=== PATIENT | male | born 1965 | race Caucasian/White ===

== ENCOUNTER 2017-07-08 17:53 | Emergency (ER) | payer MEDICARE, SELFPAY ==
[2017-07-08 17:54] VITALS: BP 144/93; PULSE 80; RESP 18; TEMP 36.3; O2SAT 93; BMI 36.8
--- NOTE | 2017-07-08 18:55 | RAD_ITS ---
XR Chest 2 Views INDICATION: SOB, SEEN AT URGENT CARE ON THURSDAY. DX WITH BRONCHITIS, CLOSE TO PNE. GIVEN ATB AND PREDNISONE. COUGHING UP GREEN AND BLOOD PHLEGM. C/O LUNG PAIN COMPARISON: None FINDINGS: Heart size and pulmonary vascularity are within normal limits. The lungs are clear without evidence of airspace consolidation or pleural effusion. The osseous structures are grossly unremarkable. RAD/Chest PA and Lateral IMPRESSION: No radiographic evidence of acute intrathoracic disease. at 1922 Reported and signed by: Yris Seth MD Electronically Signed: Yris Seth MD at 19:20 EDT Tel , Service support ,
[2017-07-08 19:07] VITALS: PULSE 80; RESP 20; O2SAT 94
[2017-07-08] MEDS: Albuterol 2.5 MG/3 ML VIAL.NEB. INHALATION ×3 (19:07)
[2017-07-08] MEDS: Ipratropium/Albuterol Sulfate 3 ML AMPUL.NEB INHALATION (19:07)
--- NOTE | 2017-07-08 19:13 | ED.VISSUMM ---
- ER Visit Summary Date of Service: 07/08/17 Chief Complaint: Cough, shortness of breath History of Present Illness: The patient is a 52 M history of asthma and bipolar disorder presents with cough and shortness of breath. Patient states his symptoms began over the weekend. He was having cough with productive sputum. He states he went to urgent care on Thursday morning. He states he was diagnosed with bronchitis. He was placed on prednisone and doxycycline. He feels like is not getting any better. He thinks he may still have fevers but has not taken his temperature. He has had persistent productive sputum. He denies any chest pain. He denies hemoptysis. He denies orthopnea. He denies any recent history of pneumonia. He has had no recent travel. He does smoke. Physical Examination: Vital signs reviewed General: Well-nourished, well-developed Head: Normocephalic, atraumatic Eyes: Pupils equal and reactive, extraocular muscles intact Neck, supple, no lymphadenopathy Heart: Regular rate and rhythm Respiratory: Wheezing in all lung correa Abdomen: Soft, nontender, nondistended, no peritoneal signs Back: Nontender Extremities: Nontender, no edema, no cords Skin: Normal color no rash Neuro: Alert and oriented, no focal or lateralizing deficits Test Results: [] Emergency Department Course and Treatment: The patient was given breathing treatments with improvement of his aeration. Chest x-ray is obtained. There is no focal infiltrate or process. He is not hypoxic. He is not tachypneic. I do still feel that this is more consistent with infectious bronchitis. I counseled the patient that this is going to take more time for him to improve. He will continue outpatient therapy. He will continue to use his inhaler every 4 hours for the next 48 hours. I will add Tessalon Perles. He will be discharged home. Treatment Plan: [] Disposition: Discharge Impression: Acute infectious bronchitis This note was generated with [employer] dictation software. It may contain incorrect words, spelling, and punctuation that were not noted in review of the chart prior to signing ED Disposition - Plan for ED Patient: Disposition: Home or Assisted Living Chief Complaint: Shortness of Breath Instructions: ED Upper Resp Infec Abx Tx Prescriptions: Benzonatate [Tessalon Perle] 200 mg PO TID PRN PRN #20 cap PRN Reason: Cough Referrals: Baldo Otto MD [Primary Care Provider] -
[2017-07-08 19:20] VITALS: PULSE 90; RESP 20; O2SAT 96
[2017-07-08 20:20] VITALS: RESP 20; O2SAT 98
== END 2017-07-08 20:21 | disposition home or self-care (01) ==
LOC: ED 18:59
PROVIDERS: Emergency Provider Emergency Medicine; Family Provider Family Medicine; PCP Family Medicine
DX: J20.8 Acute bronchitis due to other specified organisms (principal); R06.00 Dyspnea, unspecified; J45.909 Unspecified asthma, uncomplicated; F31.9 Bipolar disorder, unspecified; E78.00 Pure hypercholesterolemia, unspecified; Z79.82 Long term (current) use of aspirin; Z79.899 Other long term (current) drug therapy; Z72.0 Tobacco use
CPT/HCPCS: 71046; 94640; 99282

== ENCOUNTER 2017-09-17 22:03 | Emergency (ER) | payer MEDICARE, SELFPAY ==
[2017-09-17 22:05] VITALS: BP 133/86; PULSE 86; RESP 20; TEMP 36.6; O2SAT 98; BMI 37.1
--- NOTE | 2017-09-17 22:20 | RAD_ITS ---
STUDY: X-RAY CHEST REASON FOR EXAM: Male, 52 years old. Chest pain TECHNIQUE: Frontal view of the chest COMPARISON: 07/08/2017 FINDINGS: The lungs are clear. There are no pleural effusions. There is no pneumothorax. The heart is normal in size. The visualized osseous structures are within normal limits. RAD/Chest 1 View (Portable) IMPRESSION: No acute thoracic pathology. Electronically Signed: Pino Mabry, at 22:33 EDT Tel , Service support ,
--- NOTE | 2017-09-17 22:21 | EKG12_ITS ---
Test Reason : CP Blood Pressure : / mmHG Vent. Rate : 087 BPM Atrial Rate : 087 BPM P-R Int : 156 ms QRS Dur : 092 ms QT Int : 356 ms P-R-T Axes : 042 051 056 degrees QTc Int : 428 ms Normal sinus rhythm Low voltage QRS Borderline ECG Confirmed by JOHNATHON WILLS, JULISSA ([id number]), market editor NATALIA DEL CID ([id number] on 09/21/2017 3:04:00 PM Referred By: MIHAELA Confirmed By:JULISSA DIEGO MD
[2017-09-17] MEDS: Aspirin 81 MG TAB.CHEW 324 MG PO (22:28)
[2017-09-17] MEDS: Morphine 4 MG/ML Syringe IV (22:29)
[2017-09-17] MEDS: Ondansetron 4 MG/2 ML Vial IV (22:29)
[2017-09-17 22:35] LABS: Absolute Lymphocyte Count 2.17 X10^3/ul (0.83-4.51); Absolute Neutrophil Count 4.8 X10^3/uL (2.0-7.7); Basophil# 0.02 X10^3/uL; Basophil% 0.2 % (0-1); Eosinophil# 0.19 X10^3/uL; Eosinophils% 2.3 % (0-5); Hematocrit 39.2 % (40-54); Hemoglobin 12.7 g/dl (13.0-16.5); Lymphocyte # 2.17 X10^3/ul (4.0); Lymphocyte % 26.3 % (19-41); Mean Corp Hgb Conc 32.4 g/gl (32-36); Mean Corpuscular Hgb 27.1 pg (27.0-32.0); Mean Corpuscular Volume 83.8 fL (80-94); Mean Platelet Vol. 9.2 fl (6.2-12.0); Monocyte# 1.06 X10^3/uL; Monocyte% 12.8 % (0-10); Neutrophil % 58.3 % (47-70); Platelet Count 266 K/mm3 (150-450); RBC Distribution Width CV 13.9 % (11.6-14.6); RBC Distribution Width SD 42.1 fl (35.1-43.9); Red Blood Count 4.68 M/mm3 (4.6-6.2); White Blood Count 8.3 K/mm3 (4.4-11.0)
[2017-09-17 22:41] LABS: POSITIVE COUNT NO; POSITIVE DIFFERENTIAL NO; POSITIVE MORPHOLOGY NO
[2017-09-17 22:47] LABS: Anion Gap 8 (5-15); BUN 9 mg/dL (7-18); BUN/Creat Ratio 9.4 RATIO (10-20); Calcium,Total 8.6 mg/dL (8.5-10.1); Chloride 108 mmol/L (98-107); Creatinine, Serum 0.96 mg/dL (0.70-1.30); EST Glomerular Filtration Rate 88 mL/min (>60); Est Glom Filt Rate - Afr Amer 106 mL/min (>60); Estimated Creatinine Clearance 110.51 ml/min; Glucose 116 mg/dL (74-106); Potassium 3.6 mmol/L (3.5-5.1); Sodium Level 140 mmol/L (136-145)
[2017-09-17 23:07] VITALS: BP 119/74; PULSE 92; RESP 18; O2SAT 94
--- NOTE | 2017-09-17 23:26 | ED.DCSUM_ITS ---
- ER Visit Summary Date of Service: 09/17/17 Chief Complaint: Chest pain History of Present Illness: The patient is a 52 M presenting with chest pain which has been intermittent since 4:30 PM. This is a heaviness in the mid chest which radiates to his left shoulder and arm. He has diaphoresis, nausea, shortness of breath associated with this. He states it is worsened with exertion and relieved with rest. He has history of hypertension, diabetes, hypercholesterolemia. Previous DVT. No other PE/DVT risk factors. Physical Examination: Vitals are stable. Patient is afebrile. Alert no acute distress. HEENT exam is unremarkable. Neck is supple. Lungs are clear and equal bilaterally. Heart is regular rate and rhythm. Abdomen is soft nontender nondistended. Extremities are unremarkable. Skin is warm and dry. No focal neurologic deficit. Remainder of exam is unremarkable. Emergency Department Course and Treatment: EKG is normal sinus rhythm rate of 87 with no acute ischemic changes. Chest x-ray shows no acute process. CBC, chemistries unremarkable. Troponin is negative. D-dimer is negative. Patient given aspirin, morphine on arrival. Discussed with the hospitalist for observation. Records were further reviewed. Patient had a cardiac cath in January 2017 which showed normal coronaries. Delta troponin will be obtained and checked out to the oncoming physician. Disposition: Pending lab results Impression: Chest pain This note was generated with [employer] dictation software. It may contain incorrect words, spelling, and punctuation that were not noted in review of the chart prior to signing ED Disposition - Plan for ED Patient: Chief Complaint: Chest Pain Referrals: Baldo Otto MD [Primary Care Provider] -
--- NOTE | 2017-09-17 23:45 | ED.DEP ---
ED Disposition - Plan for ED Patient: Chief Complaint: Chest Pain Instructions: ED Chest Pain Atypical Unkn Cause Referrals: Baldo Otto MD [Primary Care Provider] - Asher Sierra MD [STAFF PHYSICIAN] -
[2017-09-18 00:05] VITALS: BP 136/82; PULSE 86; RESP 16; O2SAT 97
[2017-09-18 01:19] VITALS: BP 130/80; PULSE 76; RESP 16; O2SAT 96
[2017-09-18 02:04] VITALS: BP 119/79; PULSE 71; RESP 18; O2SAT 97
[2017-09-18 02:14] VITALS: BP 128/72; PULSE 87; RESP 16; O2SAT 97
== END 2017-09-18 02:15 | disposition home or self-care (01) ==
LOC: ED 22:52
PROVIDERS: Emergency Provider Emergency Medicine; Family Provider Family Medicine; PCP Family Medicine
DX: R07.9 Chest pain, unspecified (principal); R61 Generalized hyperhidrosis; R11.0 Nausea; R06.00 Dyspnea, unspecified; R42 Dizziness and giddiness; I25.10 Atherosclerotic heart disease of native coronary artery without angina pectoris; I25.2 Old myocardial infarction; E11.9 Type 2 diabetes mellitus without complications; I10 Essential (primary) hypertension; E78.00 Pure hypercholesterolemia, unspecified; Z86.718 Personal history of other venous thrombosis and embolism; Z79.82 Long term (current) use of aspirin; Z79.899 Other long term (current) drug therapy
CPT/HCPCS: 71045; 80048; 84484; 85025; 85379; 93005; 96374; 96375; 99285; A4216; J2405

== ENCOUNTER 2017-10-27 16:57 | Emergency (ER) | payer MEDICARE, SELFPAY ==
[2017-10-27 16:58] VITALS: BP 133/83; PULSE 81; RESP 18; TEMP 36.7; O2SAT 98; BMI 37.0
--- NOTE | 2017-10-27 18:00 | RAD_ITS ---
STUDY: X-RAY CHEST REASON FOR EXAM: Male, 52 years old. Chest pain TECHNIQUE: Frontal view of the chest COMPARISON: 09/17/2017 FINDINGS: The lungs are clear. There are no pleural effusions. There is no pneumothorax. The heart is normal in size. The visualized osseous structures are within normal limits. RAD/Chest 1 View (Portable) IMPRESSION: No acute thoracic pathology. Electronically Signed: Pino Mabry, at 18:46 EDT Tel , Service support ,
[2017-10-27] MEDS: 0.9% Normal Saline 1,000 ML 150 ML IV (18:05)
[2017-10-27] MEDS: Morphine 4 MG/ML Syringe IV (18:05)
[2017-10-27] MEDS: Ondansetron 4 MG/2 ML Vial IV (18:05)
[2017-10-27 18:08] VITALS: BP 101/75; PULSE 72; RESP 25; O2SAT 98
[2017-10-27 18:13] LABS: Absolute Lymphocyte Count 1.76 X10^3/ul (0.83-4.51); Absolute Neutrophil Count 4.5 X10^3/uL (2.0-7.7); Basophil# 0.02 X10^3/uL; Basophil% 0.3 % (0-1); Eosinophil# 0.21 X10^3/uL; Eosinophils% 2.9 % (0-5); Hematocrit 38.7 % (40-54); Hemoglobin 12.5 g/dl (13.0-16.5); Lymphocyte # 1.76 X10^3/ul (4.0); Lymphocyte % 24.1 % (19-41); Mean Corp Hgb Conc 32.3 g/gl (32-36); Mean Corpuscular Hgb 27.6 pg (27.0-32.0); Mean Corpuscular Volume 85.4 fL (80-94); Mean Platelet Vol. 9.5 fl (6.2-12.0); Monocyte# 0.81 X10^3/uL; Monocyte% 11.1 % (0-10); Neutrophil # 4.48 X10^3/uL (2.7-7.7); Neutrophil % 61.5 % (47-70); Platelet Count 247 K/mm3 (150-450); RBC Distribution Width CV 13.7 % (11.6-14.6); RBC Distribution Width SD 42.9 fl (35.1-43.9); Red Blood Count 4.53 M/mm3 (4.6-6.2); White Blood Count 7.3 K/mm3 (4.4-11.0)
[2017-10-27 18:18] LABS: POSITIVE COUNT NO; POSITIVE DIFFERENTIAL NO; POSITIVE MORPHOLOGY NO
[2017-10-27 18:25] LABS: Anion Gap 7 (5-15); BUN 11 mg/dL (7-18); BUN/Creat Ratio 10.8 RATIO (10-20); Calcium,Total 8.6 mg/dL (8.5-10.1); Chloride 107 mmol/L (98-107); Creatinine, Serum 1.02 mg/dL (0.70-1.30); EST Glomerular Filtration Rate 81 mL/min (>60); Est Glom Filt Rate - Afr Amer 98 mL/min (>60); Estimated Creatinine Clearance 104.01 ml/min; Glucose 97 mg/dL (74-106); Potassium 3.5 mmol/L (3.5-5.1); Sodium Level 141 mmol/L (136-145)
[2017-10-27 19:10] VITALS: BP 109/83; PULSE 73; RESP 20; O2SAT 98
[2017-10-27 20:02] VITALS: BP 106/73; PULSE 64; RESP 20; O2SAT 96
[2017-10-27 21:32] VITALS: BP 119/97; PULSE 67; RESP 16; O2SAT 99
--- NOTE | 2017-10-27 22:13 | ED.VISSUMM ---
- ER Visit Summary Date of Service: 10/27/17 Chief Complaint: Chest pain History of Present Illness: The patient is a 52 M who reports feeling cold and clammy earlier today. About 2 hours prior to evaluation he states he got tightness and heaviness in his left upper chest. He does take a full size aspirin every morning. Patient has a history of hypertension, diabetes, high cholesterol, and family history of heart disease. He tells me he had a heart attack in 1991. He does not have any heart stents. Patient reportedly had an abnormal stress test in January of last year but had a heart cath that showed clean coronaries. Patient was seen for the same on September 17. Physical Examination: Vital signs are unremarkable. Patient sitting upright in bed no acute distress. Head neck examination is normal. Heart is regular rate and rhythm. Lung sounds are clear. Chest wall is nontender. Abdomen is soft and nontender. Lower extremity examination was no significant calf tenderness. Strong distal pulses are noted throughout. Test Results: CBC was normal white count with hemoglobin 12.5. Chemistry studies normal. Troponin is negative. EKG is sinus at 79 with no sign of acute ischemia. Portable chest x-ray shows no acute pathology. Emergency Department Course and Treatment: Patient was given a single dose of morphine and Zofran here. On repeat evaluation he feels improved. I spoke with the patient's railroad design consultant, Dr. Bam Sierra. He recommended 3 hour rule out and if negative he can follow-up in the office. Repeat troponin remains less than 0.015 and repeat EKG is unchanged. Treatment Plan: [] Disposition: Discharge Impression: Chest pain This note was generated with [employer] dictation software. It may contain incorrect words, spelling, and punctuation that were not noted in review of the chart prior to signing ED Disposition - Plan for ED Patient: Chief Complaint: Chest Pain Referrals: Baldo Otto MD [Primary Care Provider] -
--- NOTE | 2017-10-27 22:15 | ED.DEP ---
ED Disposition - Plan for ED Patient: Disposition: Home or Assisted Living Chief Complaint: Chest Pain Instructions: ED Chest Pain Atypical Unkn Cause Referrals: Asher Sierra MD [STAFF PHYSICIAN] - As soon as possible
[2017-10-27 22:26] VITALS: BP 111/75; PULSE 77; RESP 16; O2SAT 97
== END 2017-10-27 22:27 | disposition home or self-care (01) ==
PROVIDERS: Emergency Provider Emergency Medicine; Family Provider Family Medicine; PCP Family Medicine
DX: R07.89 Other chest pain (principal); R06.00 Dyspnea, unspecified; R61 Generalized hyperhidrosis; I25.2 Old myocardial infarction; E11.9 Type 2 diabetes mellitus without complications; I10 Essential (primary) hypertension; E78.00 Pure hypercholesterolemia, unspecified; F31.9 Bipolar disorder, unspecified; F20.9 Schizophrenia, unspecified; Z87.19 Personal history of other diseases of the digestive system; Z87.11 Personal history of peptic ulcer disease; Z79.82 Long term (current) use of aspirin; Z79.899 Other long term (current) drug therapy
CPT/HCPCS: 71045; 80048; 84484; 85025; 93005; 96361; 96374; 96375; 99284; J7030; A4216; J2405

== ENCOUNTER 2017-11-05 19:51 | Observation (INO) | payer MEDICARE, SELFPAY ==
[2017-11-05] VITALS (15 sets, daily range): BP systolic 115–142; BP diastolic 72–103; PULSE 77–88; RESP 14–27; TEMP 36.7–36.8; O2SAT 94–99; BMI 37.2; BMI 36.3; BMI 36.4
--- NOTE | 2017-11-05 20:13 | ED.RN ---
PT REPORTS SX STARTED APPROX. 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 THIS RN SPOKE WITH DR. RODRIGUEZ ABOUT PT SX.
--- NOTE | 2017-11-05 20:23 | ED.RN ---
neurology paged at this time
[2017-11-05 20:29] LABS: Absolute Lymphocyte Count 2.23 X10^3/ul (0.83-4.51); Absolute Neutrophil Count 4.7 X10^3/uL (2.0-7.7); Basophil# 0.02 X10^3/uL; Basophil% 0.2 % (0-1); Eosinophil# 0.24 X10^3/uL; Hematocrit 40.7 % (40-54); Hemoglobin 13.1 g/dl (13.0-16.5); Lymphocyte # 2.23 X10^3/ul (4.0); Lymphocyte % 27.5 % (19-41); Mean Corp Hgb Conc 32.2 g/gl (32-36); Mean Corpuscular Hgb 27.5 pg (27.0-32.0); Mean Corpuscular Volume 85.3 fL (80-94); Mean Platelet Vol. 9.3 fl (6.2-12.0); Monocyte# 0.89 X10^3/uL; Neutrophil % 58.1 % (47-70); Platelet Count 259 K/mm3 (150-450); RBC Distribution Width CV 13.6 % (11.6-14.6); Red Blood Count 4.77 M/mm3 (4.6-6.2); White Blood Count 8.1 K/mm3 (4.4-11.0)
[2017-11-05 20:30] LABS: POSITIVE COUNT NO; POSITIVE DIFFERENTIAL NO; POSITIVE MORPHOLOGY NO
[2017-11-05 20:32] LABS: Partial Thromboplast Time 29.2 Seconds (24.1-36.2); Prothrombin Time (Protime)PT. 12.8 SECONDS (11.7-14.9)
[2017-11-05 20:44] LABS: Anion Gap 6 (5-15); BUN 11 mg/dL (7-18); BUN/Creat Ratio 10.2 RATIO (10-20); Calcium,Total 8.7 mg/dL (8.5-10.1); Chloride 106 mmol/L (98-107); Creatinine, Serum 1.08 mg/dL (0.70-1.30); EST Glomerular Filtration Rate 76 mL/min (>60); Est Glom Filt Rate - Afr Amer 92 mL/min (>60); Estimated Creatinine Clearance 98.23 ml/min; Glucose 108 mg/dL (74-106); Sodium Level 139 mmol/L (136-145)
[2017-11-05 20:51] LABS: Bedside Glucose 105 mg/dL (70-110)
--- NOTE | 2017-11-05 22:10 | ED.VISSUMM ---
- ER Visit Summary Date of Service: 11/05/17 Chief Complaint: [Numbness to left side of face and slurred speech] History of Present Illness: The patient is a 52 M [presents the emergency department with complaint of numbness of the left side of his face and slurred speech. Patient states the numbness started about an hour ago and the slurred speech about half an hour ago. Patient also complains of some pain in his left arm. Patient denies any neck pain. He denies any falls or head injuries. He denies any weakness in the extremities. He denies any dizziness or visual changes. Patient has not had symptoms like this before. Patient is a diabetic and has history of hypertension and high cholesterol.] Physical Examination: [HEENT-PERRLA, EOMI. Cranial nerves II through XII grossly intact. TMs clear. Mucous membranes moist. No adenopathy. Cardiovascular-regular rate and rhythm without murmur or ectopy Lungs-clear to auscultation, chest wall stable without crepitus or subcu emphysema Abdomen-normoactive bowel sounds, soft, nontender, no rebound or rigidity, no peritoneal signs. Neuro [id number] and heel higgins testing within normal limits, negative Romberg, negative pronator, fundi benign. On exam patient sensation to left side of his space has normalized. His NIH stroke scale initially was a 2 given for some mild dysarthria and paresthesias the left side of the face. Extremities-intact ?4, normal range of motion, normal pulses, atraumatic] Test Results: [EKG obtained on arrival shows sinus rhythm with a ventricular rate of 84 bpm with no acute ST segment changes. CBC with differential was normal. Chemistries unremarkable. Troponin was less than 0.015. CT scan of the brain without contrast was normal. CTA of the head and neck were unremarkable.] Emergency Department Course and Treatment: [On presentation a stroke team was called however patient was not a TPA candidate due to the low NIH and improving symptoms. On repeat examination at 2210 patient states that his symptoms have normalized and he no longer has slurred speech.] Treatment Plan: [Admit for further workup and evaluation of suspected TIA] Disposition: [Admit] Impression: [TIA] This note was generated with [employer] dictation software. It may contain incorrect words, spelling, and punctuation that were not noted in review of the chart prior to signing ED Disposition - Plan for ED Patient: Chief Complaint: Numb/Ting Referrals: Baldo Otto MD [Primary Care Provider] -
--- NOTE | 2017-11-05 22:14 | PCM.HP.STD ---
Problem List (1) Stroke-like symptoms Status: Acute (2) Bipolar disorder Status: Chronic (3) HTN (hypertension) Status: Chronic (4) Schizophrenia Status: Chronic (5) Atrial fibrillation Status: Chronic History of Present Illness Date of Admission: 11/05/17 Chief Complaint: Strokelike symptoms. The patient is a 52 year old M diabetes mellitus, hypertension, hyperlipidemia and chronic A. fib who presents with left-sided facial numbness and left arm heaviness as well as slurry speech 1 hour before arrival at the emergency department. At emergency department his left-sided facial numbness and left heaviness resolved. And his slurry speech improved. CT of his head; and CTA of his neck and head done at emergency department was unremarkable. Past Medical History Past Medical History (Chronic Problems): Chronic Problems History of DVT (deep vein thrombosis) (Chronic) Bipolar disorder (Chronic) HTN (hypertension) (Chronic) DM type 2 (diabetes mellitus, type 2) (Chronic) Esophageal reflux (Chronic) HLD (hyperlipidemia) (Chronic) Migraine (Chronic) Obesity (Chronic) Obstructive sleep apnea of adult (Chronic) Schizophrenia (Chronic) Atrial fibrillation (Chronic) Hx of cardiac cath (Chronic) 2003 History of GI bleed (Chronic) Peptic ulcer disease (Chronic) Allergies enalapril maleate [From Vasotec] Allergy (Verified 11/05/17 19:54) Hives enalaprilat dihydrate [From Vasotec] Allergy (Verified 11/05/17 19:54) Hives naproxen [From Naprosyn] Allergy (Verified 11/05/17 19:54) Hives Sulfa (Sulfonamide Antibiotics) Allergy (Verified 11/05/17 19:54) Hives risperidone [From Risperdal] Adverse Reaction (Verified 11/05/17 19:54) HALLUCINATIONS Home Medications: Ambulatory Orders Medication Instructions Recorded Albuterol Inhaler [Ventolin Hfa] 1 - 2 puff INHALATION Q4H PRN PRN 06/14/14 Losartan Potassium [Cozaar] 25 mg PO DAILY 06/14/14 Metoprolol Tartrate [Lopressor 100 mg PO BID 06/14/14 (beta yolanda)] Montelukast [Singulair] 10 mg PO QHS 06/14/14 Omeprazole [Prilosec] 40 mg PO DAILY 06/14/14 Paliperidone Palmitate [Invega 234 mg IM Q30D 09/13/16 [place]] Loratadine [Claritin] 10 mg PO QHS 02/05/17 Cyclobenzaprine [Flexeril] 10 mg PO TID PRN PRN 02/17/17 Fluticasone 0.05% [Flonase Nasal 2 spray NASAL DAILY 10/27/17 [place]] Aspirin 325 mg PO DAILY@0800 11/05/17 Atorvastatin Calcium [Lipitor] 20 mg PO QHS 11/05/17 Diphenhydramine HCl [Benadryl 50 mg PO QHS 11/05/17 Allergy] Furosemide [Lasix] 20 mg PO DAILY 11/05/17 Omeprazole [Omeprazole] 40 mg PO BID 11/05/17 Surgical History: appendectomy, cholecystectomy, herniorrhaphy, tonsillectomy Lives: With Family Smoking Status: Former smoker - He smoked 1 pack cigarette for 1 month many years ago and quit. Tobacco Use: Non-smoker Alcohol: None Drugs: None - *Family History Maternal History Items: Asthma, Diabetes, Heart Disease, Hypertension, Stroke Paternal History Items: Cancer Review of Systems Constitutional: Denies: Chills, Fever, Weight Change HEENT: Denies: Head Aches, Sinus Congestion, Sinus Drainage, Visual Changes Cardiovascular: Denies: Chest Pain, Light Headedness, Palpitations Respiratory: Denies: Cough, Shortness of breath at rest, Sputum production Gastrointestinal: Denies: Abdominal Pain, Nausea, Vomiting Genitourinary: Denies: Dysuria Musculoskeletal: Denies: Joint Pain, Joint Tenderness Skin: Denies: Rash, Wounds Neurological: Reports: Slurred speech. Denies: Focal weakness, Numbness, Tingling Psychiatric: Denies: Anxiety, Depression, Homicidal Ideations, Suicidal Ideations Hematologic/ Lymphatic: Denies: Easy Bruising, Easy Bleeding VTE Information - Inpt Only VTE Present on Admission: No VTE Mechan Device Prophylaxis: None VTE Pharm Prophylaxis ordered?: Yes Patient Problems: Active and Suspected Problems Stroke-like symptoms (Acute) - Physical Exam General: Alert, Oriented x3, Cooperative HEENT: Atraumatic, PERRLA, EOMI, Normocephalic Neck: Supple, No JVD, Negative Carotid Bruits Lungs: Clear to auscultation, Normal air movement Cardiovascular: Regular rate, No murmurs Abdomen: Bowel Sounds Present, Soft, Non Tender Extremities: No edema, Capillary Refill Less than 3 Seconds Skin: No rashes, No breakdown Musculoskeletal: No Tenderness to Palpation of Joints or Extremities Neurological: - - Patient noted to have some slurred speech. The patient stated that at baseline he has some slurry speech and although he had increased slurry speech on the day of admission it has considerably improved. Psych/Mental Status: Normal Affect, Appropriate Vital Signs Temp Pulse Resp BP Pulse Ox 98.3 F 88 20 H 132/83 H 97 11/05/17 19:52 11/05/17 21:21 11/05/17 21:21 11/05/17 21:21 11/05/17 21:21 Oxygen Flow Rate (L/min) 2 Oxygen Delivery Method Nasal Cannula Weight: 138.7 kg Body Mass Index (BMI) 37.2 Finger Stick Blood Glucose 105 Laboratory Tests Past 24 Hrs 11/05/17 11/05/17 11/05/17 20:11 20:11 20:11 WBC 8.1 RBC 4.77 Hgb 13.1 Hct 40.7 MCV 85.3 MCH 27.5 MCHC 32.2 RDW 13.6 RDW Differential 42.0 Plt Count 259 MPV 9.3 Immature Gran % (Auto) 0.200 Neut % (Auto) 58.1 Lymph % (Auto) 27.5 Toole % (Auto) 11.0 H Eos % (Auto) 3.0 Baso % (Auto) 0.2 Absolute Neuts (auto) 4.7 Absolute Lymphs (auto) 2.23 Total Counted Not Reportable PT 12.8 INR 1.0 APTT 29.2 Sodium 139 Potassium 4.0 Chloride 106 Carbon Dioxide 27.0 Anion Gap 6 BUN 11 Creatinine 1.08 Estim Creat Clear Calc 98.23 Est GFR (MDRD) Af Amer 92 Est GFR (MDRD) Non-Af 76 BUN/Creatinine Ratio 10.2 Glucose 108 H Calcium 8.7 Troponin I < 0.015 POC Glucose 11/05/17 20:39 POC Glucose 105 Assessment/Plan All Active Problems Stroke-like symptoms (Acute) Abnormal cardiovascular stress test (Acute) Abnormal cardiovascular stress test (Acute) Angina pectoris (Acute) The patient is a 52 year old M diabetes mellitus, hypertension, hyperlipidemia and chronic A. fib who presents with left-sided facial numbness and left arm heaviness as well as slurry speech concerning for TIA or evolving stroke. Strokelike symptoms Blood glucose on admit was 116. Telemetry monitoring. CT/CTA head and neck unremarkable so far MRI brain ordered Echocardiogram ordered. At Home patient takes Lipitor 20 mg every night. His Lipitor dose has been increased to 80 mg every night starting on the day of admission. At Home patient takes aspirin 325 mg daily; aspirin continued Home blood pressure medications- Cozaar, metoprolol-held at this time for permissive hypertension. Labetalol as needed systolic blood pressure more than 220 or diastolic blood pressure more than 120 PT/OT/ST therapy. Neurology consult. Diabetes Not on any blood glucose regimen. Accu-Chek q. before meals at bedtime. Schizophrenia and bipolar Patient takes Invega. Patient took last Invega 4 days before presentation. A. fib Previous problem list indicates chronic A. fib. However patient is not on any anticoagulation at this time. Recommend further conversation with patient and possibly loop recorder if no documented proof of A. fib. Currently patient is sinus on monitor. DVT prophylaxis Subcutaneous heparin. Code Visit OBSV E&M: 22522 Initial observation care L3
--- NOTE | 2017-11-05 23:04 | NURSING ---
NIH per ED nurse was 0 prior to arriving on unit. ED RN stated pt passed dysphagia screen in ED.
[2017-11-05] MEDS: DiphenhydrAMINE 25 MG Capsule 50 MG PO (23:25)
[2017-11-05 23:36] LABS: Bedside Glucose 116 mg/dL (70-110)
[2017-11-06] VITALS (8 sets, daily range): BP systolic 121–127; BP diastolic 76–80; PULSE 74–130; RESP 16–20; TEMP 36.4–37; O2SAT 92–96; BMI 36.3
[2017-11-06 06:31] LABS: Anion Gap 8 (5-15); BUN 11 mg/dL (7-18); BUN/Creat Ratio 10.8 RATIO (10-20); Calcium,Total 8.4 mg/dL (8.5-10.1); Chloride 105 mmol/L (98-107); Cholesterol 92 mg/dL (200); Creatinine, Serum 1.02 mg/dL (0.70-1.30); EST Glomerular Filtration Rate 81 mL/min (>60); Est Glom Filt Rate - Afr Amer 98 mL/min (>60); Estimated Creatinine Clearance 104.01 ml/min; Glucose 96 mg/dL (74-106); High Density Lipoprotein 30 mg/dL; Sodium Level 140 mmol/L (136-145); Triglycerides 160 mg/dL; Very Low Density Lipoprotein 32 mg/dL (5-40)
[2017-11-06] MEDS: Heparin Injection (Vial) 5,000 UNIT/ML VIAL 5000 UNIT SC (06:59)
--- NOTE | 2017-11-06 07:29 | PCM.PN.HOSP ---
Subjective: Patient was seen and examined. No new complains. He feels well. No more numbness of face or extremities. Telemetry shows NSR Vitals/I&O's: Vital Signs Temp Pulse Resp BP Pulse Ox 97.5 F L 78 16 126/78 H 96 11/06/17 06:55 11/06/17 06:55 11/06/17 06:55 11/06/17 06:55 11/06/17 06:55 Oxygen Delivery Method Room Air Weight: 135.5 kg Body Mass Index (BMI) 36.3 Intake and Output for Last 24 Hours 11/04/17 11/05/17 11/06/17 23:59 23:59 23:59 Intake Total 0 / 0 Balance 0 / 0 General: Alert, Oriented x3, Cooperative HEENT: Atraumatic, PERRLA, EOMI, Normocephalic Oral: Moist Mucosa Neck: Supple Lungs: Clear to auscultation, Normal air movement Cardiovascular: Regular rate, No murmurs Abdomen: Bowel Sounds Present, Soft, Non Tender, Non-Distended, No Hepato-splenomegaly Extremities: No edema Skin: No rashes, No breakdown Musculoskeletal: No Tenderness to Palpation of Joints or Extremities Lymphatic: No Cervical, Supraclavicular, or Inguinal Adenopathy Neurological: Cranial nerves II-XII grossly intact Psych/Mental Status: Normal Affect, Appropriate Laboratory Results 11/05/17 23:17: Troponin I < 0.015 11/05/17 23:24: POC Glucose 116 H 11/06/17 05:35: Sodium 140, Potassium 4.0, Chloride 105, Carbon Dioxide 27.0, Anion Gap 8, BUN 11, Creatinine 1.02, Estim Creat Clear Calc 104.01, Est GFR (MDRD) Af Amer 98, Est GFR (MDRD) Non-Af 81, BUN/Creatinine Ratio 10.8, Glucose 96, Calcium 8.4 L, Triglycerides 160, Cholesterol 92, LDL Cholesterol 30, VLDL Cholesterol 32, HDL Cholesterol 30 L Current Medications Albuterol Sulfate (Ventolin Aerosols) 2.5 mg INHALATION Q4H PRN PRN PRN Reason: SOB &/OR WHEEZING Aspirin (Aspirin) 325 mg PO DAILY@0800 [facility] Atorvastatin Calcium (Lipitor) 80 mg PO QHS [facility] Cyclobenzaprine HCl (Flexeril) 10 mg PO TID PRN PRN PRN Reason: MUSCLE SPASM Diphenhydramine HCl (Benadryl) 50 mg PO QHS [facility] Last Admin: 11/05/17 23:25 Dose: 50 mg Fluticasone Propionate (Flonase Nasal [place]) 2 spray NASAL DAILY [facility] Furosemide (Lasix) 20 mg PO DAILY [facility] Heparin Sodium (Porcine) (Heparin Na) 5,000 unit SC Q8 [facility] Last Admin: 11/06/17 06:59 Dose: 5,000 unit Labetalol HCl (Trandate) 10 mg IV Q10M PRN PRN Reason: MAINTAIN SBP GOALS Stop: 11/06/17 22:50 Loratadine (Claritin) 10 mg PO QHS [facility] Magnesium Hydroxide (Milk Of Magnesia) 30 ml PO DAILY PRN PRN Reason: Constipation Montelukast Sodium (Singulair) 10 mg PO QHS [facility] Pantoprazole Sodium (Protonix) 40 mg PO BID [facility] Sodium Chloride () 5 - 30 ml IV UD PRN PRN Reason: SALINE FLUSH Medical Necessity - Tobacco Use Smoking Status: Former smoker - He smoked 1 pack cigarette for 1 month many years ago and quit. Tobacco Use: Non-smoker Assessment/Plan All Active Problems Stroke-like symptoms (Acute) TIA (transient ischemic attack) (Acute) Abnormal cardiovascular stress test (Acute) Abnormal cardiovascular stress test (Acute) Angina pectoris (Acute) 52 year old M with PMHx of DM, type 2 diet controlled, hypertension, hyperlipidemia and chronic A. fib who was admitted with left-sided facial numbness and left arm heaviness as well as slurry speech. 1. Left sided numbness secondary to TIA MRI brain was negative. CTA head and nexk is negative 2d-echo was unremarkable, his home Lipitor increased to 80mg daily, aspirin, plavix Neurology consulted. 2. Hypertension, controlled, on home regimen 3. h/o Paroxysmal A. fib, in NSR, no acute events on telemetry 4. Type 2 DM, diet controlled 5. Schizoaffective disorder 6. DVT PPx- Heparin SC Code Visit Inpatient E&M: 10717 Subs Hosp L2
[2017-11-06] MEDS: Pantoprazole Sodium 40 MG Tablet PO (08:07)
[2017-11-06] MEDS: Furosemide 20 MG Tablet PO (10:35)
[2017-11-06] MEDS: Fluticasone 0.05% 1 SPRAY NASAL.SRY 2 SPRAY NASAL (10:36)
--- NOTE | 2017-11-06 10:47 | PCM.CONS.GEN ---
Problem List (1) TIA (transient ischemic attack) Status: Acute Reason for Consult Date of Consultation: 11/06/17 Reason for Consultation: TIA History of Present Illness: The patient is a 52 year old CM with PMH HTN, HLD, DM, H/O DVT, THIAGO not on CPAP, CAD, Bipolar d/o, schizophrenia, ? H/O Afib not on AC admitted with slurred speech and left facial numbness/left arm heaviness. Per patient his symptoms started suddenly yesterday (11/05/17) at 6 PM, lasted for about 2 hrs before improving. At present he denies any MOSS, visual disturbances, chest pain, focal motor weakness or sensory loss. Per ED documentation his NIHSS was 2 on admission, was not tpa candidate due to low NIHSS with improving symptoms. MRI brain done on admission was reported nothing acute, CTA head/neck did not show any hemodynamically significant stenosis or occlusion. [] Past Medical History Past Medical History (Chronic Problems): Chronic Problems History of DVT (deep vein thrombosis) (Chronic) Bipolar disorder (Chronic) HTN (hypertension) (Chronic) DM type 2 (diabetes mellitus, type 2) (Chronic) Esophageal reflux (Chronic) HLD (hyperlipidemia) (Chronic) Migraine (Chronic) Obesity (Chronic) Obstructive sleep apnea of adult (Chronic) Schizophrenia (Chronic) Atrial fibrillation (Chronic) Hx of cardiac cath (Chronic) 2003 History of GI bleed (Chronic) Peptic ulcer disease (Chronic) Allergies enalapril maleate [From Vasotec] Allergy (Verified 11/05/17 19:54) Hives enalaprilat dihydrate [From Vasotec] Allergy (Verified 11/05/17 19:54) Hives naproxen [From Naprosyn] Allergy (Verified 11/05/17 19:54) Hives Sulfa (Sulfonamide Antibiotics) Allergy (Verified 11/05/17 19:54) Hives risperidone [From Risperdal] Adverse Reaction (Verified 11/05/17 19:54) HALLUCINATIONS Home Medications: Ambulatory Orders Medication Instructions Recorded Albuterol Inhaler [Ventolin Hfa] 1 - 2 puff INHALATION Q4H PRN PRN 06/14/14 Losartan Potassium [Cozaar] 25 mg PO DAILY 06/14/14 Metoprolol Tartrate [Lopressor 100 mg PO BID 06/14/14 (beta yolanda)] Montelukast [Singulair] 10 mg PO QHS 06/14/14 Omeprazole [Prilosec] 40 mg PO DAILY 06/14/14 Paliperidone Palmitate [Invega 234 mg IM Q30D 09/13/16 Sustenna] Loratadine [Claritin] 10 mg PO QHS 02/05/17 Cyclobenzaprine [Flexeril] 10 mg PO TID PRN PRN 02/17/17 Fluticasone 0.05% [Flonase Nasal 2 spray NASAL DAILY 10/27/17 [place]] Aspirin 325 mg PO DAILY@0800 11/05/17 Atorvastatin Calcium [Lipitor] 20 mg PO QHS 11/05/17 Diphenhydramine HCl [Benadryl 50 mg PO QHS 11/05/17 Allergy] Furosemide [Lasix] 20 mg PO DAILY 11/05/17 Omeprazole [Omeprazole] 40 mg PO BID 11/05/17 Surgical History: appendectomy, cholecystectomy, herniorrhaphy, tonsillectomy Lives: With Family Smoking Status: Former smoker - He smoked 1 pack cigarette for 1 month many years ago and quit. Tobacco Use: Non-smoker Alcohol: None Drugs: None - *Family History Maternal History Items: Asthma, Diabetes, Heart Disease, Hypertension, Stroke Paternal History Items: Cancer Review of Systems Constitutional: Reports: - - complete ROS negative except as documented in HPI Patient Problems: Active and Suspected Problems Stroke-like symptoms (Acute) TIA (transient ischemic attack) (Acute) - Physical Exam General: Alert HEENT: Normocephalic Neck: Supple Lungs: Normal air movement Cardiovascular: Normal S1, Normal S2 Abdomen: Bowel Sounds Present Extremities: No cyanosis Skin: No rashes Musculoskeletal: No Tenderness to Palpation of Joints or Extremities Neurological: - - consious, alert, AoAx3, CN 2-12 grossly intact, power 5/5 all 4 extremities, no sensory loss, no cerebellar signs, Reflexes + B/L B/S/T/K/A, gait deferred, NIHSS 0 at present, mRS 0 Vital Signs Temp Pulse Resp BP Pulse Ox 98.6 F 87 18 127/80 H 94 11/06/17 10:32 11/06/17 10:32 11/06/17 10:32 11/06/17 10:32 08/17/18 10:32 Oxygen Delivery Method Room Air Weight: 135.5 kg Body Mass Index (BMI) 36.3 Intake and Output for Last 24 Hours 11/04/17 11/05/17 11/06/17 23:59 23:59 23:59 Intake Total 0 / 0 Balance 0 / 0 Laboratory Tests Past 24 Hrs 11/05/17 11/06/17 23:17 05:35 Sodium 140 Potassium 4.0 Chloride 105 Carbon Dioxide 27.0 Anion Gap 8 BUN 11 Creatinine 1.02 Estim Creat Clear Calc 104.01 Est GFR (MDRD) Af Amer 98 Est GFR (MDRD) Non-Af 81 BUN/Creatinine Ratio 10.8 Glucose 96 Calcium 8.4 L Troponin I < 0.015 Triglycerides 160 Cholesterol 92 LDL Cholesterol 30 VLDL Cholesterol 32 HDL Cholesterol 30 L POC Glucose 11/05/17 23:24 POC Glucose 116 H Assessment/Plan All Active Problems Stroke-like symptoms (Acute) TIA (transient ischemic attack) (Acute) Abnormal cardiovascular stress test (Acute) Abnormal cardiovascular stress test (Acute) Angina pectoris (Acute) The patient is a 52 year old CM with PMH HTN, HLD, DM, H/O DVT, THIAGO not on CPAP, CAD, Bipolar d/o, schizophrenia, ? H/O Afib not on AC admitted with slurred speech and left facial numbness/left arm heaviness. Per patient his symptoms started suddenly yesterday (11/05/17) at 6 PM, lasted for about 2 hrs before improving. At present he denies any MOSS, visual disturbances, chest pain, focal motor weakness or sensory loss. Per ED documentation his NIHSS was 2 on admission, was not tpa candidate due to low NIHSS with improving symptoms. MRI brain done on admission was reported nothing acute, CTA head/neck did not show any hemodynamically significant stenosis or occlusion. Impression Possible TIA Plan -On ASA. Start Plavix 75 mg PO once daily, dual AP for 3 weeks, then switch to single AP. Bleeding risks discussed in detail -Lipitor 80 mg PO q hs. -MRI brain and CTA head/neck images reviewed -H/O Afib is not clear, has been in sinus rhythm since admission. Recommend 30 day event recorder and Cardiology consult. If Afib is identified then he may need to be on AC with Eliquis. Will defer to Cardiology/primary team. -Await TTE and Hba1c -LDL-30 -Fall precautions -Further medical management per primary team. -PT/OT -GI/DVT prophylaxis -Follow up with Neurology as outpatient in 2 weeks -Please call with questions if any -Thank you for allowing us to participate in patient's care and management I spent 60 minutes taking history, doing physical examination, reviewing medical records,coordinating care and counseling the patient. Code Visit Inpatient E&M: 57429 Init Hosp L3
[2017-11-06] MEDS: Clopidogrel Bisulfate 75 MG Tablet PO (11:13)
[2017-11-06] MEDS: Aspirin 81 MG TAB.CHEW PO (11:13)
[2017-11-06 11:21] LABS: Bedside Glucose 109 mg/dL (70-110)
[2017-11-06 11:26] LABS: Bedside Glucose 173 mg/dL (70-110)
--- NOTE | 2017-11-06 11:32 | PCM.DC ---
- Discharge Diagnoses Current Active Problems: Current Active and Chronic Problems Stroke-like symptoms (Acute) TIA (transient ischemic attack) (Acute) Reason(s) for Visit for Discharge Instructions: Left sided facial numbness and weakness You will use the following diet at home:: Calorie/Carbohydrate Controlled (specify 1200, 1400, etc), Cardiac Your food should be the consistency of: Regular Your liquids should be the consistency of: Regular/Thin Discharge Activity: Return to Normal Activity Additional Instructions: Continue to follow a heart healthy, diabetic diet. Note changes to your medications. You will be discharged home with a 30 day event monitor. You will need to follow-up with the neurologist, corrections caseworker and your PCP. Allergies/Adverse Reactions: Allergies enalapril maleate [From Vasotec] Allergy (Verified 11/05/17 19:54) Hives enalaprilat dihydrate [From Vasotec] Allergy (Verified 11/05/17 19:54) Hives naproxen [From Naprosyn] Allergy (Verified 11/05/17 19:54) Hives Sulfa (Sulfonamide Antibiotics) Allergy (Verified 11/05/17 19:54) Hives risperidone [From Risperdal] Adverse Reaction (Verified 11/05/17 19:54) HALLUCINATIONS Medications to take at Discharge Albuterol Inhaler [Ventolin Hfa] 1 - 2 puff INHALATION Q4H PRN PRN 06/14/14 Losartan Potassium [Cozaar] 25 mg PO DAILY 06/14/14 Metoprolol Tartrate [Lopressor (beta yolanda)] 100 mg PO BID 06/14/14 Montelukast [Singulair] 10 mg PO QHS 06/14/14 Omeprazole [Prilosec] 40 mg PO DAILY 06/14/14 Paliperidone Palmitate [Invega Sustenna] 234 mg IM Q30D 09/13/16 Loratadine [Claritin] 10 mg PO QHS 02/05/17 Cyclobenzaprine [Flexeril] 10 mg PO TID PRN PRN 02/17/17 Fluticasone 0.05% [Flonase Nasal [place]] 2 spray NASAL DAILY 10/27/17 Diphenhydramine HCl [Benadryl Allergy] 50 mg PO QHS 11/05/17 Furosemide [Lasix] 20 mg PO DAILY 11/05/17 Omeprazole 40 mg PO BID 11/05/17 Aspirin [Aspirin, Baby] 81 mg PO DAILY@0800 #30 tab.chew 11/06/17 Atorvastatin Calcium [Lipitor] 80 mg PO QHS #30 tab 11/06/17 Clopidogrel Bisulfate [Plavix] 75 mg PO DAILY #30 tab 11/06/17 The following prescriptions were given: Aspirin [Aspirin, Baby] 81 mg PO DAILY@0800 #30 tab.chew Atorvastatin Calcium [Lipitor] 80 mg PO QHS #30 tab Clopidogrel Bisulfate [Plavix] 75 mg PO DAILY #30 tab Orders to be completed after discharge: 30-Day Event Recorder [[facility]] Location: None Selected Primary Care Physician: Baldo Otto MD [Primary Care Provider] - Please follow up with your Primary Care Physician in: within 2 weeks Test Results: Test results from this visit will be discussed in further detail at your follow-up appointment, if applicable. Please Follow Up With: Asher Sierra MD When: within 2 weeks Please Follow Up With: Abdirahman Hopkins MD When: in 2 weeks Proposed Discharge Date: 11/06/17
--- NOTE | 2017-11-06 11:35 | DS.PCM_ITS ---
Discharge Date and Diagnosis Date of Admission: 11/05/17 Date of Discharge: 11/06/17 - Primary Discharge Diagnosis Active and Suspected Problems Stroke-like symptoms (Acute) TIA (transient ischemic attack) (Acute) - Secondary Discharge Diagnosis Chronic Problems History of DVT (deep vein thrombosis) (Chronic) Bipolar disorder (Chronic) HTN (hypertension) (Chronic) DM type 2 (diabetes mellitus, type 2) (Chronic) Esophageal reflux (Chronic) HLD (hyperlipidemia) (Chronic) Migraine (Chronic) Obesity (Chronic) Obstructive sleep apnea of adult (Chronic) Schizophrenia (Chronic) Atrial fibrillation (Chronic) Hx of cardiac cath (Chronic) 2003 History of GI bleed (Chronic) Peptic ulcer disease (Chronic) Hospital Course and Treatment Imaging Results: Clinical Impression(s) from Imaging Studies Brain CT 11/05/17 20:21 IMPRESSION: Normal unenhanced CT scan of the brain. N.B. : The above information has been verbally conveyed by Bobo Sow DO to Levi Romero, Referring Physician, on 11/05/2017 20:51:11 (ET). Electronically Signed: Bobo Sow DO at 20:45 EDT Tel [phone], Service support , Head CTA 11/05/17 20:21 IMPRESSION: There is no demonstrated aneurysm or hemodynamically significant stenosis. Electronically Signed: Haritha Frankel MD at 21:42 EDT Tel Direct: [phone], Service support , Neck CTA 11/05/17 20:21 IMPRESSION: There is no significant vascular disease in the cervical carotid arteries or vertebral arteries. There is opacification of the left mastoid air cells which is nonspecific but can be seen with chronic mastoiditis. No abnormalities are seen in the nasopharynx on the images provided. Electronically Signed: Haritha Frankel MD at 21:55 EDT Tel Direct: [phone], Service support , Chest X-Ray 11/05/17 20:30 IMPRESSION: Normal x-ray examination of the chest. Electronically Signed: Bobo Sow DO at 21:06 EDT Tel [phone], Service support , Brain MRI 11/05/17 22:49 IMPRESSION: 1. Normal unenhanced MRI of the brain. 2. Fluid in the right middle ear space and mucosal edema in the right temporal mastoid bone are suggestive of otomastoiditis. Please correlate with otoscopy. Electronically Signed: Wilder Emery MD at 9:49 EDT , Service support , Neurology Operations: None Procedures: 2-D Echocardiogram Summary of Care Provided: 52 year old M with PMHx of DM, type 2 diet controlled, hypertension, hyperlipidemia and chronic A. fib who was admitted with left-sided facial numbness and left arm heaviness as well as slurry speech. He was managed as TIA. MRI brain was negative. CTA head and neck was negative. 2d-echo was unremarkable. He was managed on aspirin, plavix, his home Lipitor increased to 80mg daily, Neurology consulted. He will follow-up with Neurology in 2 weeks 2. Hypertension, controlled, on home regimen 3. h/o Paroxysmal A. fib, in NSR, no acute events seen on telemetry 4. Type 2 DM, diet controlled 5. Schizoaffective disorder Discharge Diet: Low fat/ Low Cholesterol, 2000 mg Sodium Diet, Carb Control Diet Discharge Activity: Return to Normal Activity Home Medications: Medications to take at Discharge Albuterol Inhaler [Ventolin Hfa] 1 - 2 puff INHALATION Q4H PRN PRN 06/14/14 Losartan Potassium [Cozaar] 25 mg PO DAILY 06/14/14 Metoprolol Tartrate [Lopressor (beta yolanda)] 100 mg PO BID 06/14/14 Montelukast [Singulair] 10 mg PO QHS 06/14/14 Omeprazole [Prilosec] 40 mg PO DAILY 06/14/14 Paliperidone Palmitate [Invega Sustenna] 234 mg IM Q30D 09/13/16 Loratadine [Claritin] 10 mg PO QHS 02/05/17 Cyclobenzaprine [Flexeril] 10 mg PO TID PRN PRN 02/17/17 Fluticasone 0.05% [Flonase Nasal [place]] 2 spray NASAL DAILY 10/27/17 Diphenhydramine HCl [Benadryl Allergy] 50 mg PO QHS 11/05/17 Furosemide [Lasix] 20 mg PO DAILY 11/05/17 Omeprazole 40 mg PO BID 11/05/17 Aspirin [Aspirin, Baby] 81 mg PO DAILY@0800 #30 tab.chew 11/06/17 Atorvastatin Calcium [Lipitor] 80 mg PO QHS #30 tab 11/06/17 Clopidogrel Bisulfate [Plavix] 75 mg PO DAILY #30 tab 11/06/17 Following Prescrptions Were Given to Patient: Aspirin [Aspirin, Baby] 81 mg PO DAILY@0800 #30 tab.chew Atorvastatin Calcium [Lipitor] 80 mg PO QHS #30 tab Clopidogrel Bisulfate [Plavix] 75 mg PO DAILY #30 tab Other Amb Orders: 30-Day Event Recorder [[facility]] Location: None Selected Primary Care Physician: Baldo Otto MD [Primary Care Provider] - Please follow up with your Primary Care Physician in: within 2 weeks Please Follow Up With: Asher Sierra MD When: within 2 weeks Please Follow Up With: Abdirahman Hopkins MD When: in 2 weeks Disposition: Home Minutes spent on discharge:: 40 Patient Condition:: Stable Medical Necessity - Tobacco Use Smoking Status: Former smoker - He smoked 1 pack cigarette for 1 month many years ago and quit. Tobacco Use: Non-smoker Meaningful Use Info Meaningful Use Diagnoses (Choose all that apply): None applicable Code Visit Inpatient E&M: 08068 Disch Hosp
[2017-11-06] MEDS: Metoprolol Tartrate 100 MG Tablet PO (12:12)
[2017-11-06 12:39] LABS: Hemoglobin A1c 5.3 % (4.2-6.3)
== END 2017-11-06 11:34 | disposition home or self-care (01) ==
LOC: ED 20:39 → PCU 22:37
PROVIDERS: Admitting Provider Hospitalist; Emergency Provider Emergency Medicine; Family Provider Family Medicine; PCP Family Medicine; Visit Provider Internal Medicine
DX: G45.9 Transient cerebral ischemic attack, unspecified (principal); R47.81 Slurred speech; R20.0 Anesthesia of skin; E11.9 Type 2 diabetes mellitus without complications; I10 Essential (primary) hypertension; R29.702 NIHSS score 2; I48.2 Chronic atrial fibrillation; F20.9 Schizophrenia, unspecified; E78.5 Hyperlipidemia, unspecified; E66.9 Obesity, unspecified; G47.33 Obstructive sleep apnea (adult) (pediatric); K21.9 Gastro-esophageal reflux disease without esophagitis; Z68.36 Body mass index [BMI] 36.0-36.9, adult; Z71.3 Dietary counseling and surveillance; Z86.718 Personal history of other venous thrombosis and embolism; Z79.899 Other long term (current) drug therapy; Z79.82 Long term (current) use of aspirin; Z87.891 Personal history of nicotine dependence; F25.9 Schizoaffective disorder, unspecified
CPT/HCPCS: 36415; 70450; 70496; 70498; 70551; 71045; 80048; 80061; 82962; 83036; 84484; 85025; 85610; 85730; 93005; 93306; 96372; 97161; 97165; 97802; 99218; 99285; Q9967; A4216; G0378

== ENCOUNTER 2017-11-11 17:18 | Emergency (ER) | payer MEDICARE, SELFPAY ==
[2017-11-11] VITALS (8 sets, daily range): BP systolic 107–173; BP diastolic 62–115; PULSE 66–78; RESP 13–20; TEMP 36.2; O2SAT 95–98; BMI 39.9
[2017-11-11 17:37] LABS: Absolute Lymphocyte Count 2.18 X10^3/ul (0.83-4.51); Absolute Neutrophil Count 5.7 X10^3/uL (2.0-7.7); Basophil# 0.03 X10^3/uL; Basophil% 0.3 % (0-1); Eosinophil# 0.25 X10^3/uL; Eosinophils% 2.8 % (0-5); Hematocrit 42.2 % (40-54); Hemoglobin 13.5 g/dl (13.0-16.5); Lymphocyte # 2.18 X10^3/ul (4.0); Lymphocyte % 24.6 % (19-41); Mean Corpuscular Hgb 27.4 pg (27.0-32.0); Mean Corpuscular Volume 85.6 fL (80-94); Mean Platelet Vol. 9.1 fl (6.2-12.0); Monocyte# 0.73 X10^3/uL; Monocyte% 8.2 % (0-10); Neutrophil # 5.66 X10^3/uL (2.7-7.7); Neutrophil % 63.9 % (47-70); Platelet Count 289 K/mm3 (150-450); RBC Distribution Width CV 13.4 % (11.6-14.6); RBC Distribution Width SD 41.9 fl (35.1-43.9); Red Blood Count 4.93 M/mm3 (4.6-6.2); White Blood Count 8.9 K/mm3 (4.4-11.0)
[2017-11-11 17:40] LABS: POSITIVE COUNT NO; POSITIVE DIFFERENTIAL NO; POSITIVE MORPHOLOGY NO
--- NOTE | 2017-11-11 17:46 | ED.VIS.GEN ---
History of Present Illness Chief Complaint: Chest Pain Informant: Patient Onset: Hours - 1 Context: Sudden Onset - while sitting at rest Timing: Continuous Quality: ache Location: left chest, w/ radiation into left arm Current Severity: Moderate Maximum Severity: Moderate Worsened by: nothing; nonpeluritic Relieved by: nothing Associated Symptoms: biparietal headache, nausea, mild sob Narrative: Patient states he was resting about an hour ago when his left-sided chest discomfort with left upper extremity discomfort and a headache started. States that sort of felt like reflux initially. He has tried taking some Tylenol for the headache but it did not help. States he has had headaches in the past but has not had one for a long time. He was recently admitted to the hospital for a TIA, he states he had tingling on the left side of his face and slurred speech, but all that has been resolved and has not returned today. He has been taking aspirin and hospital admission added Plavix to his regimen. He states he had a heart attack in 1991, had no stents placed and has never had a bypass or any other heart surgery. Recent Illness/Hospitalization: Yes - TIA inpt obs 4d ago - Past Medical History (1) Schizoaffective disorder Status: Chronic (2) TIA (transient ischemic attack) Status: Chronic (3) Atrial fibrillation Status: Chronic (4) Bipolar disorder Status: Chronic (5) DM type 2 (diabetes mellitus, type 2) Status: Chronic (6) Esophageal reflux Status: Chronic (7) HLD (hyperlipidemia) Status: Chronic (8) HTN (hypertension) Status: Chronic (9) History of DVT (deep vein thrombosis) Status: Chronic (10) History of GI bleed Status: Chronic (11) Migraine Status: Chronic (12) Obstructive sleep apnea of adult Status: Chronic (13) Peptic ulcer disease Status: Chronic Past Medical History - Allergies and Home Meds Allergies/Adverse Reactions: Allergies enalapril maleate [From Vasotec] Allergy (Verified 11/11/17 17:25) Hives enalaprilat dihydrate [From Vasotec] Allergy (Verified 11/11/17 17:25) Hives naproxen [From Naprosyn] Allergy (Verified 11/11/17 17:25) Hives Sulfa (Sulfonamide Antibiotics) Allergy (Verified 11/11/17 17:25) Hives risperidone [From Risperdal] Adverse Reaction (Verified 11/11/17 17:25) HALLUCINATIONS Primary Care Physician: Baldo Otto MD [Primary Care Provider] - Prior records reviewed: Yes - recent d/c summary Surgical History: appendectomy, cholecystectomy, herniorrhaphy, tonsillectomy Smoking Status: Former smoker Drugs: None - Family History Maternal Family History: Reports: Asthma, Diabetes, Heart Disease, Hypertension, Stroke Paternal Family History: Reports: Cancer Review of Systems All systems negative except as indicated General: Denies: Chills, Fever Cardiovascular: Reports: Chest pain. Denies: Palpitations, Heart racing Respiratory: Reports: Dyspnea. Denies: Cough Gastrointestinal: Reports: Nausea. Denies: Abdominal pain, Vomiting, Diarrhea, Melena, Hematochezia Musculoskeletal: Reports: Extremity Pain. Denies: Neck pain, Back pain, Swelling Skin: Denies: Rash, Wounds Neurological: Reports: Headache. Denies: Weakness, Parasthesia, Numbness Physical Exam Vital Signs/Narrative: Vital Signs Temp Pulse Resp BP Pulse Ox 11/11/17 17:27 98 11/11/17 17:21 76 18 134/87 H 96 11/11/17 17:19 97.2 F L 77 13 134/87 H 98 Inital Vital Signs reviewed: Yes General: Well nourished, Well developed, Obese, - - well-appearing, nad Head: Normocephalic, Atraumatic Eyes: Perrl, EOMI ENT: Moist mucous membranes, No rhinorrhea Neck: Supple, Nontender, No JVD Cardiovascular: Regular rate, Regular rhythm, No murmurs, - - equal bilat 2+/4 radial pulses Respiratory: No distress, CTA bilaterally, Chest nontender - and no splinting on deep inspiration Abdomen: Soft, Nondistended, Normal bowel sounds, Tender - mildly at epigastric Back: Nontender, Normal Inspection. Negative for: CVA tenderness Extremities: Nontender, No edema Skin: Normal color, No rash Neurological: Alert, Oriented x3, Cranial nerves II-XII grossly intact, Normal Strength, Normal Sensation Psychological: Normal affect Diagnostic/Tx/Re-eval Impressions Chest X-Ray 11/11/17 17:25 IMPRESSION: No acute cardiopulmonary process. Electronically Signed: Lou Langley MD at 17:56 EDT Tel , Service support , 11/11/17 17:25 Chest 1 View (Portable) [RAD] Stat Laboratory Results 11/11/17 11/11/17 11/11/17 Range/Units 17:20 17:20 20:18 WBC 8.9 (4.4-11.0) K/mm3 RBC 4.93 (4.6-6.2) M/mm3 Hgb 13.5 (13.0-16.5) g/dl Hct 42.2 (40-54) % MCV 85.6 (80-94) fL MCH 27.4 (27.0-32.0) pg MCHC 32.0 (32-36) g/gl RDW 13.4 (11.6-14.6) % RDW Differential 41.9 (35.1-43.9) fl Plt Count 289 (150-450) K/mm3 MPV 9.1 (6.2-12.0) fl Immature Gran % (Auto) 0.200 (0.0-0.9) % Neut % (Auto) 63.9 (47-70) % Lymph % (Auto) 24.6 (19-41) % [place] % (Auto) 8.2 (0-10) % Eos % (Auto) 2.8 (0-5) % Baso % (Auto) 0.3 (0-1) % Absolute Neuts (auto) 5.7 (2.0-7.7) X10^3/uL Absolute Lymphs (auto) 2.18 (0.83-4.51) X10^3/ul Total Counted Not Reportable Sodium 140 (136-145) mmol/L Potassium 4.0 (3.5-5.1) mmol/L Chloride 107 (98-107) mmol/L Carbon Dioxide 25.0 (21.0-32.0) mmol/L Anion Gap 8 (5-15) BUN 13 (7-18) mg/dL Creatinine 1.17 (0.70-1.30) mg/dL Estim Creat Clear Calc 90.67 ml/min Est GFR (MDRD) Af Amer 84 (>60) mL/min Est GFR (MDRD) Non-Af 69 (>60) mL/min BUN/Creatinine Ratio 11.1 (10-20) RATIO Glucose 106 (74-106) mg/dL Calcium 8.9 (8.5-10.1) mg/dL Troponin I < 0.015 < 0.015 (<0.045) ng/mL - Rhythm Strip Rhythm Strip: Sinus Rhythm Rate: 75 Ectopy: None - EKG Initial EKG Interpretation: Sinus Rhythm, No Acute Injury Pattern, - - nml axis. nml EKG. - Medical Decision Making EKG is normal, labs are normal including troponin. Chest x-ray normal. His chest discomfort and left upper extremity discomfort resolved with a GI cocktail. He was given Reglan for his headache, but states it did not help a whole lot so he was given Toradol which she has had before and tolerates, despite his medication allergies, it helped but he still had a headache. Performed a 3 hour repeat troponin, it is also negative for adult of 0. Given this, he is stable for discharge home close outpatient follow-up with his doctor. ED Disposition - Plan for ED Patient: Disposition: Home or Assisted Living Chief Complaint: Chest Pain Diagnosis: Chest pain, unspecified, Cephalgia Instructions: ED Chest Pain NonCardiac Referrals: Baldo Otto MD [Primary Care Provider] - 3-5 Days
[2017-11-11] MEDS: Mag Hydrox/Al Hydrox/Simeth 30 ML UDC PO (17:59)
[2017-11-11] MEDS: Metoclopramide 10 MG/2 ML Vial IV (17:59)
[2017-11-11 18:01] LABS: Anion Gap 8 (5-15); BUN 13 mg/dL (7-18); BUN/Creat Ratio 11.1 RATIO (10-20); Calcium,Total 8.9 mg/dL (8.5-10.1); Chloride 107 mmol/L (98-107); Creatinine, Serum 1.17 mg/dL (0.70-1.30); EST Glomerular Filtration Rate 69 mL/min (>60); Est Glom Filt Rate - Afr Amer 84 mL/min (>60); Estimated Creatinine Clearance 90.67 ml/min; Glucose 106 mg/dL (74-106); Sodium Level 140 mmol/L (136-145)
[2017-11-11] MEDS: Ketorolac 15 MG/ML Vial IV (19:23)
== END 2017-11-11 21:37 | disposition home or self-care (01) ==
PROVIDERS: Emergency Provider Emergency Medicine; Family Provider Family Medicine; PCP Family Medicine
DX: R07.9 Chest pain, unspecified (principal); R51 Headache; R11.0 Nausea; R06.00 Dyspnea, unspecified; M79.602 Pain in left arm; F25.9 Schizoaffective disorder, unspecified; I48.91 Unspecified atrial fibrillation; F31.9 Bipolar disorder, unspecified; E11.9 Type 2 diabetes mellitus without complications; K21.9 Gastro-esophageal reflux disease without esophagitis; E78.5 Hyperlipidemia, unspecified; I10 Essential (primary) hypertension; G43.909 Migraine, unspecified, not intractable, without status migrainosus; G47.33 Obstructive sleep apnea (adult) (pediatric); Z86.73 Personal history of transient ischemic attack (TIA), and cerebral infarction without residual deficits; Z86.718 Personal history of other venous thrombosis and embolism; Z87.19 Personal history of other diseases of the digestive system; Z87.11 Personal history of peptic ulcer disease; Z90.49 Acquired absence of other specified parts of digestive tract; Z79.82 Long term (current) use of aspirin; Z79.02 Long term (current) use of antithrombotics/antiplatelets; Z79.899 Other long term (current) drug therapy; Z87.891 Personal history of nicotine dependence
CPT/HCPCS: 71045; 80048; 84484; 85025; 93005; 96374; 96375; 99284; A4216

== ENCOUNTER 2017-11-25 15:45 | Emergency (ER) | payer MEDICARE, SELFPAY ==
[2017-11-25] VITALS (8 sets, daily range): BP systolic 100–144; BP diastolic 72–93; PULSE 77–107; RESP 15–18; TEMP 36.2; O2SAT 96–99; BMI 36.5
--- NOTE | 2017-11-25 16:03 | EKG12_ITS ---
Test Reason : NEURO SYM Blood Pressure : / mmHG Vent. Rate : 091 BPM Atrial Rate : 091 BPM P-R Int : 174 ms QRS Dur : 094 ms QT Int : 352 ms P-R-T Axes : 045 057 061 degrees QTc Int : 432 ms Normal sinus rhythm Normal ECG Confirmed by ISELA SPRAGUE ([id number]), photography editor NATALIA DEL CID ([id number]) on 12/01/2017 1:41:43 PM Referred By: MIHAELA/TYSON Confirmed By:ISELA SPRAGUE
[2017-11-25 16:36] LABS: Bedside Glucose 135 mg/dL (70-110)
[2017-11-25 16:44] LABS: Absolute Neutrophil Count 4.5 X10^3/uL (2.0-7.7); Basophil# 0.03 X10^3/uL; Basophil% 0.4 % (0-1); Eosinophil# 0.14 X10^3/uL; Eosinophils% 1.9 % (0-5); Hemoglobin 13.5 g/dl (13.0-16.5); Lymphocyte % 25.9 % (19-41); Mean Corp Hgb Conc 32.9 g/gl (32-36); Mean Corpuscular Hgb 27.7 pg (27.0-32.0); Mean Corpuscular Volume 84.2 fL (80-94); Mean Platelet Vol. 9.4 fl (6.2-12.0); Monocyte# 0.81 X10^3/uL; Neutrophil # 4.46 X10^3/uL (2.7-7.7); Neutrophil % 60.7 % (47-70); Platelet Count 272 K/mm3 (150-450); RBC Distribution Width CV 13.2 % (11.6-14.6); RBC Distribution Width SD 39.5 fl (35.1-43.9); Red Blood Count 4.87 M/mm3 (4.6-6.2); White Blood Count 7.4 K/mm3 (4.4-11.0)
[2017-11-25 16:49] LABS: Anion Gap 10 (5-15); BUN 15 mg/dL (7-18); BUN/Creat Ratio 13.5 RATIO (10-20); Calcium,Total 8.8 mg/dL (8.5-10.1); Chloride 107 mmol/L (98-107); Creatinine, Serum 1.11 mg/dL (0.70-1.30); EST Glomerular Filtration Rate 74 mL/min (>60); Est Glom Filt Rate - Afr Amer 89 mL/min (>60); Estimated Creatinine Clearance 95.58 ml/min; Glucose 124 mg/dL (74-106); Potassium 3.6 mmol/L (3.5-5.1); Sodium Level 140 mmol/L (136-145)
[2017-11-25 16:50] LABS: POSITIVE COUNT NO; POSITIVE DIFFERENTIAL NO; POSITIVE MORPHOLOGY NO
[2017-11-25 17:17] LABS: Prothrombin Time (Protime)PT. 13.2 SECONDS (11.7-14.9)
[2017-11-25 17:18] LABS: Partial Thromboplast Time 29.2 Seconds (24.1-36.2)
[2017-11-25] MEDS: Ketorolac 30 MG/ML Syringe IV (17:59)
[2017-11-25] MEDS: Ondansetron 4 MG/2 ML Vial IV (18:10)
--- NOTE | 2017-11-25 18:12 | ED.VISSUMM ---
- ER Visit Summary Date of Service: 11/25/17 Chief Complaint: Left facial paresthesia History of Present Illness: The patient is a 52 M intermittent left facial paresthesia and slurred speech since his last hospitalization 3 weeks ago. Is admitted for a TIA. States he saw neurology Dr. Cobb, states Plavix was added to his therapy along with a 30 day event monitor. Lipitor was increased to 80 mg from 20 mg. States this was his first TIA. States been having intermittent similar symptoms on and off since discharge. Return of symptoms today to p.m. No other new symptoms. Called neurology office sent to the ED. States history of paroxysmal A. fib in 1991 and at 3 weeks of symptoms with his SC. At DVT long time ago was on anticoagulants for 6 months. Remote tobacco history. Records reviewed, negative MRI, negative CTA studies of his head and neck. Normal echo including a bubble study. Neurology consult reviewed, had questionable A. fib, and plan for dual platelet therapy for 3 weeks and possible Eliquis in the future. Event monitor for evaluation. Physical Examination: General: Alert and oriented ?3, no acute distress HEENT: Normocephalic, atraumatic. Moist mucosa membranes Neck: supple, nontender. Cardiovascular: Regular rate and rhythm, no murmurs Respiratory: Normal breath sounds, symmetric, no distress Abdomen: Soft, nontender, nondistended Extremities: Nontender, no edema, pulses intact ?4 Neuro: NIH is a 2 for slight slurred speech, there is paresthesia just of the left maxillary region. Test Results: CT head negative. Labs are stable. EKG is sinus rhythm. Emergency Department Course and Treatment: Patient had a stroke workup due to symptoms results are negative. Reevaluation states speech improved, still mild paresthesias to face. Complained of his headache for which he is tolerated with Toradol in the past. Creatinine is normal. Given Toradol and Zofran for his nausea symptoms. I discussed with covering neurologist Dr. Malone discussed patient's history of A. fib along with the plan of care from his partner. His chads score would be a 4 with his A. fib history. He states he has a follow-up in 2 days, reports patient to follow-up with Dr. Cobb in 2 days for decision of additional anticoagulation medications. Treatment Plan: [] Disposition: Discharge Impression: 1. Transient ischemic attack 2. Cephalgia This note was generated with Os[employer] dictation software. It may contain incorrect words, spelling, and punctuation that were not noted in review of the chart prior to signing ED Disposition - Plan for ED Patient: Disposition: Home or Assisted Living Chief Complaint: Numb/Ting Diagnosis: TIA (transient ischemic attack), Cephalgia Referrals: Baldo Otto MD [Primary Care Provider] - Abdirahman Hopkins MD [STAFF PHYSICIAN] - 2 Days Additional Instructions: Similar symptoms of TIA in the past. Negative workup today. Per Dr. Malone, keep your appointment with Dr. Cobb in 2 days to decide if you need additional anticoagulation transition.
--- NOTE | 2017-11-25 18:30 | ED.RN ---
pt given written and verbal discharge instructions and verbalizes understanding. pt iv d/c and covered with 2x2 gauze dressing and paper tape. pt denies any difficulty swallowing at home. dysphagia screen cancelled. pt ambulates out of dept by self.
== END 2017-11-25 18:31 | disposition home or self-care (01) ==
PROVIDERS: Emergency Provider Emergency Medicine; Family Provider Family Medicine; PCP Family Medicine
DX: G45.9 Transient cerebral ischemic attack, unspecified (principal); R51 Headache; I25.2 Old myocardial infarction; E11.9 Type 2 diabetes mellitus without complications; I10 Essential (primary) hypertension; E78.00 Pure hypercholesterolemia, unspecified; G47.33 Obstructive sleep apnea (adult) (pediatric); Z86.718 Personal history of other venous thrombosis and embolism; Z86.79 Personal history of other diseases of the circulatory system; Z86.73 Personal history of transient ischemic attack (TIA), and cerebral infarction without residual deficits; Z79.899 Other long term (current) drug therapy; Z87.891 Personal history of nicotine dependence
CPT/HCPCS: 70450; 80048; 82962; 84484; 85025; 85610; 85730; 93005; 96374; 96375; 99284; A4216; J2405

== ENCOUNTER → 2017-12-04 07:11 | Outpatient (CLI) | payer MEDICARE, SELFPAY ==
--- NOTE | 2017-12-04 14:14 | EEG ---
- Electroencephalogram Date of service 12/04/2017 History EEG is being done in this 52 yr M to rule out seizures EEG Description: This is an 18 channel EEG with 10-20 lead placement system. Bipolar montages, Referential and Circumferential montages were reviewed. Photic stimulation and Hyperventilation were performed. The posterior dominant rhythm is 8 HZ synchronous, symmetric, reacting to eye opening and closing. Photo stimulation elicited normal driving response but no abnormal photoparoxysmal response, Hyperventilation did not elicit any abnormal photoparoxysmal response. Sleep was identified. There is no abnormal background slowing noted. There was no epileptiform discharges or electrographic seizures noted during this recording. Per veterinary laboratory technician's report patient snored and snorted a lot during the record, was wakening with obstructive breathing EEG Interpretation This is a normal awake and asleep EEG. Based on veterinary laboratory technician report of patient's recurrent snoring/snorting and obstructed breathing pattern during the record, it may be beneficial to do polysomnography testing for obstructive sleep apnea, if not diagnosed already. Will defer further evaluation and testing to ordering physician/ primary care physician. Clinical correlation is advised. There is no epileptiform discharges or electrographic seizures noted during the record.
--- NOTE | 2017-12-04 14:18 | EEG_ITS ---
- Electroencephalogram Date of service 12/04/2017 History EEG is being done in this 52 yr M to rule out seizures EEG Description: This is an 18 channel EEG with 10-20 lead placement system. Bipolar montages, Referential and Circumferential montages were reviewed. Photic stimulation and Hyperventilation were performed. The posterior dominant rhythm is 8 HZ synchronous, symmetric, reacting to eye opening and closing. Photo stimulation elicited normal driving response but no abnormal photoparoxysmal response, Hyperventilation did not elicit any abnormal photoparoxysmal response. Sleep was identified. There is no abnormal background slowing noted. There was no epileptiform discharges or electrographic seizures noted during this recording. Per process engineering technician's report patient snored and snorted a lot during the record, was wakening with obstructive breathing EEG Interpretation This is a normal awake and asleep EEG. Based on process engineering technician report of patient's recurrent snoring/snorting and obstructed breathing pattern during the record, it may be beneficial to do polysomnography testing for obstructive sleep apnea, if not diagnosed already. Will defer further evaluation and testing to ordering physician/ primary care physician. Clinical correlation is advised. There is no epileptiform discharges or electrographic seizures noted during the record.
== END ==
PROVIDERS: Family Provider Family Medicine; PCP Family Medicine; Visit Provider Clinical Nurse Specialist Acute Care
DX: R20.2 Paresthesia of skin (principal); Z86.69 Personal history of other diseases of the nervous system and sense organs
CPT/HCPCS: 95819

== ENCOUNTER 2018-01-14 11:26 | Emergency (ER) | payer MEDICARE, SELFPAY ==
[2018-01-14 11:26] VITALS: BP 138/87; PULSE 99; RESP 20; TEMP 36.5; O2SAT 96; BMI 35.9
[2018-01-14 11:59] VITALS: O2SAT 95
--- NOTE | 2018-01-14 12:15 | ED.VISSUMM ---
- ER Visit Summary Date of Service: 01/14/18 Chief Complaint: Cold symptoms that started 3 days ago History of Present Illness: The patient is a 52 M who is a non-smoker presents with runny nose, postnasal drainage, sore throat, documented temperature 101.0?F, and productive cough of green colored sputum. He complains of frontal head pain. He denies photophobia, neck pain or neck stiffness. He denies dyspnea, dyspnea on exertion, orthopnea or PND. He denies chest pain or pleuritic chest pain. He denies nausea, vomiting diarrhea. He denies skin lesion. Please read written note for complete detail Physical Examination: Vital signs noted and blood pressure is elevated 138/87. He is not febrile, tachypneic, tachycardic and not hypoxic. He has not well groomed. HEENT exam is remarkable for nasal congestion and boggy nasal mucosa. There is postnasal drainage noted. Neck is supple. Lungs are clear to auscultation with good move air bilaterally. Heart is regular without murmur, gallop or rub. There is no asymmetry, swelling, discoloration, leg vein distention, palpable cords or tenderness along the distribution of the deep venous system. Test Results: None Emergency Department Course and Treatment: Patient was informed he has a acute viral bronchitis. Treatment is symptomatic. He was told since he does not smoke he may have a cough for 1-2 weeks and may be ill for another 7-10 days. Treatment Plan: Symptomatic treatment Disposition: Discharged home in stable condition Impression: Acute viral upper respiratory infection This note was generated with [employer] dictation software. It may contain incorrect words, spelling, and punctuation that were not noted in review of the chart prior to signing ED Disposition - Plan for ED Patient: Disposition: Home or Assisted Living Chief Complaint: Cold Sx Instructions: ED Upper Resp Infec No Abx Tx Referrals: Baldo Otto MD [Primary Care Provider] - 10-14 Days if not better
[2018-01-14 12:36] VITALS: BP 129/77; PULSE 62; RESP 15; O2SAT 97
== END 2018-01-14 12:36 | disposition home or self-care (01) ==
PROVIDERS: Emergency Provider Emergency Medicine; Family Provider Family Medicine; PCP Family Medicine
DX: J06.9 Acute upper respiratory infection, unspecified (principal); J20.8 Acute bronchitis due to other specified organisms; E66.9 Obesity, unspecified
CPT/HCPCS: 99282

== ENCOUNTER 2018-04-25 23:27 | Emergency (ER) | payer MEDICARE, SELFPAY ==
[2018-04-25 23:28] VITALS: BP 135/73; PULSE 105; RESP 18; TEMP 35.8; O2SAT 95; BMI 37.8
[2018-04-26] MEDS: Acetaminophen 500 MG Tablet 1000 MG PO (00:23)
[2018-04-26] MEDS: Ipratropium/Albuterol Sulfate 3 ML AMPUL.NEB INHALATION (00:24)
--- NOTE | 2018-04-26 00:45 | RAD_ITS ---
STUDY: X-RAY CHEST REASON FOR EXAM: Male, 53 years old. Cold symptoms. TECHNIQUE: PA and lateral chest. COMPARISON: November 11, 2017. FINDINGS: The lungs are clear and expanded. There is no demonstrated pleural abnormality. Normal size heart. Normal mediastinum and sofi. Normal visualized pulmonary arteries. Normal visualized aortic arch and descending thoracic aorta. Normal visualized thoracic spine. Normal visualized ribs, clavicles, and shoulders. There is no demonstrated abnormality of the visualized soft tissue structures of the upper abdomen. RAD/Chest PA and Lateral IMPRESSION: No acute cardiopulmonary disease. Electronically Signed: London Dolan MD at 1:15 EST , Service support ,
[2018-04-26 01:25] VITALS: PULSE 108; RESP 18
--- NOTE | 2018-04-26 02:05 | ED.VISSUMM ---
- ER Visit Summary Date of Service: 04/26/18 Chief Complaint: Cough History of Present Illness: The patient is a 53 M presenting with cough. He states this started on Thursday. He states his sister has also been ill with similar complaints. He complains of productive cough, subjective fever, sore throat. He denies chest pain or shortness of breath. Denies other complaints. Physical Examination: Vitals are stable. Patient is afebrile. Alert no acute distress. HEENT exam mild pharyngeal erythema with no exudate. Uvula midline Neck is supple. Lungs are clear and equal bilaterally. Heart is regular rate and rhythm. Abdomen is soft nontender nondistended. Extremities are unremarkable. Skin is warm and dry. No focal neurologic deficit. Remainder of exam is unremarkable. Emergency Department Course and Treatment: Chest x-ray shows no acute process. He was given Decadron. He is given a prescription for Tessalon Perles. Advised to follow-up with primary care physician. Advised return to ED for worsening complaints. Disposition: Discharge home Impression: URI This note was generated with [employer] dictation software. It may contain incorrect words, spelling, and punctuation that were not noted in review of the chart prior to signing ED Disposition - Plan for ED Patient: Referrals: Baldo Otto MD [Primary Care Provider] -
--- NOTE | 2018-04-26 02:07 | ED.DEP ---
ED Disposition - Plan for ED Patient: Instructions: ED Upper Resp Infec No Abx Tx Prescriptions: Benzonatate [Tessalon Perle] 200 mg PO TID PRN PRN #20 capsule PRN Reason: Cough Referrals: Baldo Otto MD [Primary Care Provider] -
[2018-04-26 02:25] VITALS: BP 118/64; PULSE 81; RESP 15; O2SAT 93
== END 2018-04-26 02:27 | disposition home or self-care (01) ==
PROVIDERS: Emergency Provider Emergency Medicine; Family Provider Family Medicine; PCP Family Medicine
DX: J06.9 Acute upper respiratory infection, unspecified (principal); J40 Bronchitis, not specified as acute or chronic; I25.10 Atherosclerotic heart disease of native coronary artery without angina pectoris; F31.9 Bipolar disorder, unspecified; Z86.73 Personal history of transient ischemic attack (TIA), and cerebral infarction without residual deficits; Z79.82 Long term (current) use of aspirin; Z79.02 Long term (current) use of antithrombotics/antiplatelets; Z79.899 Other long term (current) drug therapy
CPT/HCPCS: 71046; 94640; 99283

== ENCOUNTER 2018-04-28 01:54 | Emergency (ER) | payer MEDICARE, SELFPAY ==
[2018-04-28 01:55] VITALS: BP 160/82; PULSE 77; RESP 20; TEMP 36.7; O2SAT 96; BMI 37.9
[2018-04-28 02:00] VITALS: O2SAT 96
--- NOTE | 2018-04-28 02:20 | EKG12_ITS ---
Test Reason : SOB Blood Pressure : / mmHG Vent. Rate : 078 BPM Atrial Rate : 078 BPM P-R Int : 162 ms QRS Dur : 102 ms QT Int : 382 ms P-R-T Axes : 027 051 057 degrees QTc Int : 435 ms Normal sinus rhythm Normal ECG Confirmed by JULISSA DIEGO MD ([id number]), mapping editor NATALIA DEL CID ([id number]) on 05/03/2018 9:50:26 AM Referred By: DORENE Confirmed By:JULISSA DIEGO MD
--- NOTE | 2018-04-28 02:20 | RAD_ITS ---
STUDY: X-RAY CHEST REASON FOR EXAM: Male, 53 years old. Dizziness. Shortness of breath. TECHNIQUE: PA and lateral chest. COMPARISON: April 26, 2018. FINDINGS: The lungs are clear and expanded. There is no demonstrated pleural abnormality. Normal size heart. Normal mediastinum and sofi. Normal visualized pulmonary arteries. Normal visualized aortic arch and descending thoracic aorta. Normal visualized thoracic spine. Normal visualized ribs, clavicles, and shoulders. There is no demonstrated abnormality of the visualized soft tissue structures of the upper abdomen. RAD/Chest PA and Lateral IMPRESSION: No acute cardiopulmonary disease. Electronically Signed: London Dolan MD at 2:55 EST , Service support ,
[2018-04-28 03:27] VITALS: BP 122/82; PULSE 67; RESP 16; O2SAT 96
--- NOTE | 2018-04-28 03:28 | ED.VISSUMM ---
- ER Visit Summary Date of Service: 04/28/18 Chief Complaint: Cough and shortness of breath History of Present Illness: The patient is a 53 M who presents with cough and shortness of breath. He has been ill for about 6 days. He reports subjective fever sore throat productive cough. He complains of shortness of breath. His chest hurts with coughing. He has noticed some scant hemoptysis. He had one episode of diarrhea. He was seen here 2 days ago had a normal chest x-ray and was diagnosed with bronchitis. He began to feel dizzy at work today. He was advised to come in to be rechecked. Physical Examination: Afebrile blood pressure 160/82 vitals otherwise unremarkable No distress Moist mucous membranes Heart regular rate and rhythm Lungs are clear without rales rhonchi or wheezes The abdomen is soft Test Results: Chest x-ray shows no acute disease. EKG shows sinus rhythm at a rate of 78. Emergency Department Course and Treatment: EKG and chest x-ray normal. Patient was advised that his symptoms are still within the normal timeframe for bronchitis. He was advised his cough may persist for a total of 3 weeks. He understands to return for new or worsening symptoms. He was advised on signs and symptoms to monitor for. He was discharged Treatment Plan: [] Disposition: Discharge Impression: Bronchitis This note was generated with [employer] dictation software. It may contain incorrect words, spelling, and punctuation that were not noted in review of the chart prior to signing ED Disposition - Plan for ED Patient: Referrals: Baldo Otto MD [Primary Care Provider] -
--- NOTE | 2018-04-28 03:29 | ED.DEP ---
ED Disposition - Plan for ED Patient: Instructions: Acute Bronchitis Referrals: Baldo Otto MD [Primary Care Provider] -
== END 2018-04-28 04:05 | disposition home or self-care (01) ==
LOC: ED 02:41
PROVIDERS: Emergency Provider Emergency Medicine; Family Provider Family Medicine; PCP Family Medicine
DX: J40 Bronchitis, not specified as acute or chronic (principal); R19.7 Diarrhea, unspecified; R42 Dizziness and giddiness; K21.9 Gastro-esophageal reflux disease without esophagitis; E11.9 Type 2 diabetes mellitus without complications; I10 Essential (primary) hypertension; E78.00 Pure hypercholesterolemia, unspecified; Z79.82 Long term (current) use of aspirin; Z79.02 Long term (current) use of antithrombotics/antiplatelets; Z79.899 Other long term (current) drug therapy
CPT/HCPCS: 71046; 93005; 99282

== ENCOUNTER 2018-05-05 15:17 | Emergency (ER) | payer MEDICARE, SELFPAY ==
[2018-05-05 15:18] VITALS: BP 136/92; PULSE 108; RESP 20; TEMP 36.7; O2SAT 97; BMI 36.7
--- NOTE | 2018-05-05 16:36 | EKG12_ITS ---
Test Reason : PALPS Blood Pressure : / mmHG Vent. Rate : 105 BPM Atrial Rate : 105 BPM P-R Int : 142 ms QRS Dur : 088 ms QT Int : 340 ms P-R-T Axes : 044 054 039 degrees QTc Int : 449 ms Sinus tachycardia Otherwise normal ECG Confirmed by JOHNATHON WILLS, JULISSA ([id number]), editorial clerk NATALIA DEL CID ([id number] on 05/11/2018 11:20:21 AM Referred By: MIHAELA Confirmed By:JULISSA DIEGO MD
--- NOTE | 2018-05-05 16:36 | ED.DCSUM_ITS ---
- ER Visit Summary Date of Service: 05/05/18 Chief Complaint: Palpitations, cough, fever History of Present Illness: The patient is a 53 M with a history of paroxysmal A. fib. Patient states he was seen in his primary care office last week and was noted to be in A. fib. He has a follow-up appointment scheduled with cardiology. Patient complains of a cough for the past 1 week and is currently on Mucinex for bronchitis. He reports having a fever up to 102 last night. He has had a cough with clear sputum and some blood streaks today. He does describe his chest being sore today. Physical Examination: Blood pressure is 136/92, temperature 98.1, heart rate 108, respiratory rate 20, pulse ox 97% on room air. Patient is sitting upright in bed no acute distress. He speaking full sentences. Head neck examination unremarkable. Heart is regular rate and rhythm in the 90s. Lungs sounds clear. He does have mild chest wall tenderness. No crepitus. Abdomen is soft with mild left upper quadrant tenderness. No guarding or rebound. Lower extremity examination reveals no significant calf tenderness or edema. Test Results: EKG is sinus at 105 with no acute ischemia. CBC was a white count of 14.6 with 90% neutrophils. Chemistry studies significant only for glucose of 157. Troponin negative. CTA of the chest shows right middle and right lower lobe infiltrates. No PE or dissection. Emergency Department Course and Treatment: Patient's vital signs been stable throughout his stay. No evidence of A. fib while in the emergency room. He will be treated with a course of Levaquin, first dose given here. Treatment Plan: [] Disposition: Discharge Impression: Pneumonia This note was generated with [employer] dictation software. It may contain incorrect words, spelling, and punctuation that were not noted in review of the chart prior to signing ED Disposition - Plan for ED Patient: Disposition: Home or Assisted Living Instructions: ED Pneumonia Adult Prescriptions: Levofloxacin [Levaquin] 750 mg PO DAILY #4 tablet Referrals: Baldo Otto MD [Primary Care Provider] - 1 Week
--- NOTE | 2018-05-05 16:37 | CT_ITS ---
STUDY: CTA CHEST REASON FOR EXAM: Male, 53 years old. Chest pain. Hemoptysis. RADIATION DOSAGE (If Supplied By Facility): CTDIvol = ( 19.02 ) mGy, DLP = ( 1085.29 ) mGycm TECHNIQUE: The examination was performed with the intravenous administration of Isovue 370 100mL IV. Post-processing of the angiographic images was performed, with multiplanar reformation and 3D reconstruction. Individualized dose optimization techniques were used for this CT. COMPARISON: Chest, April 28, 2018. CTA of the chest, February 15, 2017. FINDINGS: Normal enhancement of the main pulmonary artery and right and left pulmonary arteries. Normal enhancement of the bilateral peripheral pulmonary arteries. There is no demonstrated pulmonary embolism. Normal thoracic aorta and visualized great vessels. There is no demonstrated aortic dissection. Normal heart and pericardium. Normal mediastinum. Normal hilar regions. Normal visualized trachea and bronchi. The lungs are well expanded. There is patchy infiltrate in the medial right middle lobe. Groundglass infiltrate is seen in the right lower lobe. Normal pleura. Normal chest wall structures. Normal osseous structures. Normal visualized upper abdomen. CT/CTA Chest W/WO Contrast IMPRESSION: 1. Right middle and right lower lobe infiltrates. Question pneumonia. 2. No evidence of pulmonary embolus. 3. No aortic dissection or aneurysm. Electronically Signed: Albert Rueda DO at 17:50 EST Tel [phone], Service support ,
[2018-05-05 16:45] VITALS: BP 149/98; PULSE 99; RESP 20; TEMP 36.6; O2SAT 98
[2018-05-05] MEDS: 0.9% Normal Saline 1,000 ML 150 ML IV (16:52)
[2018-05-05 17:03] LABS: Absolute Lymphocyte Count 0.76 X10^3/ul (0.83-4.51); Absolute Neutrophil Count 13.2 X10^3/uL (2.0-7.7); Basophil# 0.01 X10^3/uL; Basophil% 0.1 % (0-1); Hematocrit 41.2 % (40-54); Hemoglobin 13.1 g/dl (13.0-16.5); Lymphocyte # 0.76 X10^3/ul (4.0); Lymphocyte % 5.2 % (19-41); Mean Corp Hgb Conc 31.8 g/gl (32-36); Mean Corpuscular Hgb 26.7 pg (27.0-32.0); Mean Corpuscular Volume 83.9 fL (80-94); Mean Platelet Vol. 9.5 fl (6.2-12.0); Monocyte% 4.1 % (0-10); Neutrophil # 13.22 X10^3/uL (2.7-7.7); Neutrophil % 90.3 % (47-70); Platelet Count 312 K/mm3 (150-450); RBC Distribution Width CV 14.3 % (11.6-14.6); Red Blood Count 4.91 M/mm3 (4.6-6.2); White Blood Count 14.6 K/mm3 (4.4-11.0)
[2018-05-05 17:05] LABS: POSITIVE COUNT NO; POSITIVE DIFFERENTIAL NO; POSITIVE MORPHOLOGY NO
[2018-05-05 17:11] LABS: Anion Gap 11 (5-15); BUN 14 mg/dL (7-18); BUN/Creat Ratio 13.9 RATIO (10-20); Calcium,Total 8.6 mg/dL (8.5-10.1); Chloride 108 mmol/L (98-107); Creatinine, Serum 1.01 mg/dL (0.70-1.30); EST Glomerular Filtration Rate 82 mL/min (>60); Est Glom Filt Rate - Afr Amer 99 mL/min (>60); Estimated Creatinine Clearance 103.84 ml/min; Glucose 157 mg/dL (74-106); Potassium 3.7 mmol/L (3.5-5.1); Sodium Level 142 mmol/L (136-145)
--- NOTE | 2018-05-05 18:56 | ED.DEP ---
ED Disposition - Plan for ED Patient: Disposition: Home or Assisted Living Instructions: ED Pneumonia Adult Prescriptions: Levofloxacin [Levaquin] 750 mg PO DAILY #4 tablet Referrals: Baldo Otto MD [Primary Care Provider] - 1 Week
[2018-05-05] MEDS: levoFLOXacin 750 MG Tablet PO (19:05)
[2018-05-05 19:06] VITALS: BP 160/87; PULSE 88; RESP 16; O2SAT 95
== END 2018-05-05 19:07 | disposition home or self-care (01) ==
PROVIDERS: Emergency Provider Emergency Medicine; Family Provider Family Medicine; PCP Family Medicine
DX: J18.9 Pneumonia, unspecified organism (principal); K21.9 Gastro-esophageal reflux disease without esophagitis; E11.9 Type 2 diabetes mellitus without complications; I10 Essential (primary) hypertension; E78.00 Pure hypercholesterolemia, unspecified; F20.9 Schizophrenia, unspecified; F31.9 Bipolar disorder, unspecified; I48.0 Paroxysmal atrial fibrillation; Z86.73 Personal history of transient ischemic attack (TIA), and cerebral infarction without residual deficits; Z86.718 Personal history of other venous thrombosis and embolism; Z79.82 Long term (current) use of aspirin; Z79.02 Long term (current) use of antithrombotics/antiplatelets; Z79.899 Other long term (current) drug therapy; Z87.891 Personal history of nicotine dependence
CPT/HCPCS: 71275; 80048; 84484; 85025; 93005; 96360; 96361; 99285; J7030; Q9967

== ENCOUNTER 2018-05-31 17:07 | Observation (INO) | payer MEDICARE, SELFPAY ==
[2018-05-31] VITALS (9 sets, daily range): BP systolic 117–149; BP diastolic 60–94; PULSE 69–102; RESP 13–25; TEMP 36.5–36.6; O2SAT 95–98; BMI 36.7; BMI 36.3
--- NOTE | 2018-05-31 17:24 | EKG12_ITS ---
Test Reason : SOB Blood Pressure : / mmHG Vent. Rate : 093 BPM Atrial Rate : 093 BPM P-R Int : 164 ms QRS Dur : 094 ms QT Int : 352 ms P-R-T Axes : 067 065 061 degrees QTc Int : 437 ms Normal sinus rhythm Normal ECG Confirmed by JOHNATHON WILLS, JULISSA ([id number]), magazine editor RAÚL DILLARD ([id number]) on 06/03/2018 10:56:31 AM Referred By: MAKENZIE Confirmed By:JULISSA DIEGO MD
--- NOTE | 2018-05-31 17:51 | CT_ITS ---
STUDY: CTA CHEST REASON FOR EXAM: Male, 53 years old. CP, SOB, RECENT PNEUMONIA WITH ATB RADIATION DOSAGE (If Supplied By Facility): CTDIvol = ( 13.73 ) mGy, DLP = ( 808.81 ) mGycm TECHNIQUE: The examination was performed with the intravenous administration of Isovue 370 100ML IV. Post-processing of the angiographic images was performed, with multiplanar reformation and 3D reconstruction. Individualized dose optimization techniques were used for this CT. COMPARISON: 05/05/2018. FINDINGS: There is limited enhancement of the main pulmonary artery and right and left pulmonary arteries. There is limited enhancement of the bilateral peripheral pulmonary arteries. There is marked contrast in the left subclavian vein and yet there is increased enhancement of the aorta compared to the pulmonary arteries. This indicates a much too broad bolus. Therefore although no definite pulmonary emboli are seen in the main pulmonary trunk or main pulmonary arteries, cannot exclude pulmonary emboli in the lobar, segmental, or subsegmental vessels. Normal thoracic aorta and visualized great vessels. There is no demonstrated aortic dissection. Normal heart and pericardium. Normal mediastinum. Normal hilar regions. Normal visualized trachea and bronchi. The lungs are well expanded. There is infiltrate or atelectasis in the right middle lobe but significantly improved since prior study, and previous infiltrate in the right lower lobe is almost resolved, except in the posterior costophrenic angle. No effusions.. Normal chest wall structures. Normal osseous structures. There is diffuse fatty infiltration of the liver. CT/CTA Chest W/WO Contrast IMPRESSION: Inadequate evaluation of the pulmonary arteries. Pulmonary emboli beyond the main pulmonary arteries cannot be excluded. Significant improvement in right middle lobe and right lung base infiltrates since previous study. Electronically Signed: Truman Grullon MD at 20:33 EDT , Service support ,
[2018-05-31] MEDS: 0.9% Normal Saline 1,000 ML 1000 ML IV (18:16)
[2018-05-31] MEDS: Aspirin 81 MG TAB.CHEW 324 MG PO (18:16)
[2018-05-31 18:17] LABS: Absolute Lymphocyte Count 1.34 X10^3/ul (0.83-4.51); Absolute Neutrophil Count 10.4 X10^3/uL (2.0-7.7); Basophil# 0.02 X10^3/uL; Basophil% 0.2 % (0-1); Eosinophil# 0.11 X10^3/uL; Eosinophils% 0.8 % (0-5); Hematocrit 43.5 % (40-54); Hemoglobin 13.5 g/dl (13.0-16.5); Lymphocyte # 1.34 X10^3/ul (4.0); Lymphocyte % 10.2 % (19-41); Mean Corpuscular Hgb 26.5 pg (27.0-32.0); Mean Corpuscular Volume 85.3 fL (80-94); Mean Platelet Vol. 9.2 fl (6.2-12.0); Monocyte# 1.23 X10^3/uL; Monocyte% 9.4 % (0-10); Neutrophil # 10.35 X10^3/uL (2.7-7.7); Neutrophil % 78.6 % (47-70); Platelet Count 287 K/mm3 (150-450); RBC Distribution Width CV 14.6 % (11.6-14.6); RBC Distribution Width SD 44.4 fl (35.1-43.9); White Blood Count 13.2 K/mm3 (4.4-11.0)
[2018-05-31 18:18] LABS: POSITIVE COUNT NO; POSITIVE DIFFERENTIAL NO; POSITIVE MORPHOLOGY NO
[2018-05-31 18:35] LABS: Anion Gap 6 (5-15); BUN 11 mg/dL (7-18); BUN/Creat Ratio 11.7 RATIO (10-20); Calcium,Total 8.4 mg/dL (8.5-10.1); Chloride 108 mmol/L (98-107); Creatinine, Serum 0.94 mg/dL (0.70-1.30); EST Glomerular Filtration Rate 89 mL/min (>60); Est Glom Filt Rate - Afr Amer 108 mL/min (>60); Estimated Creatinine Clearance 111.58 ml/min; Glucose 124 mg/dL (74-106); Sodium Level 139 mmol/L (136-145)
--- NOTE | 2018-05-31 21:36 | ED.DCSUM_ITS ---
- ER Visit Summary Date of Service: 05/31/18 Chief Complaint: Pain History of Present Illness: The patient is a 53 M with right side chest pain that has been going on for about 11 days. The patient was recently diagnosed with pneumonia and he was concerned that this pain may be related to pneumonia. The pain is over his right lateral and anterior chest. Associated with shortness of breath and cough. He also reports fevers and chills. Patient has a history of diabetes, hypertension, hyperlipidemia, DVT, A. fib, and others. Physical Examination: Afebrile and vital signs unremarkable. Patient is alert and oriented. No acute distress. Heart regular rate and rhythm. Lungs clear. Abdomen soft and nontender. Extremities nontender with no edema. Skin normal in color without diaphoresis or pallor. Test Results: EKG shows sinus rhythm at a rate of 93. No sign of acute ischemia or infarction pattern. White count 13.2. Metabolic panel and troponin unremarkable. CTA showed improved infiltrates but cannot exclude PE. Emergency Department Course and Treatment: Patient was seen and placed on a monitor. EKG and labs as above. The initial CTA was non-interpretable and so a repeat CTA was done. This was limited and PE could not be excluded. Patient was treated with Lovenox. He will need duplex lower extremity ultrasounds. Patient will still need admission for cardiac rule out. I contacted the ospitalist who will assume further care. Treatment Plan: As above Disposition: Admission Impression: 1. Chest pain This note was generated with [employer] dictation software. It may contain incorrect words, spelling, and punctuation that were not noted in review of the chart prior to signing ED Disposition - Plan for ED Patient: Referrals: Baldo Otto MD [Primary Care Provider] -
--- NOTE | 2018-05-31 21:43 | HP.PCM_ITS ---
Problem List (1) Chest pain Status: Acute History of Present Illness Date of Admission: 05/31/18 Chief Complaint: chest pain The patient is a 53 year old M with a significant history of TIA; and CAD; DVT who presented to the emergency department with episodic sharp chest pain that went across his entire chest. His chest pain is aggravated with a positioning and is relieved somewhat with nitroglycerin. His chest pain radiates to his left shoulder. Respiratory symptoms as shortness of breath and lightheadedness. Patient complains of right leg pain. A CTPA of his chest could not adequately evaluate his pulmonary arteries for which reason he was empirically given Lovenox. Also patient received full dose aspirin at the emergency department. Previously patient was on warfarin for DVT but warfarin was discontinued 6 years ago. Patient report that in 2017 he had a heart catheter that did not show any blockage and at that time he was started on Lipitor. He reports that he had had attack after which he was started on metoprolol. He reported that his mother had a heart attack in her 50s. He reports a personal history of heart attack in 1991. Past Medical History Past Medical History (Chronic Problems): Chronic Problems TIA (transient ischemic attack) (Chronic) Schizoaffective disorder (Chronic) History of DVT (deep vein thrombosis) (Chronic) Bipolar disorder (Chronic) HTN (hypertension) (Chronic) DM type 2 (diabetes mellitus, type 2) (Chronic) Esophageal reflux (Chronic) HLD (hyperlipidemia) (Chronic) Migraine (Chronic) Obesity (Chronic) Obstructive sleep apnea of adult (Chronic) Schizophrenia (Chronic) Atrial fibrillation (Chronic) Hx of cardiac cath (Chronic) 2002 History of GI bleed (Chronic) Peptic ulcer disease (Chronic) Allergies enalapril maleate [From Vasotec] Allergy (Verified 05/31/18 17:12) Hives enalaprilat dihydrate [From Vasotec] Allergy (Verified 05/31/18 17:12) Hives naproxen [From Naprosyn] Allergy (Verified 05/31/18 17:12) Hives Sulfa (Sulfonamide Antibiotics) Allergy (Verified 05/31/18 17:12) Hives risperidone [From Risperdal] Adverse Reaction (Verified 05/31/18 17:12) HALLUCINATIONS Home Medications: Ambulatory Orders Medication Instructions Recorded Losartan Potassium [Cozaar] 25 mg PO DAILY 06/14/14 Metoprolol Tartrate [Lopressor 100 mg PO BID 06/14/14 (beta yolanda)] Montelukast [Singulair] 10 mg PO QHS 06/14/14 Paliperidone Palmitate [Invega 234 mg IM Q30D 09/13/16 Sustenna] Loratadine [Claritin] 10 mg PO QHS 02/05/17 Fluticasone 0.05% [Flonase Nasal 2 spray NASAL DAILY 10/27/17 [place]] Diphenhydramine HCl [Benadryl 50 mg PO QHS 11/05/17 Allergy] Furosemide [Lasix] 20 mg PO DAILY 11/05/17 Albuterol Sulfate [Proair Hfa] 2 puff INHALATION Q4H PRN PRN 05/31/18 Amlodipine Besylate 2.5 mg PO DAILY 05/31/18 Aspirin [Aspirin, Baby] 81 mg PO DAILY@0800 05/31/18 Atorvastatin Calcium [Lipitor] 80 mg PO QHS 05/31/18 Clopidogrel Bisulfate [Plavix] 75 mg PO DAILY 05/31/18 Nitroglycerin 0.4 mg SL PRN PRN 05/31/18 Omeprazole 40 mg PO DAILY 05/31/18 Tiotropium [place] [Spiriva 2 puff INHALATION DAILY 05/31/18 Respimat] Surgical History: appendectomy, cholecystectomy, herniorrhaphy, tonsillectomy Lives: With Family Smoking Status: Former smoker - Smoke a total of 1 pack and quit many years ago. Patient is a second hand smoker Alcohol: Rare - *Family History Maternal History Items: Asthma, Diabetes, Heart Disease, Hypertension, Stroke Paternal History Items: Cancer Review of Systems Constitutional: Denies: Chills, Fever, Weight Change HEENT: Denies: Head Aches, Sinus Congestion, Sinus Drainage Cardiovascular: Reports: Chest Pain, Light Headedness. Denies: Palpitations Respiratory: Reports: Shortness of Breath. Denies: Cough, Sputum production Gastrointestinal: Denies: Abdominal Pain, Nausea, Vomiting Genitourinary: Denies: Dysuria Musculoskeletal: Reports: Leg Pain. Denies: Joint Pain, Joint Tenderness Skin: Denies: Rash, Wounds Neurological: Reports: Slurred speech - chronic. Denies: Focal weakness, Numbness, Tingling Psychiatric: Denies: Anxiety, Depression, Homicidal Ideations, Suicidal Ideations Hematologic/ Lymphatic: Denies: Easy Bruising, Easy Bleeding VTE Information - Inpt Only VTE Present on Admission: No VTE Mechan Device Prophylaxis: None VTE Pharm Prophylaxis ordered?: Yes Patient Problems: Active and Suspected Problems Chest pain (Acute) - Physical Exam General: Alert, Oriented x3, Cooperative HEENT: Atraumatic, PERRLA, EOMI, Normocephalic Neck: Supple, No JVD, Negative Carotid Bruits Lungs: Clear to auscultation, Normal air movement Cardiovascular: Regular rate, No murmurs Abdomen: Bowel Sounds Present, Soft, Non Tender Extremities: No edema, Capillary Refill Less than 3 Seconds Skin: No rashes, No breakdown Musculoskeletal: No Tenderness to Palpation of Joints or Extremities Neurological: Cranial nerves II-XII grossly intact, Slurred Speech - reports that it is chronic and it was before his TIA Psych/Mental Status: Normal Affect, Appropriate Vital Signs Temp Pulse Resp BP Pulse Ox 97.9 F 73 16 117/67 97 05/31/18 18:10 05/31/18 19:22 05/31/18 19:22 05/31/18 19:22 05/31/18 19:22 Oxygen Delivery Method Room Air Weight: 137 kg Body Mass Index (BMI) 36.7 Finger Stick Blood Glucose 135 Laboratory Tests Past 24 Hrs 05/31/18 05/31/18 18:07 18:07 WBC 13.2 H RBC 5.10 Hgb 13.5 Hct 43.5 MCV 85.3 MCH 26.5 L MCHC 31.0 L RDW 14.6 RDW Differential 44.4 H Plt Count 287 MPV 9.2 Immature Gran % (Auto) 0.800 Neut % (Auto) 78.6 H Lymph % (Auto) 10.2 L [place] % (Auto) 9.4 Eos % (Auto) 0.8 Baso % (Auto) 0.2 Absolute Neuts (auto) 10.4 H Absolute Lymphs (auto) 1.34 Total Counted Not Reportable Sodium 139 Potassium 4.0 Chloride 108 H Carbon Dioxide 25.0 Anion Gap 6 BUN 11 Creatinine 0.94 Estim Creat Clear Calc 111.58 Est GFR (MDRD) Af Amer 108 Est GFR (MDRD) Non-Af 89 BUN/Creatinine Ratio 11.7 Glucose 124 H Calcium 8.4 L Troponin I < 0.015 Assessment/Plan All Active Problems Stroke-like symptoms (Acute) Chest pain (Acute) Abnormal cardiovascular stress test (Acute) Abnormal cardiovascular stress test (Acute) Angina pectoris (Acute) The patient is a 53 year old M with a significant history of TIA; and CAD; DVT who presented to the emergency department with episodic sharp chest pain that went across his entire chest but with an adequate evaluation of his chest by CT PA. Chest pain Diagnoses include pulmonary emboli or cardiac source of chest pain Admit to a monitored bed on pcu CTPA could not adequately visualize pulmonary arteries. CTPA showed significant improvement in right middle lobe and right lung base infiltrates since previous study. Previous CTPA was on 05/05/2018. EKG independently reviewed confirms SR Received aspirin 325 g in the emergency department. ASA 81 mg p.o. daily Plavix continued Lipitor continued. Metoprolol continued Cozaar continued SL NTG 0.4 mg prn as needed for chest pain We will check lipid panel. Serial cardiac enzymes Stat EKG as needed for chest pain We will start with a VQ scan of his chest since patient had a contrast already. We will get bilateral leg Doppler. We will give additional dose of Lovenox therapeutic dose in a.m. If VQ scan or Doppler of extremities is unremarkable consider stress test. Unlikely pneumonia since patient's does not have a fever. He has a mild leukocytosis that may be reactive. Will repeat CBC in a.m. HTN At admission is blood pressure was not within goal Amlodipine; cozaar; and metoprolol continued. Trend blood pressure and adjust blood pressure medication Diabetes mellitus He reports that his diabetes is diet controlled. Previously he was on metformin but he reports that because of good glycemic control his metformin was discontinued On admission his blood glucose was within goal. Cardiac and diabetic diet ordered. History of TIA Patient was put on aspirin and Plavix because of history of TIA. Aspirin and Plavix continued. DVT Prophylaxis Not indicated since patient's is on therapeutic dose for suspected DVT/PE. Received therapeutic Lovenox x1 in the emergency department. Will receive another therapeutic dose of Lovenox in a.m. Code Visit OBSV E&M: 94037 Initial observation care L3
[2018-05-31] MEDS: Enoxaparin 120 MG/0.8 ML Syringe SC (22:05)
--- NOTE | 2018-05-31 22:30 | EKG12_ITS ---
Test Reason : ADM EKG Blood Pressure : / mmHG Vent. Rate : 071 BPM Atrial Rate : 071 BPM P-R Int : 176 ms QRS Dur : 092 ms QT Int : 398 ms P-R-T Axes : 011 054 048 degrees QTc Int : 432 ms Normal sinus rhythm Normal ECG When compared with ECG of 31-MAY-2018 17:18, MANUAL COMPARISON REQUIRED, DATA IS UNCONFIRMED Confirmed by JOHNATHON WILLS, JULISSA ([id number]), commercial production editor RAÚL DILLARD ([id number]) on 06/04/2018 9:38:16 AM Referred By: COOKIE Confirmed By:JULISSA DIEGO MD
[2018-06-01] VITALS (11 sets, daily range): BP systolic 97–112; BP diastolic 59–68; PULSE 61–90; RESP 16–18; TEMP 36.4–36.5; O2SAT 94–97; BMI 36.3
[2018-06-01] MEDS: Loratadine 10 MG Tablet PO (00:43)
[2018-06-01] MEDS: Metoprolol Tartrate 100 MG Tablet PO ×2 (00:43→11:21)
[2018-06-01] MEDS: DiphenhydrAMINE 25 MG Capsule 50 MG PO (00:43)
[2018-06-01] MEDS: Atorvastatin Calcium 80 MG Tablet PO (00:43)
[2018-06-01] MEDS: Montelukast 10 MG Tablet PO (00:45)
[2018-06-01] MEDS: Morphine 2 MG/ML Syringe IV ×2 (00:55→11:19)
[2018-06-01] MEDS: 0.9% NaCl Peripheral Flush Adult/Peds IV ×4 (00:56→01:06)
[2018-06-01] MEDS: Ondansetron 4 MG/2 ML Vial IV ×2 (01:05→11:19)
[2018-06-01 05:51] LABS: Absolute Lymphocyte Count 3.07 X10^3/ul (0.83-4.51); Basophil# 0.05 X10^3/uL; Basophil% 0.4 % (0-1); Eosinophil# 0.22 X10^3/uL; Eosinophils% 1.7 % (0-5); Hematocrit 40.9 % (40-54); Lymphocyte # 3.07 X10^3/ul (4.0); Lymphocyte % 24.2 % (19-41); Mean Corp Hgb Conc 31.8 g/gl (32-36); Mean Corpuscular Hgb 27.1 pg (27.0-32.0); Mean Corpuscular Volume 85.2 fL (80-94); Mean Platelet Vol. 9.5 fl (6.2-12.0); Monocyte# 1.23 X10^3/uL; Monocyte% 9.7 % (0-10); Neutrophil # 8.03 X10^3/uL (2.7-7.7); Neutrophil % 63.1 % (47-70); Platelet Count 284 K/mm3 (150-450); RBC Distribution Width CV 14.5 % (11.6-14.6); White Blood Count 12.7 K/mm3 (4.4-11.0)
[2018-06-01 05:52] LABS: International Normalized Ratio 1.1; Prothrombin Time (Protime)PT. 13.6 SECONDS (11.7-14.9)
[2018-06-01 05:53] LABS: Partial Thromboplast Time 34.9 Seconds (24.1-36.2)
--- NOTE | 2018-06-01 05:55 | EKG12_ITS ---
Test Reason : AM EKG Blood Pressure : / mmHG Vent. Rate : 065 BPM Atrial Rate : 065 BPM P-R Int : 186 ms QRS Dur : 092 ms QT Int : 406 ms P-R-T Axes : 000 052 050 degrees QTc Int : 422 ms Normal sinus rhythm Normal ECG When compared with ECG of 31-MAY-2018 22:51, MANUAL COMPARISON REQUIRED, DATA IS UNCONFIRMED Confirmed by JOHNATHON WILLS, JULISSA ([id number]), film or videotape editor RAÚL DILLARD ([id number]) on 06/04/2018 9:37:00 AM Referred By: COOKIE Confirmed By:JULISSA DIEGO MD
--- NOTE | 2018-06-01 05:55 | VDLE_ITS ---
Reason For Study: chest pain RIGHT LEFT GSV is normal. GSV is normal. CFV is compressible, spontaneous, phasic, CFV is compressible, spontaneous, phasic, competent and demonstrates normal competent, and demonstrates normal augmentation. augmentation. FV is compressible, spontaneous, phasic, FV is compressible, spontaneous, phasic, competent and demonstrates normal competent and demonstrates normal augmentation. augmentation. POP V is compressible, spontaneous, phasic, POP V is compressible, spontaneous, phasic, competent and demonstrates normal competent and demonstrates normal augmentation. augmentation. T/P Trunk is compressible. T/P Trunk is compressible. PTV is compressible. PTV is compressible. RT PerV is compressible. LT PerV is compressible. Procedure Exam performed portable in patient room. The exam was diagnostic. A preliminary report was called and/or faxed to the pt's RN. Interpretation Summary No evidence for acute deep venous thrombosis bilateral lower extremities with patent and compressible bilateral great saphenous veins. Ordering Physician: Nitish Lu Performed By: Ludin Irwin RVT
[2018-06-01] MEDS: Ipratropium 0.5 MG/2.5 ML SOLUTION INHALATION ×2 (06:29→13:00)
[2018-06-01 06:35] LABS: Anion Gap 9 (5-15); BUN 11 mg/dL (7-18); BUN/Creat Ratio 13.3 RATIO (10-20); Calcium,Total 8.3 mg/dL (8.5-10.1); Chloride 108 mmol/L (98-107); Cholesterol 96 mg/dL (200); Creatinine, Serum 0.83 mg/dL (0.70-1.30); EST Glomerular Filtration Rate 103 mL/min (>60); Est Glom Filt Rate - Afr Amer 125 mL/min (>60); Estimated Creatinine Clearance 126.37 ml/min; Glucose 85 mg/dL (74-106); High Density Lipoprotein 44 mg/dL; Sodium Level 143 mmol/L (136-145); Triglycerides 158 mg/dL; Very Low Density Lipoprotein 32 mg/dL (5-40)
[2018-06-01] MEDS: Losartan Potassium 25 MG Tablet PO (06:37)
[2018-06-01] MEDS: Clopidogrel Bisulfate 75 MG Tablet PO (06:37)
[2018-06-01] MEDS: Aspirin 81 MG TAB.CHEW PO (06:37)
[2018-06-01 06:44] LABS: POSITIVE COUNT NO; POSITIVE DIFFERENTIAL NO; POSITIVE MORPHOLOGY NO
--- NOTE | 2018-06-01 08:00 | STE_ITS ---
Reason For Study: CHEST PAIN Stress Results Protocol: Dobutamine Maximum Predicted HR: 167 bpm Target HR: 142 bpm % Maximum Predicted HR: 87 % DurationHeart Rate Stage (mm:ss) (bpm) BP Dose Comment BASELINE 74 139/92 SLIGHT CHEST PAIN, BEFORE STARTING TEST STAGE 1 3:00 72 124/7310.00 STAGE 2 3:00 75 139/9020.00CHEST DISCOMFORT REMAINS SAME STAGE 3 3:00 98 136/9930.000.25 MG ATROPINE STAGE 4 2:13 146 184/8240.000.5 MG ATROPINE RECOVERY 108 142/81 Stress Duration: 11:13 mm:ss Maximum Stress HR: 146 bpm Baseline Echocardiogram Findings Stress Echo Wall motion Data Resting WM Intermediate WM Stress WM Resting Wall Motion Wall Motion Stress No regional wall motion No regional wall motion abnormalities noted. abnormalities noted. Ejection Fraction 55 %. Ejection Fraction 65 %. Interpretation Summary Dobutamine stress echocardiogram. Resting EKG demonstrates normal sinus rhythm with a rate of 77 bpm resting blood pressure 139/92 mmHg. To be given was infused per usual protocol starting at 10 mcg/kg/min increasing to a peak of 40 mcg/kg/min. Patient required 0.75 mg of atropine for augmentation of heart rate. The maximum heart rate attained was 146 bpm which was 87% of maximum predicted heart rate. The patient maintained sinus rhythm throughout the recording at rest there were no ST or T wave changes noted suggest ischemia at peak infusion nonspecific ST-T wave changes were noted with no ischemia noted no arrhythmias were noted. The resting blood pressure was 124/73 with a peak blood pressure 184/82. Stress echocardiographic images. The resting echocardiogram demonstrated ejection fraction of 55% during low-dose dobutamine there was improvement in the wall motion as well as at peak peaking at 65% with no wall motion abnormalities. The above which was suggestive of a normal dobutamine stress echocardiographic test. Conclusion: Normal dobutamine stress echocardiogram with appropriate augmentation of the hercules noted. Ordering Physician: Nitish Gary Referring Physician: NITISH GARY Performed By: Cha Munguia, TALA, RVT
[2018-06-01] MEDS: Pantoprazole Sodium 40 MG Tablet PO (11:20)
[2018-06-01] MEDS: amLODIPine 2.5 MG Tablet PO (11:21)
[2018-06-01] MEDS: Fluticasone 0.05% 1 SPRAY NASAL.SRY 2 SPRAY NASAL (11:25)
--- NOTE | 2018-06-01 14:41 | PCM.DC ---
- Discharge Diagnoses Current Active Problems: Current Active and Chronic Problems Chest pain (Acute) You will use the following diet at home:: Cardiac Your food should be the consistency of: Regular Your liquids should be the consistency of: Regular/Thin Discharge Activity: Return to Normal Activity Weight Bearing Status: Weight bearing as tolerated Call your doctor if you observe: Chest pain Instructions: Discharge Instructions for Angina Allergies/Adverse Reactions: Allergies enalapril maleate [From Vasotec] Allergy (Verified 05/31/18 17:12) Hives enalaprilat dihydrate [From Vasotec] Allergy (Verified 05/31/18 17:12) Hives naproxen [From Naprosyn] Allergy (Verified 05/31/18 17:12) Hives Sulfa (Sulfonamide Antibiotics) Allergy (Verified 05/31/18 17:12) Hives risperidone [From Risperdal] Adverse Reaction (Verified 05/31/18 17:12) HALLUCINATIONS Medications to take at Discharge Losartan Potassium [Cozaar] 25 mg PO DAILY 06/14/14 Metoprolol Tartrate [Lopressor (beta yolanda)] 100 mg PO BID 06/14/14 Montelukast [Singulair] 10 mg PO QHS 06/14/14 Paliperidone Palmitate [Invega Sustenna] 234 mg IM Q30D 09/13/16 Loratadine [Claritin] 10 mg PO QHS 02/05/17 Fluticasone 0.05% [Flonase Nasal [place]] 2 spray NASAL DAILY 10/27/17 Diphenhydramine HCl [Benadryl Allergy] 50 mg PO QHS 11/05/17 Furosemide [Lasix] 20 mg PO DAILY 11/05/17 Albuterol Sulfate [Proair Hfa] 2 puff INHALATION Q4H PRN PRN 05/31/18 Amlodipine Besylate 2.5 mg PO DAILY 05/31/18 Aspirin [Aspirin, Baby] 81 mg PO DAILY@0800 05/31/18 Atorvastatin Calcium [Lipitor] 80 mg PO QHS 05/31/18 Clopidogrel Bisulfate [Plavix] 75 mg PO DAILY 05/31/18 Nitroglycerin 0.4 mg SL PRN PRN 05/31/18 Omeprazole 40 mg PO DAILY 05/31/18 Tiotropium [place] [Spiriva Respimat] 2 puff INHALATION DAILY 05/31/18 Primary Care Physician: Baldo Otto MD [Primary Care Provider] - Please follow up with your Primary Care Physician in: one week Test Results: Test results from this visit will be discussed in further detail at your follow-up appointment, if applicable. Proposed Discharge Date: 06/01/18
--- NOTE | 2018-06-01 14:45 | PCM.DC.SUM ---
Discharge Date and Diagnosis Date of Admission: 05/31/18 Date of Discharge: 06/01/18 - Primary Discharge Diagnosis Active and Suspected Problems Chest pain (Acute)- likely musculoskeletal - Secondary Discharge Diagnosis Chronic Problems TIA (transient ischemic attack) (Chronic) Schizoaffective disorder (Chronic) History of DVT (deep vein thrombosis) (Chronic) Bipolar disorder (Chronic) HTN (hypertension) (Chronic) DM type 2 (diabetes mellitus, type 2) (Chronic) Esophageal reflux (Chronic) HLD (hyperlipidemia) (Chronic) Migraine (Chronic) Obesity (Chronic) Obstructive sleep apnea of adult (Chronic) Schizophrenia (Chronic) Atrial fibrillation (Chronic) Hx of cardiac cath (Chronic) 2003 History of GI bleed (Chronic) Peptic ulcer disease (Chronic) Hospital Course and Treatment Imaging Results: 06/01/18 08:00 Stress Test Echo w/o Contrast [ECHO] Routine Diagnostic Data Chest CTA 05/31/18 17:51 IMPRESSION: Inadequate evaluation of the pulmonary arteries. Pulmonary emboli beyond the main pulmonary arteries cannot be excluded. Significant improvement in right middle lobe and right lung base infiltrates since previous study. Electronically Signed: Truman Grullon MD at 20:33 EDT , Service support , Operations: None Procedures: Stress test Summary of Care Provided: The patient is a 53 year old M with a history of TIA, CAD and DVT was admitted with a complaint of episodic sharp chest pain radiating across into the entire chest was aggravated with position and relieved by nitroglycerin. She also notices shortness of breath and lightheadedness. CT of his chest showed large pulmonary arteries were negative for DVT but could not ascertain small pulmonary arteries. He was therefore given therapeutic dose of Lovenox and also aspirin. Stated that he had had a heart attack in 1991 and also had a heart cath in 2017 which was normal. He also had a DVT and was on Coumadin that was stopped 6 years ago. He had also been treated recently for pneumonia and CT angiogram also showed infiltrate or atelectasis in the right middle lobe but this which has significantly improved since prior study and previous infiltrate in the right lower lobe but almost resolved. He was admitted and managed for chest pain to rule out ACS. He had a stress test which was negative. Pain was thought to be more musculoskeletal as it was reproducible with mild palpation. He remained stable and was discharged home on 06/01/2018. His follow-up with his primary care doctor. Patient seen and examined prior to admission. He had no complaints and felt well. Chest pain is mildly reproducible with palpation. Review of systems otherwise negative. Labs and vitals reviewed. o/e: Vital Signs Height 6 ft 4 in Weight: 298 lb 8.094 oz Weight in Pounds 298.5 lbs Pulse Ox 97 Temperature 97.7 F Pulse Rate 86 Respiratory Rate 16 Blood Pressure [2nd BP] 138/60 Blood Pressure 106/62 Blood Pressure Position [2nd Semi-Fowlers BP] Blood Pressure Position Supine [] General: Alert, Oriented x3, Cooperative HEENT: Atraumatic, PERRLA, EOMI, Normocephalic Neck: Supple, No JVD, Negative Carotid Bruits Lungs: Clear to auscultation, Normal air movement Cardiovascular: Regular rate, No murmurs Abdomen: Bowel Sounds Present, Soft, Non Tender Extremities: No edema, Capillary Refill Less than 3 Seconds Skin: No rashes, No breakdown Musculoskeletal: No Tenderness to Palpation of Joints or Extremities Neurological: Cranial nerves II-XII grossly intact, normal power and tone. Psych/Mental Status: Normal Affect, Appropriate Plan as discussed. - Physical Exam Vital Signs Temp Pulse Resp BP Pulse Ox 97.6 F L 82 16 112/68 96 06/01/18 08:45 06/01/18 13:00 06/01/18 13:00 06/01/18 08:45 06/01/18 08:45 Oxygen Delivery Method Room Air Weight: 298 lb 8.094 oz Body Mass Index (BMI) 36.3 Finger Stick Blood Glucose 135 Laboratory Tests Past 24 Hrs 05/31/18 05/31/18 05/31/18 18:07 18:07 22:56 WBC 13.2 H RBC 5.10 Hgb 13.5 Hct 43.5 MCV 85.3 MCH 26.5 L MCHC 31.0 L RDW 14.6 RDW Differential 44.4 H Plt Count 287 MPV 9.2 Immature Gran % (Auto) 0.800 Neut % (Auto) 78.6 H Lymph % (Auto) 10.2 L [place] % (Auto) 9.4 Eos % (Auto) 0.8 Baso % (Auto) 0.2 Absolute Neuts (auto) 10.4 H Absolute Lymphs (auto) 1.34 Total Counted Not Reportable PT INR APTT Sodium 139 Potassium 4.0 Chloride 108 H Carbon Dioxide 25.0 Anion Gap 6 BUN 11 Creatinine 0.94 Estim Creat Clear Calc 111.58 Est GFR (MDRD) Af Amer 108 Est GFR (MDRD) Non-Af 89 BUN/Creatinine Ratio 11.7 Glucose 124 H Calcium 8.4 L Troponin I < 0.015 < 0.015 Triglycerides Cholesterol LDL Cholesterol VLDL Cholesterol HDL Cholesterol 06/01/18 06/01/18 06/01/18 01:56 05:00 05:00 WBC 12.7 H RBC 4.80 Hgb 13.0 Hct 40.9 MCV 85.2 MCH 27.1 MCHC 31.8 L RDW 14.5 RDW Differential 44.0 H Plt Count 284 MPV 9.5 Immature Gran % (Auto) 0.900 Neut % (Auto) 63.1 Lymph % (Auto) 24.2 [place] % (Auto) 9.7 Eos % (Auto) 1.7 Baso % (Auto) 0.4 Absolute Neuts (auto) 8.0 H Absolute Lymphs (auto) 3.07 Total Counted Not Reportable PT INR APTT Sodium 143 Potassium 4.0 Chloride 108 H Carbon Dioxide 26.0 Anion Gap 9 BUN 11 Creatinine 0.83 Estim Creat Clear Calc 126.37 Est GFR (MDRD) Af Amer 125 Est GFR (MDRD) Non-Af 103 BUN/Creatinine Ratio 13.3 Glucose 85 Calcium 8.3 L Troponin I < 0.015 Triglycerides 158 Cholesterol 96 LDL Cholesterol 20 VLDL Cholesterol 32 HDL Cholesterol 44 06/01/18 05:00 WBC RBC Hgb Hct MCV MCH MCHC RDW RDW Differential Plt Count MPV Immature Gran % (Auto) Neut % (Auto) Lymph % (Auto) [place] % (Auto) Eos % (Auto) Baso % (Auto) Absolute Neuts (auto) Absolute Lymphs (auto) Total Counted PT 13.6 INR 1.1 APTT 34.9 Sodium Potassium Chloride Carbon Dioxide Anion Gap BUN Creatinine Estim Creat Clear Calc Est GFR (MDRD) Af Amer Est GFR (MDRD) Non-Af BUN/Creatinine Ratio Glucose Calcium Troponin I Triglycerides Cholesterol LDL Cholesterol VLDL Cholesterol HDL Cholesterol Discharge Diet: Low fat/ Low Cholesterol Discharge Activity: Return to Normal Activity Weight Bearing Status: Weight bearing as tolerated Call your doctor if you observe: Chest pain Home Medications: Medications to take at Discharge Losartan Potassium [Cozaar] 25 mg PO DAILY 06/14/14 Metoprolol Tartrate [Lopressor (beta yolanda)] 100 mg PO BID 06/14/14 Montelukast [Singulair] 10 mg PO QHS 06/14/14 Paliperidone Palmitate [Invega Sustenna] 234 mg IM Q30D 09/13/16 Loratadine [Claritin] 10 mg PO QHS 02/05/17 Fluticasone 0.05% [Flonase Nasal [place]] 2 spray NASAL DAILY 10/27/17 Diphenhydramine HCl [Benadryl Allergy] 50 mg PO QHS 11/05/17 Furosemide [Lasix] 20 mg PO DAILY 11/05/17 Albuterol Sulfate [Proair Hfa] 2 puff INHALATION Q4H PRN PRN 05/31/18 Amlodipine Besylate 2.5 mg PO DAILY 05/31/18 Aspirin [Aspirin, Baby] 81 mg PO DAILY@0800 05/31/18 Atorvastatin Calcium [Lipitor] 80 mg PO QHS 05/31/18 Clopidogrel Bisulfate [Plavix] 75 mg PO DAILY 05/31/18 Nitroglycerin 0.4 mg SL PRN PRN 05/31/18 Omeprazole 40 mg PO DAILY 05/31/18 Tiotropium [place] [Spiriva Respimat] 2 puff INHALATION DAILY 05/31/18 Primary Care Physician: Baldo Otto MD [Primary Care Provider] - Please follow up with your Primary Care Physician in: one week Patient Instructions: Discharge Instructions for Angina Disposition: Home Minutes spent on discharge:: 35 Patient Condition:: Stable Medical Necessity - Tobacco Use Smoking Status: Former smoker Meaningful Use Info Meaningful Use Diagnoses (Choose all that apply): None applicable Code Visit Inpatient E&M: 21379 Disch Hosp
== END 2018-06-01 14:44 | disposition home or self-care (01) ==
LOC: ED 17:59 → PCU 22:05
PROVIDERS: Admitting Provider Hospitalist; Emergency Provider Emergency Medicine; Family Provider Family Medicine; PCP Family Medicine; Visit Provider Student in an Organized Health Care Education/Training Program
DX: R07.89 Other chest pain (principal); I48.2 Chronic atrial fibrillation; G47.33 Obstructive sleep apnea (adult) (pediatric); E78.5 Hyperlipidemia, unspecified; I10 Essential (primary) hypertension; K21.9 Gastro-esophageal reflux disease without esophagitis; E11.9 Type 2 diabetes mellitus without complications; Z86.718 Personal history of other venous thrombosis and embolism; F25.9 Schizoaffective disorder, unspecified; F31.9 Bipolar disorder, unspecified; Z79.899 Other long term (current) drug therapy; Z79.82 Long term (current) use of aspirin; Z79.02 Long term (current) use of antithrombotics/antiplatelets; E66.9 Obesity, unspecified; Z68.36 Body mass index [BMI] 36.0-36.9, adult; Z71.3 Dietary counseling and surveillance; I25.10 Atherosclerotic heart disease of native coronary artery without angina pectoris; Z86.73 Personal history of transient ischemic attack (TIA), and cerebral infarction without residual deficits; I25.2 Old myocardial infarction; Z87.891 Personal history of nicotine dependence
CPT/HCPCS: 36415; 71275; 80048; 80061; 84484; 85025; 85610; 85730; 93005; 93017; 93350; 93970; 94640; 96361; 96372; 96374; 96375; 96376; 99218; 99283; J7030; J7040; Q9957; Q9967; A4216; G0378; J2405

== ENCOUNTER 2018-07-31 22:19 | Emergency (ER) | payer MEDICARE, SELFPAY ==
[2018-05-31 22:32] VITALS: BMI 36.3
[2018-07-31 22:20] VITALS: BP 147/81; PULSE 74; RESP 18; TEMP 35.8; O2SAT 98; BMI 35.9
--- NOTE | 2018-07-31 22:24 | ED.RN ---
RN CALLED FOR EKG, PULLED OLD EKGS FOR
--- NOTE | 2018-07-31 22:52 | EKG12_ITS ---
Test Reason : SOB Blood Pressure : / mmHG Vent. Rate : 063 BPM Atrial Rate : 063 BPM P-R Int : 180 ms QRS Dur : 092 ms QT Int : 406 ms P-R-T Axes : 054 053 058 degrees QTc Int : 415 ms Normal sinus rhythm Normal ECG Confirmed by ISELA SPRAGUE ([id number]), editorial clerk RAÚL DILLARD ([id number]) on 08/02/2018 1:45:12 PM Referred By: DORENE Confirmed By:ISELA SPRAGUE
[2018-07-31 22:59] VITALS: O2SAT 98
[2018-07-31] MEDS: Aspirin 81 MG TAB.CHEW 324 MG PO (23:07)
[2018-07-31 23:10] LABS: Absolute Lymphocyte Count 2.57 X10^3/ul (0.83-4.51); Absolute Neutrophil Count 6.4 X10^3/uL (2.0-7.7); Basophil# 0.03 X10^3/uL; Basophil% 0.3 % (0-1); Eosinophil# 0.24 X10^3/uL; Eosinophils% 2.4 % (0-5); Hematocrit 40.7 % (40-54); Hemoglobin 13.2 g/dl (13.0-16.5); Lymphocyte # 2.57 X10^3/ul (4.0); Lymphocyte % 25.3 % (19-41); Mean Corp Hgb Conc 32.4 g/gl (32-36); Mean Corpuscular Hgb 26.7 pg (27.0-32.0); Mean Corpuscular Volume 82.4 fL (80-94); Mean Platelet Vol. 9.2 fl (6.2-12.0); Monocyte# 0.91 X10^3/uL; Neutrophil # 6.37 X10^3/uL (2.7-7.7); Neutrophil % 62.7 % (47-70); Platelet Count 280 K/mm3 (150-450); RBC Distribution Width CV 14.1 % (11.6-14.6); RBC Distribution Width SD 42.6 fl (35.1-43.9); Red Blood Count 4.94 M/mm3 (4.6-6.2); White Blood Count 10.2 K/mm3 (4.4-11.0)
[2018-07-31 23:11] LABS: POSITIVE COUNT NO; POSITIVE DIFFERENTIAL NO; POSITIVE MORPHOLOGY NO
--- NOTE | 2018-07-31 23:17 | RAD_ITS ---
HISTORY: CHEST PAIN AND SOB. HX OF COPD EXAM:XR Chest 2 Views COMPARISON: 04/28/2018 FINDINGS: EKG leads in place. Left basilar minor discoid atelectasis. Normal heart size. No vascular congestion, pleural effusion, or pulmonary consolidation. No pneumothorax. The bony thorax appears intact. RAD/Chest PA and Lateral IMPRESSION: 1. Left basilar minor discoid atelectasis. 2. No pneumonia seen. at 0015 Reported and signed by: Naveen Gamez MD Electronically Signed: Naveen Gamez, at 0:14 EDT Tel , Service support ,
[2018-07-31 23:24] LABS: Anion Gap 6 (5-15); BUN 11 mg/dL (7-18); BUN/Creat Ratio 11.2 RATIO (10-20); Calcium,Total 8.2 mg/dL (8.5-10.1); Chloride 107 mmol/L (98-107); Creatinine, Serum 0.98 mg/dL (0.70-1.30); EST Glomerular Filtration Rate 85 mL/min (>60); Est Glom Filt Rate - Afr Amer 103 mL/min (>60); Estimated Creatinine Clearance 107.02 ml/min; Glucose 150 mg/dL (74-106); Potassium 3.6 mmol/L (3.5-5.1); Sodium Level 138 mmol/L (136-145)
[2018-08-01 00:16] VITALS: BP 127/84; PULSE 69; RESP 19; O2SAT 97
--- NOTE | 2018-08-01 00:28 | EKG12_ITS ---
Test Reason : CP Blood Pressure : / mmHG Vent. Rate : 074 BPM Atrial Rate : 074 BPM P-R Int : 176 ms QRS Dur : 092 ms QT Int : 386 ms P-R-T Axes : 014 047 049 degrees QTc Int : 428 ms Normal sinus rhythm Low voltage QRS Borderline ECG Confirmed by ISELA SPRAGUE ([id number]), business editor RAÚL DILLARD ([id number]) on 08/02/2018 1:45:29 PM Referred By: LIZ Confirmed By:ISELA SPRAGUE
[2018-08-01 01:08] VITALS: BP 149/100; PULSE 58; RESP 19; O2SAT 98
[2018-08-01 02:02] VITALS: BP 123/80; PULSE 63; RESP 15; O2SAT 97
--- NOTE | 2018-08-01 02:40 | ED.DEP ---
ED Disposition - Plan for ED Patient: Instructions: ED Chest Pain NonCardiac Referrals: Baldo Otto MD [Primary Care Provider] -
[2018-08-01 02:47] VITALS: BP 116/74; PULSE 63; RESP 16; O2SAT 98
--- NOTE | 2018-08-01 04:04 | ED.DCSUM_ITS ---
- ER Visit Summary Date of Service: 08/01/18 Chief Complaint: Chest pain History of Present Illness: The patient is a 53 M who presents with chest pain. He does have a history of hypertension hyperlipidemia prior coronary disease but no prior stents. He presents with intermittent chest pain today which he describes as a heaviness and currently rates as an 8 out of 10. He also reports associated shortness of breath and nausea. No sore throat. Patient just had a normal stress echo on June 01 of this year. He states it may be related to his COPD or a panic attack. Physical Examination: Afebrile vitals normal Moist mucous membranes Heart regular rate and rhythm Lungs clear Abdomen soft Extremities nontender without edema Test Results: EKG shows normal sinus rhythm at a rate of 74 unchanged from prior no acute ischemic changes. Repeat EKG remains unchanged. Chest x-ray shows some atelectasis no pneumonia. CBC BMP troponin all normal. Second troponin is normal. Emergency Department Course and Treatment: Work-up as above is unremarkable. Although the patient does have risk factors he just had a stress test less than 2 months ago which was normal. Therefore I do feel he is safe for discharge with outpatient follow-up. He understands to return for new or worsening symptoms and was discharged home. Treatment Plan: [] Disposition: Discharge Impression: Chest pain This note was generated with [employer] dictation software. It may contain incorrect words, spelling, and punctuation that were not noted in review of the chart prior to signing ED Disposition - Plan for ED Patient: Disposition: Home or Assisted Living Instructions: ED Chest Pain NonCardiac Referrals: Baldo Otto MD [Primary Care Provider] -
== END 2018-08-01 02:47 | disposition home or self-care (01) ==
PROVIDERS: Emergency Provider Emergency Medicine; Family Provider Family Medicine; PCP Family Medicine
DX: R07.89 Other chest pain (principal); R06.00 Dyspnea, unspecified; R11.0 Nausea; J98.11 Atelectasis; I25.10 Atherosclerotic heart disease of native coronary artery without angina pectoris; J44.9 Chronic obstructive pulmonary disease, unspecified; I10 Essential (primary) hypertension; E78.00 Pure hypercholesterolemia, unspecified; F20.9 Schizophrenia, unspecified; Z86.73 Personal history of transient ischemic attack (TIA), and cerebral infarction without residual deficits; Z86.718 Personal history of other venous thrombosis and embolism; Z79.82 Long term (current) use of aspirin; Z79.02 Long term (current) use of antithrombotics/antiplatelets; Z79.899 Other long term (current) drug therapy
CPT/HCPCS: 36415; 71046; 80048; 84484; 85025; 93005; 99285; A4216

== ENCOUNTER 2018-08-08 21:59 | Emergency (ER) | payer MEDICARE, SELFPAY ==
[2018-08-08 22:00] VITALS: BP 122/85; PULSE 76; RESP 16; TEMP 36.8; O2SAT 96; BMI 37.3
[2018-08-08 22:18] LABS: Red Blood Cells-Urine 0 SEEN /hpf (0-5); Squamous Epithelial Cells - UA 0 SEEN /hpf (0-5)
[2018-08-08 22:23] LABS: Color, Urine Yellow (Yellow); Glucose, Dipstick Normal (Normal); Ketone-Dipstick Negative (Negative); Leukocyte Esterase-Dipstick Negative /ul (Negative); Nitrite-Dipstick Negative (Negative); Occult Blood-Urine Negative /ul (Negative); Protein-Dipstick Negative (Negative); Specific Gravity, Urine 1.025 (1.002-1.030); Urine Bilirubin Dipstick Negative (Negative); Urine Clarity Clear (Clear); Urine Urobilinogen 1 mg/dl (Normal)
[2018-08-08 22:37] LABS: Bacteria RARE /hpf (None Seen); Mucous, Urine 1+ /hpf (<or=2+); White Blood Cells 0-5 SEEN /hpf (0-5)
--- NOTE | 2018-08-08 23:40 | ED.VISSUMM ---
- ER Visit Summary Date of Service: 08/08/18 Chief Complaint: Hematuria History of Present Illness: The patient is a 53 M who presents with hematuria that he noticed today. Patient states he did have some burning with urination today as well. Patient was recently started back on Plavix. Patient denies any fevers or chills. Patient is currently on antibiotics for pneumonia. Patient also complains of a headache. Patient denies any nausea or vomiting. Physical Examination: Vital signs are stable. Patient is afebrile. Patient is in no acute distress. Oral mucosa is pink and moist. Neck is supple. Trachea is midline. There is no JVD noted. Heart was regular rate and rhythm. Lungs are clear and equal bilateral. Abdomen is soft. Bowel sounds are normal. There is no tenderness. There is no guarding noted. Skin is warm dry. Cranial nerves II through XII are intact. There are no focal motor or sensory deficits noted. The remaining physical exam is within normal limits. Test Results: Urinalysis was obtained. There is no hematuria or evidence of urinary tract infection. Emergency Department Course and Treatment: Patient was instructed to drink plenty of fluids. Patient was instructed to follow-up with his primary care physician for further evaluation. Patient understood and was agreeable with the plan. All questions were answered. Disposition: Discharge home Impression: Dysuria This note was generated with [email or web address] dictation software. It may contain incorrect words, spelling, and punctuation that were not noted in review of the chart prior to signing ED Disposition - Plan for ED Patient: Disposition: Home or Assisted Living Diagnosis: Dysuria Instructions: ED Dysuria Uncertain Cause Referrals: Baldo Otto MD [Primary Care Provider] - 5-7 Days
--- NOTE | 2018-08-08 23:43 | ED.DCSUM_ITS ---
- ER Visit Summary Date of Service: 08/08/18 Chief Complaint: Hematuria History of Present Illness: The patient is a 53 M who presents with hematuria that he noticed today. Patient states he did have some burning with urination today as well. Patient was recently started back on Plavix. Patient denies any fevers or chills. Patient is currently on antibiotics for pneumonia. Patient also complains of a headache. Patient denies any nausea or vomiting. Physical Examination: Vital signs are stable. Patient is afebrile. Patient is in no acute distress. Oral mucosa is pink and moist. Neck is supple. Trachea is midline. There is no JVD noted. Heart was regular rate and rhythm. Lungs are clear and equal bilateral. Abdomen is soft. Bowel sounds are normal. There is no tenderness. There is no guarding noted. Skin is warm dry. Cranial nerves II through XII are intact. There are no focal motor or sensory deficits noted. The remaining physical exam is within normal limits. Test Results: Urinalysis was obtained. There is no hematuria or evidence of urinary tract infection. Emergency Department Course and Treatment: Patient was instructed to drink plenty of fluids. Patient was instructed to follow-up with his primary care physician for further evaluation. Patient understood and was agreeable with the plan. All questions were answered. Disposition: Discharge home Impression: Dysuria This note was generated with [employer] dictation software. It may contain incorrect words, spelling, and punctuation that were not noted in review of the chart pr ior to signing ED Disposition - Plan for ED Patient: Disposition: Home or Assisted Living Diagnosis: Dysuria Instructions: ED Dysuria Uncertain Cause Referrals: Baldo Otto MD [Primary Care Provider] - 5-7 Days
[2018-08-08 23:50] VITALS: BP 130/77; PULSE 73; O2SAT 97
== END 2018-08-08 23:51 | disposition home or self-care (01) ==
PROVIDERS: Emergency Provider Emergency Medicine; Family Provider Family Medicine; PCP Family Medicine
DX: R30.0 Dysuria (principal); R31.9 Hematuria, unspecified; E66.9 Obesity, unspecified; I25.2 Old myocardial infarction; E11.9 Type 2 diabetes mellitus without complications; Z90.49 Acquired absence of other specified parts of digestive tract; J18.9 Pneumonia, unspecified organism; Z79.2 Long term (current) use of antibiotics; Z79.02 Long term (current) use of antithrombotics/antiplatelets; Z79.82 Long term (current) use of aspirin; Z79.899 Other long term (current) drug therapy
CPT/HCPCS: 81001; 99282

== ENCOUNTER 2018-09-02 19:35 | Emergency (ER) | payer MEDICARE, SELFPAY ==
[2018-09-02 19:36] VITALS: BP 131/83; PULSE 80; RESP 16; TEMP 36.6; O2SAT 97; BMI 36.5
--- NOTE | 2018-09-02 20:17 | ED.VISSUMM ---
- ER Visit Summary Date of Service: 09/02/18 Chief Complaint: Right ankle pain History of Present Illness: The patient is a 53 M who states he woke 6 days ago with right ankle pain. He is not sure if he may have kicked the wall during his sleep. He was seen by Dr. Bowman and x-rays were reportedly unremarkable. He has been in a walking boot and on crutches. He states he is scheduled for an MRI on the due to concern for possible torn ligament or tendon. Patient states [id number] Tylenol is not helping. Physical Examination: Vital signs unremarkable. Patient sitting upright in bed no acute distress. Right lower extremity examination reveals tenderness on the medial malleolus and the medial right foot at the heel. No overlying skin change noted. Mild edema is noted. He has strong distal pulses. Test Results: [] Emergency Department Course and Treatment: Patient had no new injury since he was last x-rayed and therefore x-rays are not repeated. I did do an oars report. The patient's last narcotic prescription was in 2016. He will be given 1 tab of [place] here and a prescription for 10 tabs only. Treatment Plan: [] Disposition: Discharge Impression: Right ankle sprain This note was generated with [employer] dictation software. It may contain incorrect words, spelling, and punctuation that were not noted in review of the chart prior to signing ED Disposition - Plan for ED Patient: Disposition: Home or Assisted Living Instructions: ED Sprain Ankle No X Ray Prescriptions: Hydrocodone Bitart/Apap 5-325 [[place] 5MG-325MG] 1 tablet PO Q6H PRN PRN 3 Days #10 tablet PRN Reason: Pain Referrals: Naveen Bowman DPM [STAFF PHYSICIAN] - 1 Week
--- NOTE | 2018-09-02 20:24 | ED.DCSUM_ITS ---
- ER Visit Summary Date of Service: 09/02/18 Chief Complaint: Right ankle pain History of Present Illness: The patient is a 53 M who states he woke 6 days ago with right ankle pain. He is not sure if he may have kicked the wall during his sleep. He was seen by Dr. Bowman and x-rays were reportedly unremarkable. He has been in a walking boot and on crutches. He states he is scheduled for an MRI on the due to concern for possible torn ligament or tendon. Patient states [id number] Tylenol is not helping. Physical Examination: Vital signs unremarkable. Patient sitting upright in bed no acute distress. Right lower extremity examination reveals tenderness on the medial malleolus and the medial right foot at the heel. No overlying skin change noted. Mild edema is noted. He has strong distal pulses. Test Results: [] Emergency Department Course and Treatment: Patient had no new injury since he was last x-rayed and therefore x-rays are not repeated. I did do an oars report. The patient's last narcotic prescription was in 2016. He will be given 1 tab of [place] here and a prescription for 10 tabs only. Treatment Plan: [] Disposition: Discharge Impression: Right ankle sprain This note was generated with [employer] dictation software. It may contain incorrect words, spelling, and punctuation that were not noted in review of the chart prior to signing ED Disposition - Plan for ED Patient: Disposition: Home or Assisted Living Instructions: ED Sprain Ankle No X Ray Prescriptions: Hydrocodone Bitart/Apap 5-325 [[place] 5MG-325MG] 1 tablet PO Q6H PRN PRN 3 Days #10 tablet PRN Reason: Pain Referrals: Naveen Bowman DPM [STAFF PHYSICIAN] - 1 Week
[2018-09-02] MEDS: HYDROcodone Bitartrate/Apap 5/325 Tablet PO (20:47)
[2018-09-02 20:48] VITALS: RESP 18
== END 2018-09-02 20:49 | disposition home or self-care (01) ==
PROVIDERS: Emergency Provider Emergency Medicine; Family Provider Family Medicine; PCP Family Medicine
DX: S93.401A Sprain of unspecified ligament of right ankle, initial encounter (principal); X58.XXXA Exposure to other specified factors, initial encounter; Y93.9 Activity, unspecified; Y92.9 Unspecified place or not applicable; I25.2 Old myocardial infarction; J44.9 Chronic obstructive pulmonary disease, unspecified; E11.9 Type 2 diabetes mellitus without complications; I10 Essential (primary) hypertension; E78.00 Pure hypercholesterolemia, unspecified; F25.9 Schizoaffective disorder, unspecified; F31.9 Bipolar disorder, unspecified; F41.9 Anxiety disorder, unspecified; I48.91 Unspecified atrial fibrillation; F32.9 Major depressive disorder, single episode, unspecified; Z86.73 Personal history of transient ischemic attack (TIA), and cerebral infarction without residual deficits; Z87.442 Personal history of urinary calculi; Z87.11 Personal history of peptic ulcer disease; Z79.02 Long term (current) use of antithrombotics/antiplatelets; Z79.82 Long term (current) use of aspirin; Z79.899 Other long term (current) drug therapy; Z87.891 Personal history of nicotine dependence
CPT/HCPCS: 99283

== ENCOUNTER 2018-09-09 18:25 | Emergency (ER) | payer MEDICARE, SELFPAY ==
[2018-09-09 18:25] VITALS: BP 115/58; PULSE 93; RESP 18; TEMP 36.6; O2SAT 97; BMI 36.5
[2018-09-09] MEDS: 0.9% Normal Saline 1,000 ML 999 ML IV (18:57)
[2018-09-09] MEDS: DiphenhydrAMINE 50 MG/ML Syringe 25 MG IV (18:57)
[2018-09-09] MEDS: proCHLORPERazine 10 MG/2 ML Vial IV (18:57)
[2018-09-09 19:04] VITALS: BP 126/80; PULSE 75; RESP 16; O2SAT 95
--- NOTE | 2018-09-09 19:14 | ED.VISSUMM ---
- ER Visit Summary Date of Service: 09/09/18 Chief Complaint: Headache, neck pain History of Present Illness: The patient is a 53 M with multiple comorbidities who presents to the emergency department headache and neck pain. The patient does have a significant ankle sprain is been using crutches for the past 6 days. He states he had a lot of tightness in his posterior neck and upper back. He does like it is giving him a migraine. He tried his Imitrex with little improvement. He denies any vision change. He is been mildly nauseated. He states this feels like a similar migraines, he was just having more pain. He is scheduled for an outpatient MRI of his lower extremity tomorrow. He presented because his 2 Imitrex did not control his symptoms. Physical Examination: Well-appearing patient is in no acute distress. Head is normocephalic, atraumatic. Pupils equal round reactive, extraocular muscles intact. There is no temporal artery tenderness. There is no vesicular rash. Neck supple. There is tenderness in the paraspinal musculature, but no midline tenderness. Kernig's and Brudzinski's are negative. Heart regular rate and rhythm. Lungs clear, chest nontender. Abdomen soft, nontender, nondistended. Neuro exam displays no focal or lateralizing deficit. 2+ symmetric lower extremity reflexes. No clonus. No ataxia or gait abnormality. Test Results: [] Emergency Department Course and Treatment: The patient presents with bilateral posterior neck pain. My suspicion is that this is muscular. He is been using crutches for the past 6 days. His neuro exam is benign. I initially gave him migraine medication with little improvement. He was then given Toradol and Ativan and had complete pain relief. I am going to continue him on antispasmodics. I do not suspect a dangerous process. I do feel that he is safe for outpatient therapy. He will be discharged home. Treatment Plan: [] Disposition: Discharge Impression: 1. Tension headache This note was generated with [employer] dictation software. It may contain incorrect words, spelling, and punctuation that were not noted in review of the chart prior to signing ED Disposition - Plan for ED Patient: Instructions: HEADACHE, Tension Prescriptions: cycloBENZAPRine HCl [Flexeril] 10 mg PO TID PRN #20 tab PRN Reason: Muscle Spasm Prescription Printed Referrals: Baldo Otto MD [Primary Care Provider] -
[2018-09-09] MEDS: LORazepam 2 MG/ML Syringe 1 MG IV (19:29)
[2018-09-09] MEDS: Ketorolac 30 MG/ML Syringe IV (19:29)
[2018-09-09 20:00] VITALS: BP 121/83; PULSE 70; RESP 18; O2SAT 95
== END 2018-09-09 20:02 | disposition home or self-care (01) ==
LOC: ED 18:48
PROVIDERS: Emergency Provider Emergency Medicine; Family Provider Family Medicine; PCP Family Medicine
DX: G44.209 Tension-type headache, unspecified, not intractable (principal); I25.10 Atherosclerotic heart disease of native coronary artery without angina pectoris; Z86.73 Personal history of transient ischemic attack (TIA), and cerebral infarction without residual deficits; Z79.82 Long term (current) use of aspirin; Z79.899 Other long term (current) drug therapy; Z72.0 Tobacco use
CPT/HCPCS: 96361; 96374; 96375; 99283; J7030; A4216

== ENCOUNTER 2018-09-23 17:25 | Observation (INO) | payer MEDICARE, MEDICAID, SELFPAY ==
[2018-09-23] VITALS (14 sets, daily range): BP systolic 118–141; BP diastolic 74–94; PULSE 76–99; RESP 14–26; TEMP 36.3–36.4; O2SAT 94–99; BMI 34.0; BMI 36.6
--- NOTE | 2018-09-23 17:35 | NURSING ---
STROKE ALERT CALLED
[2018-09-23 17:41] LABS: Bedside Glucose 149 mg/dL (70-110)
--- NOTE | 2018-09-23 17:44 | CT_ITS ---
STUDY: CTA NECK WITH CONTRAST REASON FOR EXAM: Male, 53 years old. Possible stroke RADIATION DOSAGE (If Supplied By Facility): DLP = ( 1801.22 ) mGycm TECHNIQUE: CT angiography with multi-detector data acquisition was performed from the aortic arch to the skull base following intravenous administration of 100 IV Isovue 370. MIP images were reconstructed from the axial data set. Post-processing of the angiographic images was performed, with multiplanar reformation and 3D reconstruction. Individualized dose optimization techniques were used for this CT. COMPARISON: Previous CTA 07/06/2017. FINDINGS: AORTIC ARCH: Normal visualized aortic arch. Normal origins of the brachiocephalic, left common carotid, and left subclavian arteries. There is absence of flow visualized within the right subclavian artery however there is significant venous streak artifact in this region. RIGHT CAROTID ARTERIES: Normal right common carotid artery (CCA). Normal right common carotid bulb. Normal origin of the right internal carotid (ICA) artery without a hemodynamically significant stenosis. Normal visualized cervical portion of the right internal carotid artery. Normal origin of the right external carotid artery (ECA). LEFT CAROTID ARTERIES: Normal left common carotid artery (CCA). Normal left common carotid bulb. Normal origin of the left internal carotid (ICA) artery without a hemodynamically significant stenosis. Normal visualized cervical portion of the left internal carotid artery. Normal origin of the left external carotid artery (ECA). VERTEBRAL ARTERIES: Normal bilateral vertebral arteries. There are subcentimeter thyroid nodules. CT/CTA Neck W/WO Contrast IMPRESSION: Normal bilateral cervical carotid and vertebral arteries. No flow is visualized within the right subclavian artery however evaluation is limited due to extensive streak artifact due to venous contrast from right-sided venous injection. A duplex Doppler exam is recommended for further evaluation to exclude subclavian artery occlusion The results were called to and discussed with Physician: Mike Lara immediately following my review at approximately 6:20 PM 09/23/2018 N.B. : The above information has been verbally conveyed by Bin Rahman to Mike Lara AA, on 09/23/2018 18:25:09 (ET). Electronically Signed: Bin Rahman, at 18:29 EDT Tel , Service support ,
--- NOTE | 2018-09-23 17:44 | CT_ITS ---
STUDY: CTA OF THE BRAIN REASON FOR EXAM: Male, 53 years old. Stroke alert RADIATION DOSAGE (If Supplied By Facility): DLP = ( 1801.22 ) mGycm TECHNIQUE: CT angiography was performed with a multi-detector CT scanner. Data acquisition was obtained from the skull base through the vertex following intravenous administration of 100 IV Isovue 370. MIP images were reconstructed from the axial data set. Post-processing of the angiographic images was performed, with multiplanar reformation and 3D reconstruction. Individualized dose optimization techniques were used for this CT. COMPARISON: CTA head 07/06/2017. FINDINGS: There is no interval change. Normal bilateral petrous carotid arteries. Normal right cavernous carotid artery with a normal supraclinoid bifurcation. Normal left cavernous carotid artery with a normal supraclinoid bifurcation. Normal right A1 segments of the anterior cerebral artery. Normal left A1 segments of the anterior cerebral artery. Normal intact anterior communicating artery (ACOM). Normal bilateral A2 segments of the anterior cerebral arteries. Normal right M1 and M2 segments of the middle cerebral arteries, with a normal M1 bifurcation. Normal left M1 and M2 segments of the middle cerebral arteries, with a normal M1 bifurcation. The posterior communicating arteries are hypoplastic. Normal bilateral vertebral arteries. Normal basilar artery with a normal basilar bifurcation. The visualized bilateral superior cerebellar (SCA) arteries are normal. Normal bilateral P1, P2 and visualized P3 segments of the posterior cerebral arteries. There is no demonstrated aneurysm of the three affiliated of [place]. There is no demonstrated abnormality of the visualized brain. CT/CTA Head W/WO Contrast IMPRESSION: Normal three affiliated of [place] without a demonstrated aneurysm or hemodynamically significant stenosis. N.B. : The above information has been verbally conveyed by Bin Rahman to Mike Lara AA, on 09/23/2018 18:25:20 (ET). Electronically Signed: Bin Rahman, at 18:14 EDT Tel , Service support ,
--- NOTE | 2018-09-23 17:44 | CT_ITS ---
STUDY: CT BRAIN WITHOUT CONTRAST REASON FOR EXAM: Male, 53 years old. Stroke alert TECHNIQUE: Transaxial CT imaging of the brain was performed without administration of intravenous contrast material. Individualized dose optimization techniques were used for this CT. COMPARISON: CT head 11/25/2017 FINDINGS: Normal soft tissue structures. Normal calvarium. There are stable mild central and cortical evolutional changes. Normal basal ganglia and thalami. Normal brainstem. Normal cerebellum. There is no intracranial hemorrhage. There are no findings of an acute ischemic infarction. Normal visualized paranasal sinuses. CT/Brain/Head without Contrast IMPRESSION: No acute findings, stable mild central and cortical involutional changes Results were called to and discussed with Physician: Mike Lara immediately after my review at approximately 6:04 PM 09/23/2018. N.B. : The above information has been verbally conveyed by Bin Rahman to Mike Lara, AA, on 09/23/2018 18:05:25 (ET). Electronically Signed: Bin Rahman, at 18:06 EDT Tel , Service support ,
--- NOTE | 2018-09-23 17:44 | EKG12_ITS ---
Test Reason : POSSIBLE STROKE Blood Pressure : / mmHG Vent. Rate : 089 BPM Atrial Rate : 089 BPM P-R Int : 160 ms QRS Dur : 100 ms QT Int : 358 ms P-R-T Axes : 035 046 052 degrees QTc Int : 435 ms Normal sinus rhythm Normal ECG Confirmed by MARYLOU WILLS, JEANINE ([id number]), business editor RAÚL DILLARD ([id number]) on 09/27/2018 1:39:26 PM Referred By: Nitish Lu Confirmed By:JEANINE HICKMAN MD
--- NOTE | 2018-09-23 17:55 | ED.DCSUM_ITS ---
- ER Visit Summary Date of Service: 09/23/18 Chief Complaint: Left arm and facial weakness History of Present Illness: The patient is a 53 M who presents with left arm and facial weakness that began today. Patient states this began suddenly approximately 15 minutes prior to arrival. Patient denies any leg weakness. Patient denies any difficulty walking. Patient denies any visual changes. Patient denies any difficulty talking or swallowing. Patient does admit to a headache. Patient also admits to some pain in his chest that radiates down his left arm. Patient denies any recent fevers or chills. Patient has a history of a prior stroke with residual left facial weakness. Physical Examination: Vital signs are stable. Patient is afebrile. Patient is in no acute distress. Cranial nerves II through XII are grossly intact. There is some decreased sensation over the lower face to light touch. There is some mild weakness of the lower face. There is a pronator drift in the left upper extremity. Strength is 4/5 in the left upper extremity. Strength is 5/5 in the right upper extremity and bilateral lower extremities. There are no sensory deficits in the upper and lower extremities. Test Results: CT scan of the brain was obtained. There is no acute intracranial abnormality. CTA of the head neck was obtained. There is no occlusion noted. There is nonfilling of the right subclavian artery this could be artifact. Radiologist recommended obtaining arterial Dopplers for further evaluation. These were unable to be obtained tonight. Patient has normal radial pulses and brachial pulses bilaterally. EKG showed a normal sinus rhythm with a rate of 89. There are no acute ST or T wave changes. CBC was normal. Comprehensive metabolic profile showed a potassium of 3.4 and a glucose of 142. INR is 1.1. Troponin is normal. Emergency Department Course and Treatment: Patient was given Zofran and Phenergan for his nausea. Patient has an NIH of 3. Patient does not meet criteria for thrombolytic therapy. Case was discussed with the hospitalist. He will admit the patient to his service. Neurology was also paged. This was discussed with Dr. Hopkins. With the NIH scale of 1 for new deficits, we do not feel that the patient needs thrombolytic therapy at this time. Patient will be admitted to the hospital and MRI will be obtained. Patient is on Plavix. Disposition: Admit to hospital Impression: Left arm weakness This note was generated with Dragon dictation software. It may contain incorrect words, spelling, and punctuation that were not noted in review of the chart prior to signing ED Disposition - Plan for ED Patient: Disposition: Acute Care Hospital [facility] Diagnosis: Left arm weakness Referrals: Baldo Otto MD [Primary Care Provider] -
[2018-09-23 17:56] LABS: Absolute Neutrophil Count 4.6 X10^3/uL (2.0-7.7); Basophil# 0.04 X10^3/uL; Basophil% 0.5 % (0-1); Eosinophil# 0.16 X10^3/uL; Eosinophils% 2.1 % (0-5); Hematocrit 42.5 % (40-54); Hemoglobin 13.8 g/dl (13.0-16.5); Lymphocyte % 26.6 % (19-41); Mean Corp Hgb Conc 32.5 g/gl (32-36); Mean Corpuscular Hgb 26.9 pg (27.0-32.0); Mean Corpuscular Volume 82.8 fL (80-94); Mean Platelet Vol. 9.2 fl (6.2-12.0); Monocyte# 0.68 X10^3/uL; Neutrophil # 4.64 X10^3/uL (2.7-7.7); Neutrophil % 61.7 % (47-70); POSITIVE COUNT NO; POSITIVE DIFFERENTIAL NO; POSITIVE MORPHOLOGY NO; Platelet Count 291 K/mm3 (150-450); RBC Distribution Width CV 13.7 % (11.6-14.6); RBC Distribution Width SD 41.4 fl (35.1-43.9); Red Blood Count 5.13 M/mm3 (4.6-6.2); White Blood Count 7.5 K/mm3 (4.4-11.0)
[2018-09-23 17:59] LABS: International Normalized Ratio 1.1; Prothrombin Time (Protime)PT. 13.6 SECONDS (11.7-14.9)
[2018-09-23 18:00] LABS: Partial Thromboplast Time 29.7 Seconds (24.1-36.2)
--- NOTE | 2018-09-23 18:00 | RAD_ITS ---
STUDY: X-RAY CHEST REASON FOR EXAM: Male, 53 years old. Arm chest pain shortness of breath TECHNIQUE: Portable chest COMPARISON: 07/31/2018 FINDINGS: The lungs are clear and expanded. There is no demonstrated pleural abnormality. Normal size heart. Normal mediastinum and sofi. Normal visualized pulmonary arteries. Normal visualized aortic arch and descending thoracic aorta. Normal visualized thoracic spine. Normal visualized ribs, clavicles, and shoulders. There is no demonstrated abnormality of the visualized soft tissue structures of the upper abdomen. RAD/Chest 1 View IMPRESSION: Normal x-ray examination of the chest. Electronically Signed: Bin Rahman, at 18:26 EDT Tel , Service support ,
[2018-09-23 18:07] LABS: Anion Gap 6 (5-15); BUN 10 mg/dL (7-18); Calcium,Total 8.6 mg/dL (8.5-10.1); Chloride 107 mmol/L (98-107); Creatinine, Serum 1.11 mg/dL (0.70-1.30); EST Glomerular Filtration Rate 74 mL/min (>60); Est Glom Filt Rate - Afr Amer 89 mL/min (>60); Estimated Creatinine Clearance 94.49 ml/min; Glucose 142 mg/dL (74-106); Potassium 3.4 mmol/L (3.5-5.1); Sodium Level 139 mmol/L (136-145)
[2018-09-23] MEDS: 0.9% Normal Saline 1,000 ML 100 ML IV (18:09)
[2018-09-23] MEDS: Ondansetron ODT 4 MG Tablet PO (18:12)
--- NOTE | 2018-09-23 19:12 | NURSING ---
DYSPHAGIA SCREEN NOT DONE DUE TO PATIENT FEELING VERY NAUSIATED AND VOMITING
[2018-09-23] MEDS: proMETHazine 25 MG/ML Syringe 6.25 MG IV (19:22)
--- NOTE | 2018-09-23 20:38 | HP.PCM_ITS ---
Problem List (1) Stroke-like symptoms Status: Acute History of Present Illness Date of Admission: 09/23/18 Chief Complaint: left arm weakness The patient is a 53 year old M with a significant history of diabetes mellitus, CVA; hypertension, hyperlipidemia who presents with left sided weakness that started about 30 minutes prior to presentation. He also complained of a tingling sensation on the top of his head and numbness to his face. Further he complained of intermittent sharp chest pain and nausea. The time of his evaluation his numbness had resolved. Patient reports history of CVA times TIA x2. Baseline he has slurred speech that he attributes to history of high palate Emergency department doctor reported left facial droop and changes in sensation of his left face which reportedly was residual from previous stroke. However patient denies history of residual left facial droop; reported history of left facial numbness. Brain CT was not remarkable. Head CT was unremarkable. Neck CTA could not visualize right subclavian artery. Arterial duplex was recommended. His symptoms is reminiscent of his symptoms on 11/05/2017. Past Medical History Past Medical History (Chronic Problems): Chronic Problems TIA (transient ischemic attack) (Chronic) Schizoaffective disorder (Chronic) History of DVT (deep vein thrombosis) (Chronic) Bipolar disorder (Chronic) HTN (hypertension) (Chronic) DM type 2 (diabetes mellitus, type 2) (Chronic) Esophageal reflux (Chronic) HLD (hyperlipidemia) (Chronic) Migraine (Chronic) Obesity (Chronic) Obstructive sleep apnea of adult (Chronic) Schizophrenia (Chronic) Atrial fibrillation (Chronic) Hx of cardiac cath (Chronic) 2003 History of GI bleed (Chronic) Peptic ulcer disease (Chronic) Allergies enalapril maleate [From Vasotec] Allergy (Verified 09/23/18 17:40) Hives enalaprilat dihydrate [From Vasotec] Allergy (Verified 09/23/18 17:40) Hives naproxen [From Naprosyn] Allergy (Verified 09/23/18 17:40) Hives Sulfa (Sulfonamide Antibiotics) Allergy (Verified 09/23/18 17:40) Hives acetaminophen [From Vicodin] Adverse Reaction (Verified 09/23/18 17:40) Rash hydrocodone [From Vicodin] Adverse Reaction (Verified 09/23/18 17:40) Rash risperidone [From Risperdal] Adverse Reaction (Verified 09/23/18 17:40) HALLUCINATIONS Home Medications: Ambulatory Orders Medication Instructions Recorded Losartan Potassium [Cozaar] 50 mg PO DAILY 06/14/14 Metoprolol Tartrate [Lopressor 100 mg PO BID 06/14/14 (beta yolanda)] Montelukast [Singulair] 10 mg PO QHS 06/14/14 Paliperidone Palmitate [Invega 234 mg IM Q30D 09/13/16 Sustenna] Loratadine [Claritin] 10 mg PO QHS 02/05/17 Fluticasone 0.05% [Flonase Nasal 2 spray NASAL DAILY 10/27/17 [place]] Diphenhydramine HCl [Benadryl 50 mg PO QHS 11/05/17 Allergy] Furosemide [Lasix] 20 mg PO DAILY 11/05/17 Albuterol Sulfate [Proair Hfa] 2 puff INHALATION Q4H PRN PRN 05/31/18 Amlodipine Besylate 2.5 mg PO DAILY 05/31/18 Aspirin [Aspirin, Baby] 81 mg PO DAILY@0800 05/31/18 Atorvastatin Calcium [Lipitor] 80 mg PO QHS 05/31/18 Clopidogrel Bisulfate [Plavix] 75 mg PO DAILY 05/31/18 Nitroglycerin 0.4 mg SL PRN PRN 05/31/18 Omeprazole 40 mg PO DAILY 05/31/18 Tiotropium [place] [Spiriva 2 puff INHALATION DAILY 05/31/18 Respimat] proMETHazine tablet [Phenergan 50 mg PO Q6H PRN PRN 09/02/18 tablet] Sumatriptan Succinate [Imitrex] 50 mg PO .X1 PRN 09/09/18 cycloBENZAPRine HCl [Flexeril] 10 mg PO TID PRN #20 tab 09/09/18 Surgical History: appendectomy, cholecystectomy, herniorrhaphy, tonsillectomy Lives: With Family Smoking Status: Former smoker - Reported he smoked only one pack in the 80s and quit smoking therafter. He is a victim of second hand smoking. - *Family History Maternal History Items: Asthma, Diabetes, Heart Disease, Hypertension, Stroke Paternal History Items: Cancer Review of Systems Constitutional: Denies: Chills, Fever, Weight Change HEENT: Denies: Head Aches, Sinus Congestion, Sinus Drainage Cardiovascular: Denies: Chest Pain, Palpitations Respiratory: Denies: Cough, Shortness of breath at rest, Sputum production Gastrointestinal: Reports: Nausea. Denies: Abdominal Pain, Vomiting Genitourinary: Denies: Dysuria Musculoskeletal: Denies: Joint Pain, Joint Tenderness Skin: Denies: Rash, Wounds Neurological: Reports: Focal weakness, Numbness, Tingling Psychiatric: Denies: Anxiety, Depression, Homicidal Ideations, Suicidal Ideations Hematologic/ Lymphatic: Denies: Easy Bruising, Easy Bleeding VTE Information - Inpt Only VTE Present on Admission: No VTE Mechan Device Prophylaxis: None VTE Pharm Prophylaxis ordered?: Yes Patient Problems: Active and Suspected Problems Left arm weakness (Acute) - Physical Exam General: Alert, Oriented x3, Cooperative HEENT: Atraumatic, PERRLA, EOMI, Normocephalic Neck: Supple, No JVD, Negative Carotid Bruits Lungs: Clear to auscultation, Normal air movement Cardiovascular: Regular rate, No murmurs Abdomen: Bowel Sounds Present, Soft, Non Tender Extremities: No edema, Capillary Refill Less than 3 Seconds Skin: No rashes, No breakdown Musculoskeletal: No Tenderness to Palpation of Joints or Extremities, - - right leg in splint. Neurological: Deep Tendon Reflexes 2+/4 and Symmetrical, Slurred Speech - baseline., - - No dysmetria. Pronator drift of the left arm. Strength in left arm 3/5. Strenght in all other extremities 5/5. Feels that sensation in right face is sharper than left. Psych/Mental Status: Normal Affect, Appropriate Vital Signs Temp Pulse Resp BP Pulse Ox 97.3 F L 84 17 127/89 H 96 09/23/18 17:26 09/23/18 20:06 09/23/18 20:06 09/23/18 20:06 09/23/18 20:06 Oxygen Flow Rate (L/min) 2 Oxygen Delivery Method Nasal Cannula Weight: 127.006 kg Body Mass Index (BMI) 34.0 Finger Stick Blood Glucose 140 Laboratory Tests Past 24 Hrs 09/23/18 09/23/18 09/23/18 17:37 17:37 17:37 WBC 7.5 RBC 5.13 Hgb 13.8 Hct 42.5 MCV 82.8 MCH 26.9 L MCHC 32.5 RDW 13.7 RDW Differential 41.4 Plt Count 291 MPV 9.2 Immature Gran % (Auto) 0.100 Neut % (Auto) 61.7 Lymph % (Auto) 26.6 [place] % (Auto) 9.0 Eos % (Auto) 2.1 Baso % (Auto) 0.5 Absolute Neuts (auto) 4.6 Absolute Lymphs (auto) 2.00 Total Counted Not Reportable PT 13.6 INR 1.1 APTT 29.7 Sodium 139 Potassium 3.4 L Chloride 107 Carbon Dioxide 26.0 Anion Gap 6 BUN 10 Creatinine 1.11 Estim Creat Clear Calc 94.49 Est GFR (MDRD) Af Amer 89 Est GFR (MDRD) Non-Af 74 BUN/Creatinine Ratio 9.0 L Glucose 142 H Calcium 8.6 Troponin I < 0.015 POC Glucose 09/23/18 17:36 POC Glucose 149 H Assessment/Plan All Active Problems Stroke-like symptoms (Acute) Chest pain (Acute) Left arm weakness (Acute) Abnormal cardiovascular stress test (Acute) Abnormal cardiovascular stress test (Acute) Angina pectoris (Acute) The patient is a 53 year old M with a significant history of diabetes mellitus, CVA; hypertension, and hyperlipidemia who presents with left sided weakness; numbness and tingling; and chest pain consistent with stroke -like symptoms and chest pain. Strokelike symptoms Blood glucose on admit was [address] was not remarkable. Head CT was unremarkable. Neck CTA could not visualize right subclavian artery. Arterial duplex of right arm was recommended. Ordered from the ED MRI brain ordered Echocardiogram ordered. Continue home aspirin; Plavix and high intensity statin. Hold all blood pressure medications including Lasix. Permissive hypertension. Labetalol for systolic blood pressure more than 220 or diastolic blood pressure more than 120 PT/OT/ST therapy. Consider Neurology consult. Chest Pain EKG and troponin at presentation was unremarkable. Stat EKG for chest pain. Continue aspirin and Plavix. Home metoprolol and Cozaar is on hold secondary to permissive hypertension from probable CVA/TIA. Trend troponin. Get echocardiogram. Hypokalemia Mild Replaced. Trend BMP Diabetes Not on any blood glucose regimen. Accu-Chek q. before meals at bedtime. Schizophrenia and bipolar Patient takes Invega every 30 days. Migraine Imitrex continued COPD Spiriva continued PRN albuterol continued PRN oxygen supplementation. Allergies Claritin and Singular continued Insomnia Benadryl qhs continued DVT prophylaxis Subcutaneous Lovenox. Code Visit OBSV E&M: 16165 Initial observation care L3
[2018-09-23] MEDS: Morphine 2 MG/ML Syringe 1 MG IV (22:37)
[2018-09-23] MEDS: Montelukast 10 MG Tablet PO (22:37)
[2018-09-23] MEDS: DiphenhydrAMINE 25 MG Capsule 50 MG PO (22:37)
[2018-09-23] MEDS: Loratadine 10 MG Tablet PO (22:37)
[2018-09-23] MEDS: Atorvastatin Calcium 80 MG Tablet PO (22:37)
[2018-09-24 01:55] VITALS: BP 109/66; PULSE 74; RESP 20; TEMP 36.4; O2SAT 94
[2018-09-24 03:06] VITALS: PULSE 72
[2018-09-24 03:48] VITALS: BMI 36.6
[2018-09-24 04:36] LABS: Anion Gap 9 (5-15); BUN 12 mg/dL (7-18); BUN/Creat Ratio 12.9 RATIO (10-20); Calcium,Total 8.4 mg/dL (8.5-10.1); Chloride 109 mmol/L (98-107); Cholesterol 87 mg/dL (200); Creatinine, Serum 0.93 mg/dL (0.70-1.30); EST Glomerular Filtration Rate 90 mL/min (>60); Est Glom Filt Rate - Afr Amer 109 mL/min (>60); Estimated Creatinine Clearance 112.78 ml/min; Glucose 99 mg/dL (74-106); High Density Lipoprotein 28 mg/dL; Potassium 4.1 mmol/L (3.5-5.1); Sodium Level 142 mmol/L (136-145); Triglycerides 259 mg/dL; Very Low Density Lipoprotein 52 mg/dL (5-40)
[2018-09-24 05:55] VITALS: BP 112/66; PULSE 73; RESP 20; TEMP 36.3; O2SAT 95
--- NOTE | 2018-09-24 05:58 | EKG12_ITS ---
Test Reason : CP/STROKE ADMIT Blood Pressure : / mmHG Vent. Rate : 074 BPM Atrial Rate : 074 BPM P-R Int : 170 ms QRS Dur : 098 ms QT Int : 388 ms P-R-T Axes : 040 042 054 degrees QTc Int : 430 ms Normal sinus rhythm Normal ECG Confirmed by MARYLOU WILLS, JEANINE ([id number]), news videotape editor RAÚL DILLARD ([id number]) on 09/27/2018 1:43:55 PM Referred By: Nitish Lu Confirmed By:JEANINE HICKMAN MD
[2018-09-24 06:44] VITALS: PULSE 83
[2018-09-24 06:55] LABS: Bedside Glucose 94 mg/dL (70-110)
[2018-09-24 07:22] VITALS: PULSE 78; RESP 16; O2SAT 96
[2018-09-24] MEDS: Ipratropium 0.5 MG/2.5 ML SOLUTION 3 MG INHALATION (07:22)
[2018-09-24 07:54] VITALS: BMI 36.6
[2018-09-24] MEDS: Morphine 2 MG/ML Syringe 1 MG IV (08:07)
[2018-09-24] MEDS: Ondansetron 4 MG/2 ML Vial IV (08:07)
[2018-09-24] MEDS: 0.9% NaCl Peripheral Flush Adult/Peds IV (08:07)
--- NOTE | 2018-09-24 08:30 | MRI_ITS ---
STUDY: MRI BRAIN WITHOUT CONTRAST REASON FOR EXAM: Male, 53 years old. Left-sided weakness, numbness and tingling. TECHNIQUE: Standardized multiplanar fat and water weighted pulse sequences were obtained. COMPARISON: CT of the head dated September 23, 2018. FINDINGS: There is mild cerebral atrophy with widening of the extra-axial spaces and ventricular dilatation. There are nonspecific foci of abnormal T2 hyperintensity within the white matter. This is most notable on axial FLAIR image #16. The appearance suggests the possibility of artifact. These lesions measure up to 4.3 mm in greatest dimension. There is no evidence for recent intracranial ischemia or other cause of cytotoxic edema on diffusion weighted imaging (DWI). Normal T2* images of the brain without demonstrated susceptibility artifact. There is no demonstrated hemosiderin stain. Normal bilateral basal ganglia. Normal thalami. There is no extra-axial fluid accumulation. Normal flow voids within the major intracranial circulation suggesting patency by spin echo criteria. Normal sella turcica, pituitary gland, infundibular stalk, optic chiasm and hypothalamus. Normal tectal plate and pineal gland. Normal midbrain, gianni and medulla. Normal cerebellum. There are large basal cisterns. 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 Normal bilateral internal auditory canals. No demonstrated orbital abnormality, within the constraints of a routine brain study. Normal visualized paranasal sinuses. Normal calvarium and skull base. Normal visualized soft tissue structures. Normal visualized upper cervical spine. MRI/Brain without Contrast IMPRESSION: 1. Involutional changes of the brain, as described above. 2. No MR evidence for acute infarct. Electronically Signed: Chayo Looney MD at 9:34 EDT , Service support ,
[2018-09-24 09:40] VITALS: BP 148/84; PULSE 93; RESP 18; TEMP 36.6; O2SAT 97
[2018-09-24] MEDS: Fluticasone 0.05% 1 SPRAY NASAL.SRY 2 SPRAY NASAL (09:42)
[2018-09-24] MEDS: Clopidogrel Bisulfate 75 MG Tablet PO (09:43)
[2018-09-24] MEDS: Aspirin 81 MG TAB.CHEW PO (09:44)
[2018-09-24] MEDS: Enoxaparin 40 MG/0.4 ML Syringe SC (09:44)
[2018-09-24] MEDS: Pantoprazole Sodium 40 MG Tablet PO (09:46)
--- NOTE | 2018-09-24 10:27 | DCINST_ITS ---
- Discharge Diagnoses Current Active Problems: Current Active and Chronic Problems Left arm weakness (Acute) You will use the following diet at home:: Cardiac Discharge Activity: Return to Normal Activity Call your doctor if you observe: Shortness of breath, Dizziness, Fainting spells, Chest pain Allergies/Adverse Reactions: Allergies enalapril maleate [From Vasotec] Allergy (Verified 09/23/18 17:40) Hives enalaprilat dihydrate [From Vasotec] Allergy (Verified 09/23/18 17:40) Hives naproxen [From Naprosyn] Allergy (Verified 09/23/18 17:40) Hives Sulfa (Sulfonamide Antibiotics) Allergy (Verified 09/23/18 17:40) Hives acetaminophen [From Vicodin] Adverse Reaction (Verified 09/23/18 17:40) Rash hydrocodone [From Vicodin] Adverse Reaction (Verified 09/23/18 17:40) Rash risperidone [From Risperdal] Adverse Reaction (Verified 09/23/18 17:40) HALLUCINATIONS Medications to take at Discharge Losartan Potassium [Cozaar] 50 mg PO DAILY 06/14/14 Metoprolol Tartrate [Lopressor (beta yolanda)] 100 mg PO BID 06/14/14 Montelukast [Singulair] 10 mg PO QHS 06/14/14 Paliperidone Palmitate [Invega Sustenna] 234 mg IM Q30D 09/13/16 Loratadine [Claritin] 10 mg PO QHS 02/05/17 Fluticasone 0.05% [Flonase Nasal [place]] 2 spray NASAL DAILY 10/27/17 Diphenhydramine HCl [Benadryl Allergy] 50 mg PO QHS 11/05/17 Furosemide [Lasix] 20 mg PO DAILY 11/05/17 Albuterol Sulfate [Proair Hfa] 2 puff INHALATION Q4H PRN PRN 05/31/18 Amlodipine Besylate 2.5 mg PO DAILY 05/31/18 Aspirin [Aspirin, Baby] 81 mg PO DAILY@0800 05/31/18 Atorvastatin Calcium [Lipitor] 80 mg PO QHS 05/31/18 Clopidogrel Bisulfate [Plavix] 75 mg PO DAILY 05/31/18 Nitroglycerin 0.4 mg SL PRN PRN 05/31/18 Omeprazole 40 mg PO BID 05/31/18 Tiotropium [place] [Spiriva Respimat] 2 puff INHALATION DAILY 05/31/18 proMETHazine tablet [Phenergan tablet] 50 mg PO Q6H PRN PRN 09/02/18 Sumatriptan Succinate [Imitrex] 50 mg PO .X1 PRN 09/09/18 cycloBENZAPRine HCl [Flexeril] 10 mg PO TID PRN #20 tab 09/09/18 Primary Care Physician: Baldo Otto MD [Primary Care Provider] - Please follow up with your Primary Care Physician in: 1 Week Test Results: Test results from this visit will be discussed in further detail at your follow- up appointment, if applicable. Please Follow Up With: Primary Neurologist When: 2 Weeks Proposed Discharge Date: 09/24/18
--- NOTE | 2018-09-24 10:29 | PCM.DC.SUM ---
<Marika Godoy - Last Filed: 09/24/18 11:38> Discharge Date and Diagnosis Date of Admission: 09/23/18 Date of Discharge: 09/24/18 - Primary Discharge Diagnosis Active and Suspected Problems 1. Left arm weakness, CVA ruled out 2. Chest pain, ACS ruled out 3. Questionable TIA history 4. Hypertension 5. Hyperlipidemia 6. THIAGO 7. Chronic COPD 8. Schizophrenia/bipolar 9. Peptic ulcer disease/history of GI bleed/GERD 10. Obesity - Secondary Discharge Diagnosis Chronic Problems TIA (transient ischemic attack) (Chronic) Schizoaffective disorder (Chronic) History of DVT (deep vein thrombosis) (Chronic) Bipolar disorder (Chronic) HTN (hypertension) (Chronic) DM type 2 (diabetes mellitus, type 2) (Chronic) Esophageal reflux (Chronic) HLD (hyperlipidemia) (Chronic) Migraine (Chronic) Obesity (Chronic) Obstructive sleep apnea of adult (Chronic) Schizophrenia (Chronic) Atrial fibrillation (Chronic) Hx of cardiac cath (Chronic) 2002 History of GI bleed (Chronic) Peptic ulcer disease (Chronic) Hospital Course and Treatment Imaging Results: 09/24/18 08:30 Brain without Contrast [MRI] Routine Operations: None Summary of Care Provided: The patient is a 53 year old M admitted 09/23/2018 due to left arm weakness. 1. Left arm weakness, CVA ruled out-brain CT showed no acute findings. MRI of brain shows no acute infarct. Neck CTA showed normal bilateral cervical carotid and vertebral arteries. No flow visualized within the right subclavian artery however evaluation is limited due to extensive streak artifact due to venous contrast from right-sided venous injection. Radiology recommended duplex Doppler exam for further evaluation however patient decided to leave prior to further testing. He reports he had appointment with [facility] at 11 AM for repeat CAT scan of his chest for evaluation of lung nodules. Of note, patient had CTA of head and neck with contrast at [facility] 08/26/2018 which showed no acute vascular abnormality. Per report: no significant carotid stenosis on either side. Vertebral arteries patent bilaterally throughout the neck, no dissection or significant stenosis. Carotid bifurcations widely patent bilaterally with 0% stenosis on either side. Patient may have arterial duplex of right arm if found necessary by primary care provider. Patient has been in multiple health systems this year including [facility], [place], [facility], [facility]. Unclear why patient is presenting to multiple facilities for evaluation/treatment. Neurology consulted during admission. Patient had been on aspirin and Plavix since October 2017. Recommend aspirin only, discontinue Plavix going forward. Decrease Lipitor to 40 mg p.o. nightly. Patient had 30-day event monitor November 2017 which showed no evidence of atrial fibrillation. Follow-up with primary care provider in 1 week. Follow-up with primary neurologist in 2 weeks. Patient reports he was unhappy with prior neurologist and his primary care provider is currently referring him elsewhere. 2. Chest pain, ACS ruled out-troponin negative. EKG without ST-T changes. Patient had cardiac catheterization January 2017 which showed normal coronary arteries. Additionally patient had stress echo May 2017 which was normal. 3. Questionable TIA history-continue outpatient follow-up with neurology. Aspirin and statin at discharge. 4. Hypertension-stable, continue home amlodipine, furosemide, losartan, metoprolol regimen. 5. Hyperlipidemia-Lipitor regimen reduced to 40 mg p.o. nightly. 6. THIAGO 7. Chronic COPD-no acute exacerbation. 8. Schizophrenia/bipolar-on invega sustenna. Recommend close psychiatric follow-up as outpatient. 9. Peptic ulcer disease/history of GI bleed/GERD-continue omeprazole regimen. 10. Obesity-encouraged diet and lifestyle modifications. General: Alert, Oriented x3, Cooperative HEENT: Atraumatic, PERRLA, EOMI, Normocephalic Neck: Supple, No JVD, Negative Carotid Bruits Lungs: Clear to auscultation, Normal air movement Cardiovascular: Regular rate, No murmurs Abdomen: Bowel Sounds Present, Soft, Non Tender Extremities: No edema, Capillary Refill Less than 3 Seconds Skin: No rashes, No breakdown Musculoskeletal: No Tenderness to Palpation of Joints or Extremities Neurological: Neuro grossly intact. Left upper extremity 4 out of 5 strength. Psych/Mental Status: Normal Affect, Appropriate Patient seen and examined prior to discharge. Physical assessment as noted above. Patient is stable for discharge with follow up recommendations as noted above. This patient was seen by ANKUR Mosley under the supervision of Dr. Guevara. - Physical Exam Vital Signs Temp Pulse Resp BP Pulse Ox 97.8 F 93 18 148/84 H 97 09/24/18 09:40 09/24/18 09:40 09/24/18 09:40 09/24/18 09:40 09/24/18 09:40 Oxygen Flow Rate (L/min) 2 Oxygen Delivery Method Nasal Cannula Weight: 300 lb 7.841 oz Body Mass Index (BMI) 36.6 Finger Stick Blood Glucose 140 Intake and Output for Last 24 Hours 09/22/18 09/23/18 09/24/18 23:59 23:59 23:59 Intake Total 961 / 961 Balance 961 / 961 Laboratory Tests Past 24 Hrs 09/23/18 09/23/18 09/23/18 17:37 17:37 17:37 WBC 7.5 RBC 5.13 Hgb 13.8 Hct 42.5 MCV 82.8 MCH 26.9 L MCHC 32.5 RDW 13.7 RDW Differential 41.4 Plt Count 291 MPV 9.2 Immature Gran % (Auto) 0.100 Neut % (Auto) 61.7 Lymph % (Auto) 26.6 [place] % (Auto) 9.0 Eos % (Auto) 2.1 Baso % (Auto) 0.5 Absolute Neuts (auto) 4.6 Absolute Lymphs (auto) 2.00 Total Counted Not Reportable PT 13.6 INR 1.1 APTT 29.7 Sodium 139 Potassium 3.4 L Chloride 107 Carbon Dioxide 26.0 Anion Gap 6 BUN 10 Creatinine 1.11 Estim Creat Clear Calc 94.49 Est GFR (MDRD) Af Amer 89 Est GFR (MDRD) Non-Af 74 BUN/Creatinine Ratio 9.0 L Glucose 142 H Calcium 8.6 Troponin I < 0.015 Triglycerides Cholesterol LDL Cholesterol VLDL Cholesterol HDL Cholesterol 09/23/18 09/24/18 09/24/18 21:56 01:02 03:48 WBC RBC Hgb Hct MCV MCH MCHC RDW RDW Differential Plt Count MPV Immature Gran % (Auto) Neut % (Auto) Lymph % (Auto) [place] % (Auto) Eos % (Auto) Baso % (Auto) Absolute Neuts (auto) Absolute Lymphs (auto) Total Counted PT INR APTT Sodium 142 Potassium 4.1 Chloride 109 H Carbon Dioxide 24.0 Anion Gap 9 BUN 12 Creatinine 0.93 Estim Creat Clear Calc 112.78 Est GFR (MDRD) Af Amer 109 Est GFR (MDRD) Non-Af 90 BUN/Creatinine Ratio 12.9 Glucose 99 Calcium 8.4 L Troponin I < 0.015 < 0.015 < 0.015 Triglycerides 259 H Cholesterol 87 LDL Cholesterol 7 VLDL Cholesterol 52 H HDL Cholesterol 28 L POC Glucose 09/24/18 09/23/18 06:51 17:36 POC Glucose 94 149 H Discharge Diet: Low fat/ Low Cholesterol Discharge Activity: Return to Normal Activity Call your doctor if you observe: Shortness of breath, Dizziness, Fainting spells, Chest pain Home Medications: Medications to take at Discharge Losartan Potassium [Cozaar] 50 mg PO DAILY 06/14/14 Metoprolol Tartrate [Lopressor (beta yolanda)] 100 mg PO BID 06/14/14 Montelukast [Singulair] 10 mg PO QHS 06/14/14 Paliperidone Palmitate [Invega Sustenna] 234 mg IM Q30D 09/13/16 Loratadine [Claritin] 10 mg PO QHS 02/05/17 Fluticasone 0.05% [Flonase Nasal [place]] 2 spray NASAL DAILY 10/27/17 Diphenhydramine HCl [Benadryl Allergy] 50 mg PO QHS 11/05/17 Furosemide [Lasix] 20 mg PO DAILY 11/05/17 Albuterol Sulfate [Proair Hfa] 2 puff INHALATION Q4H PRN PRN 05/31/18 Amlodipine Besylate 2.5 mg PO DAILY 05/31/18 Aspirin [Aspirin, Baby] 81 mg PO DAILY@0800 05/31/18 Nitroglycerin 0.4 mg SL PRN PRN 05/31/18 Omeprazole 40 mg PO BID 05/31/18 Tiotropium [place] [Spiriva Respimat] 2 puff INHALATION DAILY 05/31/18 proMETHazine tablet [Phenergan tablet] 50 mg PO Q6H PRN PRN 09/02/18 Sumatriptan Succinate [Imitrex] 50 mg PO .X1 PRN 09/09/18 cycloBENZAPRine HCl [Flexeril] 10 mg PO TID PRN #20 tab 09/09/18 Atorvastatin Calcium [Lipitor] 40 mg PO QHS #0 09/24/18 Primary Care Physician: Baldo Otto MD [Primary Care Provider] - Please follow up with your Primary Care Physician in: 1 Week Please Follow Up With: Primary Neurologist When: 2 Weeks Disposition: Home Minutes spent on discharge:: 40 Patient Condition:: Stable Medical Necessity - Tobacco Use Smoking Status: Former smoker Meaningful Use Info Meaningful Use Diagnoses (Choose all that apply): None applicable <Gavin Guevara - Last Filed: 09/24/18 15:36> Discharge Date and Diagnosis - Secondary Discharge Diagnosis Chronic Problems TIA (transient ischemic attack) (Chronic) Schizoaffective disorder (Chronic) History of DVT (deep vein thrombosis) (Chronic) Bipolar disorder (Chronic) HTN (hypertension) (Chronic) DM type 2 (diabetes mellitus, type 2) (Chronic) Esophageal reflux (Chronic) HLD (hyperlipidemia) (Chronic) Migraine (Chronic) Obesity (Chronic) Obstructive sleep apnea of adult (Chronic) Schizophrenia (Chronic) Atrial fibrillation (Chronic) Hx of cardiac cath (Chronic) 2002 History of GI bleed (Chronic) Peptic ulcer disease (Chronic) Hospital Course and Treatment Imaging Results: 09/24/18 08:30 Brain without Contrast [MRI] Routine Summary of Care Provided: This patient was seen in conjunction with Marika VO. I have independently interviewed and examined the patient and reviewed pertinent history, examination findings, laboratory and plan of management. I have reviewed the note and agree with the documented findings with the few additional points. In brief, patient is admitted for left arm weakness. Patient was admitted in the PCU. Stroke work-up was done and came out negative. Patient was seen by neurologist and feels his left arm weakness is probably malingering/conversant disorder. Left arm has giveaway weakness. MRI of brain shows no acute infarct. CTA neck showed normal bilateral cervical carotid arteries and vertebral arteries and right sub-tibial artery could not be well-visualized secondary to contrast artifact. CT head normal [place] of [place]. Furthermore, patient has appointment of CT scan as an outpatient. 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 Patient is on aspirin. Prescription for atorvastatin given. Discharge medication reconciliation done. Discharge follow-up instructions completed. Discharge process discussed with the patient and all questions were answered to patient's satisfaction.. I have discussed my assessment with Marika VO and orders have been reviewed. [] - Physical Exam Vital Signs Temp Pulse Resp BP Pulse Ox 97.8 F 93 18 148/84 H 97 09/24/18 09:40 09/24/18 09:40 09/24/18 09:40 09/24/18 09:40 09/24/18 09:40 Oxygen Flow Rate (L/min) 2 Oxygen Delivery Method Nasal Cannula Weight: 300 lb 7.841 oz Body Mass Index (BMI) 36.6 Finger Stick Blood Glucose 140 Intake and Output for Last 24 Hours 09/22/18 09/23/18 09/24/18 23:59 23:59 23:59 Intake Total 961 / 961 Balance 961 / 961 Laboratory Tests Past 24 Hrs 09/23/18 09/23/18 09/23/18 17:37 17:37 17:37 WBC 7.5 RBC 5.13 Hgb 13.8 Hct 42.5 MCV 82.8 MCH 26.9 L MCHC 32.5 RDW 13.7 RDW Differential 41.4 Plt Count 291 MPV 9.2 Immature Gran % (Auto) 0.100 Neut % (Auto) 61.7 Lymph % (Auto) 26.6 [place] % (Auto) 9.0 Eos % (Auto) 2.1 Baso % (Auto) 0.5 Absolute Neuts (auto) 4.6 Absolute Lymphs (auto) 2.00 Total Counted Not Reportable PT 13.6 INR 1.1 APTT 29.7 Sodium 139 Potassium 3.4 L Chloride 107 Carbon Dioxide 26.0 Anion Gap 6 BUN 10 Creatinine 1.11 Estim Creat Clear Calc 94.49 Est GFR (MDRD) Af Amer 89 Est GFR (MDRD) Non-Af 74 BUN/Creatinine Ratio 9.0 L Glucose 142 H Calcium 8.6 Troponin I < 0.015 Triglycerides Cholesterol LDL Cholesterol VLDL Cholesterol HDL Cholesterol 09/23/18 09/24/18 09/24/18 21:56 01:02 03:48 WBC RBC Hgb Hct MCV MCH MCHC RDW RDW Differential Plt Count MPV Immature Gran % (Auto) Neut % (Auto) Lymph % (Auto) [place] % (Auto) Eos % (Auto) Baso % (Auto) Absolute Neuts (auto) Absolute Lymphs (auto) Total Counted PT INR APTT Sodium 142 Potassium 4.1 Chloride 109 H Carbon Dioxide 24.0 Anion Gap 9 BUN 12 Creatinine 0.93 Estim Creat Clear Calc 112.78 Est GFR (MDRD) Af Amer 109 Est GFR (MDRD) Non-Af 90 BUN/Creatinine Ratio 12.9 Glucose 99 Calcium 8.4 L Troponin I < 0.015 < 0.015 < 0.015 Triglycerides 259 H Cholesterol 87 LDL Cholesterol 7 VLDL Cholesterol 52 H HDL Cholesterol 28 L POC Glucose 09/24/18 09/23/18 06:51 17:36 POC Glucose 94 149 H Code Visit OBSV E&M: 52008 Observation care discharge
--- NOTE | 2018-09-24 10:35 | PCM.CONS.GEN ---
Problem List (1) Left arm weakness Status: Acute Reason for Consult Date of Consultation: 09/24/18 Reason for Consultation: Left arm weakness History of Present Illness: The patient is a 53 year old M with PMH HTN, HLD, DM, H/O DVT, THIAGO not on CPAP, CAD, Bipolar d/o, schizophrenia, ?TIA admitted with left arm weakness. Per patient his symptoms started yesterday (09/23/2018). At present per patient he still feels that his left arm is weak, but he denies any neck pain or radicular symptoms. At present he denies any MOSS, visual disturbances, dizziness, chest pain, focal motor weakness or sensory loss. Per ED documentation his NIHSS was 3 on admission, was not tpa candidate due to low NIHSS. MRI brain done on admission was reported nothing acute, CTA head/neck did not show any hemodynamically significant stenosis or occlusion but reported to show no flow visualized within the right subclavian artery however evaluation is limited due to extensive streak artifact due to venous contrast from right-sided venous injection. Patient is an extremely poor historian. Patient has giveaway weakness on examination on the left arm. Per patient he lives with his sister, uses cane to ambulate, denies any frequent falls. Per patient he has been on aspirin and Plavix since probably last October 2017 when he was admitted with possible TIA. At that time patient was recommended to take dual antiplatelets only for 3 weeks but patient did not follow-up with neurology and probably has been continuing dual antiplatelets since then without any complications. Discussed with hospitalist there is no documented history of A. fib. Past Medical History Past Medical History (Chronic Problems): Chronic Problems TIA (transient ischemic attack) (Chronic) Schizoaffective disorder (Chronic) History of DVT (deep vein thrombosis) (Chronic) Bipolar disorder (Chronic) HTN (hypertension) (Chronic) DM type 2 (diabetes mellitus, type 2) (Chronic) Esophageal reflux (Chronic) HLD (hyperlipidemia) (Chronic) Migraine (Chronic) Obesity (Chronic) Obstructive sleep apnea of adult (Chronic) Schizophrenia (Chronic) Atrial fibrillation (Chronic) Hx of cardiac cath (Chronic) 2002 History of GI bleed (Chronic) Peptic ulcer disease (Chronic) Allergies enalapril maleate [From Vasotec] Allergy (Verified 09/23/18 17:40) Hives enalaprilat dihydrate [From Vasotec] Allergy (Verified 09/23/18 17:40) Hives naproxen [From Naprosyn] Allergy (Verified 09/23/18 17:40) Hives Sulfa (Sulfonamide Antibiotics) Allergy (Verified 09/23/18 17:40) Hives acetaminophen [From Vicodin] Adverse Reaction (Verified 09/23/18 17:40) Rash hydrocodone [From Vicodin] Adverse Reaction (Verified 09/23/18 17:40) Rash risperidone [From Risperdal] Adverse Reaction (Verified 09/23/18 17:40) HALLUCINATIONS Home Medications: Ambulatory Orders Medication Instructions Recorded Losartan Potassium [Cozaar] 50 mg PO DAILY 06/14/14 Metoprolol Tartrate [Lopressor 100 mg PO BID 06/14/14 (beta yolanda)] Montelukast [Singulair] 10 mg PO QHS 06/14/14 Paliperidone Palmitate [Invega 234 mg IM Q30D 09/13/16 Sustenna] Loratadine [Claritin] 10 mg PO QHS 02/05/17 Fluticasone 0.05% [Flonase Nasal 2 spray NASAL DAILY 10/27/17 [place]] Diphenhydramine HCl [Benadryl 50 mg PO QHS 11/05/17 Allergy] Furosemide [Lasix] 20 mg PO DAILY 11/05/17 Albuterol Sulfate [Proair Hfa] 2 puff INHALATION Q4H PRN PRN 05/31/18 Amlodipine Besylate 2.5 mg PO DAILY 05/31/18 Aspirin [Aspirin, Baby] 81 mg PO DAILY@0800 05/31/18 Nitroglycerin 0.4 mg SL PRN PRN 05/31/18 Omeprazole 40 mg PO BID 05/31/18 Tiotropium [place] [Spiriva 2 puff INHALATION DAILY 05/31/18 Respimat] proMETHazine tablet [Phenergan 50 mg PO Q6H PRN PRN 09/02/18 tablet] Sumatriptan Succinate [Imitrex] 50 mg PO .X1 PRN 09/09/18 cycloBENZAPRine HCl [Flexeril] 10 mg PO TID PRN #20 tab 09/09/18 Atorvastatin Calcium [Lipitor] 40 mg PO QHS #0 09/24/18 Surgical History: appendectomy, cholecystectomy, herniorrhaphy, tonsillectomy Lives: With Family Smoking Status: Former smoker Alcohol: None Drugs: None - *Family History Maternal History Items: Asthma, Diabetes, Heart Disease, Hypertension, Stroke Paternal History Items: Cancer Review of Systems Constitutional: Reports: - - Complete ROS negative except as documented in HPI - Physical Exam General: Alert HEENT: Normocephalic Neck: Supple Lungs: Normal air movement Cardiovascular: Normal S1, Normal S2 Abdomen: Bowel Sounds Present Extremities: No cyanosis Neurological: - - consious, alert, CN-2-12 grossly intact, power 5/5 both UE/LE, has giveaway weakness left UE, also had fluctuating weakness in the left UE on examination, Left UE had drift but could correct it on instructions, no sensory loss, no cerebellar signs, Reflexes + B/L B/S/T/K/A, plantars B/L flexor, gait deferred, no NR Psych/Mental Status: Normal Affect Vital Signs Temp Pulse Resp BP Pulse Ox 97.8 F 93 18 148/84 H 97 09/24/18 09:40 09/24/18 09:40 09/24/18 09:40 09/24/18 09:40 09/24/18 09:40 Oxygen Flow Rate (L/min) 2 Oxygen Delivery Method Nasal Cannula Weight: 136.3 kg Body Mass Index (BMI) 36.6 Finger Stick Blood Glucose 140 Intake and Output for Last 24 Hours 09/22/18 09/23/18 09/24/18 23:59 23:59 23:59 Intake Total 961 / 961 Balance 961 / 961 Laboratory Tests Past 24 Hrs 09/23/18 09/23/18 09/23/18 17:37 17:37 17:37 WBC 7.5 RBC 5.13 Hgb 13.8 Hct 42.5 MCV 82.8 MCH 26.9 L MCHC 32.5 RDW 13.7 RDW Differential 41.4 Plt Count 291 MPV 9.2 Immature Gran % (Auto) 0.100 Neut % (Auto) 61.7 Lymph % (Auto) 26.6 [place] % (Auto) 9.0 Eos % (Auto) 2.1 Baso % (Auto) 0.5 Absolute Neuts (auto) 4.6 Absolute Lymphs (auto) 2.00 Total Counted Not Reportable PT 13.6 INR 1.1 APTT 29.7 Sodium 139 Potassium 3.4 L Chloride 107 Carbon Dioxide 26.0 Anion Gap 6 BUN 10 Creatinine 1.11 Estim Creat Clear Calc 94.49 Est GFR (MDRD) Af Amer 89 Est GFR (MDRD) Non-Af 74 BUN/Creatinine Ratio 9.0 L Glucose 142 H Calcium 8.6 Troponin I < 0.015 Triglycerides Cholesterol LDL Cholesterol VLDL Cholesterol HDL Cholesterol 09/23/18 09/24/18 09/24/18 21:56 01:02 03:48 WBC RBC Hgb Hct MCV MCH MCHC RDW RDW Differential Plt Count MPV Immature Gran % (Auto) Neut % (Auto) Lymph % (Auto) [place] % (Auto) Eos % (Auto) Baso % (Auto) Absolute Neuts (auto) Absolute Lymphs (auto) Total Counted PT INR APTT Sodium 142 Potassium 4.1 Chloride 109 H Carbon Dioxide 24.0 Anion Gap 9 BUN 12 Creatinine 0.93 Estim Creat Clear Calc 112.78 Est GFR (MDRD) Af Amer 109 Est GFR (MDRD) Non-Af 90 BUN/Creatinine Ratio 12.9 Glucose 99 Calcium 8.4 L Troponin I < 0.015 < 0.015 < 0.015 Triglycerides 259 H Cholesterol 87 LDL Cholesterol 7 VLDL Cholesterol 52 H HDL Cholesterol 28 L POC Glucose 09/24/18 09/23/18 06:51 17:36 POC Glucose 94 149 H Assessment/Plan All Active Problems Stroke-like symptoms (Acute) Chest pain (Acute) Left arm weakness (Acute) Abnormal cardiovascular stress test (Acute) Abnormal cardiovascular stress test (Acute) Angina pectoris (Acute) The patient is a 53 year old M with PMH HTN, HLD, DM, H/O DVT, THIAGO not on CPAP, CAD, Bipolar d/o, schizophrenia, ?TIA admitted with left arm weakness. Per patient his symptoms started yesterday (09/23/2018). At present per patient he still feels that his left arm is weak, but he denies any neck pain or radicular symptoms. At present he denies any MOSS, visual disturbances, dizziness, chest pain, focal motor weakness or sensory loss. Per ED documentation his NIHSS was 3 on admission, was not tpa candidate due to low NIHSS. MRI brain done on admission was reported nothing acute, CTA head/neck did not show any hemodynamically significant stenosis or occlusion but reported to show no flow visualized within the right subclavian artery however evaluation is limited due to extensive streak artifact due to venous contrast from right-sided venous injection. Patient is an extremely poor historian. Patient has giveaway weakness on examination on the left arm. Per patient he lives with his sister, uses cane to ambulate, denies any frequent falls. Per patient he has been on aspirin and Plavix since probably last October 2017 when he was admitted with possible TIA. At that time patient was recommended to take dual antiplatelets only for 3 weeks but patient did not follow-up with neurology and probably has been continuing dual antiplatelets since then without any complications. Discussed with hospitalist there is no documented history of A. fib. Impression Questionable left arm weakness?MRI brain negative, possible conversion disorder as patient had giveaway weakness on neurological examination Plan ?On aspirin and Plavix possibly since last October 2017, at that time patient was admitted with possible TIA and was recommended aspirin and Plavix only for 3 weeks but it seems that patient has been continuing taking dual antiplatelets. No bleeding complications. Recommend stopping Plavix. Continue aspirin. ?Change to Lipitor 40 mg p.o. nightly ?Recommend 30-day event recorder ?Carotid ultrasound to rule out right subclavian occlusion. ?Vascular surgery consult. ?Fall precautions ?GI/DVT prophylaxis ?Follow-up with cardiology as outpatient. ?Follow-up with psychiatry as outpatient ?Further medical management per hospitalist recommendation ?Please call with questions if any ?Thank you for allowing us to participate in patient's care and management. Code Visit Inpatient E&M: 52902 Init Hosp L3
== END 2018-09-24 10:28 | disposition home or self-care (01) ==
LOC: ED 21:11 → PCU 21:21
PROVIDERS: Admitting Provider Hospitalist; Emergency Provider Emergency Medicine; Family Provider Family Medicine; PCP Family Medicine; Referring Provider Hospitalist; Visit Provider Internal Medicine
DX: R53.1 Weakness (principal); R29.810 Facial weakness; I10 Essential (primary) hypertension; E78.5 Hyperlipidemia, unspecified; G47.33 Obstructive sleep apnea (adult) (pediatric); K27.7 Chronic peptic ulcer, site unspecified, without hemorrhage or perforation; K21.9 Gastro-esophageal reflux disease without esophagitis; R07.9 Chest pain, unspecified; I69.392 Facial weakness following cerebral infarction; R29.703 NIHSS score 3; E11.9 Type 2 diabetes mellitus without complications; R47.81 Slurred speech; R20.0 Anesthesia of skin; I48.2 Chronic atrial fibrillation; J44.9 Chronic obstructive pulmonary disease, unspecified; G43.909 Migraine, unspecified, not intractable, without status migrainosus; E66.9 Obesity, unspecified; Z68.36 Body mass index [BMI] 36.0-36.9, adult; Z71.3 Dietary counseling and surveillance; Z79.899 Other long term (current) drug therapy; Z79.02 Long term (current) use of antithrombotics/antiplatelets; Z86.718 Personal history of other venous thrombosis and embolism; Z87.891 Personal history of nicotine dependence; I25.10 Atherosclerotic heart disease of native coronary artery without angina pectoris; F25.9 Schizoaffective disorder, unspecified; F31.9 Bipolar disorder, unspecified
CPT/HCPCS: 36415; 70450; 70496; 70498; 70551; 71045; 80048; 80061; 82962; 84484; 85025; 85610; 85730; 92610; 93005; 94640; 94762; 96361; 96374; 96375; 96376; 99218; 99285; J7030; Q9967; A4216; G0378; J2405

== ENCOUNTER 2018-10-06 22:02 | Emergency (ER) | payer MEDICARE, SELFPAY ==
[2018-10-06 22:03] VITALS: BP 137/113; PULSE 100; RESP 21; TEMP 36.6; O2SAT 95; BMI 37.2
--- NOTE | 2018-10-06 22:17 | EKG12_ITS ---
Test Reason : CP Blood Pressure : / mmHG Vent. Rate : 099 BPM Atrial Rate : 099 BPM P-R Int : 166 ms QRS Dur : 090 ms QT Int : 340 ms P-R-T Axes : 042 058 052 degrees QTc Int : 436 ms Normal sinus rhythm Normal ECG Confirmed by JOHNATHON WILLS, JULISSA ([id number]), state editor FARAZ DEVINE ([id number]) on 10/11/2018 12:13:59 PM Referred By: KULWINDER/SY Confirmed By:JULISSA DIEGO MD
--- NOTE | 2018-10-06 22:18 | RAD_ITS ---
STUDY: X-RAY CHEST REASON FOR EXAM: Male, 53 years old. Shortness of breath with chest pain TECHNIQUE: Single AP portable view of the chest. COMPARISON: Prior study of 09/23/2018 FINDINGS: site monitor leads are present. The lungs are clear and expanded. There is no demonstrated pleural abnormality. Normal size heart. Normal mediastinum and sofi. Normal visualized pulmonary arteries. Normal visualized aortic arch and descending thoracic aorta. Normal visualized thoracic spine. Normal visualized ribs, clavicles, and shoulders. There is no demonstrated abnormality of the visualized soft tissue structures of the upper abdomen. RAD/Chest 1 View (Portable) IMPRESSION: Normal x-ray examination of the chest. Electronically Signed: Tj Carballo MD at 22:33 EDT , Service support ,
[2018-10-06 22:35] LABS: Absolute Lymphocyte Count 1.95 X10^3/uL (0.83-4.51); Absolute Neutrophil Count 7.2 X10^3/uL (2.0-7.7); Basophil# 0.03 X10^3/uL; Basophil% 0.3 % (0-1); Eosinophil# 0.26 X10^3/uL; Eosinophils% 2.5 % (0-5); Hematocrit 41.1 % (40-54); Hemoglobin 13.2 g/dL (13.0-16.5); Lymphocyte # 1.95 X10^3/ul (4.0); Lymphocyte % 18.4 % (19-41); Mean Corp Hgb Conc 32.1 g/dL (32-36); Mean Corpuscular Hgb 27.2 pg (27.0-32.0); Mean Corpuscular Volume 84.7 fL (80-94); Mean Platelet Vol. 8.9 fl (6.2-12.0); Monocyte# 1.05 X10^3/uL; Monocyte% 9.9 % (0-10); NRBC Flagged by Analyzer 0 % (0-5); Neutrophil # 7.23 X10^3/uL (2.7-7.7); Neutrophil % 68.3 % (47-70); Platelet Count 244 K/mm3 (150-450); RBC Distribution Width CV 13.9 % (11.6-14.6); RBC Distribution Width SD 43.1 fl (35.1-43.9); Red Blood Count 4.85 M/mm3 (4.6-6.2); White Blood Count 10.6 K/mm3 (4.4-11.0)
[2018-10-06 22:53] LABS: Anion Gap 4 (5-15); BUN 11 mg/dL (7-18); Calcium,Total 8.7 mg/dL (8.5-10.1); Chloride 108 mmol/L (98-107); EST Glomerular Filtration Rate 74 mL/min (>60); Est Glom Filt Rate - Afr Amer 90 mL/min (>60); Estimated Creatinine Clearance 95.35 ml/min; Glucose 127 mg/dL (74-106); Potassium 3.9 mmol/L (3.5-5.1); Sodium Level 137 mmol/L (136-145)
[2018-10-06] MEDS: Nitroglycerin SL (ED/IMG/CATH) 0.4 MG TABLET SUBLINGUAL ×3 (22:54→23:06)
[2018-10-06] MEDS: Ondansetron 4 MG/2 ML Vial IV (22:54)
[2018-10-06] MEDS: 0.9% Normal Saline 1,000 ML 150 ML IV (22:54)
[2018-10-06 22:56] VITALS: O2SAT 95
[2018-10-06 22:57] VITALS: BP 126/80; PULSE 102; RESP 25; O2SAT 94
[2018-10-06 22:58] VITALS: BP 127/77; PULSE 108; RESP 20; O2SAT 94
--- NOTE | 2018-10-06 23:00 | ED.VISSUMM ---
- ER Visit Summary Date of Service: 10/06/18 Chief Complaint: [Chest pain] History of Present Illness: The patient is a 53 M [presents to the emergency department complaint chest pain started hour ago. Patient states that he was in bed when the pain started. He describes a heaviness tightness in his chest without any real radiation. Patient states that he became diaphoretic and somewhat short of breath and nauseated. He denies any vomiting. He has had similar symptoms in the past. Patient tells me he had a heart cath in 2017 that was normal. Patient is never had any cardiac intervention. Patient does have a history of diabetes, hypertension, TIA, schizoaffective disorder, paroxysmal A. fib, DVT history, and history of obstructive sleep apnea] Physical Examination: [HEENT-PERRLA, EOMI. Cranial nerves II through XII grossly intact. TMs clear. Mucous membranes moist. No adenopathy. Cardiovascular-regular rate and rhythm without murmur or ectopy Lungs-clear to auscultation, chest wall stable without crepitus or subcu emphysema Abdomen-normoactive bowel sounds, soft, nontender, no rebound or rigidity, no peritoneal signs. Extremities-intact ?4, normal range of motion, normal pulses, atraumatic] Test Results: [EKG obtained shows sinus rhythm with a ventricular rate of 99 bpm with no acute segment changes. CBC with differential and awaken at 10.6, hemoglobin 13, hematocrit 41, platelet 244. Chemistries unremarkable. Troponin is less than 0.015. Chest x-ray was normal.] Emergency Department Course and Treatment: [Patient received 1 sublingual nitro every 5 minutes x3 and had improvement in his pain is down to like a 2 out of 10 now. Patient was given Zofran however he continues to be somewhat nauseated and was given Phenergan 12.5 g IV. I was able to look up patient's old records and it was noted that he had a stress echo in May of this year which was normal. Patient has not had any exertional symptoms. At this point given that he had a normal heart cath 2 years ago and normal stress echo test a few months ago my suspicion is low that his chest pain is cardiac. Because of his age and the fact that he has some risk factors for heart disease such as diabetes and hypertension I will repeat a delta troponin.] Care of patient turned over to evening physician awaiting results of delta troponin and repeat evaluation of patient. Treatment Plan: [I feel if delta. troponin is negative and patient is feeling improved he can follow-up as an outpatient with his resident caregiver whom he has an appointment to see I believe next week.] Disposition: [] Impression: [] This note was generated with [employer] dictation software. It may contain incorrect words, spelling, and punctuation that were not noted in review of the chart prior to signing <Levi Romero - Last Filed: 10/06/18 23:54> - ER Visit Summary Date of Service: 10/07/18 Patient was signed out to me pending repeat troponin and EKG. Repeat EKG is sinus 81 with no sign of acute ischemia. On repeat evaluation the patient is sleeping comfortably. He easily awakens. I advised him that his repeat blood work and EKG were normal. Because he had a recent stress test that was normal with 2 sets of negative blood work here he could be discharged to home. He is in agreement with this plan. Disposition: Discharge Impression: Chest pain This note was generated with [employer] dictation software. It may contain incorrect words, spelling, and punctuation that were not noted in review of the chart prior to signing <Haritha Young - Last Filed: 10/07/18 01:59> ED Disposition <Levi Romero - Last Filed: 10/06/18 23:54> <Haritha Young - Last Filed: 10/07/18 01:59> - Plan for ED Patient: Disposition: Home or Assisted Living Instructions: CHEST PAIN, Uncertain Cause Referrals: Baldo Otto MD [Primary Care Provider] - Additional Instructions: Follow-up with your resident caregiver in [place] as discussed.
[2018-10-06 23:04] VITALS: BP 127/68; PULSE 110; RESP 26; O2SAT 93
--- NOTE | 2018-10-06 23:05 | ED.RN ---
PT REPORTS PAIN 5/10 AFTER 2ND DOSE OF NITRO. WILL CONTINUE TO MONITOR.
[2018-10-06] MEDS: proMETHazine 25 MG/ML Syringe 12.5 MG IV (23:36)
[2018-10-07 00:08] VITALS: BP 108/72; PULSE 89; RESP 25; O2SAT 96
[2018-10-07 01:00] VITALS: BP 133/78; PULSE 78; RESP 18; O2SAT 92
--- NOTE | 2018-10-07 01:19 | EKG12_ITS ---
Test Reason : REPEAT Blood Pressure : / mmHG Vent. Rate : 081 BPM Atrial Rate : 081 BPM P-R Int : 168 ms QRS Dur : 096 ms QT Int : 386 ms P-R-T Axes : 060 051 062 degrees QTc Int : 448 ms Normal sinus rhythm Normal ECG Confirmed by JOHNATHON WILLS, JULISSA ([id number]), digital editor FARAZ DEVINE ([id number]) on 10/11/2018 12:12:28 PM Referred By: MIHAELA Confirmed By:JULISSA DIEGO MD
[2018-10-07 02:08] VITALS: BP 120/81; PULSE 78; RESP 17; O2SAT 98
== END 2018-10-07 02:08 | disposition home or self-care (01) ==
PROVIDERS: Emergency Provider Emergency Medicine; Family Provider Family Medicine; PCP Family Medicine
DX: R07.89 Other chest pain (principal); R61 Generalized hyperhidrosis; R06.00 Dyspnea, unspecified; R11.0 Nausea; J02.9 Acute pharyngitis, unspecified; E11.9 Type 2 diabetes mellitus without complications; I10 Essential (primary) hypertension; F25.9 Schizoaffective disorder, unspecified; I48.0 Paroxysmal atrial fibrillation; G47.33 Obstructive sleep apnea (adult) (pediatric); K21.9 Gastro-esophageal reflux disease without esophagitis; Z86.73 Personal history of transient ischemic attack (TIA), and cerebral infarction without residual deficits; Z86.718 Personal history of other venous thrombosis and embolism; Z79.82 Long term (current) use of aspirin; Z79.899 Other long term (current) drug therapy
CPT/HCPCS: 36415; 71045; 80048; 84484; 85025; 93005; 96361; 96374; 96375; 99285; J7030; A4216; J2405

== ENCOUNTER 2018-10-14 18:14 | Emergency (ER) | payer MEDICARE, SELFPAY ==
[2018-10-14 18:15] VITALS: BP 139/89; PULSE 84; RESP 16; TEMP 36.5; O2SAT 98; BMI 34.7
--- NOTE | 2018-10-14 18:45 | NURSING ---
Spoke with [facility] B[facility]. [facility]
--- NOTE | 2018-10-14 18:59 | ED.VISSUMM ---
- ER Visit Summary Date of Service: 10/14/18 Chief Complaint: Headache History of Present Illness: The patient is a 53 M presenting with headache. Patient states that his headache started last night. It was gradual in onset. Feels similar to previous migraines. He tried Imitrex at home with no relief. He denies recent trauma. He has nausea with no vomiting. Denies fever or neck pain. Denies other complaints. He physical Examination: Vitals are stable. Patient is afebrile. Alert no acute distress. HEENT exam is unremarkable. Neck is supple. No meningismus Lungs are clear and equal bilaterally. Heart is regular rate and rhythm. Abdomen is soft nontender nondistended. Extremities are unremarkable. Skin is warm and dry. No focal neurologic deficit. Remainder of exam is unremarkable. Emergency Department Course and Treatment: Patient was given Reglan, Benadryl, Toradol. On reevaluation, patient is feeling much improved and is requesting discharge home. Advised to follow-up with primary care physician. Advised return to ED for worsening complaints. Disposition: Discharge home Impression: Headache This note was generated with [employer] dictation software. It may contain incorrect words, spelling, and punctuation that were not noted in review of the chart prior to signing ED Disposition - Plan for ED Patient: Disposition: Home or Assisted Living Instructions: HEADACHE, Unspecified Referrals: Baldo Otto MD [Family Provider] -
[2018-10-14] MEDS: Ketorolac 30 MG/ML Syringe IV (19:20)
[2018-10-14] MEDS: Metoclopramide 10 MG/2 ML Vial 5 MG IV (19:20)
[2018-10-14] MEDS: DiphenhydrAMINE 50 MG/ML Syringe 25 MG IV (19:20)
[2018-10-14 20:21] VITALS: RESP 16
--- NOTE | 2018-10-14 20:57 | ED.DEP ---
ED Disposition - Plan for ED Patient: Instructions: HEADACHE, Unspecified Referrals: Baldo Otto MD [Family Provider] -
== END 2018-10-14 21:15 | disposition home or self-care (01) ==
PROVIDERS: Emergency Provider Emergency Medicine; Family Provider Family Medicine; PCP Family Medicine
DX: R51 Headache (principal); R11.0 Nausea; I25.10 Atherosclerotic heart disease of native coronary artery without angina pectoris; I25.2 Old myocardial infarction; J45.909 Unspecified asthma, uncomplicated; E11.9 Type 2 diabetes mellitus without complications; F31.9 Bipolar disorder, unspecified; G43.909 Migraine, unspecified, not intractable, without status migrainosus; Z86.73 Personal history of transient ischemic attack (TIA), and cerebral infarction without residual deficits; Z79.82 Long term (current) use of aspirin; Z79.899 Other long term (current) drug therapy
CPT/HCPCS: 96374; 96375; 99283; A4216

== ENCOUNTER 2018-10-18 18:12 | Emergency (ER) | payer MEDICARE, SELFPAY ==
[2018-10-18 18:12] VITALS: BP 136/87; PULSE 89; RESP 18; TEMP 36.8; O2SAT 99; BMI 35.3
--- NOTE | 2018-10-18 18:50 | CT_ITS ---
STUDY: CT BRAIN WITHOUT CONTRAST REASON FOR EXAM: Male, 53 years old. Headache RADIATION DOSAGE (If Supplied By Facility): DLP = ( 796.11 ) mGycm TECHNIQUE: Transaxial CT imaging of the brain was performed without administration of intravenous contrast material. Individualized dose optimization techniques were used for this CT. COMPARISON: CT head September 23, 2018 FINDINGS: There is no acute bleed or infarct. There are chronic ischemic and atrophic changes. The ventricles are normal in configuration. There is no hydrocephalus. The visualized paranasal sinuses are clear. The mastoid air cells are well aerated. There is no skull fracture. CT/Brain/Head without Contrast IMPRESSION: No acute intracranial abnormality. Electronically Signed: Baldo Ruiz, at 19:19 EDT Tel , Service support ,
--- NOTE | 2018-10-18 18:51 | ED.VIS.HA ---
History of Present Illness Chief Complaint: Headache Informant: Patient Context: Onset - awoke w/ mild headache, worsened throughout the day Location: occipital Current Severity: Severe Maximum Severity: Severe Worsened by: light Relieved by: not by imitrex Associated Symptoms: Nausea, Tingling - both thighs only, Blurred Vision, Photophobia. Negative for: Fever, Vomiting Injury: - - no injury/fall/assault Narrative: Patient states he had a history of migraines but had not had any headaches in 3 years until couple months ago when he started getting them, however this is only the second time I have ever had a headache in the back of my head. [place]. No mental status changes. Having some tingling in his thighs today only since this headache. No other neurologic symptoms except for photophobia. No diplopia. Unknown history of cerebral aneurysm, no recent trauma, no anticoagulants or antiplatelets. He is diabetic and has not checked his blood sugar today. Recent Illness/Hospitalization: No - Past Medical History (1) Atrial fibrillation Status: Chronic (2) Bipolar disorder Status: Chronic (3) DM type 2 (diabetes mellitus, type 2) Status: Chronic (4) HLD (hyperlipidemia) Status: Chronic (5) HTN (hypertension) Status: Chronic (6) History of DVT (deep vein thrombosis) Status: Chronic (7) History of GI bleed Status: Chronic (8) Obstructive sleep apnea of adult Status: Chronic (9) Peptic ulcer disease Status: Chronic (10) Schizoaffective disorder Status: Chronic (11) TIA (transient ischemic attack) Status: Chronic Past Medical History - Allergies and Home Meds Allergies/Adverse Reactions: Allergies enalapril maleate [From Vasotec] Allergy (Verified 10/14/18 18:15) Hives enalaprilat dihydrate [From Vasotec] Allergy (Verified 10/14/18 18:15) Hives naproxen [From Naprosyn] Allergy (Verified 10/14/18 18:15) Hives Sulfa (Sulfonamide Antibiotics) Allergy (Verified 10/14/18 18:15) Hives acetaminophen [From Vicodin] Adverse Reaction (Verified 10/14/18 18:15) Rash hydrocodone [From Vicodin] Adverse Reaction (Verified 10/14/18 18:15) Rash risperidone [From Risperdal] Adverse Reaction (Verified 10/14/18 18:15) HALLUCINATIONS Primary Care Physician: Baldo Otto MD [Primary Care Provider] - Surgical History: appendectomy, cholecystectomy, herniorrhaphy, tonsillectomy Smoking Status: Former smoker Drugs: None - Family History Maternal Family History: Reports: Asthma, Diabetes, Heart Disease, Hypertension, Stroke Paternal Family History: Reports: Cancer Review of Systems General: Denies: Chills, Fever, Sweats Eyes: Reports: Blurred Vision - bilaterally. Denies: Diplopia ENT: Denies: Rhinorrhea, Sore throat Cardiovascular: Denies: Chest pain, Palpitations Respiratory: Denies: Dyspnea, Cough, Dyspnea on exertion Gastrointestinal: Reports: Nausea. Denies: Abdominal pain, Vomiting, Diarrhea, Melena, Hematochezia Genitourinary: Denies: Dysuria, Hematuria, Frequency Musculoskeletal: Denies: Neck pain, Back pain, Swelling, Extremity Pain Skin: Denies: Rash, Wounds Neurological: Reports: Headache, Parasthesia. Denies: Weakness Physical Exam Vital Signs/Narrative: Vital Signs Temp Pulse Resp BP Pulse Ox 10/18/18 18:12 98.3 F 89 18 136/87 H 99 Inital Vital Signs reviewed: Yes General: Well nourished, Well developed, Obese, - - well-appearing, nad, conversive Head: NC, AT Eyes: Perrl, EOMI Neck: Supple, No Lymphadenopathy, Nontender, No Meningismus Abdomen: Soft, Nontender, Nondistended, Normal bowel sounds Extremities: Nontender, No edema. Negative for: Calf Tenderness Skin: Normal color, No rash, No Trauma Neuro: Alert, Oriented x3, Cranial nerves II-XII grossly intact, Normal Strength, Normal Sensation, Normal DTR, Normal Gait Psychological: Normal affect, Normal Mood Diagnostic/Tx/Re-eval Clinical Impression(s) from Imaging Studies Brain CT 10/18/18 18:50 IMPRESSION: No acute intracranial abnormality. Electronically Signed: Baldo Ruiz, at 19:19 EDT Tel , Service support , - Medical Decision Making Patient was initially given IV Reglan and some fluids, he states his nausea was better but his headache was still present. He was then given IV Toradol and dihydroergotamine 1 mg. On reevaluation, he states his headache is on was completely gone, it is a 1-2/10, he is comfortable going home, he is currently using his cell phone and very comfortable. CT is negative for any acute abnormality, I advised he follow-up closely for persistent headaches. ED Disposition - Plan for ED Patient: Disposition: Home or Assisted Living Diagnosis: Cephalgia Instructions: HEADACHE, Unspecified Referrals: Baldo Otto MD [Primary Care Provider] - 3-5 Days if not improving
[2018-10-18] MEDS: Metoclopramide 10 MG/2 ML Vial IV (19:30)
[2018-10-18] MEDS: Dihydroergotamine 1 MG/ML Ampul IV (20:36)
[2018-10-18] MEDS: Ketorolac 30 MG/ML Syringe IV (20:36)
[2018-10-18 22:12] VITALS: BP 129/78; PULSE 83; RESP 14; O2SAT 97
== END 2018-10-18 22:12 | disposition home or self-care (01) ==
PROVIDERS: Emergency Provider Emergency Medicine; Family Provider Family Medicine; PCP Family Medicine
DX: R51 Headache (principal); H53.8 Other visual disturbances; R11.0 Nausea; R20.2 Paresthesia of skin; E66.9 Obesity, unspecified; G43.909 Migraine, unspecified, not intractable, without status migrainosus; I48.91 Unspecified atrial fibrillation; F31.9 Bipolar disorder, unspecified; E11.9 Type 2 diabetes mellitus without complications; E78.5 Hyperlipidemia, unspecified; I10 Essential (primary) hypertension; G47.33 Obstructive sleep apnea (adult) (pediatric); F25.9 Schizoaffective disorder, unspecified; Z86.718 Personal history of other venous thrombosis and embolism; Z87.19 Personal history of other diseases of the digestive system; Z87.11 Personal history of peptic ulcer disease; Z86.73 Personal history of transient ischemic attack (TIA), and cerebral infarction without residual deficits; Z90.49 Acquired absence of other specified parts of digestive tract; Z79.82 Long term (current) use of aspirin; Z79.899 Other long term (current) drug therapy; Z87.891 Personal history of nicotine dependence
CPT/HCPCS: 70450; 96361; 96374; 96375; 99283; J7040; A4216; J1110

== ENCOUNTER 2018-10-25 21:25 | Emergency (ER) | payer MEDICARE, SELFPAY ==
[2018-10-25 21:27] VITALS: BP 139/75; PULSE 96; RESP 16; TEMP 36.6; O2SAT 96; BMI 36.3
[2018-10-25 21:49] VITALS: BP 135/74; PULSE 81; RESP 18; O2SAT 97
--- NOTE | 2018-10-25 21:53 | EKG12_ITS ---
Test Reason : CP Blood Pressure : / mmHG Vent. Rate : 089 BPM Atrial Rate : 089 BPM P-R Int : 142 ms QRS Dur : 080 ms QT Int : 358 ms P-R-T Axes : 038 046 048 degrees QTc Int : 435 ms Normal sinus rhythm Normal ECG Confirmed by MARYLOU WILLS, JEANINE ([id number]), copy editor RAÚL DILLARD ([id number]) on 10/27/2018 10:13:43 AM Referred By: KAVITHA Confirmed By:JEANINE HICKMAN MD
--- NOTE | 2018-10-25 21:55 | RAD_ITS ---
STUDY: X-RAY CHEST REASON FOR EXAM: Male, 53 years old. Chest pain TECHNIQUE: Frontal views COMPARISON: October 06, 2018 FINDINGS: The lungs are expanded. Left basilar atelectasis. Normal size heart. Normal mediastinum and sofi. Normal visualized pulmonary arteries. Normal visualized aortic arch and descending thoracic aorta. Normal visualized thoracic spine. Normal visualized ribs, clavicles, and shoulders. There is no demonstrated abnormality of the visualized soft tissue structures of the upper abdomen. RAD/Chest 1 View (Portable) IMPRESSION: Linear left basilar atelectasis. Electronically Signed: Bobo Sow DO at 22:19 EDT Tel [phone], Service support ,
[2018-10-25 22:05] VITALS: O2SAT 97
[2018-10-25 22:13] LABS: Absolute Lymphocyte Count 2.56 X10^3/uL (0.83-4.51); Absolute Neutrophil Count 4.5 X10^3/uL (2.0-7.7); Basophil# 0.05 X10^3/uL; Basophil% 0.6 % (0-1); Eosinophil# 0.27 X10^3/uL; Eosinophils% 3.4 % (0-5); Hematocrit 39.3 % (40-54); Lymphocyte # 2.56 X10^3/ul (4.0); Lymphocyte % 32.2 % (19-41); Mean Corp Hgb Conc 33.1 g/dL (32-36); Mean Corpuscular Hgb 27.8 pg (27.0-32.0); Mean Corpuscular Volume 84.2 fL (80-94); Mean Platelet Vol. 9.5 fl (6.2-12.0); Monocyte# 0.56 X10^3/uL; NRBC Flagged by Analyzer 0 % (0-5); Neutrophil # 4.47 X10^3/uL (2.7-7.7); Neutrophil % 56.3 % (47-70); Platelet Count 283 K/mm3 (150-450); RBC Distribution Width CV 14.4 % (11.6-14.6); RBC Distribution Width SD 43.6 fl (35.1-43.9); Red Blood Count 4.67 M/mm3 (4.6-6.2)
[2018-10-25 22:28] LABS: Anion Gap 6 (5-15); BUN 7 mg/dL (7-18); Calcium,Total 8.4 mg/dL (8.5-10.1); Chloride 108 mmol/L (98-107); EST Glomerular Filtration Rate 83 mL/min (>60); Est Glom Filt Rate - Afr Amer 100 mL/min (>60); Estimated Creatinine Clearance 104.88 ml/min; Glucose 155 mg/dL (74-106); Potassium 3.6 mmol/L (3.5-5.1); Sodium Level 137 mmol/L (136-145)
[2018-10-25 22:29] VITALS: BP 135/74; PULSE 77; RESP 15; O2SAT 98
--- NOTE | 2018-10-25 22:32 | ED.DCSUM_ITS ---
History of Present Illness Chief Complaint: Chest Pain Informant: Patient Onset: Today Quality: Sharp and stabbing Location: Left lateral chest Current Severity: Mild Maximum Severity: Moderate Narrative: Patient presents with chest pain that started around 830 or 9 PM this evening. He describes sharp and stabbing pain to the left lateral upper chest. He does report shortness of breath. He also reports focal pain to a small area of the right anterior thigh. Patient states he felt like he might pass out. He was seen by his regional owner operator truck driver and Aguilar earlier today. He believes the patient has been having intermittent chest pain recently because he does not have a CPAP to wear at night and has significant sleep apnea. Patient also reports he is been under significant stress the past 3 days and thinks this may be contributing. Last stress test was in May of this year and normal. Past Medical History - Allergies and Home Meds Allergies/Adverse Reactions: Allergies enalapril maleate [From Vasotec] Allergy (Verified 10/25/18 21:27) Hives enalaprilat dihydrate [From Vasotec] Allergy (Verified 10/25/18 21:27) Hives naproxen [From Naprosyn] Allergy (Verified 10/25/18 21:27) Hives Sulfa (Sulfonamide Antibiotics) Allergy (Verified 10/25/18 21:27) Hives acetaminophen [From Vicodin] Adverse Reaction (Verified 10/25/18 21:27) Rash hydrocodone [From Vicodin] Adverse Reaction (Verified 10/25/18 21:27) Rash risperidone [From Risperdal] Adverse Reaction (Verified 10/25/18 21:27) HALLUCINATIONS Primary Care Physician: Baldo Otto MD [Primary Care Provider] - Surgical History: appendectomy, cholecystectomy, herniorrhaphy, tonsillectomy Lives: With Family Smoking Status: Former smoker - Family History Maternal Family History: Reports: Asthma, Diabetes, Heart Disease, Hypertension, Stroke Paternal Family History: Reports: Cancer Review of Systems General: Denies: Chills, Fever Eyes: Denies: Visual changes - bilaterally ENT: Denies: Bilateral ear pain Cardiovascular: Reports: Chest pain. Denies: Palpitations, Heart racing Respiratory: Reports: Dyspnea. Denies: Cough, Sputum Gastrointestinal: Denies: Abdominal pain Genitourinary: Denies: Dysuria Musculoskeletal: Denies: Myalgias Skin: Denies: Wounds Neurological: Denies: Headache Hematologic: Denies: Easy bruising Allergy: Denies: Uticaria Physical Exam Vital Signs/Narrative: Vital Signs Temp Pulse Resp BP Pulse Ox 10/25/18 22:29 77 15 135/74 H 98 10/25/18 22:05 97 10/25/18 21:49 81 18 135/74 H 97 10/25/18 21:27 97.9 F 96 16 139/75 H 96 Inital Vital Signs reviewed: Yes General: Well nourished, Well developed Head: Normocephalic ENT: Moist mucous membranes, No rhinorrhea Neck: Supple Cardiovascular: Regular rate, Regular rhythm Respiratory: No distress, CTA bilaterally, Chest tenderness - Reproducible chest wall tenderness of the left lateral chest. No crepitus. Abdomen: Soft, Nontender Back: Nontender Extremities: Nontender, No edema Skin: Normal color Neurological: Alert, Oriented x3 Psychological: Normal affect Diagnostic/Tx/Re-eval Impressions Chest X-Ray 10/25/18 21:55 IMPRESSION: Linear left basilar atelectasis. Electronically Signed: Boob Sow DO at 22:19 EDT Tel [phone], Service support , 10/25/18 21:55 Chest 1 View (Portable) [RAD] Stat Laboratory Results 10/25/18 10/25/18 10/25/18 22:02 22:02 22:02 WBC 8.0 RBC 4.67 Hgb 13.0 Hct 39.3 L MCV 84.2 MCH 27.8 MCHC 33.1 RDW Std Deviation 43.6 RDW Coeff of Ita 14.4 Plt Count 283 MPV 9.5 Immature Gran % (Auto) 0.500 Neut % (Auto) 56.3 Lymph % (Auto) 32.2 Murray % (Auto) 7.0 Eos % (Auto) 3.4 Baso % (Auto) 0.6 Absolute Neuts (auto) 4.5 Absolute Lymphs (auto) 2.56 Nucleated RBC % 0 D-Dimer Quant (PE/DVT) 0.30 Sodium 137 Potassium 3.6 Chloride 108 H Carbon Dioxide 23.0 Anion Gap 6 BUN 7 Creatinine 1.00 Estim Creat Clear Calc 104.88 Est GFR (MDRD) Af Amer 100 Est GFR (MDRD) Non-Af 83 BUN/Creatinine Ratio 7.0 L Glucose 155 H Calcium 8.4 L Troponin I < 0.015 - EKG Initial EKG Interpretation: Sinus Rhythm - Sinus 89 with no acute ischemia. - Medical Decision Making Patient took aspirin and nitro prior to arrival. This did not change his pain. He did mention being under significant stress for the past 3 days so he was given a small dose of Ativan here. On repeat evaluation he reported no significant change. He has chest pain is completely reproducible. He had a normal stress test 5 months ago and his pain is significantly atypical at this time. I do not feel this or presents cardiac etiology. His d-dimer is negative. Patient will be given ibuprofen for home. He is to get the CPAP that his regional owner operator truck driver has recommended. ED Disposition - Plan for ED Patient: Disposition: Home or Assisted Living Diagnosis: Atypical chest pain Instructions: CHEST PAIN, NonCardiac Prescriptions: Ibuprofen 800 mg PO TID PRN PRN #20 tablet PRN Reason: Pain Referrals: Baldo Otto MD [Primary Care Provider] - 5-7 Days
[2018-10-25 23:01] VITALS: BP 112/76; PULSE 83; RESP 13; O2SAT 97
[2018-10-25] MEDS: LORazepam 0.5 MG Tablet PO (23:01)
[2018-10-26] MEDS: Ketorolac 30 MG/ML Syringe IV
[2018-10-26 00:05] VITALS: BP 128/74; PULSE 79; RESP 14; O2SAT 98
== END 2018-10-26 00:06 | disposition home or self-care (01) ==
PROVIDERS: Emergency Provider Emergency Medicine; Family Provider Family Medicine; PCP Family Medicine
DX: R07.89 Other chest pain (principal); R06.00 Dyspnea, unspecified; M79.651 Pain in right thigh; J98.11 Atelectasis; G47.30 Sleep apnea, unspecified; Z79.82 Long term (current) use of aspirin; Z79.899 Other long term (current) drug therapy; Z87.891 Personal history of nicotine dependence
CPT/HCPCS: 71045; 80048; 84484; 85025; 85379; 93005; 96374; 99284; A4216

== ENCOUNTER 2018-11-11 19:08 | Emergency (ER) | payer MEDICARE, SELFPAY ==
[2018-11-11 19:09] VITALS: BP 119/80; PULSE 95; RESP 20; TEMP 36.7; O2SAT 100; BMI 36.7
--- NOTE | 2018-11-11 19:19 | CT_ITS ---
STUDY: CT BRAIN WITHOUT CONTRAST REASON FOR EXAM: Male, 53 years old. Left-sided facial numbness RADIATION DOSAGE (If Supplied By Facility): CTDIvol = ( 44.99 ) mGy, DLP = ( 829.85 ) mGycm TECHNIQUE: Transaxial CT imaging of the brain was performed without administration of intravenous contrast material. Individualized dose optimization techniques were used for this CT. COMPARISON: 10/18/2018 FINDINGS: Normal soft tissue structures. Normal calvarium. Normal size ventricles and extra-axial spaces for the patient's age. Normal white matter tracts of the cerebral hemispheres. Normal basal ganglia and thalami. Normal brainstem. Normal cerebellum. There is no intracranial hemorrhage. There are no findings of an acute ischemic infarction. Normal visualized paranasal sinuses. CT/Brain/Head without Contrast IMPRESSION: No CT evidence of acute infarct or hemorrhage. Electronically Signed: Mook Kuhn MD at 19:42 EDT Tel , Service support ,
--- NOTE | 2018-11-11 19:19 | ED.RN ---
PT REPORTS N/T IN LEFT SIDE OF FACE STARTED AT 1800. PER DR. ROTHMAN, PT IS NOT A STROKE TEAM. WILL CONTINUE TO MONITOR.
--- NOTE | 2018-11-11 19:20 | ED.DCSUM_ITS ---
- ER Visit Summary Date of Service: 11/11/18 Chief Complaint: Face tingling, neck strain History of Present Illness: The patient is a 53 M who tells me he woke up today with some tingling on the left side of his face and head. He saw his primary care physician today for a strain of his neck. He was placed on Flexeril. He got home and took a nap and when he woke up he had this tingling. He had no weakness, slurred speech or facial droop. He does have a history of [place], TIA and is currently on aspirin and Plavix. He has no other symptoms. Physical Examination: Vital signs reviewed. HEENT exam unremarkable. Heart is regular rate and rhythm without murmurs. Lungs are clear to auscultation. Abdomen is soft and nontender. Extremities reveal no edema. His back is tender in the left cervical paraspinal area. Skin exam normal. Neurologic exam does have some paresthesias to the left side of the face. There is no slurred speech. No facial droop. His arm strength and leg strength is normal. Test Results: CAT scan of the head is unremarkable Emergency Department Course and Treatment: Patient was given a dose of Toradol here. I feel that these paresthesias are not due to stroke. He has no other stroke findings. He is on dual antiplatelet therapy. This may be from his cervical strain. He will continue the Flexeril given him by his PCP. He will call his doctor tomorrow for follow-up appointment Treatment Plan: [] Disposition: Discharge Impression: Head and face paresthesias, cervical strain This note was generated with [employer] dictation software. It may contain incorrect words, spelling, and punctuation that were not noted in review of the chart prior to signing ED Disposition - Plan for ED Patient: Referrals: Baldo Otto MD [Primary Care Provider] -
[2018-11-11] MEDS: Ketorolac 30 MG/ML Syringe IM (19:22)
--- NOTE | 2018-11-11 20:01 | ED.DEP ---
ED Disposition - Plan for ED Patient: Disposition: Home or Assisted Living Instructions: Paraesthesias Referrals: Baldo Otto MD [Primary Care Provider] -
[2018-11-11 20:10] VITALS: BP 122/75; PULSE 77; RESP 15; O2SAT 99
== END 2018-11-11 20:12 | disposition home or self-care (01) ==
PROVIDERS: Emergency Provider Emergency Medicine; Family Provider Family Medicine; PCP Family Medicine
DX: R20.2 Paresthesia of skin (principal); S16.1XXA Strain of muscle, fascia and tendon at neck level, initial encounter; X58.XXXA Exposure to other specified factors, initial encounter; Y93.9 Activity, unspecified; Y92.9 Unspecified place or not applicable; I25.2 Old myocardial infarction; J44.9 Chronic obstructive pulmonary disease, unspecified; E11.9 Type 2 diabetes mellitus without complications; F31.9 Bipolar disorder, unspecified; I48.91 Unspecified atrial fibrillation; Z86.73 Personal history of transient ischemic attack (TIA), and cerebral infarction without residual deficits; Z79.02 Long term (current) use of antithrombotics/antiplatelets; Z79.82 Long term (current) use of aspirin; Z79.899 Other long term (current) drug therapy
CPT/HCPCS: 70450; 96372; 99282

== ENCOUNTER 2018-11-16 18:22 | Emergency (ER) | payer MEDICARE, SELFPAY ==
[2018-11-16 18:24] VITALS: BP 162/99; PULSE 127; RESP 22; TEMP 37.2; O2SAT 98; BMI 36.5
--- NOTE | 2018-11-16 18:32 | ED.VIS.GEN ---
History of Present Illness Chief Complaint: Headache Informant: Patient Onset: Today Context: Gradual Onset Current Severity: Moderate Maximum Severity: Moderate Narrative: Patient presents with headache that started around noon today. It was gradual in onset. Reports pain across the vertex of his head is well as of the base of his skull. He states it is a pulled muscle in his neck that he thinks is causing the neck pain. He has had mild cough, but no runny nose or sinus pressure. No fever. He denies head trauma. He does have a history of migraines and states he gets a migraine once or twice a month. He tried Tylenol and Imitrex today without improvement. He does report light sensitivity as well as nausea. Past Medical History - Allergies and Home Meds Allergies/Adverse Reactions: Allergies enalapril maleate [From Vasotec] Allergy (Verified 11/16/18 18:24) Hives enalaprilat dihydrate [From Vasotec] Allergy (Verified 11/16/18 18:24) Hives naproxen [From Naprosyn] Allergy (Verified 11/16/18 18:24) Hives Sulfa (Sulfonamide Antibiotics) Allergy (Verified 11/16/18 18:24) Hives acetaminophen [From Vicodin] Adverse Reaction (Verified 11/16/18 18:24) Rash hydrocodone [From Vicodin] Adverse Reaction (Verified 11/16/18 18:24) Rash risperidone [From Risperdal] Adverse Reaction (Verified 11/16/18 18:24) HALLUCINATIONS Primary Care Physician: Baldo Otto MD [Primary Care Provider] - Prior records reviewed: Yes Past Medical History: - - Reviewed Surgical History: appendectomy, cholecystectomy, herniorrhaphy, tonsillectomy Lives: With Family Smoking Status: Never smoker - Family History Maternal Family History: Reports: Asthma, Diabetes, Heart Disease, Hypertension, Stroke Paternal Family History: Reports: Cancer Review of Systems General: Denies: Chills, Fever Eyes: Denies: Visual changes - bilaterally ENT: Denies: Bilateral ear pain Cardiovascular: Denies: Chest pain Respiratory: Reports: Cough. Denies: Dyspnea Gastrointestinal: Reports: Nausea. Denies: Abdominal pain, Vomiting Musculoskeletal: Denies: Neck pain Skin: Denies: Rash Neurological: Reports: Headache, Parasthesia. Denies: Weakness Endocrine: Denies: Polyuria, Polydipsia Hematologic: Denies: Easy bruising Allergy: Denies: Uticaria Physical Exam Vital Signs/Narrative: Vital Signs Temp Pulse Resp BP Pulse Ox 11/16/18 18:24 98.9 F 127 H 22 H 162/99 H 98 Inital Vital Signs reviewed: Yes General: Well nourished, Well developed Head: Normocephalic Eyes: Perrl, EOMI ENT: Moist mucous membranes, TM's clear Neck: Supple Cardiovascular: Regular rate, Regular rhythm Respiratory: No distress, CTA bilaterally Abdomen: Soft, Nontender, Normal bowel sounds Extremities: Nontender, No edema Skin: Normal color, No rash Neurological: Alert, Oriented x3, Normal Strength, Normal Sensation Psychological: Normal affect Diagnostic/Tx/Re-eval - Medical Decision Making Patient was given Toradol, Reglan, Benadryl, and IV fluids. On repeat evaluation he feels significantly improved. He will be discharged home at this time. ED Disposition - Plan for ED Patient: Disposition: Home or Assisted Living Diagnosis: Migraine Instructions: ED, Migraine (Classical) Referrals: Baldo Otto MD [Primary Care Provider] - As Needed
[2018-11-16] MEDS: 0.9% Normal Saline 1,000 ML 999 ML IV (18:47)
[2018-11-16] MEDS: DiphenhydrAMINE 50 MG/ML Syringe 25 MG IV (18:48)
[2018-11-16] MEDS: Metoclopramide 10 MG/2 ML Vial IV (18:48)
[2018-11-16] MEDS: Ketorolac 30 MG/ML Syringe IV (18:48)
[2018-11-16 20:24] VITALS: BP 129/72; PULSE 92; RESP 16; O2SAT 95
== END 2018-11-16 20:25 | disposition home or self-care (01) ==
PROVIDERS: Emergency Provider Emergency Medicine; Family Provider Family Medicine; PCP Family Medicine
DX: G43.909 Migraine, unspecified, not intractable, without status migrainosus (principal); R05 Cough; Z79.82 Long term (current) use of aspirin; Z79.899 Other long term (current) drug therapy
CPT/HCPCS: 96361; 96374; 96375; 99282; J7030; A4216

== ENCOUNTER 2018-12-02 15:05 | Emergency (ER) | payer MEDICARE, SELFPAY ==
[2018-12-02 15:07] VITALS: BP 107/76; PULSE 91; RESP 18; TEMP 36.6; O2SAT 97; BMI 35.3
--- NOTE | 2018-12-02 16:17 | ED.VISSUMM ---
- ER Visit Summary Date of Service: 12/02/18 Chief Complaint: Rash and lightheadedness History of Present Illness: The patient is a 53 M who presents with rash on his arms that began this morning when he woke up. Patient states he has had a recent upper respiratory infection and started using DayQuil and NyQuil yesterday. Patient states he feels lightheaded as well. Patient noticed the rash on his arms and legs today. He denies any other new exposures. Patient does admit to some easy bruising and easy bleeding. Patient denies any fevers or chills. Patient denies any chest pain. Physical Examination: All signs are stable. Patient is afebrile. Patient is in no acute distress. Oral mucosa is pink and moist. Oropharynx is clear. There are no petechia noted in the mucous membranes. Neck is supple. Trachea is midline. There is no JVD noted. Heart was regular rate and rhythm. Lungs are clear and equal bilaterally. Abdomen is soft. Bowel sounds are normal. There is no tenderness. There is no guarding noted. Skin is warm dry. There is a petechial rash on the volar aspects of the forearms bilaterally, worse on the right. There is also a petechial rash noted in the lower legs bilaterally, worse distally. Sensation was intact to light touch bilaterally in the upper and lower extremities. Strength is 5/5 bilateral knee upper and lower extremities. Cranial nerves II through XII are intact. There are no focal motor or sensory deficits noted. Test Results: CBC and basic metabolic profile were normal. Specifically, platelets were normal. Emergency Department Course and Treatment: Patient was given IV fluids here. Patient was feeling better on reevaluation. Patient was given a prescription for prednisone. Patient was instructed to follow-up with his primary care physician in 5 to 7 days. Patient understood and was agreeable with the plan. All questions were answered. Disposition: Discharge home Impression: Petechial rash This note was generated with [employer] dictation software. It may contain incorrect words, spelling, and punctuation that were not noted in review of the chart prior to signing ED Disposition - Plan for ED Patient: Disposition: Home or Assisted Living Diagnosis: Petechial rash Instructions: DERMATITIS, Non-Specific Prescriptions: predniSONE tablet 60 mg PO DAILY #15 tab Prescription Printed Referrals: Baldo Otto MD [Primary Care Provider] - 5-7 Days
[2018-12-02] MEDS: 0.9% Normal Saline 1,000 ML 1000 ML IV (16:34)
[2018-12-02 16:46] LABS: Absolute Lymphocyte Count 1.77 X10^3/uL (0.83-4.51); Absolute Neutrophil Count 4.9 X10^3/uL (2.0-7.7); Basophil# 0.06 X10^3/uL; Basophil% 0.7 % (0-1); Eosinophil# 0.23 X10^3/uL; Eosinophils% 2.9 % (0-5); Hematocrit 39.5 % (40-54); Hemoglobin 12.7 g/dL (13.0-16.5); Lymphocyte # 1.77 X10^3/ul (4.0); Lymphocyte % 22.1 % (19-41); Mean Corp Hgb Conc 32.2 g/dL (32-36); Mean Corpuscular Hgb 27.1 pg (27.0-32.0); Mean Corpuscular Volume 84.2 fL (80-94); Mean Platelet Vol. 8.8 fl (6.2-12.0); Monocyte# 1.01 X10^3/uL; Monocyte% 12.6 % (0-10); NRBC Flagged by Analyzer 0 % (0-5); Neutrophil % 61.2 % (47-70); Platelet Count 307 K/mm3 (150-450); RBC Distribution Width CV 14.5 % (11.6-14.6); RBC Distribution Width SD 43.7 fl (35.1-43.9); Red Blood Count 4.69 M/mm3 (4.6-6.2)
[2018-12-02 16:48] LABS: Prothrombin Time (Protime)PT. 12.8 SECONDS (11.7-14.9)
[2018-12-02 16:55] LABS: Anion Gap 4 (5-15); BUN 14 mg/dL (7-18); Calcium,Total 8.7 mg/dL (8.5-10.1); Chloride 109 mmol/L (98-107); EST Glomerular Filtration Rate 83 mL/min (>60); Est Glom Filt Rate - Afr Amer 101 mL/min (>60); Estimated Creatinine Clearance 104.88 ml/min; Glucose 114 mg/dL (74-106); Sodium Level 140 mmol/L (136-145)
[2018-12-02 17:58] VITALS: PULSE 87; RESP 16; O2SAT 99
== END 2018-12-02 17:59 | disposition home or self-care (01) ==
PROVIDERS: Emergency Provider Emergency Medicine; Family Provider Family Medicine; PCP Family Medicine
DX: R23.3 Spontaneous ecchymoses (principal); R42 Dizziness and giddiness; J06.9 Acute upper respiratory infection, unspecified; R11.0 Nausea; M54.2 Cervicalgia; M54.9 Dorsalgia, unspecified; J44.9 Chronic obstructive pulmonary disease, unspecified; F31.9 Bipolar disorder, unspecified; F32.9 Major depressive disorder, single episode, unspecified; Z86.73 Personal history of transient ischemic attack (TIA), and cerebral infarction without residual deficits; Z79.82 Long term (current) use of aspirin; Z79.899 Other long term (current) drug therapy
CPT/HCPCS: 80048; 85025; 85610; 85730; 96360; 99283; J7030; A4216

== ENCOUNTER 2018-12-16 20:24 | Emergency (ER) | payer MEDICARE, SELFPAY ==
[2018-12-16 20:26] VITALS: BP 118/75; PULSE 90; RESP 18; TEMP 36.8; O2SAT 97; BMI 36.2
--- NOTE | 2018-12-16 21:25 | ED.VIS.GEN ---
History of Present Illness Chief Complaint: Numb/Ting Informant: Patient Onset: Today Context: Sudden Onset Timing: Continuous Quality: Numbness tingling Location: Anterior right and left thigh only Current Severity: Mild Maximum Severity: Mild Worsened by: Nothing Relieved by: Nothing Associated Symptoms: No associated symptoms Narrative: Patient is a 53-year-old male with history of bipolar affective disorder and lung nodule as well as diet-controlled diabetes who presents with bilateral anterior right and left thigh numbness without weakness. Denies bowel bladder dysfunction. Denies radicular pain. Denies weakness in his thigh muscles. Denies foot drop. Denies saddle paresthesia or anesthesia. He denies back pain. Prior similar symptoms: No Recent Illness/Hospitalization: No - Past Medical History (1) Abnormal cardiovascular stress test Status: Acute (2) Angina pectoris Status: Acute (3) Atrial fibrillation Status: Chronic (4) Bipolar disorder Status: Chronic (5) HLD (hyperlipidemia) Status: Chronic (6) HTN (hypertension) Status: Chronic (7) History of DVT (deep vein thrombosis) Status: Chronic (8) History of GI bleed Status: Chronic (9) Migraine Status: Chronic (10) Obesity Status: Chronic (11) Schizoaffective disorder Status: Chronic (12) TIA (transient ischemic attack) Status: Chronic Past Medical History - Allergies and Home Meds Allergies/Adverse Reactions: Allergies clopidogrel [From Plavix] Allergy (Verified 12/16/18 20:28) Rash enalapril maleate [From Vasotec] Allergy (Verified 12/02/18 15:07) Hives enalaprilat dihydrate [From Vasotec] Allergy (Verified 12/02/18 15:07) Hives naproxen [From Naprosyn] Allergy (Verified 12/02/18 15:07) Hives Sulfa (Sulfonamide Antibiotics) Allergy (Verified 12/02/18 15:07) Hives acetaminophen [From Vicodin] Adverse Reaction (Verified 12/02/18 15:07) Rash hydrocodone [From Vicodin] Adverse Reaction (Verified 12/02/18 15:07) Rash risperidone [From Risperdal] Adverse Reaction (Verified 12/02/18 15:07) HALLUCINATIONS Primary Care Physician: Baldo Otto MD [Primary Care Provider] - Prior records reviewed: Yes Surgical History: appendectomy, cholecystectomy, herniorrhaphy, tonsillectomy Smoking Status: Never smoker Alcohol: None Drugs: None - Family History Maternal Family History: Reports: Asthma, Diabetes, Heart Disease, Hypertension, Stroke Paternal Family History: Reports: Cancer Review of Systems General: Denies: Chills, Fever, Sweats Eyes: Denies: Visual changes - bilaterally, Blurred Vision - bilaterally, Diplopia ENT: Denies: Rhinorrhea, Sore throat Cardiovascular: Denies: Chest pain, Palpitations Respiratory: Denies: Dyspnea, Cough, Dyspnea on exertion Gastrointestinal: Denies: Abdominal pain, Nausea, Vomiting, Diarrhea, Melena, Hematochezia Genitourinary: Denies: Dysuria, Hematuria, Frequency Musculoskeletal: Denies: Back pain, Extremity Pain Skin: Denies: Rash, Wounds Neurological: Reports: Parasthesia - Anterior right and left thigh. Denies: Headache, Weakness, Numbness, -, - Psych: Reports: Depression Hematologic: Denies: Easy bruising, Easy bleeding Physical Exam Vital Signs/Narrative: Vital Signs Temp Pulse Resp BP Pulse Ox 12/16/18 20:26 98.2 F 90 18 118/75 97 Inital Vital Signs reviewed: Yes General: Well nourished, Well developed, Obese, Unkempt, No Acute Distress Head: Normocephalic, Atraumatic Eyes: Perrl, EOMI ENT: Moist mucous membranes, No rhinorrhea Neck: Supple, Nontender Cardiovascular: Regular rate, Regular rhythm, No murmurs, Normal S1, Normal S2 Respiratory: No distress, CTA bilaterally, Chest nontender Abdomen: Soft, Nontender, Nondistended, Normal bowel sounds Back: Nontender, Normal Inspection. Negative for: CVA tenderness Extremities: Nontender, No edema, - - There is no asymmetry, swelling, discoloration, leg vein distention, palpable cords or tenderness along the distribution of the deep venous system. DP pulse is palpable bilaterally patient arches are abnormal. With history of diabetes concerned this may represent Charcot foot. Has been seen by sausage machine operator and had orthotics made however he never picked them up. Skin: Normal color, No rash Neurological: Alert, Oriented x3, Cranial nerves II-XII grossly intact, Normal Strength, Normal Sensation, Normal DTR, Normal Gait - There is no foot drop. He is able to squat with his right and left leg without appreciable weakness. Patella and ankle reflexes are 1+. There is no clonus or Babinski sign. Psychological: Normal affect, Normal Mood Diagnostic/Tx/Re-eval Laboratory Results 12/16/18 12/16/18 21:48 21:48 WBC 10.1 RBC 4.81 Hgb 13.2 Hct 40.9 MCV 85.0 MCH 27.4 MCHC 32.3 RDW Std Deviation 42.7 RDW Coeff of Ita 13.8 Plt Count 293 MPV 8.8 Immature Gran % (Auto) 0.700 Neut % (Auto) 61.1 Lymph % (Auto) 23.7 Bennett % (Auto) 11.5 H Eos % (Auto) 2.4 Baso % (Auto) 0.6 Absolute Neuts (auto) 6.2 Absolute Lymphs (auto) 2.39 Nucleated RBC % 0 Sodium 138 Potassium 3.7 Chloride 108 H Carbon Dioxide 24.0 Anion Gap 6 BUN 14 Creatinine 0.98 Estim Creat Clear Calc 107.02 Est GFR (MDRD) Af Amer 103 Est GFR (MDRD) Non-Af 85 BUN/Creatinine Ratio 14.3 Glucose 106 Calcium 8.7 Laboratory tests are unremarkable. - Medical Decision Making We will obtain basic melena panel to assess for hypocalcemia, hypokalemia or hyperkalemia. Patient was informed the cause of his numbness is unknown. ED Disposition - Plan for ED Patient: Disposition: Home or Assisted Living Diagnosis: Paresthesia of bilateral legs Instructions: Paraesthesias Referrals: Baldo Otto MD [Primary Care Provider] - 5-7 Days
[2018-12-16 21:54] LABS: Absolute Lymphocyte Count 2.39 X10^3/uL (0.83-4.51); Absolute Neutrophil Count 6.2 X10^3/uL (2.0-7.7); Basophil# 0.06 X10^3/uL; Basophil% 0.6 % (0-1); Eosinophil# 0.24 X10^3/uL; Eosinophils% 2.4 % (0-5); Hematocrit 40.9 % (40-54); Hemoglobin 13.2 g/dL (13.0-16.5); Lymphocyte # 2.39 X10^3/ul (4.0); Lymphocyte % 23.7 % (19-41); Mean Corp Hgb Conc 32.3 g/dL (32-36); Mean Corpuscular Hgb 27.4 pg (27.0-32.0); Mean Platelet Vol. 8.8 fl (6.2-12.0); Monocyte# 1.16 X10^3/uL; Monocyte% 11.5 % (0-10); NRBC Flagged by Analyzer 0 % (0-5); Neutrophil # 6.16 X10^3/uL (2.7-7.7); Neutrophil % 61.1 % (47-70); Platelet Count 293 K/mm3 (150-450); RBC Distribution Width CV 13.8 % (11.6-14.6); RBC Distribution Width SD 42.7 fl (35.1-43.9); Red Blood Count 4.81 M/mm3 (4.6-6.2); White Blood Count 10.1 K/mm3 (4.4-11.0)
[2018-12-16 22:08] LABS: Anion Gap 6 (5-15); BUN 14 mg/dL (7-18); BUN/Creat Ratio 14.3 RATIO (10-20); Calcium,Total 8.7 mg/dL (8.5-10.1); Chloride 108 mmol/L (98-107); Creatinine, Serum 0.98 mg/dL (0.70-1.30); EST Glomerular Filtration Rate 85 mL/min (>60); Est Glom Filt Rate - Afr Amer 103 mL/min (>60); Estimated Creatinine Clearance 107.02 ml/min; Glucose 106 mg/dL (74-106); Potassium 3.7 mmol/L (3.5-5.1); Sodium Level 138 mmol/L (136-145)
== END 2018-12-16 22:30 | disposition home or self-care (01) ==
PROVIDERS: Emergency Provider Emergency Medicine; Family Provider Family Medicine; PCP Family Medicine
DX: R20.2 Paresthesia of skin (principal); F31.9 Bipolar disorder, unspecified; E11.9 Type 2 diabetes mellitus without complications; R91.1 Solitary pulmonary nodule; I20.9 Angina pectoris, unspecified; I48.91 Unspecified atrial fibrillation; E78.5 Hyperlipidemia, unspecified; I10 Essential (primary) hypertension; G43.909 Migraine, unspecified, not intractable, without status migrainosus; E66.9 Obesity, unspecified; F25.9 Schizoaffective disorder, unspecified; Z86.73 Personal history of transient ischemic attack (TIA), and cerebral infarction without residual deficits; Z87.19 Personal history of other diseases of the digestive system; Z86.718 Personal history of other venous thrombosis and embolism; Z79.82 Long term (current) use of aspirin; Z79.899 Other long term (current) drug therapy
CPT/HCPCS: 80048; 85025; 99282

== ENCOUNTER 2019-01-04 15:24 | Emergency (ER) | payer MEDICARE, MEDICAID, SELFPAY ==
[2019-01-04 15:25] VITALS: BP 142/73; PULSE 118; RESP 16; TEMP 36.6; O2SAT 98; BMI 37.1
--- NOTE | 2019-01-04 15:27 | EKG12_ITS ---
Test Reason : CP Blood Pressure : / mmHG Vent. Rate : 113 BPM Atrial Rate : 113 BPM P-R Int : 144 ms QRS Dur : 088 ms QT Int : 328 ms P-R-T Axes : 045 064 054 degrees QTc Int : 449 ms Sinus tachycardia Otherwise normal ECG Confirmed by ISELA SPRAGUE ([id number]), supervising editor trailer GLORY HUANG ([id number]) on 01/07/2019 10:46:57 AM Referred By: LAUREANO/MAKENZIE Confirmed By:ISELA SPRAGUE
--- NOTE | 2019-01-04 15:35 | RAD_ITS ---
STUDY: X-RAY CHEST REASON FOR EXAM: Male, 53 years old. Chest pain TECHNIQUE: Frontal view of the chest COMPARISON: 10/25/2018 FINDINGS: The lungs are clear. There are no pleural effusions. There is no pneumothorax. The heart is normal in size. The visualized osseous structures are within normal limits. RAD/Chest 1 View (Portable) IMPRESSION: No acute thoracic pathology. Electronically Signed: Pino Mabry, at 15:48 EDT Tel , Service support ,
[2019-01-04 16:01] LABS: Absolute Lymphocyte Count 1.98 X10^3/uL (0.83-4.51); Absolute Neutrophil Count 6.4 X10^3/uL (2.0-7.7); Basophil# 0.07 X10^3/uL; Basophil% 0.7 % (0-1); Eosinophil# 0.18 X10^3/uL; Eosinophils% 1.9 % (0-5); Hemoglobin 13.8 g/dL (13.0-16.5); Lymphocyte # 1.98 X10^3/ul (4.0); Lymphocyte % 20.8 % (19-41); Mean Corp Hgb Conc 32.9 g/dL (32-36); Mean Corpuscular Hgb 27.7 pg (27.0-32.0); Mean Corpuscular Volume 84.3 fL (80-94); Mean Platelet Vol. 8.9 fl (6.2-12.0); Monocyte# 0.76 X10^3/uL; NRBC Flagged by Analyzer 0 % (0-5); Neutrophil # 6.41 X10^3/uL (2.7-7.7); Neutrophil % 67.3 % (47-70); Platelet Count 379 K/mm3 (150-450); RBC Distribution Width CV 13.2 % (11.6-14.6); RBC Distribution Width SD 40.6 fl (35.1-43.9); Red Blood Count 4.98 M/mm3 (4.6-6.2); White Blood Count 9.5 K/mm3 (4.4-11.0)
--- NOTE | 2019-01-04 16:03 | ED.DCSUM_ITS ---
- ER Visit Summary Date of Service: 01/04/19 Chief Complaint: Chest pain History of Present Illness: The patient is a 53 M presenting with chest pain. Patient states this started 1 hour prior to arrival. He complains of left sided sharp chest pain. He states it is relieved by remaining still. He has ass ociated shortness of breath. He has had subjective fevers and myalgias. He denies cough. He denies nausea or vomiting. He states he has felt lightheaded but has not passed out. He has a history of TIA, diabetes, hypertension, A. fib, GERD, schizoaffective disorder. He is not a smoker. He had a normal dobutamine stress echocardiogram in May 2018. Physical Examination: Vitals are stable. Patient is afebrile. Alert no acute distress. HEENT exam is unremarkable. Neck is supple. Lungs are clear and equal bilaterally. Heart is regular and tachycardic Abdomen is soft mild epigastric tenderness with no guarding or rebound Extremities are unremarkable. Skin is warm and dry. No focal neurologic deficit. Remainder of exam is unremarkable. Emergency Department Course and Treatment: Patient was given IV fluids, aspirin. EKG is sinus tachycardia rate of 113. Chest x-ray shows no acute process. CBC, chemistries unremarkable other than glucose 159. INR was 0.9. Troponin is negative. D-dimer negative. Lipase is normal. Delta troponin is also negative. On reevaluation, patient is resting comfortably and is chest pain- free. Advised to follow-up with primary care physician. Advised return to the ED for worsening complaints. Disposition: Discharge home Impression: Chest pain This note was generated with [employer] dictation software. It may contain incorrect words, spelling, and punctuation that were not noted in review of the chart prior to signing ED Disposition - Plan for ED Patient: Instructions: CHEST PAIN, Uncertain Cause Referrals: Baldo Otto MD [Primary Care Provider] -
[2019-01-04] MEDS: Aspirin 325 MG Tablet PO (16:06)
[2019-01-04 16:09] LABS: International Normalized Ratio 0.9; Prothrombin Time (Protime)PT. 12.4 SECONDS (11.7-14.9)
[2019-01-04] MEDS: 0.9% Normal Saline 1,000 ML 999 ML IV (16:09)
[2019-01-04 16:10] VITALS: BP 125/91; PULSE 94; RESP 21; O2SAT 95
[2019-01-04 16:19] LABS: Anion Gap 4 (5-15); BUN 15 mg/dL (7-18); BUN/Creat Ratio 15.7 RATIO (10-20); Calcium,Total 8.6 mg/dL (8.5-10.1); Chloride 107 mmol/L (98-107); Creatinine, Serum 0.96 mg/dL (0.70-1.30); EST Glomerular Filtration Rate 87 mL/min (>60); Est Glom Filt Rate - Afr Amer 105 mL/min (>60); Estimated Creatinine Clearance 109.25 ml/min; Glucose 159 mg/dL (74-106); Potassium 3.5 mmol/L (3.5-5.1); Sodium Level 138 mmol/L (136-145)
[2019-01-04 17:04] VITALS: BP 99/68; PULSE 91; RESP 23; O2SAT 97
[2019-01-04 17:18] LABS: Lipase 75 U/L (73-393)
[2019-01-04 17:20] LABS: D-Dimer Quantitative (DVT/PE) 0.38 FEU/ug/m (0.27-0.49)
[2019-01-04 18:18] VITALS: BP 129/88; PULSE 83; RESP 24; O2SAT 92
[2019-01-04 19:22] VITALS: BP 119/86; PULSE 79; RESP 15; O2SAT 93
--- NOTE | 2019-01-04 19:44 | ED.DEP ---
ED Disposition - Plan for ED Patient: Instructions: CHEST PAIN, Uncertain Cause Referrals: Baldo Otto MD [Primary Care Provider] -
[2019-01-04 19:56] VITALS: BP 110/72; PULSE 79; RESP 18; O2SAT 98
--- NOTE | 2019-01-04 19:57 | ED.RN ---
PT GIVEN WRITTEN AND VERBAL DISCHARGE INSTRUCTIONS AND HOME GOING PAPERWORK. PT VERBALIZES UNDERSTANDING AND DENIES ANY FURTHER QUESTIONS. IV D/C AND COVERED WITH 2X2 GAUZE AND PAPER TAPE. PT DRESSES SELF AND AMBULATES OUT OF DEPT BY SELF.
== END 2019-01-04 19:57 | disposition home or self-care (01) ==
LOC: ED 16:23
PROVIDERS: Emergency Provider Emergency Medicine; Family Provider Family Medicine; PCP Family Medicine
DX: R07.9 Chest pain, unspecified (principal); R42 Dizziness and giddiness; R06.00 Dyspnea, unspecified; J44.9 Chronic obstructive pulmonary disease, unspecified; K21.9 Gastro-esophageal reflux disease without esophagitis; E11.9 Type 2 diabetes mellitus without complications; I10 Essential (primary) hypertension; I48.91 Unspecified atrial fibrillation; F25.9 Schizoaffective disorder, unspecified; F31.9 Bipolar disorder, unspecified; Z86.73 Personal history of transient ischemic attack (TIA), and cerebral infarction without residual deficits; Z79.82 Long term (current) use of aspirin; Z79.899 Other long term (current) drug therapy
CPT/HCPCS: 36415; 71045; 80048; 83690; 84484; 85025; 85379; 85610; 93005; 96360; 99285; J7030; A4216

== ENCOUNTER 2019-01-20 11:13 | Emergency (ER) | payer MEDICARE, SELFPAY ==
[2019-01-20 11:18] VITALS: BP 153/91; PULSE 92; RESP 225; TEMP 36.4; O2SAT 98; BMI 36.5
--- NOTE | 2019-01-20 11:23 | CT_ITS ---
STUDY: CT BRAIN WITHOUT CONTRAST REASON FOR EXAM: Male, 53 years old. Left facial numbness. Hypertension. RADIATION DOSAGE (If Supplied By Facility): CTDIvol = ( 44.99 ) mGy, DLP = ( 812.98 ) mGycm TECHNIQUE: Transaxial CT imaging of the brain was performed without administration of intravenous contrast material. Individualized dose optimization techniques were used for this CT. COMPARISON: Comparison is made with prior examination dated November 11, 2018. FINDINGS: Normal soft tissue structures. Normal calvarium. Normal size ventricles and extra-axial spaces for the patient's age. Normal white matter tracts of the cerebral hemispheres. Normal basal ganglia and thalami. Normal brainstem. Normal cerebellum. There is no intracranial hemorrhage. There are no findings of an acute ischemic infarction. Normal visualized paranasal sinuses. CT/Brain/Head without Contrast IMPRESSION: Normal unenhanced CT scan of the brain. Electronically Signed: Willi Bradford, at 13:04 EDT , Service support ,
--- NOTE | 2019-01-20 11:23 | RAD_ITS ---
STUDY: X-RAY CHEST REASON FOR EXAM: Male, 53 years old. , Chest pain. TECHNIQUE: Single AP portable view of the chest. COMPARISON: Comparison is made with prior study January 04, 2019. FINDINGS: EKG electrodes are seen. The lungs are clear and expanded. There is no demonstrated pleural abnormality. Normal size heart. Normal mediastinum and sofi. Normal visualized pulmonary arteries. Normal visualized aortic arch and descending thoracic aorta. Normal visualized thoracic spine. Normal visualized ribs, clavicles, and shoulders. There is no demonstrated abnormality of the visualized soft tissue structures of the upper abdomen. RAD/Chest 1 View IMPRESSION: Normal x-ray examination of the chest. Electronically Signed: Willi Bradford, at 12:25 EDT , Service support ,
--- NOTE | 2019-01-20 11:23 | EKG12_ITS ---
Test Reason : CP Blood Pressure : / mmHG Vent. Rate : 093 BPM Atrial Rate : 093 BPM P-R Int : 172 ms QRS Dur : 092 ms QT Int : 350 ms P-R-T Axes : 028 047 048 degrees QTc Int : 435 ms Normal sinus rhythm Normal ECG Confirmed by MARYLOU WILLS, JEANINE ([id number]), editor book RAÚL DILLARD ([id number]) on 01/24/2019 9:27:25 AM Referred By: LORNA Confirmed By:JEANINE HICKMAN MD
--- NOTE | 2019-01-20 11:24 | ED.DCSUM_ITS ---
- ER Visit Summary Date of Service: 01/20/19 Chief Complaint: Chest pain, facial numbness History of Present Illness: The patient is a 53 M who has chest pain and facial numbness. He states the chest pain is been intermittent for 2 days. He describes it as sharp on the left side of his chest but radiates to his left arm. His left arm feels swollen. He denies dyspnea. He woke up with numbness on the left side of his face today. He denies slurred speech, facial droop, arm or leg weakness. He states he did have a stroke in the past. He is on dual antiplatelet therapy at home. Physical Examination: Vital signs reviewed. HEENT exam unremarkable. Heart is regular rate and rhythm without murmurs. Lungs are clear to auscultation. There is no chest tenderness. Abdomen is soft and nontender. Extremities reveal no edema. Skin exam normal. Neurologic exam reveals subjective paresthesias to the face on the left side. NIH equals 1 Test Results: EKG is sinus rhythm with rate of 93. No ST changes. Chest x-ray normal. CAT scan of the head is normal. Laboratory studies are all normal except for glucose of 122. Emergency Department Course and Treatment: I do not feel this represents a stroke as he has had facial numbness before. I saw him back in October for similar presentation that he thought was due to a neck strain. His cardiac enzymes are normal after 2 days of pain. I do not feel he has any cardiac issues. He does have a history of migraine headaches and this could be the cause of his facial paresthesias. At this point I do not feel he needs admission to the hospital. He will be given Tylenol for headache. He will follow-up with his doctors. Treatment Plan: [] Disposition: Discharge Impression: Chest pain, facial paresthesias This note was generated with [employer] [place] dictation software. It may contain incorrect words, spelling, and punctuation that were not noted in review of the chart prior to signing ED Disposition - Plan for ED Patient: Referrals: Baldo Otto MD [Primary Care Provider] -
[2019-01-20 11:28] VITALS: O2SAT 95
[2019-01-20 11:41] LABS: Bedside Glucose 125 mg/dL (70-110)
[2019-01-20 11:50] LABS: Absolute Lymphocyte Count 1.54 X10^3/uL (0.83-4.51); Absolute Neutrophil Count 5.4 X10^3/uL (2.0-7.7); Basophil# 0.04 X10^3/uL; Basophil% 0.5 % (0-1); Eosinophil# 0.16 X10^3/uL; Hematocrit 41.8 % (40-54); Lymphocyte # 1.54 X10^3/ul (4.0); Lymphocyte % 19.3 % (19-41); Mean Corp Hgb Conc 31.1 g/dL (32-36); Mean Corpuscular Volume 83.6 fL (80-94); Monocyte# 0.76 X10^3/uL; Monocyte% 9.5 % (0-10); NRBC Flagged by Analyzer 0 % (0-5); Neutrophil # 5.43 X10^3/uL (2.7-7.7); Neutrophil % 68.2 % (47-70); Platelet Count 345 K/mm3 (150-450); RBC Distribution Width SD 39.3 fl (35.1-43.9)
[2019-01-20 12:05] LABS: Partial Thromboplast Time 30.3 Seconds (24.1-36.2)
[2019-01-20 12:09] LABS: Prothrombin Time (Protime)PT. 12.7 SECONDS (11.7-14.9)
[2019-01-20 12:10] LABS: Anion Gap 10 (5-15); BUN 7 mg/dL (7-18); BUN/Creat Ratio 7.2 RATIO (10-20); Calcium,Total 8.6 mg/dL (8.5-10.1); Chloride 106 mmol/L (98-107); Creatinine, Serum 0.97 mg/dL (0.70-1.30); EST Glomerular Filtration Rate 86 mL/min (>60); Est Glom Filt Rate - Afr Amer 104 mL/min (>60); Estimated Creatinine Clearance 108.13 ml/min; Glucose 122 mg/dL (74-106); Potassium 3.5 mmol/L (3.5-5.1); Sodium Level 140 mmol/L (136-145)
--- NOTE | 2019-01-20 13:21 | ED.DEP ---
ED Disposition - Plan for ED Patient: Disposition: Home or Assisted Living Instructions: CHEST PAIN, Uncertain Cause Referrals: Baldo Otto MD [Primary Care Provider] -
== END 2019-01-20 13:33 | disposition home or self-care (01) ==
PROVIDERS: Emergency Provider Emergency Medicine; Family Provider Family Medicine; PCP Family Medicine
DX: R07.9 Chest pain, unspecified (principal); R20.2 Paresthesia of skin; G43.909 Migraine, unspecified, not intractable, without status migrainosus; K21.9 Gastro-esophageal reflux disease without esophagitis; I10 Essential (primary) hypertension; E78.00 Pure hypercholesterolemia, unspecified; Z86.73 Personal history of transient ischemic attack (TIA), and cerebral infarction without residual deficits; Z79.82 Long term (current) use of aspirin; Z79.899 Other long term (current) drug therapy
CPT/HCPCS: 70450; 71045; 80048; 82962; 84484; 85025; 85610; 85730; 93005; 99284; A4216

== ENCOUNTER → 2019-02-04 06:33 | Outpatient (CLI) | payer MEDICARE, SELFPAY ==
[2019-01-20 11:18] VITALS: BMI 36.5
--- NOTE | 2019-02-04 06:47 | MRI_ITS ---
STUDY: MRI BRAIN WITHOUT CONTRAST REASON FOR EXAM: Male, 53 years old. Left-sided weakness TECHNIQUE: Standardized multiplanar fat and water weighted pulse sequences were obtained. COMPARISON: CT head 01/20/2019 FINDINGS: Normal size of the ventricles and extra-axial spaces for the patient's age. Normal white matter tracts of the supratentorial brain. Normal bilateral basal ganglia. Normal thalami. There is no extra-axial fluid accumulation. Normal flow voids within the major intracranial circulation suggesting patency by spin echo criteria. Normal sella turcica, pituitary gland, infundibular stalk, optic chiasm and hypothalamus. Normal tectal plate and pineal gland. Normal midbrain, gianni and medulla. Normal cerebellum. Normal basal cisterns. Normal bilateral temporal bones. Normal bilateral internal auditory canals. No demonstrated orbital abnormality, within the constraints of a routine brain study. Normal visualized paranasal sinuses. Normal calvarium and skull base. Normal visualized soft tissue structures. Normal visualized upper cervical spine. MRI/Brain without Contrast IMPRESSION: Normal unenhanced MRI of the brain. Electronically Signed: Mirta Bernstein, at 9:55 EST Tel , Service support ,
== END ==
PROVIDERS: Family Provider Family Medicine; PCP Family Medicine; Referring Provider Family Medicine; Visit Provider Family Medicine
DX: R29.898 Other symptoms and signs involving the musculoskeletal system (principal); R51 Headache
CPT/HCPCS: 70551

== ENCOUNTER 2019-02-07 21:52 | Emergency (ER) | payer MEDICARE, SELFPAY ==
[2019-02-07 21:54] VITALS: BP 156/106; PULSE 110; RESP 18; TEMP 36.5; O2SAT 98; BMI 37.9
[2019-02-07 22:22] VITALS: RESP 16
[2019-02-07] MEDS: 0.9% Normal Saline 1,000 ML 999 ML IV (22:28)
[2019-02-07] MEDS: Metoclopramide 10 MG/2 ML Vial IV (22:28)
[2019-02-07] MEDS: Ketorolac 30 MG/ML Syringe IV (22:30)
--- NOTE | 2019-02-07 22:44 | ED.DCSUM_ITS ---
- ER Visit Summary Date of Service: 02/07/19 Chief Complaint: Headache History of Present Illness: The patient is a [address] duque. He reports he has a headache that began at 9:00 this morning is gradually worsened. He tried his Imitrex without relief. Reports a throbbing, sharp pain that is o n the top of his head. Is 10-10 severity. This is similar to his prior migraines. He is been nausea without vomiting. He does have photophobia. Patient reports he had an MRI 3 days ago that showed no acute disease. Physical Examination: Vitals: Stable. Afebrile. General: Well-nourished and well-developed. Head: Normocephalic atraumatic. Neck: Supple, no lymphadenopathy. No JVD. Nontender. Cardiovascular: Regular rate and rhythm. No murmurs. Respiratory: No respiratory distress. Clear to auscultation bilaterally. Abdominal: Soft, nontender, nondistended, normal bowel sounds. No guarding, rebound, or peritoneal signs. Back: Nontender. Extremities: Nontender, no edema. Skin: Normal color, no rash. Neurologic: Alert and oriented ?3. Cranial nerves II through XII are intact. Normal strength and sensation. Psych: Normal affect. Emergency Department Course and Treatment: Patient was given Toradol and Reglan IV. He is resting comfortably. He drove himself here so he was not given Benadryl. Treatment Plan: Patient reports he has Benadryl at home. He will be discharged instructions to take this and follow-up his primary care physician 1 to 2 days if not improving. Return to the emergency department for any worsening symptoms. Disposition: To home in improved and stable condition. Impression: 1. Headache, recurrent. This note was generated with Robert Applebaum MD dictation software. It may contain incorrect words, spelling, and punctuation that were not noted in review of the chart prior to signing ED Disposition - Plan for ED Patient: Disposition: Home or Assisted Living Instructions: ED, Migraine (Classical) Referrals: Baldo Otto MD [Primary Care Provider] - 1-2 Days if not improving
[2019-02-07 23:13] VITALS: BP 145/83; PULSE 92; RESP 18; O2SAT 97
== END 2019-02-07 23:14 | disposition home or self-care (01) ==
LOC: ED 22:31
PROVIDERS: Emergency Provider Emergency Medicine; Family Provider Family Medicine; PCP Family Medicine
DX: G43.909 Migraine, unspecified, not intractable, without status migrainosus (principal); J44.9 Chronic obstructive pulmonary disease, unspecified; E11.9 Type 2 diabetes mellitus without complications; F31.9 Bipolar disorder, unspecified; I48.91 Unspecified atrial fibrillation; Z86.73 Personal history of transient ischemic attack (TIA), and cerebral infarction without residual deficits; Z79.82 Long term (current) use of aspirin; Z79.899 Other long term (current) drug therapy
CPT/HCPCS: 96361; 96374; 96375; 99283; J7030; A4216

== ENCOUNTER 2019-02-08 19:24 | Emergency (ER) | payer MEDICARE, SELFPAY ==
[2019-02-07 21:54] VITALS: BMI 37.9
[2019-02-08 19:25] VITALS: BP 135/90; PULSE 83; RESP 17; TEMP 36.8; O2SAT 98; BMI 38.1
[2019-02-08 19:41] LABS: Bedside Glucose 140 mg/dL (70-110)
--- NOTE | 2019-02-08 19:44 | ED.RN ---
CHARGE NURSE NOTIFIED OF PT SX ON TRIAGE.
--- NOTE | 2019-02-08 20:29 | ED.VISSUMM ---
- ER Visit Summary Date of Service: 02/08/19 Chief Complaint: Headache History of Present Illness: The patient is a 53 M who presents with a headache and paresthesias that began yesterday. Patient states headache is over the top of his head. Patient describes it as tingling and throbbing. Patient states his headache is worse with light. Patient admits to some tingling over the left side of his face and left leg. Patient also admits to some tingling in his left arm. Patient denies any weakness. Patient denies any visual changes. Patient denies any difficulty breathing or difficulty swallowing. Patient denies any difficulty talking. Patient states he has a history of migraine headaches. Patient states this is similar to prior migraine headaches. Physical Examination: Vital signs are stable. Patient is afebrile. Patient is in no acute distress. Cranial nerves II through XII are intact. Strength is 5/5 bilateral knee upper and lower extremities. There are no sensory deficits noted. Pupils are equal, round, reactive to light bilaterally. Extraocular muscles are intact. There are no visual deficits noted. Heart was regular rate and rhythm. Lungs are clear and equal bilaterally. Abdomen is soft nontender. Test Results: CBC and basic metabolic profile were within normal limits. BGT was 140. Emergency Department Course and Treatment: Patient was given IV fluids, Reglan, and Benadryl. Patient was sleeping on reevaluation. Patient states his headache has resolved. Patient has a normal neurologic exam. Patient was instructed to follow-up with his primary care physician in 5 to 7 days. Patient understood and was agreeable with the plan. All questions were answered. Disposition: Discharge home Impression: Migraine headache This note was generated with Re[employer] dictation software. It may contain incorrect words, spelling, and punctuation that were not noted in review of the chart prior to signing ED Disposition - Plan for ED Patient: Disposition: Home or Assisted Living Diagnosis: Migraine headache Instructions: ED, Migraine (Classical) Referrals: Baldo Otto MD [Primary Care Provider] - 5-7 Days
[2019-02-08] MEDS: Metoclopramide 10 MG/2 ML Vial IV (20:44)
[2019-02-08] MEDS: 0.9% Normal Saline 1,000 ML 1000 ML IV (20:44)
[2019-02-08] MEDS: DiphenhydrAMINE 50 MG/ML Syringe 25 MG IV (20:44)
[2019-02-08 20:45] LABS: Absolute Lymphocyte Count 2.27 X10^3/uL (0.83-4.51); Absolute Neutrophil Count 5.9 X10^3/uL (2.0-7.7); Basophil# 0.08 X10^3/uL; Basophil% 0.9 % (0-1); Eosinophil# 0.25 X10^3/uL; Eosinophils% 2.7 % (0-5); Hematocrit 41.8 % (40-54); Hemoglobin 12.8 g/dL (13.0-16.5); Lymphocyte # 2.27 X10^3/ul (4.0); Lymphocyte % 24.3 % (19-41); Mean Corp Hgb Conc 30.6 g/dL (32-36); Mean Corpuscular Hgb 25.7 pg (27.0-32.0); Mean Corpuscular Volume 83.9 fL (80-94); Mean Platelet Vol. 9.6 fl (6.2-12.0); Monocyte# 0.78 X10^3/uL; Monocyte% 8.3 % (0-10); NRBC Flagged by Analyzer 0 % (0-5); Neutrophil # 5.92 X10^3/uL (2.7-7.7); Neutrophil % 63.3 % (47-70); Platelet Count 405 K/mm3 (150-450); RBC Distribution Width CV 13.1 % (11.6-14.6); RBC Distribution Width SD 39.5 fl (35.1-43.9); Red Blood Count 4.98 M/mm3 (4.6-6.2); White Blood Count 9.4 K/mm3 (4.4-11.0)
[2019-02-08 20:54] LABS: Anion Gap 7 (5-15); BUN 7 mg/dL (7-18); BUN/Creat Ratio 6.6 RATIO (10-20); Calcium,Total 8.6 mg/dL (8.5-10.1); Chloride 109 mmol/L (98-107); Creatinine, Serum 1.06 mg/dL (0.70-1.30); EST Glomerular Filtration Rate 77 mL/min (>60); Est Glom Filt Rate - Afr Amer 94 mL/min (>60); Estimated Creatinine Clearance 98.95 ml/min; Glucose 126 mg/dL (74-106); Potassium 3.9 mmol/L (3.5-5.1); Sodium Level 141 mmol/L (136-145)
[2019-02-08 21:56] VITALS: BP 137/70
== END 2019-02-08 21:58 | disposition home or self-care (01) ==
PROVIDERS: Emergency Provider Emergency Medicine; Family Provider Family Medicine; PCP Family Medicine
DX: G43.909 Migraine, unspecified, not intractable, without status migrainosus (principal); R06.00 Dyspnea, unspecified; R05 Cough; I25.2 Old myocardial infarction; J44.9 Chronic obstructive pulmonary disease, unspecified; F31.9 Bipolar disorder, unspecified; F32.9 Major depressive disorder, single episode, unspecified; F41.9 Anxiety disorder, unspecified; Z86.73 Personal history of transient ischemic attack (TIA), and cerebral infarction without residual deficits; Z79.82 Long term (current) use of aspirin; Z79.899 Other long term (current) drug therapy
CPT/HCPCS: 80048; 82962; 85025; 96361; 96374; 96375; 99283; J7030

== ENCOUNTER 2019-02-12 21:57 | Emergency (ER) | payer MEDICARE, SELFPAY ==
[2019-02-12 21:57] VITALS: BP 136/84; PULSE 97; RESP 16; TEMP 36.6; O2SAT 99; BMI 38.0
--- NOTE | 2019-02-12 22:19 | ED.VISSUMM ---
- ER Visit Summary Date of Service: 02/12/19 Chief Complaint: GI bleeding History of Present Illness: The patient is a 53 M who presents with GI bleeding that began today. Patient states he had 3 bowel movements today that were all black. Patient states he has been having some abdominal pain for the past couple days. Patient states it is over his lower abdomen. Patient describes as burning and stabbing. Patient admits to nausea but denies any vomiting. Patient denies any dysuria or hematuria. Patient denies any back pain. Patient admits to subjective fevers. Physical Examination: Vital signs are stable. Patient is afebrile. Patient is in no acute distress. Oral mucosa is pink and moist. Neck is supple. Trachea is midline. There is no JVD. Pupils are equal, round, and reactive to light bilaterally. Extraocular muscles are intact. Conjunctiva is clear. There is no pallor noted. Heart was regular rate and rhythm. Lungs are clear and equal bilaterally. Abdomen is soft. Bowel sounds are normal. There is no tenderness. Rectal exam showed good sphincter tone. There was dark stool. Cranial nerves II through XII are intact. There are no focal motor or sensory deficits noted. Test Results: CBC and comprehensive metabolic profile was essentially within normal limits. Patient's hemoglobin was 12.6 which is consistent with prior results. Stool for occult blood was negative. Emergency Department Course and Treatment: She was advised of his laboratory findings. Patient was instructed to follow-up with his primary care physician in 5 to 7 days. Patient understood and was agreeable with the plan. All questions were answered. Disposition: Discharge home Impression: Black stools This note was generated with [employer] dictation software. It may contain incorrect words, spelling, and punctuation that were not noted in review of the chart prior to signing ED Disposition - Plan for ED Patient: Disposition: Home or Assisted Living Diagnosis: Black stools Instructions: PEPTIC ULCER DISEASE (All causes) Referrals: Baldo Otto MD [Primary Care Provider] - 3-5 Days
[2019-02-12] MEDS: 0.9% Normal Saline 1,000 ML 1000 ML IV (22:47)
[2019-02-12] MEDS: Ondansetron 4 MG/2 ML Vial IV (22:54)
[2019-02-12 23:03] LABS: Absolute Lymphocyte Count 2.12 X10^3/uL (0.83-4.51); Absolute Neutrophil Count 5.9 X10^3/uL (2.0-7.7); Basophil# 0.06 X10^3/uL; Basophil% 0.7 % (0-1); Eosinophil# 0.23 X10^3/uL; Eosinophils% 2.5 % (0-5); Hematocrit 39.9 % (40-54); Hemoglobin 12.6 g/dL (13.0-16.5); Lymphocyte # 2.12 X10^3/ul (4.0); Lymphocyte % 23.1 % (19-41); Mean Corp Hgb Conc 31.6 g/dL (32-36); Mean Corpuscular Volume 82.4 fL (80-94); Mean Platelet Vol. 9.5 fl (6.2-12.0); Monocyte# 0.79 X10^3/uL; Monocyte% 8.6 % (0-10); NRBC Flagged by Analyzer 0 % (0-5); Neutrophil # 5.92 X10^3/uL (2.7-7.7); Neutrophil % 64.7 % (47-70); Platelet Count 372 K/mm3 (150-450); RBC Distribution Width CV 13.2 % (11.6-14.6); RBC Distribution Width SD 39.2 fl (35.1-43.9); Red Blood Count 4.84 M/mm3 (4.6-6.2); White Blood Count 9.2 K/mm3 (4.4-11.0)
[2019-02-12 23:11] LABS: ALB/GLOB Ratio 0.8 RATIO (0.9-2.4); AST(SGOT) 30 U/L (15-37); Alanine Aminotransfer ALT/SGPT 44 U/L (16-61); Albumin, Serum 3.3 g/dL (3.2-5.0); Alkaline Phosphatase 124 U/L (45-117); Anion Gap 8 (5-15); BUN 12 mg/dL (7-18); BUN/Creat Ratio 12.6 RATIO (10-20); Calcium,Total 8.9 mg/dL (8.5-10.1); Chloride 108 mmol/L (98-107); Creatinine, Serum 0.96 mg/dL (0.70-1.30); EST Glomerular Filtration Rate 87 mL/min (>60); Est Glom Filt Rate - Afr Amer 106 mL/min (>60); Estimated Creatinine Clearance 109.25 ml/min; Globulin 4.1 g/dL (2.2-4.2); Glucose 145 mg/dL (74-106); Lipase 71 U/L (73-393); Potassium 3.7 mmol/L (3.5-5.1); Protein, Total 7.4 g/dL (6.4-8.2); Sodium Level 140 mmol/L (136-145)
[2019-02-12 23:33] VITALS: BP 133/88; PULSE 86; RESP 18; O2SAT 97
== END 2019-02-12 23:34 | disposition home or self-care (01) ==
PROVIDERS: Emergency Provider Emergency Medicine; Family Provider Family Medicine; PCP Family Medicine
DX: K92.1 Melena (principal); I48.91 Unspecified atrial fibrillation; I25.2 Old myocardial infarction; F31.9 Bipolar disorder, unspecified; E66.9 Obesity, unspecified; Z95.5 Presence of coronary angioplasty implant and graft; Z68.38 Body mass index [BMI] 38.0-38.9, adult; Z79.82 Long term (current) use of aspirin; Z79.899 Other long term (current) drug therapy
CPT/HCPCS: 80053; 82274; 83690; 85025; 96361; 96374; 99284; J7030; A4216; J2405

== ENCOUNTER 2019-02-24 10:25 | Day surgery (SDC) | payer MEDICARE, SELFPAY ==
--- NOTE | 2019-02-24 09:17 | HP.PCM_ITS ---
History and Physical Date of Admission: 02/24/19 HISTORY AND PHYSICAL Hieu Theodore 1965 REFERRING PHYSICIAN: Damian Otto MD CHIEF COMPLAINT: Consult (Consult Abd pain) HPI: The patient is a 53 year old male referred for endoscopy. Hieu notes no current colon issues The patient notes a one month history of epigastric pain. He describes it as 12/30. He also notes abdominal bloating and has now had hematemesis and vomiting for 2 days with melena Hieu has undergone prior endoscopy. He had an inflammatory polyp removed in 2012 The patient is being seen by me today at the request of Dr. Damian Otto MD for my opinion and advice regarding hematemesis. PAST MEDICAL HISTORY Diagnosis Date ? Abdominal pain, generalized ? Acute gastritis without mention of hemorrhage ? Allergic rhinitis ? Asthma, moderate persistent, well-controlled 04/29/2013 ? Atrial fibrillation (HCC) remote, by history - not documented ? Bipolar I disorder, most recent episode (or current) unspecified ? COPD (chronic obstructive pulmonary disease) (HCC) 06/21/2018 ? Diabetes mellitus ? Esophageal reflux ? Esophagitis, unspecified ? 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 History of blood clots blood clot right calf ? IBS (irritable bowel syndrome) 10/21/2010 ? Nonspecific elevation of levels of transaminase or lactic acid dehydrogenase (LDH) ? Obstructive sleep apnea (adult) (pediatric) DME [facility] ? Pneumonia 05/2018 ? Previous [place] 1992 heartattack ? Unspecified hypertensive heart disease without heart failure PAST SURGICAL HISTORY Procedure Laterality Date ? APPENDECTOMY 1984 ? COLONOSCOP W/ OR W/O [facility] SPEC [facility] Colonoscopy ? COLONOSCOP W/ OR W/O BRS SPEC 05/19/08 ? EGD W/O [facility] SPECIMEN W/BX 06/01/10 [facility] inpt negative H-pylori ? ELECTROENCEPHALOGRAM (EEG) 12/04/2017 [facility] ? KNEE SCOPE,DIAGNOSTIC 2003 Arthroscopy, knee left repair ACL ? PAST SURGICAL HISTORY OF 2002, 10/2010 heart cath ? PAST SURGICAL HISTORY OF 2003 repair tendon and ligaments on left ankle ? PAST SURGICAL HISTORY OF 12/2010 bone implant on right foot ? PAST SURGICAL HISTORY OF 2000 Right foot surgery ? REMOVAL GALLBLADDER 1997 Cholecystectomy ? REMOVAL OF TONSILS,<12 Y/O as child Tonsillectomy ? SIGMOIDOSCOPY FLEX DIAG 11/02/12 Sigmoidoscopy, flexible repeat to 20 cm in 6 months Current Outpatient Medications Medication Sig ? polyethylene glycol 3350 (MIRALAX) 17 gram/dose powder 1 capful po qd prn constipation. Dissolve in 4-8oz of liquid. ? topiramate (TOPAMAX) 50 mg tablet Take 1 tablet by mouth once daily. Take at bedtime ? metoprolol tartrate, short acting, (LOPRESSOR) 100 mg tablet Take 1.5 tablets by mouth twice daily. ? famotidine (PEPCID) 20 mg tablet Take 1 tablet by mouth at bedtime as needed. ? SUMAtriptan (IMITREX) 100 mg tablet Take 1 tablet by mouth as needed (take 1 at onset of headache.). ? nitroglycerin sublingual (NITROQUICK) 0.4 mg SL tablet DISSOLVE 1 TABLET UNDER THE TONGUE EVERY 5 MINUTES NEEDED. FOR CHEST PAIN. IF NO RELIEF CALL 911 ? cyclobenzaprine (FLEXERIL) 10 mg tablet Take 1 tablet by mouth three times daily as needed for Muscle Spasm. ? Omeprazole 40 mg capsule TAKE 1 CAPSULE BY MOUTH TWICE A DAY ? furosemide (LASIX) 20 mg tablet TAKE 1 TABLET BY MOUTH ONCE DAILY. ? PROAIR HFA 90 mcg/actuation inhaler Inhale 2 Puffs as instructed every 4 hours as needed. ? guaiFENesin (MUCINEX) 600 mg 12 hr tablet Take 1 tablet by mouth twice daily. ? fluticasone (FLONASE) 50 mcg/actuation nasal spray Use 2 Sprays in each nostril once daily. Rinse mouth after use. ? montelukast (SINGULAIR) 10 mg tablet Take 1 tablet by mouth daily at bedtime. ? losartan (COZAAR) 50 mg tablet TAKE 1 TABLET EVERY DAY ? aspirin, enteric coated (ECOTRIN LOW STRENGTH) 81 mg EC tablet Take 1 tablet by mouth once daily. ? amLODIPine (NORVASC) 2.5 mg tablet TAKE 1 TABLET BY MOUTH EVERY DAY ? loratadine (CLARITIN) 10 mg tablet TAKE 1 TABLET BY MOUTH ONCE DAILY. ? acetaminophen (TYLENOL) 500 mg tablet Take 1 tablet by mouth every 6 hours as needed. ? Blood Pressure Test Kit-Large (QUICK RESPONSE BP MONITOR) kit Blood pressure weekly and as needed, for volatile blood pressure. ? blood sugar diagnostic ([employer] ULTRA TEST) test strip Test once daily. Dx: (E11.9) Diabetes mellitus type 2, diet-controlled. No insulin ? Blood-Glucose Meter (ONETOUCH ULTRA2) monitoring kit Test glucose once daily. Dx: (E11.9) Diabetes mellitus type 2, diet-controlled. No insulin ? lancets (ONETOUCH DELICA LANCETS) 30 gauge misc Test once daily. Dx: (E11.9) Diabetes mellitus type 2, diet-controlled. No insulin . ? promethazine (PHENERGAN) 25 mg tablet Take 1 tablet by mouth every 6 hours as needed. ? BIPAP New set up: Settings 21/17 cm H2O, suitable mask per pt preference (nsasl mask), chin strap, head gear, humidity, heated tubing (GERSON), lifetime supplies. G47.33 THIAGO (Patient not taking: Reported on 02/11/2019 ) ? guaiFENesin (MUCINEX) 600 mg 12 hr tablet 1-2 tablets twice a day as needed for congestion (Patient not taking: Reported on 02/11/2019 ) ? INVEGA SUSTENNA 156 mg/mL syrg No current facility-administered medications for this visit. ALLERGIES: Naprosyn [Other]; Risperidone; Sulfa [Other]; Vasotec [Other]; Vicodin [Hydrocodone-Acetaminophen] PERSONAL HISTORY: Social History Tobacco Use ? Smoking status: Former Smoker Packs/day: 1.00 Types: Cigarettes Start date: 03/23/1985 Last attempt to quit: 06/21/1985 Years since quittin.7 ? Smokeless tobacco: Never Used ? Tobacco comment: ETS: No smoking in childhood home. Has lived with smokers as adult. Substance Use Topics ? Alcohol use: Yes Comment: rare. ? Drug use: No Comment: quit about 2012. FAMILY HISTORY: FAMILY HISTORY Problem Relation Age of Onset ? Heart Mother ? Diabetes Mother ? Thyroid Mother ? COPD Mother ? Cancer Father in 1993 ? Stroke Maternal Grandmother ? Emphysema Maternal Grandfather ? COPD Maternal Grandfather ? Diabetes Sister ? Allergies Sister REVIEW OF SYMPTOMS: The review of systems data was entered by the nurse and reviewed by me Nursing Notes: Nitish Medina LPN 02/24/2019 8:34 AM Signed REVIEW OF SYSTEMS: General: The patient NOTES fatigue, denies weight loss, denies weight gain, denies feeling hot, and denies feelings of cold. Eyes: The patient denies glaucoma, denies eye injury/surgery, wears glasses or contacts. Ear/Nose/Throat: The patient NOTES allergies, denies hayfever, denies ear infections, and denies bloody noses. Cardiovascular: The patient NOTES chest pain, denies heart disease, NOTES high blood pressure,denies cardiac stent, NOTES prior heart attack, NOTES irregular heart beat, NOTES high cholesterol, denies poor circulation, denies heart failure, other cardiac issues, denies claudication, denies cold feet, denies peripheral arterial stent. Respiratory: The patient denies tuberculosis, NOTES pneumonia, denies frequent cough, denies pulmonary embolism, NOTES shortness of breath, and denies coughing up blood. Gastrointestinal: The patient denies difficulty swallowing, NOTES acid reflux, NOTES ulcers, NOTES vomiting, denies jaundice/hepatitis, denies gallbladder problems, denies black or tarry stools, denies hemorrhoids, denies bleeding from rectum, denies diverticulitis, NOTES constipation, NOTES diarrhea, denies loss of stool control, and denies hernias. Kidney/Bladder: The patient denies kidney stones, denies urine infections, and denies bloody urine. Skin: The patient denies a history of skin cancer, denies bleeding/changing moles, and denies a history of skin rash. Neurologic: The patient denies a history of epilepsy/convulsions, NOTES headaches, denies head/spinal injuries, and NOTES stroke/TIA. Psychiatric: The patient NOTES psychiatric medications, NOTES depression, and denies voices, denies substance abuse. Endocrine: The patient denies thyroid disorders, NOTES diabetes, and denies hormonal problems. Hematologic: The patient denies a history of bruising, denies bleeding, and denies anemia, NOTES blood clots. Infections: The patient denies a history of measles and mumps, denies rheumatic fever, and denies sexually transmitted diseases. Musculoskeletal: The patient denies back pain/injury, NOTES back problems, denies sciatica, NOTES knee/foot trouble, NOTES arthritis, or NOTES gout. When was patient's last Mammogram screening? N/A Last Colonoscopy: 11/01 [facility] PHYSICAL EXAMINATION: General: The patient is 53 year old male, well nourished, well hydrated in no acute distress. The patient is oriented to time, place, and person. VITALS: Blood pressure 98/52, pulse 80, temperature 36.6 ?C (97.8 ?F), height 193 cm (6' 4), weight (!) 137.5 kg (303 lb 3.2 oz), SpO2 97 %. Body mass index is 36.91 kg/m?. HEENT: Normal cephalic, ataumatic, pupils are equally round, sclera are anicteric, mucous membranes are moist, oropharynx is clear. Neck has no masses, asymmetry or lymphadenopathy. Thyroid is unremarkable. Respiratory: Clear to auscultation and percussion. Normal respiratory excursion and pattern. Cardiac: Examination is regular rate and rhythm. Abdominal exam: Soft, nontender, with no palpable masses. No hepatosplenomegaly. No palpable hernias. Rectal exam: exam deferred Extremities: no clubbing, cyanosis or edema. No adenopathy. Other: LABORATORY VALUES: As Noted RADIOLOGIC STUDIES: As Noted Assessment IMPRESSION: epigastric pain, hematemesis PLAN: I plan to perform upper endoscopy. We discussed the risks and benefits of the planned endoscopy. I have informed the patient that complications can occur including failure to complete the endoscopy and perforation. The patient had the opportunity to ask questions concerning the planned endoscopy. My staff has also explained the procedure to the patient in understandable terms and has given the patient printed material concerning the procedure. The patient freely consents to surgery. The patient has medical comorbidities for which I plan to perform the procedure under monitored anesthetic care. Diagnoses: (R10.13) Epigastric pain (primary encounter diagnosis) (K92.0) Hematemesis, presence of nausea not specified My findings have been communicated to Dr. Damian Otto MD via shared medical record. This note will be forwarded to Dr. Damian Otto MD. Return to Clinic: The patient is instructed to follow-up with me after the testing has been completed. Tommy Becker MD
[2019-02-24 10:41] VITALS: BP 114/77; PULSE 71; RESP 16; TEMP 36.6; O2SAT 97; BMI 37.0
[2019-02-24] MEDS: Lactated Ringers 1,000 ML 100 ML IV (11:00)
[2019-02-24 11:06] LABS: Bedside Glucose 80 mg/dL (70-110)
--- NOTE | 2019-02-24 12:00 | EGD_PTH ---
PATIENT: VANNESA HERNANDEZ LOC: EN U#:[id number] AGE/SX: 53/M ROOM: RE02/24/[address]: Dr. Tommy Becker MD : 1965 BED: DIS: 02/24/2019 SPEC #: [id number] RECD: 02/24/19 12:25 STATUS: ISAIAH REDickson #: [id number] CAROLYN: 02/24/19 12:[address]: Tommy Becker DEPT: SURGICAL PATHOLOGY RECD BY: You Price ENTERED: 02/24/19 13:25 SP TYPE: EGD BIOPSY OT DR: MD Baldo Vidal MD Tissues: A - Gastric mucous membrane B - Esophageal mucous membrane Procedures: Special Stain Group II Surgery Specimen Level IV Alcian Blue/PAS (control) HEADER OPERATION: EGD ([facility]) PRE-OP DIAGNOSIS: Epigastric pain, hematemesis TISSUE SUBMITTED: A - Antral biopsy for histo and H. pylori, B - Distal esophageal biopsy MICROSCOPIC DIAGNOSIS A. Antral biopsy: Mild to moderate gastritis. See microscopic description and comment. B. Distal esophageal biopsy: A fragment of gastric mucosa with acute and chronic inflammation and congestion. Intestinal metaplasia (goblet cell metaplasia) is not identified. See comment. SJ:june 02/25/19 COMMENT A. The results of immunohistochemistry for Helicobacter pylori will be reported separately ([id number]). B. Alcian blue/PAS stain with matched control is used in the evaluation of the specimen. MICROSCOPIC DESCRIPTION Slides are reviewed. A. The specimen shows fragments of gastric mucosa with chronic inflammatory cell infiltrates in the lamina propria consisting of lymphocytes and plasma cells, consistent with mild to moderate chronic gastritis. Focal mucosal congestion is also noted. GROSS DESCRIPTION A - Received in fixative is one container labeled with the patient's name and designated antral biopsy. The specimen consists of one irregular fragment of light duvall soft tissue that measures 0.3 x 0.3 x 0.2 cm. The specimen is totally submitted in one cassette. B - Received in fixative is one container labeled with the patient's name and designated distal esophageal biopsy. The specimen consists of one irregular fragment of light duvall soft tissue that measures 0.3 x 0.3 x 0.1 cm. The specimen is totally submitted in one cassette. / ERIC:june 02/24/19 TC:2 CPT: 29769 x2, 58879
--- NOTE | 2019-02-24 12:00 | OP.EGD_ITS ---
Patient Name: Hieu Theodore Procedure Date: 02/24/2019 11:29 AM Date of : 1965 Age: 53 Procedure: Upper GI endoscopy Indications: Epigastric abdominal pain, Hematemesis Providers: Tommy Becker MD Medicines: Monitored Anesthesia Care Patient Profile: This is a 53 year old male. Refer to note in patient chart for documentation of history and physical. Complications: No immediate complications. Procedure: Pre-Anesthesia Assessment: - Prior to the procedure, a History and Physical was performed, and patient medications and allergies were reviewed. The patient is competent. The risks and benefits of the procedure and the sedation options and risks were discussed with the patient. All questions were answered and informed consent was obtained. Patient identification and proposed procedure were verified by the physician, the nurse and the anesthesiologist in the procedure room. Mental Status Examination: alert and oriented. Airway Examination: normal oropharyngeal airway and neck mobility. Respiratory Examination: clear to auscultation. CV Examination: normal. Prophylactic Antibiotics: The patient does not require prophylactic antibiotics. Prior Anticoagulants: The patient has taken aspirin, last dose was 1 day prior to procedure. ASA Grade Assessment: III - A patient with severe systemic disease. After reviewing the risks and benefits, the patient was deemed in satisfactory condition to undergo the procedure. The anesthesia plan was to use monitored anesthesia care (MAC). Immediately prior to administration of medications, the patient was re-assessed for adequacy to receive sedatives. The heart rate, respiratory rate, oxygen saturations, blood pressure, adequacy of pulmonary ventilation, and response to care were monitored throughout the procedure. The physical status of the patient was re-assessed after the procedure. After obtaining informed consent, the endoscope was passed under direct vision. Throughout the procedure, the patient's blood pressure, pulse, and oxygen saturations were monitored continuously. The gastroscope was introduced through the mouth, and advanced to the jejunum. The upper GI endoscopy was accomplished without difficulty. The patient tolerated the procedure well. Scope In: 11:44:04 AM Scope Out: 11:50:26 AM Total Procedure Duration Time 0 hours 6 minutes 22 seconds Findings: The examined jejunum was normal. The in the duodenum was normal. Scattered severe inflammation characterized by congestion (edema), erosions, erythema, friability, linear erosions and mucus was found in the entire examined stomach. Biopsies were taken with a cold forceps for Helicobacter pylori testing using PyloriTek test. Biopsies were taken with a cold forceps for histology. The gastroesophageal junction was normal. Mildly severe esophagitis with no bleeding was found. Biopsies were taken with a cold forceps for histology. Impression: - Normal examined jejunum. - Normal. - Gastritis. Biopsied. - Normal gastroesophageal junction. - Mildly severe reflux esophagitis. Biopsied. Recommendation: - Discharge patient to home. - Resume regular diet. - Continue present medications. - Use Nexium (esomeprazole) 40 mg PO BID. - Return to my office in 5 weeks. Procedure Code(s): --- Professional --- 19621, Esophagogastroduodenoscopy, flexible, transoral; with biopsy, single or multiple CPT copyright 2017 [employer]. All rights reserved. The codes documented in this report are preliminary and upon software engineer advisor review may be revised to meet current compliance requirements. Tommy Becker MD 02/24/2019 12:00:07 PM This report has been signed electronically. Number of Addenda: 0 Note Initiated On: 02/24/2019 11:29 AM
--- NOTE | 2019-02-24 12:00 | IMM_PTH ---
PATIENT: VANNESA HERNANDEZ LOC: EN U#:[id number] AGE/SX: 53/M ROOM: RE02/24/[address]: Dr. Tommy Becker MD : 1965 BED: DIS: 02/24/2019 SPEC #: [id number] RECD: 02/24/19 14:44 STATUS: ISAIAH REQ #: [id number] CAROLYN: 02/24/19 12:[address]: Tommy Becker DEPT: IMMUNOHISTOCHEMISTRY RECD BY: Faustina Pacheco ENTERED: 02/24/19 14:44 SP TYPE: IMMUNO OTHR DR: MD Baldo Vidal MD Tissues: A - Stomach, NOS Procedures: H Pylori (initial) PHYSICIAN & INSTITUTION [place] [id number] SPECIMEN INFORMATION: Tissue Source: A - Antral biopsy Clinical Info: Epigastric pain, hematemesis Specimen Number: [id number] CPT code: 41337 METHODOLOGY: Deparaffinized sections of prefer/formalin-fixed tissue or PAP/DQ stained slides are incubated with monoclonal/polyclonal antibodies/oligonucleotide probes. Localization is made via biotin free immunoperoxidase method. Appropriate controls are performed and reacted as expected. Results on target cell population are indicated in the following table: RESULTS: ANTIBODY / CLONE RESULT Block A H Pylori (polyclonal) negative These tests were developed and their performance characteristics determined by [facility]. They may not have been cleared or approved by the U.S. Food and Drug Administration. The FDA has determined that such clearance or approval is not necessary. INTERPRETATION: A. Antral biopsy: Negative for Helicobacter pylori organisms. SJ:june 02/25/19
[2019-02-24 12:02] VITALS: BP 102/57; BP 114/77; PULSE 67; RESP 16; TEMP 37; O2SAT 99
[2019-02-24 12:07] VITALS: BP 114/77; BP 117/66; PULSE 70; RESP 16; O2SAT 100
[2019-02-24 12:10] VITALS: BP 108/80; BP 114/77; PULSE 65; RESP 16; O2SAT 100
[2019-02-24 12:12] VITALS: BP 114/77; PULSE 63; RESP 16; TEMP 36.8; O2SAT 100
[2019-02-24 13:13] VITALS: BP 114/77
== END 2019-02-24 13:16 | disposition home or self-care (01) ==
LOC: EN 10:26 → AC 10:27
PROVIDERS: Family Provider Family Medicine; PCP Family Medicine; Referring Provider Surgery; Visit Provider Surgery
PROC: 0DJ08ZZ Inspection of Upper Intestinal Tract, Via Natural or Artificial Opening Endoscopic (ICD-10-PCS; CPT 43235; principal; 2019-02-24 11:55)
DX: K29.70 Gastritis, unspecified, without bleeding (principal); K21.0 Gastro-esophageal reflux disease with esophagitis; I48.91 Unspecified atrial fibrillation; I11.9 Hypertensive heart disease without heart failure; I25.2 Old myocardial infarction; J44.9 Chronic obstructive pulmonary disease, unspecified; G43.909 Migraine, unspecified, not intractable, without status migrainosus; F31.9 Bipolar disorder, unspecified; F41.9 Anxiety disorder, unspecified; G47.33 Obstructive sleep apnea (adult) (pediatric); E11.9 Type 2 diabetes mellitus without complications; K58.9 Irritable bowel syndrome, unspecified; E78.00 Pure hypercholesterolemia, unspecified; Z87.01 Personal history of pneumonia (recurrent); Z86.73 Personal history of transient ischemic attack (TIA), and cerebral infarction without residual deficits; Z86.718 Personal history of other venous thrombosis and embolism; Z79.82 Long term (current) use of aspirin; Z79.84 Long term (current) use of oral hypoglycemic drugs; Z79.899 Other long term (current) drug therapy; Z87.891 Personal history of nicotine dependence
CPT/HCPCS: 43239; 82962; 88305; 88313; 88342; J7120

== ENCOUNTER 2019-03-23 10:37 | Emergency (ER) | payer MEDICARE, SELFPAY ==
[2019-03-23 10:38] VITALS: BP 136/84; PULSE 75; RESP 17; TEMP 36.4; O2SAT 100; BMI 36.1
--- NOTE | 2019-03-23 10:49 | ED.VIS.GEN ---
History of Present Illness Chief Complaint: Shortness of Breath Detail of Chief Complaint: Also complains of productive cough Onset: Weeks Context: Sudden Onset Timing: Intermittent Quality: Cough, shortness of breath productive cough Location: Respiratory Current Severity: Mild Maximum Severity: Moderate Worsened by: Increase shortness of breath with activity Relieved by: Nothing Associated Symptoms: Nasal congestion and change in voice Narrative: Patient is a 53-year-old male with history of COPD who presents with a productive cough of brown-colored sputum that started 1 week ago. He reports increased shortness of breath. He reports wheezing. He denies headache, visual, ocular auditory symptoms. Does report mild nasal congestion. He denies ear pain, ringing in his ears or decreased hearing. He denies orthopnea or PND. He denies chest discomfort. He denies leg pain, swelling or discoloration. [place] history of VTE. Prior similar symptoms: Yes Recent Illness/Hospitalization: No - Past Medical History (1) Angina pectoris Status: Acute (2) Stroke-like symptoms Status: Acute (3) Atrial fibrillation Status: Chronic (4) Bipolar disorder Status: Chronic (5) DM type 2 (diabetes mellitus, type 2) Status: Chronic (6) Esophageal reflux Status: Chronic (7) HLD (hyperlipidemia) Status: Chronic (8) HTN (hypertension) Status: Chronic (9) History of DVT (deep vein thrombosis) Status: Chronic (10) History of GI bleed Status: Chronic (11) Obesity Status: Chronic (12) Obstructive sleep apnea of adult Status: Chronic (13) Schizoaffective disorder Status: Chronic (14) TIA (transient ischemic attack) Status: Chronic Past Medical History - Allergies and Home Meds Allergies/Adverse Reactions: Allergies clopidogrel [From Plavix] Allergy (Verified 03/23/19 10:38) Rash enalapril maleate [From Vasotec] Allergy (Verified 03/23/19 10:38) Hives enalaprilat dihydrate [From Vasotec] Allergy (Verified 03/23/19 10:38) Hives naproxen [From Naprosyn] Allergy (Verified 03/23/19 10:38) Hives Sulfa (Sulfonamide Antibiotics) Allergy (Verified 03/23/19 10:38) Hives acetaminophen [From Vicodin] Adverse Reaction (Verified 03/23/19 10:38) Rash hydrocodone [From Vicodin] Adverse Reaction (Verified 03/23/19 10:38) Rash risperidone [From Risperdal] Adverse Reaction (Verified 03/23/19 10:38) HALLUCINATIONS Primary Care Physician: Baldo Otto MD [Primary Care Provider] - Prior records reviewed: Yes Past Medical History: - - Per old records patient has history of DVT. Surgical History: appendectomy, cholecystectomy, herniorrhaphy, tonsillectomy Lives: Alone Smoking Status: Former smoker Alcohol: None Drugs: None - Family History Maternal Family History: Reports: Asthma, Diabetes, Heart Disease, Hypertension, Stroke Paternal Family History: Reports: Cancer Review of Systems General: Reports: Malaise. Denies: Chills, Fever, Subjective, Sweats Eyes: Denies: Visual changes - bilaterally, Blurred Vision - bilaterally ENT: Reports: Rhinorrhea. Denies: Bilateral ear pain, Sore throat Cardiovascular: Denies: Chest pain, Palpitations Respiratory: Reports: Dyspnea, Cough, Sputum, Dyspnea on exertion. Denies: Orthopnea, Paroxysmal nocturnal dyspnea Gastrointestinal: Denies: Abdominal pain, Nausea, Vomiting, Diarrhea, Melena, Hematochezia Musculoskeletal: Denies: Myalgias, Arthralgias, Neck pain, Back pain, Swelling, Extremity Pain, -, - Skin: Denies: Rash, Wounds Neurological: Denies: Headache, Weakness, Numbness Hematologic: Denies: Easy bruising, Easy bleeding Physical Exam Vital Signs/Narrative: Vital Signs Temp Pulse Resp BP Pulse Ox 03/23/19 10:38 97.6 F L 75 17 136/84 H 100 Inital Vital Signs reviewed: Yes General: Well nourished, Well developed, Obese, Unkempt, No Acute Distress Head: Normocephalic, Atraumatic Eyes: Perrl, EOMI. Negative for: Pale conjunctiva, Scleral icterus ENT: Moist mucous membranes, No rhinorrhea, TM's clear Neck: Supple, Nontender, No lymphadenopathy, No JVD Cardiovascular: Regular rate, Regular rhythm, No murmurs, Normal S1, Normal S2 Respiratory: No distress, Chest nontender, Wheezing, Decreased Air Movement. Negative for: CTA bilaterally Abdomen: Soft, Nontender, Nondistended, Normal bowel sounds Back: Nontender, Normal Inspection Extremities: Nontender, No edema Skin: Normal color, No rash, No Trauma. Negative for: Cyanosis, Diaphoresis, Jaundice Neurological: Alert, Oriented x3, Cranial nerves II-XII grossly intact, Normal Strength, Normal Sensation Psychological: Normal affect, Normal Mood Diagnostic/Tx/Re-eval Chest X-Ray - ED: 2 View, Read by ED Physician, Normal, Heart, Mediastinum, Bony Structures, No Acute Disease, Chronic Changes 03/23/19 11:30 Chest PA and Lateral [RAD] Stat Chest x-ray reveals no evidence of pneumonia will discharge with prescription for prednisone, doxycycline and patient was instructed use inhaler every 2-4 hours for the next 24 to 48 hours. - Rhythm Strip Rhythm Strip: Sinus Rhythm Rate: 88 Ectopy: None - Medical Decision Making Chest x-ray was obtained to evaluate for exacerbation of COPD versus pneumonia. He was treated with p.o. prednisone, DuoNeb and albuterol. If chest x-ray reveals pneumonia will obtain appropriate blood work. Patient was reevaluated at 1245. He is no longer wheezing. ED Disposition - Plan for ED Patient: Disposition: Home or Assisted Living Diagnosis: Asthma exacerbation in COPD, Acute exacerbation of chronic bronchitis Instructions: Copd Flare Prescriptions: Prednisone [Deltasone] 40 mg PO DAILY #10 tab Transmission Status: [id number] Doxycycline 100 mg PO BID #14 cap Transmission Status: Pending to [id number] Referrals: Baldo Otto MD [Primary Care Provider] - 3-5 Days if not improving
[2019-03-23] MEDS: Ipratropium/Albuterol Sulfate 3 ML AMPUL.NEB INHALATION (10:53)
[2019-03-23 10:55] VITALS: PULSE 89; RESP 18; RESP 20; O2SAT 95
[2019-03-23] MEDS: predniSONE 20 MG Tablet 60 MG PO (11:01)
[2019-03-23 11:06] VITALS: O2SAT 94
[2019-03-23] MEDS: Albuterol 2.5 MG/3 ML VIAL.NEB. INHALATION (11:19)
--- NOTE | 2019-03-23 11:30 | RAD_ITS ---
STUDY: X-RAY CHEST REASON FOR EXAM: Male, 53 years old. INCREASED SOB, COUGH, AND LOW GRADE FEVER X1 WEEK -- HX PR TECHNIQUE: PA and lateral views of the chest. COMPARISON: 01/20/2019 FINDINGS: There are interstitial fibrotic changes of the lungs. There is no demonstrated pleural abnormality. Normal size heart. Normal mediastinum and sofi. Normal visualized pulmonary arteries. Normal visualized aortic arch and descending thoracic aorta. Normal visualized thoracic spine. Normal visualized ribs, clavicles, and shoulders. There is no demonstrated abnormality of the visualized soft tissue structures of the upper abdomen. RAD/Chest PA and Lateral IMPRESSION: No acute pulmonary process Electronically Signed: Stan Ly MD at 12:11 EST , Service support ,
[2019-03-23] MEDS: Doxycycline 100 MG CAPSULE PO (12:50)
[2019-03-23 12:51] VITALS: PULSE 81; RESP 18; O2SAT 98
== END 2019-03-23 12:52 | disposition home or self-care (01) ==
PROVIDERS: Emergency Provider Emergency Medicine; Family Provider Family Medicine; PCP Family Medicine
DX: J44.1 Chronic obstructive pulmonary disease with (acute) exacerbation (principal); I48.91 Unspecified atrial fibrillation; F31.9 Bipolar disorder, unspecified; E11.9 Type 2 diabetes mellitus without complications; K21.9 Gastro-esophageal reflux disease without esophagitis; E78.5 Hyperlipidemia, unspecified; I10 Essential (primary) hypertension; E66.9 Obesity, unspecified; G47.33 Obstructive sleep apnea (adult) (pediatric); F25.9 Schizoaffective disorder, unspecified; Z87.19 Personal history of other diseases of the digestive system; Z86.73 Personal history of transient ischemic attack (TIA), and cerebral infarction without residual deficits; Z86.718 Personal history of other venous thrombosis and embolism; Z79.82 Long term (current) use of aspirin; Z79.899 Other long term (current) drug therapy; Z87.891 Personal history of nicotine dependence
CPT/HCPCS: 71046; 94640; 99251; 99284; G0463

== ENCOUNTER 2019-06-10 15:41 | Emergency (ER) | payer MEDICARE, SELFPAY ==
[2019-06-10 15:42] VITALS: BP 148/84; PULSE 115; RESP 20; TEMP 36.9; O2SAT 98; BMI 37.8
--- NOTE | 2019-06-10 16:00 | ED.VISSUMM ---
- ER Visit Summary Date of Service: 06/10/19 Chief Complaint: [Cough, sore throat] History of Present Illness: The patient is a 54 M [presents the emergency department with cough that he had for a couple of days that is been at times productive of some green phlegm. Today described body aches as well as headache and sore throat. He denies any fever. Patient states that his friend told him he did not look good so he wanted to be evaluated. He denies any exposures to the novel coronavirus. He denies any recent travel out of the state or country. He denies any significant shortness of breath. Patient does have history of TIAs, diabetes, hypertension, DVT history, bipolar history, and schizophrenia history.] Physical Examination: [HEENT-PERRLA, EOMI. Cranial nerves II through XII grossly intact. TMs clear. Mucous membranes moist. No adenopathy. Cardiovascular-regular rate and rhythm without murmur or ectopy Lungs-clear to auscultation, chest wall stable without crepitus or subcu emphysema Abdomen-normoactive bowel sounds, soft, nontender, no rebound or rigidity, no peritoneal signs. Extremities-intact ?4, normal range of motion, normal pulses, atraumatic] Test Results: [Influenza screen was negative. Chest x-ray obtained showed poor inspiratory effort and could not rule out some atelectasis versus a viral type pneumonitis.] Emergency Department Course and Treatment: [Patient was advised that I cannot test him for coronavirus at this time and cannot rule it out therefore. Patient advised to self quarantine for 2 weeks. He is advised to push fluids. He is advised to return if increased difficulty breathing or condition should worsen anyway. Patient is in no respiratory distress and otherwise looks well. Patient's friend who brought him to the emergency department stated that he has been otherwise fine and had not complained of anything leading up to today. Patient's friend believes he might be malingering.] Treatment Plan: [Follow-up with primary care physician in 10 to 14 days] Disposition: [Discharged home in stable condition] Impression: Viral URI [] This note was generated with Zid[employer] software. It may contain incorrect words, spelling, and punctuation that were not noted in review of the chart prior to signing ED Disposition - Plan for ED Patient: Referrals: Baldo Otto MD [Primary Care Provider] -
--- NOTE | 2019-06-10 16:25 | RAD_ITS ---
STUDY: X-RAY CHEST REASON FOR EXAM: Male, 54 years old. Patient complains of flu symptoms TECHNIQUE: PA and lateral views of the chest. COMPARISON: March 23, 2019 chest x-ray, January 20, 2019 chest x-ray FINDINGS: The interstitial markings are thickened compared to the prior study January 20, 2019 and slightly worse than March 23, 2019 although the lungs on today''s study are underexpanded. There is no demonstrated pleural abnormality. Normal size heart. Normal mediastinum and sofi. Normal visualized pulmonary arteries. Normal visualized aortic arch and descending thoracic aorta. Normal visualized thoracic spine. Normal visualized ribs, clavicles, and shoulders. There is no demonstrated abnormality of the visualized soft tissue structures of the upper abdomen. RAD/Chest PA and Lateral IMPRESSION: Underexpansion of the lungs. Interstitial prominence could consider atelectasis cannot entirely exclude viral pneumonitis. Electronically Signed: Merary Brooke MD at 16:42 EDT Tel , Service support ,
--- NOTE | 2019-06-10 16:58 | ED.DEP ---
ED Disposition - Plan for ED Patient: Instructions: URI, Viral, No Abx (Adult) Referrals: Baldo Otto MD [Primary Care Provider] - 10-14 Days if not better
== END 2019-06-10 17:05 | disposition home or self-care (01) ==
LOC: ED 16:13
PROVIDERS: Emergency Provider Emergency Medicine; PCP Family Medicine
DX: J06.9 Acute upper respiratory infection, unspecified (principal); I10 Essential (primary) hypertension; E11.9 Type 2 diabetes mellitus without complications; F20.9 Schizophrenia, unspecified; F31.9 Bipolar disorder, unspecified; Z86.73 Personal history of transient ischemic attack (TIA), and cerebral infarction without residual deficits; Z86.718 Personal history of other venous thrombosis and embolism; Z79.82 Long term (current) use of aspirin; Z79.899 Other long term (current) drug therapy
CPT/HCPCS: 71046; 87804; 99282

== ENCOUNTER 2019-06-19 19:31 | Emergency (ER) | payer MEDICARE, SELFPAY ==
[2019-06-19 19:32] VITALS: BP 138/70; PULSE 90; RESP 20; TEMP 36.7; O2SAT 95; BMI 36.5
[2019-06-19 19:53] VITALS: BP 132/93; PULSE 87; RESP 17; O2SAT 98
--- NOTE | 2019-06-19 19:58 | EKG12_ITS ---
Test Reason : CHEST PAIN Blood Pressure : / mmHG Vent. Rate : 081 BPM Atrial Rate : 081 BPM P-R Int : 162 ms QRS Dur : 092 ms QT Int : 362 ms P-R-T Axes : 039 051 048 degrees QTc Int : 420 ms Normal sinus rhythm Normal ECG Confirmed by JOHNATHON WILLS, JULISSA ([id number]), proposal editor NATALIA DEL CID ([id number]) on 06/20/2019 1:42:28 PM Referred By: SYED Confirmed By:JULISSA DIEGO MD
--- NOTE | 2019-06-19 20:01 | ED.VISSUMM ---
- ER Visit Summary Date of Service: 06/19/19 Chief Complaint: Chest pain History of Present Illness: The patient is a 54 M who presents with chest pain that has been waxing and waning since last night. Patient states the pain is over the left upper chest. Patient states it is worse with exertion. Patient states nothing seems to make it better. Patient admits to nausea but denies any vomiting. Patient denies any fevers. Patient does admit to a cough and some shortness of breath. Patient admits to some diaphoresis and palpitations. Physical Examination: Vital signs are stable. Patient is afebrile. Patient is in no acute distress. Oral mucosa is pink and moist. Neck is supple. Trachea is midline. There is no JVD noted. Heart was regular rate and rhythm. Lungs are clear and equal bilaterally. Abdomen is soft. Bowel sounds are normal. There is no tenderness. There is no rebound or guarding noted. Skin is warm dry. Cranial nerves II through XII are intact. There are no focal motor or sensory deficits noted. Extremities are intact. There is no calf tenderness or edema. Test Results: EKG showed a normal sinus rhythm with a rate of 81. There are no acute ST or T wave changes. This was unchanged compared to previous EKG dated 01/20/2019. CBC and basic metabolic profile were obtained and were essentially within normal limits. Troponin was normal. Portable chest x-ray was obtained. There is no acute cardiopulmonary process. This was interpreted by myself and the radiologist. Emergency Department Course and Treatment: Patient was given aspirin here. Patient was feeling better on reevaluation. Patient was instructed to follow-up with his primary care physician in 5 to 7 days. Patient was instructed to return if worse in any way. Patient understood and was agreeable with the plan. All questions were answered. Disposition: Discharge home Impression: Chest pain This note was generated with [employer]ueSpot dictation software. It may contain incorrect words, spelling, and punctuation that were not noted in review of the chart prior to signing ED Disposition - Plan for ED Patient: Disposition: Home or Assisted Living Diagnosis: Chest pain of uncertain etiology Instructions: ED Chest Pain Atypical Unkn Cause Referrals: Baldo Otto MD [Primary Care Provider] - 5-7 Days
[2019-06-19 20:10] LABS: Absolute Lymphocyte Count 2.43 X10^3/uL (0.83-4.51); Absolute Neutrophil Count 5.8 X10^3/uL (2.0-7.7); Basophil# 0.07 X10^3/uL; Basophil% 0.7 % (0-1); Eosinophil# 0.14 X10^3/uL; Eosinophils% 1.5 % (0-5); Hematocrit 41.7 % (40-54); Hemoglobin 12.9 g/dL (13.0-16.5); Lymphocyte # 2.43 X10^3/ul (4.0); Lymphocyte % 25.4 % (19-41); Mean Corp Hgb Conc 30.9 g/dL (32-36); Mean Corpuscular Hgb 25.4 pg (27.0-32.0); Mean Corpuscular Volume 82.1 fL (80-94); Mean Platelet Vol. 9.2 fl (6.2-12.0); Monocyte# 1.05 X10^3/uL; NRBC Flagged by Analyzer 0 % (0-5); Neutrophil # 5.83 X10^3/uL (2.7-7.7); Neutrophil % 60.9 % (47-70); Platelet Count 333 K/mm3 (150-450); RBC Distribution Width CV 14.9 % (11.6-14.6); RBC Distribution Width SD 44.2 fl (35.1-43.9); Red Blood Count 5.08 M/mm3 (4.6-6.2); White Blood Count 9.6 K/mm3 (4.4-11.0)
--- NOTE | 2019-06-19 20:18 | RAD_ITS ---
STUDY: X-RAY CHEST REASON FOR EXAM: Male, 54 years old. LEFT SIDE CP, HX OH TECHNIQUE: Portable chest COMPARISON: 06/10/2019 FINDINGS: There is linear left left basilar density There is no demonstrated pleural abnormality. Normal size heart. Normal mediastinum and sofi. Normal visualized pulmonary arteries. Normal visualized aortic arch and descending thoracic aorta. Normal visualized thoracic spine. Normal visualized ribs, clavicles, and shoulders. There is no demonstrated abnormality of the visualized soft tissue structures of the upper abdomen. RAD/Chest 1 View (Portable) IMPRESSION: linear left lower lobe scarring versus subsegmental atelectasis Electronically Signed: Bin Rahman, at 20:56 EDT Tel , Service support ,
[2019-06-19 20:23] LABS: Anion Gap 6 (5-15); BUN 13 mg/dL (7-18); BUN/Creat Ratio 9.9 RATIO (10-20); Calcium,Total 8.7 mg/dL (8.5-10.1); Chloride 110 mmol/L (98-107); Creatinine, Serum 1.31 mg/dL (0.70-1.30); EST Glomerular Filtration Rate 61 mL/min (>60); Est Glom Filt Rate - Afr Amer 73 mL/min (>60); Estimated Creatinine Clearance 79.14 ml/min; Glucose 115 mg/dL (74-106); Potassium 3.9 mmol/L (3.5-5.1); Sodium Level 142 mmol/L (136-145)
[2019-06-19] MEDS: Aspirin 81 MG TAB.CHEW 324 MG PO (20:30)
[2019-06-19 20:45] VITALS: BP 113/90; PULSE 69; RESP 16; O2SAT 98
--- NOTE | 2019-07-16 19:50 | CM.ED ---
Social Work Patient approved for ED Care Plan. ED Care Plan entered. ED Care Plan along with resources mailed to patient. Tracking#[id number]. Attempted to notify patient, unable to make contact. Wondering if non-working number is listed on chart? Copy of ED Care Plan faxed to patient PCP. Will continue to follow as needed. Lida Winston VICTIM WITNESS ADMINISTRATOR, DONG
== END 2019-06-19 20:46 | disposition home or self-care (01) ==
PROVIDERS: Emergency Provider Emergency Medicine; PCP Family Medicine
DX: R07.9 Chest pain, unspecified (principal); R11.0 Nausea; R05 Cough; R06.00 Dyspnea, unspecified; R61 Generalized hyperhidrosis; R00.2 Palpitations; R42 Dizziness and giddiness; J44.9 Chronic obstructive pulmonary disease, unspecified; K21.9 Gastro-esophageal reflux disease without esophagitis; E11.9 Type 2 diabetes mellitus without complications; F25.9 Schizoaffective disorder, unspecified; F31.9 Bipolar disorder, unspecified; E78.00 Pure hypercholesterolemia, unspecified; G43.909 Migraine, unspecified, not intractable, without status migrainosus; G47.33 Obstructive sleep apnea (adult) (pediatric); Z86.73 Personal history of transient ischemic attack (TIA), and cerebral infarction without residual deficits; Z86.718 Personal history of other venous thrombosis and embolism; Z79.82 Long term (current) use of aspirin; Z79.899 Other long term (current) drug therapy
CPT/HCPCS: 71045; 80048; 84484; 85025; 93005; 99284; A4216

== ENCOUNTER 2019-08-06 12:47 | Emergency (ER) | payer MEDICARE, SELFPAY ==
[2019-08-06 12:48] VITALS: BP 158/103; PULSE 128; RESP 20; TEMP 36.2; O2SAT 98; BMI 36.6
--- NOTE | 2019-08-06 13:10 | ED.VISSUMM ---
- ER Visit Summary Date of Service: 08/06/19 Chief Complaint: [Back pain] History of Present Illness: The patient is a 54 M [patient's presents with 2 to 3-day history of lower back pain that is atraumatic. Patient states he had a hard time sleeping last night secondary the pain. Patient states the pain is worse with movement. He denies urinary symptoms. He has had no pain radiating down the legs. He denies any paresthesias. He denies any weakness in extremities. He denies any change in bowel or bladder function. Patient has history of prior stroke, diabetes, hypertension, bipolar disorder, schizoaffective disorder, and history of A. fib. Patient not currently anticoagulated. Denies any fever or cough. Patient states he had pneumonia and bronchitis several weeks ago. He currently denies cough or chest pain or shortness of breath.] Physical Examination: [HEENT-PERRLA, EOMI. Cranial nerves II through XII grossly intact. TMs clear. Mucous membranes moist. No adenopathy. Cardiovascular-regular rate and rhythm without murmur or ectopy Lungs-clear to auscultation, chest wall stable without crepitus or subcu emphysema Abdomen-normoactive bowel sounds, soft, nontender, no rebound or rigidity, no peritoneal signs. Back exam-patient has diffuse tenderness over lumbar spine paraspinal musculature. No erythema or warmth noted. He has negative straight leg raises. Deep tendon reflexes are plus 2 out of 4 bilaterally at the patella and Achilles. Patient has normal 5 extension. Normal sensation to light touch. Extremities-intact ?4, normal range of motion, normal pulses, atraumatic] Test Results: [None indicated] Emergency Department Course and Treatment: [Patient was given a dose of Flexeril p.o. Patient states that typically that resolves his issue.] Treatment Plan: [We will be given a prescription for Flexeril and advised to follow-up with his primary care physician within the next 5 to 7 days. Patient must return if worsening pain, weakness extremities, change in bowel or bladder function, or condition should worsen anyway.] Disposition: [Discharged home in stable condition] Impression: [Atraumatic low back pain] This note was generated with [employer] software. It may contain incorrect words, spelling, and punctuation that were not noted in review of the chart prior to signing ED Disposition - Plan for ED Patient: Referrals: Baldo Otto MD [Primary Care Provider] -
--- NOTE | 2019-08-06 13:14 | ED.DEP ---
ED Disposition - Plan for ED Patient: Instructions: ED Neck Back Pain General Prescriptions: cycloBENZAPRine HCl [Flexeril] 10 mg PO TID PRN #20 tab PRN Reason: Muscle Spasm Transmission Status: [id number] Referrals: Baldo Otto MD [Primary Care Provider] - 5-7 Days
--- NOTE | 2019-08-06 13:35 | ED.RN ---
DISCHARGE INSTRUCTIONS GIVEN TO AND REVIEWED WITH PATIENT, PATIENT DENIES QUESTIONS OR CONCERNS AND VOICES UNDERSTANDING OF DISCHARGE INSTRUCTIONS. PT AMBULATES OUT OF ROOM WITHOUT DIFFICULTY.
== END 2019-08-06 13:36 | disposition home or self-care (01) ==
LOC: ED 13:22
PROVIDERS: Emergency Provider Emergency Medicine; PCP Family Medicine
DX: M54.5 Low back pain (principal); E11.9 Type 2 diabetes mellitus without complications; I10 Essential (primary) hypertension; F31.9 Bipolar disorder, unspecified; F25.9 Schizoaffective disorder, unspecified; I48.91 Unspecified atrial fibrillation; Z86.73 Personal history of transient ischemic attack (TIA), and cerebral infarction without residual deficits; Z87.01 Personal history of pneumonia (recurrent); Z79.82 Long term (current) use of aspirin; Z79.899 Other long term (current) drug therapy
CPT/HCPCS: 99282

== ENCOUNTER 2019-09-27 20:15 | Emergency (ER) | payer MEDICARE, SELFPAY ==
[2019-09-27] VITALS (10 sets, daily range): BP systolic 133–168; BP diastolic 92–109; PULSE 76–95; RESP 18–20; TEMP 36.6; O2SAT 97–99; BMI 94.1
--- NOTE | 2019-09-27 20:22 | ED.RN ---
CALLED FOR EKG PER PROTOCOL, PULLED OLD EKGS FOR
[2019-09-27] MEDS: Nitroglycerin SL (ED/IMG/CATH) 0.4 MG TABLET SUBLINGUAL ×3 (20:23→21:48)
--- NOTE | 2019-09-27 20:30 | EKG12_ITS ---
Test Reason : CP Blood Pressure : / mmHG Vent. Rate : 086 BPM Atrial Rate : 086 BPM P-R Int : 152 ms QRS Dur : 086 ms QT Int : 352 ms P-R-T Axes : 025 048 041 degrees QTc Int : 421 ms Normal sinus rhythm Low voltage QRS Borderline ECG Confirmed by JULISSA DIEGO MD ([id number]), sound editor FARAZ DEVINE ([id number]) on 09/29/2019 1:24:37 PM Referred By: DERECK Confirmed By:JULISSA DIEGO MD
--- NOTE | 2019-09-27 20:36 | RAD_ITS ---
STUDY: X-RAY CHEST REASON FOR EXAM: Male, 54 years old. CHEST PAIN WITH DIZZINESS AND LT ARM PAIN TECHNIQUE: Single frontal view of the chest. COMPARISON: June 19, 2019 FINDINGS: There is no new focal consolidation. Normal size heart. Normal mediastinum and sofi. Normal visualized pulmonary arteries. Normal visualized aortic arch and descending thoracic aorta. Normal visualized thoracic spine. Normal visualized ribs, clavicles, and shoulders. There is no demonstrated abnormality of the visualized soft tissue structures of the upper abdomen. RAD/Chest 1 View (Portable) IMPRESSION: No acute cardiopulmonary process. Electronically Signed: Lou Langley MD at 20:50 EDT Tel , Service support ,
[2019-09-27 20:40] LABS: Absolute Lymphocyte Count 2.34 X10^3/uL (0.83-4.51); Absolute Neutrophil Count 5.4 X10^3/uL (2.0-7.7); Basophil# 0.05 X10^3/uL; Basophil% 0.6 % (0-1); Eosinophil# 0.15 X10^3/uL; Eosinophils% 1.7 % (0-5); Hematocrit 42.3 % (40-54); Hemoglobin 13.2 g/dL (13.0-16.5); Lymphocyte # 2.34 X10^3/ul (4.0); Lymphocyte % 26.7 % (19-41); Mean Corp Hgb Conc 31.2 g/dL (32-36); Mean Corpuscular Hgb 25.4 pg (27.0-32.0); Mean Corpuscular Volume 81.3 fL (80-94); Mean Platelet Vol. 9.1 fl (6.2-12.0); Monocyte# 0.77 X10^3/uL; Monocyte% 8.8 % (0-10); NRBC Flagged by Analyzer 0 % (0-5); Neutrophil % 61.7 % (47-70); Platelet Count 323 K/mm3 (150-450); RBC Distribution Width CV 14.1 % (11.6-14.6); RBC Distribution Width SD 41.3 fl (35.1-43.9); White Blood Count 8.8 K/mm3 (4.4-11.0)
--- NOTE | 2019-09-27 20:48 | ED.DCSUM_ITS ---
- ER Visit Summary Date of Service: 09/27/19 Chief Complaint: Was in A. fib earlier today that resolved after 20 minutes and I have had intermittent chest pain for the last hour or so. History of Present Illness: The patient is a [address] of prior MS he states at age 26 but he is never had any heart stents. He has had prior cardiac catheterizations. Also history of diabetes, hypertension and prior A. fib. Patient states that he had A. fib earlier today that resolved 20 minutes. The last half an hour to hour has had intermittent left-sided chest pain. Radiating to his jaw left arm. No diaphoresis. No vomiting. He took 1 sublingual nitro without relief. He is on no blood thinners. Physical Examination: Middle-aged male vital signs are stable afebrile. Pulse ox 90% on room air no signs hypoxia. H EENT exam unremarkable. Neck nontender. Lungs clear to auscultation bilaterally. Heart regular rhythm no murmur. Abdomen soft nontender normal bowel sounds no peritoneal signs. Chest wall nontender. No ecchymosis or bruising no subcu air or crepitance. Remedies moves all 4. Calves nontender no edema no cords. Radial pulses equal symmetrical. Neurologically is awake alert with no focal motor deficits. Test Results: Portable chest x-ray 1 view read by myself shows no acute abnormalities. Normal cardiac silhouette mediastinum. EKG normal sinus rhythm rate 86 with no acute signs of MS or ischemia unchanged from prior EKG from May of this year. CBC normal white count 8. Hemoglobin 13. Chemistries normal normal creatinine and gap. Troponin normal. Emergency Department Course and Treatment: He will undergo cardiac work-up including aspirin and sublingual nitro. Treatment Plan: ED exam at 10:30 PM is doing well. Patient I discussed all his tests and exam. He had a negative dobutamine stress echo in 2019. He is comfortable being discharged home will follow up with his outpatient car ferry master in the diabetic wound clinic. Disposition: Discharge Impression: Acute chest pain of uncertain etiology History of A. fib History of MS History of diet-controlled diabetes This note was generated with Content [employer]: [employer] dictation software. It may contain incorrect words, spelling, and punctuation that were not noted in review of the chart prior to signing ED Disposition - Plan for ED Patient: Referrals: Baldo Otto MD [Primary Care Provider] -
[2019-09-27] MEDS: Aspirin 325 MG Tablet PO (20:58)
[2019-09-27 21:04] LABS: Anion Gap 5 (5-15); BUN 14 mg/dL (7-18); Calcium,Total 8.9 mg/dL (8.5-10.1); Chloride 107 mmol/L (98-107); Creatinine, Serum 1.17 mg/dL (0.70-1.30); EST Glomerular Filtration Rate 69 mL/min (>60); Est Glom Filt Rate - Afr Amer 83 mL/min (>60); Estimated Creatinine Clearance 142.92 ml/min; Glucose 97 mg/dL (74-106); Potassium 3.6 mmol/L (3.5-5.1); Sodium Level 139 mmol/L (136-145)
--- NOTE | 2019-09-27 21:23 | ED.RN ---
DR. SHEN GAVE VERBAL ORDER TO GIVE TWO MORE NITRO SL. BP 146/109 PULSE 94, RATING PAIN AT 8. DENIES USE OF CILIAS OR VIAGRA IN THE LAST 48 HOURS.
--- NOTE | 2019-09-27 22:36 | EKG12_ITS ---
Test Reason : REPEAT Blood Pressure : / mmHG Vent. Rate : 076 BPM Atrial Rate : 076 BPM P-R Int : 158 ms QRS Dur : 092 ms QT Int : 384 ms P-R-T Axes : 002 055 051 degrees QTc Int : 432 ms Normal sinus rhythm Low voltage QRS Borderline ECG Confirmed by JOHNATHON WILLS, JULISSA ([id number]), electronic news gathering editor FARAZ DEVINE ([id number]) on 09/29/2019 1:24:47 PM Referred By: Confirmed By:JULISSA DIEGO MD
--- NOTE | 2019-09-27 22:42 | ED.DEP ---
ED Disposition - Plan for ED Patient: Disposition: Home or Assisted Living Instructions: ED Chest Pain Atypical Unkn Cause Referrals: Baldo Otto MD [Primary Care Provider] - As Needed Additional Instructions: Your current medications. Call and follow-up with your clinic from a sausage canner at [facility] soon as possible. Return if you are feeling worse.
[2019-09-27] MEDS: Ondansetron 4 MG/2 ML Vial IV (22:52)
== END 2019-09-27 22:57 | disposition home or self-care (01) ==
PROVIDERS: Emergency Provider Emergency Medicine; PCP Family Medicine
DX: R07.89 Other chest pain (principal); I10 Essential (primary) hypertension; I48.91 Unspecified atrial fibrillation; I25.2 Old myocardial infarction; E11.9 Type 2 diabetes mellitus without complications; Z86.718 Personal history of other venous thrombosis and embolism; Z79.82 Long term (current) use of aspirin; Z79.899 Other long term (current) drug therapy; Z87.891 Personal history of nicotine dependence
CPT/HCPCS: 71045; 80048; 84484; 85025; 93005; 96374; 99285; A4216; J2405

== ENCOUNTER 2019-10-15 15:49 | Emergency (ER) | payer MEDICARE, SELFPAY ==
[2019-09-27 20:18] VITALS: BMI 94.1
[2019-10-15 15:53] VITALS: BP 137/41; PULSE 69; RESP 18; TEMP 36.8; O2SAT 98; BMI 35.6
--- NOTE | 2019-10-15 16:11 | EKG12_ITS ---
Test Reason : CP Blood Pressure : / mmHG Vent. Rate : 066 BPM Atrial Rate : 066 BPM P-R Int : 208 ms QRS Dur : 088 ms QT Int : 378 ms P-R-T Axes : 021 051 054 degrees QTc Int : 396 ms Normal sinus rhythm Normal ECG Confirmed by JOHNATHON WILLS, JULISSA ([id number]), legal editor NATALIA DEL CID ([id number]) on 10/17/2019 1:13:06 PM Referred By: KENNEY/TONY Confirmed By:JULISSA DIEGO MD
[2019-10-15 16:16] LABS: Bedside Glucose 107 mg/dL (70-110)
--- NOTE | 2019-10-15 16:20 | ED.VIS.GEN ---
History of Present Illness Chief Complaint: General Illness Informant: Patient Narrative: Patient is a 54-year-old male with a past medical history of CAD with no interventions, A. fib on Eliquis, history of DVT who presents to the emerge department for feeling cold and clammy with intermittent chest pain. His symptoms started yesterday. He has had these symptoms many times before in the past. He typically takes nitro for them. He has not taken any today. He is denying any symptoms at this time except for some mild nausea. No episodes of vomiting. He denies any leg swelling or calf pain. He does get slight shortness of breath whenever the pain comes. He describes as sharp over the left chest wall. No radiation into his back, abdomen, arms or neck. He does not know any aggravating or relieving factors. He states his family medicine doctor wanted him to get a repeat stress test. He denies any recent illnesses including any cough, cold, congestion. No fevers or chills. No diarrhea. Past Medical History - Allergies and Home Meds Allergies/Adverse Reactions: Allergies clopidogrel [From Plavix] Allergy (Verified 10/15/19 15:55) Rash enalapril maleate [From Vasotec] Allergy (Verified 10/15/19 15:55) Hives enalaprilat dihydrate [From Vasotec] Allergy (Verified 10/15/19 15:55) Hives naproxen [From Naprosyn] Allergy (Verified 10/15/19 15:55) Hives Sulfa (Sulfonamide Antibiotics) Allergy (Verified 10/15/19 15:55) Hives acetaminophen [From Vicodin] Adverse Reaction (Verified 10/15/19 15:55) Rash hydrocodone [From Vicodin] Adverse Reaction (Verified 10/15/19 15:55) Rash risperidone [From Risperdal] Adverse Reaction (Verified 10/15/19 15:55) HALLUCINATIONS Primary Care Physician: Baldo Otto MD [Primary Care Provider] - 1 Day Past Medical History: - - CAD, hypertension, diabetes, DVT, TIA, A. fib Surgical History: appendectomy, cholecystectomy, herniorrhaphy, tonsillectomy Smoking Status: Former smoker - Family History Maternal Family History: Reports: Asthma, Diabetes, Heart Disease, Hypertension, Stroke Paternal Family History: Reports: Cancer Review of Systems All systems negative except as indicated General: Denies: Chills, Fever Eyes: Denies: Visual changes - bilaterally, Diplopia ENT: Denies: Rhinorrhea, Sore throat Cardiovascular: Reports: Chest pain. Denies: Palpitations Respiratory: Reports: Dyspnea. Denies: Cough, Dyspnea on exertion Gastrointestinal: Reports: Nausea. Denies: Abdominal pain, Vomiting, Diarrhea, Melena Genitourinary: Denies: Dysuria, Hematuria, Frequency Musculoskeletal: Denies: Back pain, Extremity Pain Skin: Denies: Rash, Wounds Neurological: Denies: Headache, Weakness, Numbness Physical Exam Vital Signs/Narrative: Vital Signs Temp Pulse Resp BP Pulse Ox 10/15/19 15:53 98.2 F 69 18 137/41 H 98 Inital Vital Signs reviewed: Yes General: Well nourished, Well developed, No Acute Distress Head: Normocephalic, Atraumatic Eyes: Perrl, EOMI ENT: Moist mucous membranes, No rhinorrhea Neck: Supple, Nontender Cardiovascular: Regular rate, Regular rhythm, No murmurs, - - 2+ radial pulse bilateral Respiratory: No distress, CTA bilaterally, Chest nontender Abdomen: Soft, Nontender, Nondistended, Normal bowel sounds Back: Nontender, Normal Inspection Extremities: Nontender, No edema. Negative for: Edema, Calf Tenderness Skin: Normal color, No rash Neurological: Alert, Oriented x3, Cranial nerves II-XII grossly intact, Normal Strength, Normal Sensation Psychological: Normal Mood Diagnostic/Tx/Re-eval - EKG Initial EKG Interpretation: - - Rate of 66 bpm in sinus rhythm. Normal intervals. Normal axis. No ST elevations or depressions appreciated. No T wave abnormalities. Prior EKG for comparison was performed on September 262019 which is similar in appearance. - Medical Decision Making Patient presents to the emergency department for intermittent chest pain and feeling cold and clammy. Currently denying any symptoms except for nausea. EKG obtained which did not show any evidence of acute ischemia. Will obtain basic lab work and chest x-ray now. Patient's troponin within normal limits. EKG did not show any signs of arrhythmia/ischemia. Chest x-ray did not show any acute cardiopulmonary abnormality. No other significant abnormality on lab work-up. Does have a heart score of 4 given his risk factors and moderate suspicion. Given this I did recommend that the patient stay in the hospital but he states he has had a follow-up appointment with his lard maker soon. He does not want to stay in the hospital at this time. I did also recommend if he is to go home that we do a repeat troponin after 3 hours and he is also refusing this. I did discuss risks associated with going home without further work-up. He understands and assumes this risk. He otherwise has been asymptomatic throughout ED stay. Very low concern for PE as he has not had any leg swelling or calf pain. He has not been hypoxic or tachycardic. He has been asymptomatic in ED. If he has any repeat symptoms he can try his nitroglycerin at home. I do recommend he return to the hospital at that time. He understands and is agreeable with this plan. Will discharge home in stable condition. ED Disposition - Plan for ED Patient: Disposition: Home or Assisted Living Diagnosis: Chest pain Instructions: ED Chest Pain Atypical Unkn Cause Referrals: Baldo Otto MD [Primary Care Provider] - 1 Day
[2019-10-15 16:22] LABS: Absolute Lymphocyte Count 1.94 X10^3/uL (0.83-4.51); Absolute Neutrophil Count 5.2 X10^3/uL (2.0-7.7); Basophil# 0.03 X10^3/uL; Basophil% 0.4 % (0-1); Eosinophil# 0.13 X10^3/uL; Eosinophils% 1.6 % (0-5); Hematocrit 43.6 % (40-54); Hemoglobin 13.7 g/dL (13.0-16.5); Lymphocyte # 1.94 X10^3/ul (4.0); Mean Corp Hgb Conc 31.4 g/dL (32-36); Mean Corpuscular Hgb 25.6 pg (27.0-32.0); Mean Corpuscular Volume 81.3 fL (80-94); Mean Platelet Vol. 9.2 fl (6.2-12.0); Monocyte# 0.78 X10^3/uL; Monocyte% 9.6 % (0-10); NRBC Flagged by Analyzer 0 % (0-5); Neutrophil # 5.19 X10^3/uL (2.7-7.7); Platelet Count 360 K/mm3 (150-450); RBC Distribution Width CV 14.8 % (11.6-14.6); RBC Distribution Width SD 43.2 fl (35.1-43.9); Red Blood Count 5.36 M/mm3 (4.6-6.2); White Blood Count 8.1 K/mm3 (4.4-11.0)
[2019-10-15] MEDS: Ondansetron 4 MG/2 ML Vial IV (16:25)
--- NOTE | 2019-10-15 16:25 | RAD_ITS ---
STUDY: X-RAY CHEST REASON FOR EXAM: Male, 54 years old. FATIGUE AND CLAMMY FEELING x2 DAYS TECHNIQUE: Single frontal view of the chest. COMPARISON: 09-27-19 FINDINGS: The lungs are clear and expanded. There is no demonstrated pleural abnormality. Normal size heart. Normal mediastinum and sofi. Normal visualized pulmonary arteries. Normal visualized aortic arch and descending thoracic aorta. Normal visualized thoracic spine. Normal visualized ribs, clavicles, and shoulders. There is no demonstrated abnormality of the visualized soft tissue structures of the upper abdomen. RAD/Chest 1 View (Portable) IMPRESSION: Normal x-ray examination of the chest. Electronically Signed: Mook Kuhn MD at 17:05 EDT Tel , Service support ,
[2019-10-15 16:48] LABS: Anion Gap 5 (5-15); BUN 20 mg/dL (7-18); BUN/Creat Ratio 16.4 RATIO (10-20); Calcium,Total 8.8 mg/dL (8.5-10.1); Chloride 108 mmol/L (98-107); Creatinine, Serum 1.22 mg/dL (0.70-1.30); EST Glomerular Filtration Rate 66 mL/min (>60); Est Glom Filt Rate - Afr Amer 80 mL/min (>60); Estimated Creatinine Clearance 84.98 ml/min; Glucose 89 mg/dL (74-106); Magnesium 2.1 mg/dL (1.6-2.6); Potassium 4.1 mmol/L (3.5-5.1); Sodium Level 138 mmol/L (136-145)
[2019-10-15 17:43] VITALS: BP 128/85; PULSE 67; RESP 22; O2SAT 98
--- NOTE | 2019-10-15 17:44 | ED.RN ---
IV DC'ED, CATHETER INTACT, SMALL GAUZE DRESSING PLACED. DISCHARGE INSTRUCTIONS GIVEN TO AND REVIEWED WITH PATIENT, PATIENT DENIES QUESTIONS OR CONCERNS AND VOICES UNDERSTANDING OF DISCHARGE INSTRUCTIONS. PT AMBULATES OUT OF ROOM WITHOUT DIFFICULTY.
== END 2019-10-15 17:44 | disposition home or self-care (01) ==
PROVIDERS: Emergency Provider Emergency Medicine; PCP Family Medicine
DX: R07.89 Other chest pain (principal); R06.00 Dyspnea, unspecified; R11.0 Nausea; I10 Essential (primary) hypertension; I25.10 Atherosclerotic heart disease of native coronary artery without angina pectoris; I48.91 Unspecified atrial fibrillation; E11.9 Type 2 diabetes mellitus without complications; Z86.73 Personal history of transient ischemic attack (TIA), and cerebral infarction without residual deficits; Z86.718 Personal history of other venous thrombosis and embolism; Z79.01 Long term (current) use of anticoagulants; Z79.82 Long term (current) use of aspirin; Z79.899 Other long term (current) drug therapy; Z87.891 Personal history of nicotine dependence
CPT/HCPCS: 71045; 80048; 82962; 83735; 84484; 85025; 93005; 96374; 99283; A4216; J2405

== ENCOUNTER 2019-12-01 14:24 | Emergency (ER) | payer MEDICARE, MEDICAID, SELFPAY ==
[2019-12-01 14:24] VITALS: BP 133/98; PULSE 75; RESP 20; O2SAT 98
[2019-12-01 14:25] VITALS: BP 144/102; PULSE 72; RESP 22; TEMP 36.6; O2SAT 98; BMI 37.0
--- NOTE | 2019-12-01 14:31 | EKG12_ITS ---
Test Reason : NEURO Blood Pressure : / mmHG Vent. Rate : 071 BPM Atrial Rate : 071 BPM P-R Int : 184 ms QRS Dur : 090 ms QT Int : 386 ms P-R-T Axes : 040 042 049 degrees QTc Int : 419 ms Normal sinus rhythm Normal ECG Confirmed by JOHNATHON WILLS, JULISSA ([id number]), editorial cartoonist RAÚL DILLARD ([id number]) on 12/05/2019 12:56:03 PM Referred By: MR Confirmed By:JULISSA DIEGO MD
--- NOTE | 2019-12-01 14:31 | CT_ITS ---
STUDY: CT BRAIN WITHOUT CONTRAST REASON FOR EXAM: Male, 54 years old. PT STATED DIFFUSE NUMBNESS RADIATION DOSAGE (If Supplied By Facility): CTDIvol = ( 44.99 ) mGy, DLP = ( 812.98 ) mGycm TECHNIQUE: Transaxial CT imaging of the brain was performed without administration of intravenous contrast material. Individualized dose optimization techniques were used for this CT. COMPARISON: Comparison is made with prior study dated 01/20/2019. FINDINGS: Normal soft tissue structures. Normal calvarium. There is mild cerebral atrophy with widening of the extra-axial spaces and ventricular dilatation. Normal white matter tracts of the cerebral hemispheres. Normal basal ganglia and thalami. Normal brainstem. Normal cerebellum. There is no intracranial hemorrhage. There are no findings of an acute ischemic infarction. Atherosclerotic calcification of the vertebral arteries and cavernous portions of the internal carotid arteries bilaterally. Normal visualized paranasal sinuses. CT/Brain/Head without Contrast IMPRESSION: Chronic involutional changes of the brain. Electronically Signed: Willi Bradford, at 15:08 EDT , Service support ,
[2019-12-01 14:32] VITALS: BMI 37.0
[2019-12-01] MEDS: 0.9% Normal Saline 1,000 ML 999 ML IV (14:39)
[2019-12-01 14:40] LABS: Bedside Glucose 135 mg/dL (70-110)
[2019-12-01 14:44] LABS: Absolute Lymphocyte Count 1.78 X10^3/uL (0.83-4.51); Absolute Neutrophil Count 4.1 X10^3/uL (2.0-7.7); Basophil# 0.04 X10^3/uL; Basophil% 0.6 % (0-1); Eosinophil# 0.17 X10^3/uL; Eosinophils% 2.5 % (0-5); Hematocrit 41.9 % (40-54); Hemoglobin 13.2 g/dL (13.0-16.5); Lymphocyte # 1.78 X10^3/ul (4.0); Lymphocyte % 26.1 % (19-41); Mean Corp Hgb Conc 31.5 g/dL (32-36); Mean Corpuscular Hgb 25.9 pg (27.0-32.0); Mean Corpuscular Volume 82.2 fL (80-94); Mean Platelet Vol. 9.4 fl (6.2-12.0); Monocyte# 0.67 X10^3/uL; Monocyte% 9.8 % (0-10); NRBC Flagged by Analyzer 0 % (0-5); Neutrophil # 4.14 X10^3/uL (2.7-7.7); Neutrophil % 60.7 % (47-70); Platelet Count 315 K/mm3 (150-450); RBC Distribution Width CV 14.4 % (11.6-14.6); RBC Distribution Width SD 42.5 fl (35.1-43.9); White Blood Count 6.8 K/mm3 (4.4-11.0)
--- NOTE | 2019-12-01 14:48 | ED.VIS.HA ---
History of Present Illness Chief Complaint: Neuro S/Sx Narrative: Patient presenting for evaluation secondary to a headache with neurologic symptoms. Patient states that at about 2 AM he had an onset of a migraine headache. This was not sudden or thunderclap in onset, and has been a continuous throbbing pain that is been refractory to him taking his home Imitrex. Patient states that at about 9 AM he developed some tingling in the left side of his face as well as slurred speech. Patient does report that he has some photophobia but no visual changes or diplopia. No numbness or weakness. Patient does report that he has had similar episodes in the past with migraine headaches, but also states that he has an underlying history of cardiovascular disease diabetes hypertension and TIAs in the past. Patient reports that he called the ask a nurse line and they recommended that he come to the emergency department. Review of systems otherwise negative. Past Medical History - Allergies and Home Meds Allergies/Adverse Reactions: Allergies clopidogrel [From Plavix] Allergy (Verified 12/01/19 14:25) Rash enalapril maleate [From Vasotec] Allergy (Verified 12/01/19 14:25) Hives enalaprilat dihydrate [From Vasotec] Allergy (Verified 12/01/19 14:25) Hives naproxen [From Naprosyn] Allergy (Verified 12/01/19 14:25) Hives Sulfa (Sulfonamide Antibiotics) Allergy (Verified 12/01/19 14:25) Hives acetaminophen [From Vicodin] Adverse Reaction (Verified 12/01/19 14:25) Rash hydrocodone [From Vicodin] Adverse Reaction (Verified 12/01/19 14:25) Rash risperidone [From Risperdal] Adverse Reaction (Verified 12/01/19 14:25) HALLUCINATIONS Primary Care Physician: Baldo Otto MD [Primary Care Provider] - Past Medical History: - - Diabetes hypertension hyperlipidemia intermittent migraines history of TIA Surgical History: appendectomy, cholecystectomy, herniorrhaphy, tonsillectomy Smoking Status: Former smoker - Family History Maternal Family History: Reports: Asthma, Diabetes, Heart Disease, Hypertension, Stroke Paternal Family History: Reports: Cancer Review of Systems All systems negative except as indicated General: Denies: Chills, Fever, Sweats Eyes: Denies: Visual changes - bilaterally, Diplopia ENT: Denies: Rhinorrhea, Sore throat Cardiovascular: Denies: Chest pain, Palpitations Respiratory: Denies: Dyspnea, Cough, Dyspnea on exertion Gastrointestinal: Denies: Abdominal pain, Nausea, Vomiting, Diarrhea, Melena, Hematochezia Genitourinary: Denies: Dysuria, Hematuria, Frequency Musculoskeletal: Denies: Back pain, Extremity Pain Skin: Denies: Rash, Wounds Neurological: Reports: Headache, Parasthesia Physical Exam Vital Signs/Narrative: Vital Signs Temp Pulse Resp BP Pulse Ox 12/01/19 14:25 97.8 F 72 22 H 144/102 H 98 12/01/19 14:24 75 20 H 133/98 H 98 Inital Vital Signs reviewed: Yes General: Well nourished, Well developed Head: NC, AT, - - Patient complains of some tenderness over the crown of his head. Negative for: Temporary Artery Tenderness, Sinus Tenderness Eyes: Perrl, EOMI ENT: Moist mucous membranes, No rhinorrhea Neck: Supple, No Lymphadenopathy, No JVD, Nontender, No Meningismus Cardiovascular: Regular rate, Regular rhythm, No murmurs Respiratory: No distress, CTA bilaterally, Chest nontender Abdomen: Soft, Nontender, Nondistended, Normal bowel sounds Back: Nontender, Normal Inspection Extremities: Nontender, No edema Skin: Normal color, No rash Neuro: Alert, Oriented x3, Cranial nerves II-XII grossly intact, Normal Strength, Normal DTR, Normal Gait, - - NIH stroke scale is measured as 2 with the patient having dysarthria and dysesthesia of the left side of his face Psychological: Normal affect Diagnostic/Tx/Re-eval Clinical Impression(s) from Imaging Studies Brain CT 12/01/19 14:31 IMPRESSION: Chronic involutional changes of the brain. Electronically Signed: Willi Bradford, at 15:08 EDT , Service support , Laboratory Data 12/01/19 12/01/19 12/01/19 14:30 14:30 14:30 WBC 6.8 RBC 5.10 Hgb 13.2 Hct 41.9 MCV 82.2 MCH 25.9 L MCHC 31.5 L RDW Std Deviation 42.5 RDW Coeff of Ita 14.4 Plt Count 315 MPV 9.4 Immature Gran % (Auto) 0.300 Neut % (Auto) 60.7 Lymph % (Auto) 26.1 [place] % (Auto) 9.8 Eos % (Auto) 2.5 Baso % (Auto) 0.6 Absolute Neuts (auto) 4.1 Absolute Lymphs (auto) 1.78 Nucleated RBC % 0 PT 13.5 INR 1.1 APTT 29.4 Sodium 141 Potassium 3.7 Chloride 109 H Carbon Dioxide 25.0 Anion Gap 7 BUN 10 Creatinine 1.25 Estim Creat Clear Calc 82.94 Est GFR (MDRD) Af Amer 77 Est GFR (MDRD) Non-Af 64 BUN/Creatinine Ratio 8.0 L Glucose 136 H Calcium 8.7 Troponin I < 0.015 POC Glucose 12/01/19 14:30 WBC RBC Hgb Hct MCV MCH MCHC RDW Std Deviation RDW Coeff of Ita Plt Count MPV Immature Gran % (Auto) Neut % (Auto) Lymph % (Auto) [place] % (Auto) Eos % (Auto) Baso % (Auto) Absolute Neuts (auto) Absolute Lymphs (auto) Nucleated RBC % PT INR APTT Sodium Potassium Chloride Carbon Dioxide Anion Gap BUN Creatinine Estim Creat Clear Calc Est GFR (MDRD) Af Amer Est GFR (MDRD) Non-Af BUN/Creatinine Ratio Glucose Calcium Troponin I POC Glucose 135 H - EKG Initial EKG Interpretation: - - Sinus rhythm at [address] segments normal T waves normal NC and QTc intervals no evidence of acute ischemia or arrhythmia - Medical Decision Making Patient presented secondary to a headache with some numbness of the left side of the face and some slurred speech. I reviewed the patient's records, he has had multiple prior similar presentations and has a history of complex migraines. Likewise the patient's symptoms started at 9 AM, he is outside of the TPA window, so stroke team was not initiated. As the patient does have risk factors, I worked him up for the possibility of a stroke while I still think that this is more likely to be a complex migraine. CT imaging of the brain was unremarkable. EKG unremarkable. Lab work was within normal limits. Patient drove here, and could not receive Compazine and Benadryl but was given Toradol and had complete resolution of his symptoms. I believe that the patient is safe and appropriate for discharge. Patient was discharged in improved condition. ED Disposition - Plan for ED Patient: Disposition: Home or Assisted Living Diagnosis: Migraine headache Instructions: ED, Migraine (Classical) Referrals: Baldo Otto MD [Primary Care Provider] - 3-5 Days
[2019-12-01 14:59] LABS: International Normalized Ratio 1.1; Partial Thromboplast Time 29.4 Seconds (24.1-36.2); Prothrombin Time (Protime)PT. 13.5 SECONDS (11.7-14.9)
[2019-12-01 15:01] LABS: Anion Gap 7 (5-15); BUN 10 mg/dL (7-18); Calcium,Total 8.7 mg/dL (8.5-10.1); Chloride 109 mmol/L (98-107); Creatinine, Serum 1.25 mg/dL (0.70-1.30); EST Glomerular Filtration Rate 64 mL/min (>60); Est Glom Filt Rate - Afr Amer 77 mL/min (>60); Estimated Creatinine Clearance 82.94 ml/min; Glucose 136 mg/dL (74-106); Potassium 3.7 mmol/L (3.5-5.1); Sodium Level 141 mmol/L (136-145)
[2019-12-01] MEDS: Ketorolac 15 MG/ML Vial IV (15:20)
[2019-12-01 16:18] VITALS: BP 129/71; PULSE 68; RESP 15; O2SAT 97
== END 2019-12-01 16:20 | disposition home or self-care (01) ==
PROVIDERS: Emergency Provider Emergency Medicine; PCP Family Medicine
DX: G43.909 Migraine, unspecified, not intractable, without status migrainosus (principal); E11.9 Type 2 diabetes mellitus without complications; I10 Essential (primary) hypertension; E78.5 Hyperlipidemia, unspecified; I25.10 Atherosclerotic heart disease of native coronary artery without angina pectoris; Z86.73 Personal history of transient ischemic attack (TIA), and cerebral infarction without residual deficits; Z79.82 Long term (current) use of aspirin; Z79.899 Other long term (current) drug therapy; Z87.891 Personal history of nicotine dependence
CPT/HCPCS: 70450; 80048; 82962; 84484; 85025; 85610; 85730; 93005; 96361; 96374; 99284; J7030; A4216

== ENCOUNTER → 2020-06-19 07:32 | Outpatient (CLI) | payer MEDICARE, MEDICAID, SELFPAY ==
--- NOTE | 2020-06-19 07:57 | MRI_ITS ---
STUDY: MRI LEFT ANKLE WITH AND WITHOUT CONTRAST REASON FOR EXAM: Lump on bottom of left heel for 3.5 weeks evaluate for abscess/mass. TECHNIQUE: Standarized fat and water weighted pulse sequences were obtained in all 3 orthogonal plane pre and post intravenous administration of 27ml Dotarem via IV. COMPARISON: Radiographs 08/29/2011. FINDINGS: There is mild edema in the medial and lateral subcutis adipose space. There is very mild edema in the plantar heel pad (inversion recovery sagittal images 10, 11). There is no soft tissue abscess or discrete soft tissue mass at the plantar aspect of the heel. There is no abnormal contrast enhancement in the subcutis adipose space at the plantar aspect of the heel. There is a very small volume of fluid in the distal posterior tibialis tendon sheath (inversion recovery axial images 14, 15). The posterior tibialis tendon is morphologically normal. Normal flexor digitorum longus tendon. Normal flexor hallucis longus tendon. Normal peroneus longus and brevis tendons. Normal tibialis anterior tendon. Normal extensor hallucis longus tendon. Normal extensor digitorum longus tendons. Normal Achilles tendon and teno-osseous insertion. There is a posterior calcaneal enthesophyte. There is mild thickening of the central cord of the plantar fascia mild contrast enhancement (postcontrast T1 sagittal images 12, 13) consistent with mild plantar fasciitis. There is a plantar calcaneal enthesophyte. Normal intrinsic muscles of the rearfoot. Normal distal tibiofibular syndesmotic ligamentous complex. There is thickening and ossification in the anterior talofibular ligament (T2 axial image 14) consistent with scarring. Normal calcaneofibular and posterior talofibular ligaments. Normal subtalar ligaments and sinus tarsi. There is cystic change/mild bone edema in the body of the calcaneus adjacent to the sinus tarsi. Normal deltoid ligamentous complexes. Normal plantar calcaneonavicular (spring) ligament. Normal tibiotalar articulation. Normal talar dome. Normal subtalar articulations. Normal talonavicular articulation. Normal calcaneocuboid articulation. There is a small subchondral cyst in the distal navicular adjacent to the navicular-cuneiform articulations. MRI/Lower Ext Joint Only W/WO Cont IMPRESSION: Mild plantar fasciitis. Scarring of the anterior talofibular ligament. Very mild posterior tibialis tenosynovitis. Very mild edema in the plantar heel pad without demonstrated soft tissue abscess or discrete soft tissue mass. Electronically Signed: Alexandr Gardner MD at 10:55 EDT Tel , Service support ,
== END ==
PROVIDERS: PCP Family Medicine; Referring Provider Podiatrist Foot & Ankle Surgery; Visit Provider Podiatrist Foot & Ankle Surgery
DX: R22.42 Localized swelling, mass and lump, left lower limb (principal)
CPT/HCPCS: 73723; A9575

== ENCOUNTER 2020-10-30 20:52 | Emergency (ER) | payer MEDICARE, SELFPAY ==
[2020-10-30 20:53] VITALS: BP 136/76; PULSE 79; RESP 16; TEMP 36.6; O2SAT 99; BMI 36.5
--- NOTE | 2020-10-30 20:58 | RAD_ITS ---
INDICATION: SOB EXAMINATION/TECHNIQUE: X-RAY - XR Chest 2 Views COMPARISON: None. FINDINGS: The lungs are clear. The cardiomediastinal silhouette is unremarkable. No pleural effusion or pneumothorax. No acute osseous abnormalities. RAD/Chest PA and Lateral IMPRESSION: No acute radiographic abnormalities. Electronically Signed: Lloyd Rankin MD at 21:13 EDT Tel , Service support ,
[2020-10-30 22:41] VITALS: O2SAT 97
--- NOTE | 2020-10-30 23:06 | EKG12_ITS ---
Test Reason : SOB Blood Pressure : / mmHG Vent. Rate : 073 BPM Atrial Rate : 073 BPM P-R Int : 184 ms QRS Dur : 092 ms QT Int : 390 ms P-R-T Axes : 059 065 062 degrees QTc Int : 429 ms Normal sinus rhythm Normal ECG Confirmed by BRAD WILLS, DOUG ([id number]), film or videotape editor RAÚL DILLARD ([id number]) on 11/02/2020 9:24:45 AM Referred By: KAVITHA Confirmed By:SARAH SALINAS MD
--- NOTE | 2020-10-30 23:28 | EDS_ITS ---
HPI History of Present Illness Chief Complaint: Shortness of Breath Informant: patient Onset/Context/Timing Onset: Today Context: sudden Current Severity: Mild Maximum Severity: Moderate Associated Symptoms Negative for cough Narrative Narrative: Patient presents with rather abrupt onset of shortness of breath. Patient states he was sitting watching television 8 PM when he had rather abrupt onset of shortness of breath. In the 3 hours between onset and time of my evaluation he states that he did have some mild improvement. He does not feel as if he is coughing or wheezing but does feel that this is consistent with his COPD. He does state that the hot humid weather tends to trigger his COPD. He reports some mild epigastric discomfort. Patient denies any recent illness but states his blood sugars have been dropping low the last few days. [facility] Medical History Asthma Atrial fibrillation BiPAP (biphasic positive airway pressure) dependence COPD (chronic obstructive pulmonary disease) Depression Diabetes Former smoker Hypertension Kidney stones Schizophrenia Sleep apnea TIA (transient ischemic attack) Home Medications losartan 50 mg PO DAILY 06/14/14 [History Last Taken 09/09/18] metoprolol tartrate 150 mg PO BID 06/14/14 [History Last Taken 09/09/18] montelukast 10 mg PO QHS 06/14/14 [History Last Taken 09/08/18] paliperidone palmitate [Invega Sustenna] 234 mg IM Q30D 09/13/16 [History Last Taken 09/06/18] loratadine [Allergy Relief (loratadine)] 10 mg PO QHS 02/05/17 [History Last Taken 09/08/18] diphenhydramine HCl [Benadryl Allergy] 50 mg PO QHS 11/05/17 [History Last Taken 09/08/18] furosemide 20 mg PO DAILY 11/05/17 [History Last Taken 09/09/18] aspirin 81 mg PO DAILY@0800 05/31/18 [History Last Taken 09/09/18] nitroglycerin 0.4 mg SUBLINGUAL PRN PRN 05/31/18 [History Last Taken Unknown] omeprazole 40 mg PO BID 05/31/18 [History Last Taken 09/09/18] tiotropium bromide [Spiriva Respimat] 2 puff INHALATION DAILY 05/31/18 [History Last Taken 09/09/18] promethazine 50 mg PO Q6H PRN PRN 09/02/18 [History Last Taken 09/08/18] sumatriptan succinate 100 mg PO .X1 PRN 09/09/18 [History Last Taken 09/09/18] famotidine 20 mg PO QHS 02/23/19 [History Last Taken Unknown] cyclobenzaprine 10 mg PO TID PRN #20 tab 08/06/19 [Rx Last Taken Unknown] topiramate 50 mg PO QHS 08/06/19 [History Last Taken Unknown] sucralfate 1 g PO BID 12/01/19 [History Last Taken Unknown] prednisone 60 mg PO DAILY #15 tab 10/30/20 [Rx Last Taken Unknown] Allergy/AdvReac Type Severity Reaction Status Date / Time clopidogrel [From Plavix] Allergy Rash Verified 12/01/19 14:25 enalapril maleate Allergy Hives Verified 12/01/19 14:25 [From Vasotec] enalaprilat dihydrate Allergy Hives Verified 12/01/19 14:25 [From Vasotec] naproxen [From Naprosyn] Allergy Hives Verified 12/01/19 14:25 Sulfa (Sulfonamide Allergy Hives Verified 12/01/19 14:25 Antibiotics) acetaminophen [From Vicodin] AdvReac Rash Verified 12/01/19 14:25 hydrocodone [From Vicodin] AdvReac Rash Verified 12/01/19 14:25 risperidone [From Risperdal] AdvReac HALLUCINATI Verified 12/01/19 14:25 ONS Surgical History History of appendectomy History of cholecystectomy Hx of cardiac catheterization Social History Smoking Status: Former smoker ROS ROS ED Constitutional Constitutional ED: Denies chills or fever(s) Eyes Eyes: Denies change in vision ENT ENT ED: Denies sore throat Cardiovascular Cardiovascular: Denies chest pain Respiratory/Chest Respiratory/Chest: Reports dyspnea; Denies cough Gastrointestinal Gastrointestinal: Reports abdominal pain; Denies diarrhea, nausea or vomiting Genitourinary Genitourinary ED: Denies dysuria Musculoskeletal Musculoskeletal: Denies back pain Integumentary Denies rash Neurologic Neurologic: Denies headache(s) or weakness Psychiatric Psychiatric: Denies anxiety or depression Allergic/Immunologic Allergic/Immunologic ED: Denies urticaria EXAM Physical Exam Const Vital Signs: 10/30/20 20:53 10/30/20 22:41 10/31/20 00:06 Temperature 97.8 F Temperature Source Temporal Pulse Rate 79 71 Respiratory Rate 16 17 Respiratory Effort Normal Respiratory Depth Normal Respiratory Pattern Normal Blood Pressure 136/76 H 115/74 Blood Pressure Mean 96 Pulse Ox 99 97 Oxygen Delivery Method Room Air Room Air Positive well nourished and well developed General Appearance ED: well developed HEENT Reports normocephalic and head/scalp atraumatic Eyes PERRL and EOMs intact bilaterally Neck supple Chest Wall inspection of chest normal and palpation of chest normal Resp normal respiratory effort and clear to auscultation bilaterally Cardio regular rate and regular rhythm GI normal to inspection, nondistended, normoactive bowel sounds Palpation: soft Extremity normal to inspection Neuro oriented x3 and no sensory deficits noted Sensorium / Orientation: alert Motor Exam: strength 5/5 throughout Psych mental status grossly normal Skin no rashes or lesions noted MDM MDM MDM Narrative Medical decision making narrative: Chest x-ray was obtained per nursing protocol. EKG was ordered. Radiography Chest X-Ray - ED: 2 View, Read by ED Physician, Normal, Heart, Lungs and Mediastinum Diagnostic Testing: Radiology Impression Chest X-Ray 10/30/20 20:58 IMPRESSION: No acute radiographic abnormalities. Electronically Signed: Lloyd Rankin MD at 21:13 EDT Tel , Service support , EKG Initial EKG: Attestation: I personally reviewed and interpreted this EKG as follows: Interpretation: Sinus Rhythm (Sinus at 73 with no acute ischemia.) Treatment and Re-Evaluation Comments:: Test results discussed with the patient. Chest x-ray shows no infiltrate per my interpretation. Radiologist interpretation is reviewed. EKG is unremarkable. Patient be given a short burst of steroids. First dose is given here. Return instructions are provided. Discharge Plan Triage Chief Complaint: Shortness of Breath ED Provider: Haritha Young Dx/Rx/DC Orders Clinical Impression: COPD (chronic obstructive pulmonary disease) Instructions: ED COPD Flare Prescriptions: New prednisone 20 mg tablet 60 mg PO DAILY Qty: 15 RF: 0 No Action losartan 50 MG tablet 50 mg PO DAILY RF: 0 metoprolol tartrate 100 MG tablet 150 mg PO BID RF: 0 montelukast 10 MG tablet 10 mg PO QHS RF: 0 paliperidone palmitate [Invega Sustenna] 234 MG/1.5 ML syringe 234 mg IM Q30D RF: 0 loratadine [Allergy Relief (loratadine)] 10 MG tablet 10 mg PO QHS RF: 0 furosemide 20 MG tablet 20 mg PO DAILY RF: 0 diphenhydramine HCl [Benadryl Allergy] 25 MG tablet 50 mg PO QHS RF: 0 omeprazole 40 MG capsule,delayed release(DR/EC) 40 mg PO BID RF: 0 nitroglycerin 0.4 MG tablet, sublingual 0.4 mg sublingual PRN PRN (Reason: chest pain) RF: 0 tiotropium bromide [Spiriva Respimat] 4 GM mist 2 puff inhalation DAILY RF: 0 aspirin 81 MG tablet,chewable 81 mg PO DAILY@0800 RF: 0 promethazine 25 MG tablet 50 mg PO Q6H PRN PRN (Reason: Nausea) RF: 0 sumatriptan succinate 50 MG tablet 100 mg PO .X1 PRN RF: 0 famotidine 20 MG tablet 20 mg PO QHS RF: 0 topiramate 50 MG tablet 50 mg PO QHS RF: 0 cyclobenzaprine 10 MG tablet 10 mg PO TID PRN (Reason: Muscle Spasm) Qty: 20 RF: 0 sucralfate 1 gram tablet 1 g PO BID RF: 0 Primary Care Provider: Baldo Otto Referrals: Baldo Otto MD [Primary Care Provider] - 1 Week if not improving Disposition Disposition: Home, Self Care Discharge Date/Time: 10/31/20 00:07
[2020-10-31] MEDS: predniSONE 20 MG Tablet 60 MG PO (00:04)
[2020-10-31 00:06] VITALS: BP 115/74; PULSE 71; RESP 17; O2SAT 97
== END 2020-10-31 00:07 | disposition home or self-care (01) ==
LOC: ED 23:45
PROVIDERS: Emergency Provider Emergency Medicine; PCP Family Medicine
DX: J44.9 Chronic obstructive pulmonary disease, unspecified (principal); I10 Essential (primary) hypertension; E11.9 Type 2 diabetes mellitus without complications; F20.9 Schizophrenia, unspecified; F32.9 Major depressive disorder, single episode, unspecified; I48.91 Unspecified atrial fibrillation; G47.30 Sleep apnea, unspecified; Z86.73 Personal history of transient ischemic attack (TIA), and cerebral infarction without residual deficits; Z87.442 Personal history of urinary calculi; Z79.82 Long term (current) use of aspirin; Z79.899 Other long term (current) drug therapy; Z87.891 Personal history of nicotine dependence
CPT/HCPCS: 71046; 93005; 99283

== ENCOUNTER 2020-11-09 00:20 | Emergency (ER) | payer MEDICARE, SELFPAY ==
[2020-11-09 00:21] VITALS: BP 137/79; PULSE 73; RESP 18; TEMP 36.7; O2SAT 99; BMI 37.8
--- NOTE | 2020-11-09 00:59 | EKG12_ITS ---
Test Reason : CP Blood Pressure : / mmHG Vent. Rate : 076 BPM Atrial Rate : 076 BPM P-R Int : 172 ms QRS Dur : 092 ms QT Int : 386 ms P-R-T Axes : 040 023 037 degrees QTc Int : 434 ms Normal sinus rhythm Normal ECG Confirmed by JOHNATHON WILLS, JULISSA ([id number]), digital editor RAÚL DILLARD ([id number]) on 11/12/2020 1:05:20 PM Referred By: BB Confirmed By:JULISSA DIEGO MD
--- NOTE | 2020-11-09 00:59 | ED.VIS.CHEST ---
HPI History of Present Illness Chief Complaint: Chest Pain Informant: patient Onset/Context/Timing Onset: Today Activity at onset: gradual Timing: Intermittent and Lasts (unclear; varies) Quality: Positive for Heaviness (like an elephant sitting on my chest) Location: Substernal (sometimes on the left; radiating to the left arm tonight.) Current Severity: Moderate Maximum Severity: Moderate Worsened By: Exertion; Not Worsened By Breathing Relieved By: Nothing Associated Symptoms: Positive for Dyspnea; Negative for Nausea, Diaphoresis, Cough, Fever and Palpitations Narrative Narrative: Patient states he developed chest discomfort today, it was off and on throughout the afternoon and worse tonight still present upon arrival here. States he has a history of a heart attack but did not receive a stent. Takes aspirin and Eliquis, which she is on for atrial fibrillation. Denies any leg pain or swelling lately or history of DVT/PE. States for the past 2 weeks or so because of the weather changes his COPD has been flared up a little but nothing major, no fevers or chills, no contact with anyone with Covid that he knows of. Prior Similar Symptoms: Yes and With Prior [facility] Medical History Asthma Atrial fibrillation BiPAP (biphasic positive airway pressure) dependence COPD (chronic obstructive pulmonary disease) Depression Diabetes Former smoker Hypertension Kidney stones Schizophrenia Sleep apnea TIA (transient ischemic attack) Home Medications losartan 50 mg PO DAILY 06/14/14 [History Last Taken 09/09/18] metoprolol tartrate 150 mg PO BID 06/14/14 [History Last Taken 09/09/18] montelukast 10 mg PO QHS 06/14/14 [History Last Taken 09/08/18] Invega Sustenna 234 mg IM Q30D 09/13/16 [History Last Taken 09/06/18] loratadine [Allergy Relief (loratadine)] 10 mg PO QHS 02/05/17 [History Last Taken 09/08/18] diphenhydramine HCl [Benadryl Allergy] 50 mg PO QHS 11/05/17 [History Last Taken 09/08/18] furosemide 20 mg PO DAILY 11/05/17 [History Last Taken 09/09/18] Spiriva Respimat 2 puff INHALATION DAILY 05/31/18 [History Last Taken 09/09/18] aspirin 81 mg PO DAILY@0800 05/31/18 [History Last Taken 09/09/18] nitroglycerin 0.4 mg SUBLINGUAL PRN PRN 05/31/18 [History Last Taken Unknown] omeprazole 40 mg PO BID 05/31/18 [History Last Taken 09/09/18] promethazine 50 mg PO Q6H PRN PRN 09/02/18 [History Last Taken 09/08/18] sumatriptan succinate 100 mg PO .X1 PRN 09/09/18 [History Last Taken 09/09/18] famotidine 20 mg PO QHS 02/23/19 [History Last Taken Unknown] cyclobenzaprine 10 mg PO TID PRN #20 tab 08/06/19 [Rx Last Taken Unknown] topiramate 50 mg PO QHS 08/06/19 [History Last Taken Unknown] sucralfate 1 g PO BID 12/01/19 [History Last Taken Unknown] prednisone 60 mg PO DAILY #15 tab 10/30/20 [Rx Last Taken Unknown] Allergy/AdvReac Type Severity Reaction Status Date / Time clopidogrel [From Plavix] Allergy Rash Verified 11/09/20 00:26 enalapril maleate Allergy Hives Verified 11/09/20 00:26 [From Vasotec] enalaprilat dihydrate Allergy Hives Verified 11/09/20 00:26 [From Vasotec] naproxen [From Naprosyn] Allergy Hives Verified 11/09/20 00:26 Sulfa (Sulfonamide Allergy Hives Verified 11/09/20 00:26 Antibiotics) acetaminophen [From Vicodin] AdvReac Rash Verified 11/09/20 00:26 hydrocodone [From Vicodin] AdvReac Rash Verified 11/09/20 00:26 risperidone [From Risperdal] AdvReac HALLUCINATI Verified 11/09/20 00:26 ONS Surgical History History of appendectomy History of cholecystectomy Hx of cardiac catheterization Social History Smoking Status: Former smoker ROS ROS ED Constitutional Constitutional ED: Denies chills or fever(s) Eyes Eyes: Denies change in vision or diplopia ENT ENT ED: Denies rhinorrhea or sore throat Cardiovascular Cardiovascular: Reports chest pain; Denies palpitations Respiratory/Chest Respiratory/Chest: Reports dyspnea; Denies cough Gastrointestinal Gastrointestinal: Denies abdominal pain, diarrhea, nausea or vomiting Genitourinary Genitourinary ED: Denies dysuria or hematuria Musculoskeletal Musculoskeletal: Denies back pain or neck pain Integumentary Denies abscess or rash Neurologic Neurologic: Denies headache(s), paresthesias or weakness Psychiatric Psychiatric: Denies anxiety or suicidal thoughts EXAM Physical Exam Const Vital Signs: 11/09/20 00:21 11/09/20 01:10 11/09/20 01:15 Temperature 98.0 F Temperature Source Temporal Pulse Rate 73 73 88 Respiratory Rate 18 Blood Pressure 137/79 H 137/79 H 121/67 H Blood Pressure Mean 98 Pulse Ox 99 Oxygen Delivery Method Room Air 11/09/20 01:20 11/09/20 01:25 11/09/20 03:20 Temperature Temperature Source Pulse Rate 90 71 Respiratory Rate 29 H Blood Pressure 111/68 147/96 H Blood Pressure Mean 113 Pulse Ox 97 Oxygen Delivery Method Room Air Room Air Positive well nourished and well developed General Appearance ED: well developed and NAD HEENT Reports moist mucous membranes normocephalic and atraumatic Eyes PERRL and EOMs intact bilaterally Neck full ROM and supple Resp normal respiratory effort and clear to auscultation bilaterally Cardio regular rate, regular rhythm and no murmurs GI non-tender and non-distended Auscultation: normoactive bowel sounds Palpation: soft Back/Spine no CVA tenderness General Back: other FROM Extremity normal to inspection General Extremety ED: Negative for edema, pulses abnormal or tenderness General Extremity: Negative for edema or pulses abnormal Neuro oriented x3, CN's II-XII intact bilaterally and no sensory deficits noted Sensorium / Orientation: awake and alert Motor Exam: strength 5/5 throughout Skin no rashes or lesions noted and no wounds Heart Score History: Moderately Suspicious ECG: Normal Age: >45 - <65 years Risk Factors: >/= 3 Risk Factors or History of CAD Troponin: </= Normal Limit Score: 4 MDM MDM MDM Narrative Medical decision making narrative: Patient was given nitroglycerin, this did help with discomfort, he still had a little. His EKG is normal. His initial troponin came back negative, at a level of 4. We did a 2-hour delta repeat, it was actually done longer than 2 hours later, it came back at 5. On reevaluation his chest pain is resolved. His chest x-ray is unremarkable. Given all of this, I think it is reasonable for the patient to go home. I looked through his cardiac history, I do not see any old notes to do note what he actually had, just an old stress test from 2 years ago that was negative, the patient states that he had a heart cath I do not see records of it but he states it was here and he states he was told it was normal. He is advised to follow-up with his maintenance carpenter. Lab Data Attestation: I reviewed the patient's lab results. Labs: Laboratory Results - last 24 hr 11/09/20 11/09/20 11/09/20 00:31 00:31 03:24 WBC 12.7 H RBC 5.06 Hgb 12.6 L Hct 41.8 MCV 82.6 MCH 24.9 L MCHC 30.1 L RDW Std Deviation 45.7 H RDW Coeff of Ita 15.2 H Plt Count 324 MPV 9.1 Immature Gran % (Auto) 1.700 H Neut % (Auto) 62.7 Lymph % (Auto) 23.0 [place] % (Auto) 9.8 Eos % (Auto) 2.2 Baso % (Auto) 0.6 Absolute Neuts (auto) 8.0 H Absolute Lymphs (auto) 2.92 Nucleated RBC % 0 Sodium 140 Potassium 3.4 L Chloride 110 H Carbon Dioxide 24.0 Anion Gap 6 BUN 15 Creatinine 1.01 Estim Creat Clear Calc 101.46 Est GFR (MDRD) Af Amer 98 Est GFR (MDRD) Non-Af 81 BUN/Creatinine Ratio 14.9 Glucose 135 H Calcium 8.4 L Troponin I High Sens 4 5 Radiography Chest X-Ray - ED: 1 View, Read by ED Physician and No Acute Disease Diagnostic Testing: Radiology Impression Chest X-Ray 11/09/20 01:00 IMPRESSION: No acute cardiopulmonary disease. Electronically Signed: Ramya Hodge MD at 1:23 EDT , Service support , EKG Initial EKG: Attestation: I personally reviewed and interpreted this EKG as follows: Interpretation: Sinus Rhythm and No Acute Injury Pattern Comments: Normal EKG. Normal axis. Discharge Plan Triage Chief Complaint: Chest Pain ED Provider: Abhishek Aguila Dx/Rx/DC Orders Clinical Impression: Chest pain, unspecified Instructions: ED Chest Pain, Uncertain Cause Prescriptions: No Action losartan 50 MG tablet 50 mg PO DAILY RF: 0 metoprolol tartrate 100 MG tablet 150 mg PO BID RF: 0 montelukast 10 MG tablet 10 mg PO QHS RF: 0 Invega Sustenna 234 MG/1.5 ML syringe 234 mg IM Q30D RF: 0 loratadine [Allergy Relief (loratadine)] 10 MG tablet 10 mg PO QHS RF: 0 furosemide 20 MG tablet 20 mg PO DAILY RF: 0 diphenhydramine HCl [Benadryl Allergy] 25 MG tablet 50 mg PO QHS RF: 0 omeprazole 40 MG capsule,delayed release(DR/EC) 40 mg PO BID RF: 0 nitroglycerin 0.4 MG tablet, sublingual 0.4 mg sublingual PRN PRN (Reason: chest pain) RF: 0 Spiriva Respimat 4 GM mist 2 puff inhalation DAILY RF: 0 aspirin 81 MG tablet,chewable 81 mg PO DAILY@0800 RF: 0 promethazine 25 MG tablet 50 mg PO Q6H PRN PRN (Reason: Nausea) RF: 0 sumatriptan succinate 50 MG tablet 100 mg PO .X1 PRN RF: 0 famotidine 20 MG tablet 20 mg PO QHS RF: 0 topiramate 50 MG tablet 50 mg PO QHS RF: 0 cyclobenzaprine 10 MG tablet 10 mg PO TID PRN (Reason: Muscle Spasm) Qty: 20 RF: 0 sucralfate 1 gram tablet 1 g PO BID RF: 0 prednisone 20 mg tablet 60 mg PO DAILY Qty: 15 RF: 0 Primary Care Provider: Baldo Otto Referrals: Gentry Umana MD [STAFF PHYSICIAN] - (call for follow up appt) Baldo Otto MD [Primary Care Provider] - Disposition Disposition: Home, Self Care
--- NOTE | 2020-11-09 01:00 | RAD_ITS ---
STUDY: X-RAY CHEST REASON FOR EXAM: Male, 55 years old. chest pain TECHNIQUE: Single AP portable view of the chest. COMPARISON: 10/30/2020. FINDINGS: The lungs are clear and expanded. There is no demonstrated pleural abnormality. Normal size heart. Normal mediastinum and sofi. Normal visualized pulmonary arteries. There is atherosclerotic calcification of the aortic arch with tortuosity. There are mild degenerative changes of the visualized thoracic spine. There is degenerative osteoarthritis of the bilateral shoulders. There is no demonstrated abnormality of the visualized soft tissue structures of the upper abdomen. RAD/Chest 1 View (Portable) IMPRESSION: No acute cardiopulmonary disease. Electronically Signed: Ramya Hodge MD at 1:23 EDT , Service support ,
[2020-11-09 01:04] LABS: Absolute Lymphocyte Count 2.92 X10^3/uL (0.83-4.51); Basophil# 0.08 X10^3/uL; Basophil% 0.6 % (0-1); Eosinophil# 0.28 X10^3/uL; Eosinophils% 2.2 % (0-5); Hematocrit 41.8 % (40-54); Hemoglobin 12.6 g/dL (13.0-16.5); Lymphocyte # 2.92 X10^3/ul (0.83-4.51); Mean Corp Hgb Conc 30.1 g/dL (32-36); Mean Corpuscular Hgb 24.9 pg (27.0-32.0); Mean Corpuscular Volume 82.6 fL (80-94); Mean Platelet Vol. 9.1 fl (6.2-12.0); Monocyte# 1.24 X10^3/uL; Monocyte% 9.8 % (0-10); NRBC Flagged by Analyzer 0 % (0-5); Neutrophil # 7.98 X10^3/uL (2.7-7.7); Neutrophil % 62.7 % (47-70); Platelet Count 324 K/mm3 (150-450); RBC Distribution Width CV 15.2 % (11.6-14.6); RBC Distribution Width SD 45.7 fl (35.1-43.9); Red Blood Count 5.06 M/mm3 (4.6-6.2); White Blood Count 12.7 K/mm3 (4.4-11.0)
[2020-11-09 01:10] VITALS: BP 137/79; PULSE 73
[2020-11-09] MEDS: Nitroglycerin SL (ED/IMG/CATH) 0.4 MG TABLET SL ×3 (01:10→01:20)
[2020-11-09] MEDS: 0.9% Normal Saline 1,000 ML 150 ML IV (01:10)
[2020-11-09 01:15] VITALS: BP 121/67; PULSE 88
[2020-11-09 01:20] VITALS: BP 111/68; PULSE 90
[2020-11-09 01:21] LABS: Anion Gap 6 (5-15); BUN 15 mg/dL (7-18); BUN/Creat Ratio 14.9 RATIO (10-20); Calcium,Total 8.4 mg/dL (8.5-10.1); Chloride 110 mmol/L (98-107); Creatinine, Serum 1.01 mg/dL (0.70-1.30); EST Glomerular Filtration Rate 81 mL/min (>60); Est Glom Filt Rate - Afr Amer 98 mL/min (>60); Estimated Creatinine Clearance 101.46 ml/min; Glucose 135 mg/dL (74-106); Potassium 3.4 mmol/L (3.5-5.1); Sodium Level 140 mmol/L (136-145); Troponin-I HS 4 pg/mL (3.0-78.0)
[2020-11-09 03:20] VITALS: BP 147/96; PULSE 71; RESP 29; O2SAT 97
[2020-11-09 03:46] LABS: Troponin-I HS 5 pg/mL (3.0-78.0)
[2020-11-09 04:53] VITALS: BP 124/77; PULSE 75; RESP 20; O2SAT 95
== END 2020-11-09 04:54 | disposition home or self-care (01) ==
PROVIDERS: Emergency Provider Emergency Medicine; PCP Family Medicine
DX: R07.89 Other chest pain (principal); I10 Essential (primary) hypertension; E11.9 Type 2 diabetes mellitus without complications; F20.9 Schizophrenia, unspecified; F32.9 Major depressive disorder, single episode, unspecified; I25.10 Atherosclerotic heart disease of native coronary artery without angina pectoris; I48.91 Unspecified atrial fibrillation; I25.2 Old myocardial infarction; J44.9 Chronic obstructive pulmonary disease, unspecified; G47.30 Sleep apnea, unspecified; Z86.73 Personal history of transient ischemic attack (TIA), and cerebral infarction without residual deficits; Z87.442 Personal history of urinary calculi; Z79.82 Long term (current) use of aspirin; Z79.01 Long term (current) use of anticoagulants; Z79.899 Other long term (current) drug therapy; Z87.891 Personal history of nicotine dependence
CPT/HCPCS: 36415; 71045; 80048; 84484; 85025; 93005; 96360; 96361; 99284; J7030; A4216

== ENCOUNTER 2020-12-09 19:07 | Emergency (ER) | payer MEDICARE, SELFPAY ==
[2020-12-09 19:08] VITALS: BP 119/93; PULSE 80; RESP 16; TEMP 36.2; O2SAT 94; BMI 37.7
--- NOTE | 2020-12-09 19:11 | RAD_ITS ---
EXAM: XR LEFT ANKLE COMPLETE, 3 OR MORE VIEWS : 1965 CLINICAL INDICATION: INJURY TECHNIQUE: Frontal, lateral and oblique views of the left ankle. This report was created using [employer] report generation technology. COMPARISON: None. FINDINGS: BONES/JOINTS: Unremarkable. No acute fracture. No subluxation. Normal alignment. Preservation of the joint space. No sclerotic or destructive changes observed. SOFT TISSUES: There is mild soft tissue swelling over the medial and lateral glide. No radiopaque foreign body. RAD/Ankle min 3 Views IMPRESSION: Mild soft tissue swelling with no osseous abnormalities. at 2013 Reported and signed by: Magdiel Morris MD Electronically Signed: Magdiel Morris MD at 20:12 EDT Tel , Service support ,
--- NOTE | 2020-12-09 21:08 | EDS_ITS ---
HPI History of Present Illness Chief Complaint: Lower Extremity Injury Narrative Narrative: Patient presenting with left ankle pain. He states he was walking down his steps and his step broke and he inverted his ankle. He states he is nonambulatory secondary to pain. He took ibuprofen prior to arrival. Patient denies any knee or foot pain. He has pain on the left lateral malleolus. There is slight swelling and bruising. [facility] Medical History Asthma Atrial fibrillation BiPAP (biphasic positive airway pressure) dependence COPD (chronic obstructive pulmonary disease) Depression Diabetes Former smoker Hypertension Kidney stones Schizophrenia Sleep apnea TIA (transient ischemic attack) Home Medications losartan 50 mg PO DAILY 06/14/14 [History Last Taken 09/09/18] metoprolol tartrate 150 mg PO BID 06/14/14 [History Last Taken 09/09/18] montelukast 10 mg PO QHS 06/14/14 [History Last Taken 09/08/18] Invega Sustenna 234 mg IM Q30D 09/13/16 [History Last Taken 09/06/18] loratadine [Allergy Relief (loratadine)] 10 mg PO QHS 02/05/17 [History Last Taken 09/08/18] diphenhydramine HCl [Benadryl Allergy] 50 mg PO QHS 11/05/17 [History Last Taken 09/08/18] furosemide 20 mg PO DAILY 11/05/17 [History Last Taken 09/09/18] Spiriva Respimat 2 puff INHALATION DAILY 05/31/18 [History Last Taken 09/09/18] aspirin 81 mg PO DAILY@0800 05/31/18 [History Last Taken 09/09/18] nitroglycerin 0.4 mg SUBLINGUAL PRN PRN 05/31/18 [History Last Taken Unknown] omeprazole 40 mg PO BID 05/31/18 [History Last Taken 09/09/18] promethazine 50 mg PO Q6H PRN PRN 09/02/18 [History Last Taken 09/08/18] sumatriptan succinate 100 mg PO .X1 PRN 09/09/18 [History Last Taken 09/09/18] famotidine 20 mg PO QHS 02/23/19 [History Last Taken Unknown] cyclobenzaprine 10 mg PO TID PRN #20 tab 05/16/20 [Rx Last Taken Unknown] topiramate 50 mg PO QHS 08/06/19 [History Last Taken Unknown] sucralfate 1 g PO BID 12/01/19 [History Last Taken Unknown] prednisone 60 mg PO DAILY #15 tab 10/30/20 [Rx Last Taken Unknown] ibuprofen 600 mg PO Q8H PRN PRN #20 tablet 12/09/20 [Rx Last Taken Unknown] Allergy/AdvReac Type Severity Reaction Status Date / Time clopidogrel [From Plavix] Allergy Rash Verified 12/09/20 19:08 enalapril maleate Allergy Hives Verified 12/09/20 19:08 [From Vasotec] enalaprilat dihydrate Allergy Hives Verified 12/09/20 19:08 [From Vasotec] naproxen [From Naprosyn] Allergy Hives Verified 12/09/20 19:08 Sulfa (Sulfonamide Allergy Hives Verified 12/09/20 19:08 Antibiotics) acetaminophen [From Vicodin] AdvReac Rash Verified 12/09/20 19:08 hydrocodone [From Vicodin] AdvReac Rash Verified 12/09/20 19:08 risperidone [From Risperdal] AdvReac HALLUCINATI Verified 12/09/20 19:08 ONS Surgical History History of appendectomy History of cholecystectomy Hx of cardiac catheterization Social History Smoking Status: Former smoker ROS ROS ED Constitutional Constitutional ED: Denies chills or fever(s) Eyes Eyes: Denies blurry vision or change in vision ENT ENT ED: Denies rhinorrhea or sore throat Cardiovascular Cardiovascular: Denies chest pain or palpitations Respiratory/Chest Respiratory/Chest: Denies cough, dyspnea or sputum Gastrointestinal Gastrointestinal: Denies abdominal pain or nausea Genitourinary Genitourinary ED: Denies dysuria or hematuria Musculoskeletal Musculoskeletal: Reports other Details: Left ankle pain ; Denies arthralgias Integumentary Denies abscess or rash Neurologic Neurologic: Denies headache(s) or paresthesias EXAM Physical Exam Const Vital Signs: 12/09/20 19:08 Temperature 97.2 F L Temperature Source Temporal Pulse Rate 80 Respiratory Rate 16 Blood Pressure 119/93 H Blood Pressure Mean 101 Pulse Ox 94 Oxygen Delivery Method Room Air Positive well nourished General Appearance ED: NAD HEENT normocephalic and atraumatic Resp normal respiratory effort and clear to auscultation bilaterally Cardio regular rate and regular rhythm Extremity Extremity Narrative: Tenderness palpation over left lateral malleolus. There is mild swelling and bruising here. Left foot neurovascular intact brisk cap refill to all five toes per Neuro oriented x3 Sensorium / Orientation: alert Psych mental status grossly normal MDM MDM MDM Narrative Medical decision making narrative: Patient presented with left ankle pain. He had an x-ray of the left ankle which on my interpretation shows no acute fracture or subluxation. Patient was initially ordered pain medication in the form of oxycodone but after looking at his record he does have a long history of requesting narcotic pain medication. I did not leave that this is appropriate given he only has an ankle sprain. He is placed in Christiano wrap and Aircast. He is given crutches. He is counseled use ibuprofen and Tylenol at home. Impression: 1. Left ankle sprain Radiography Diagnostic Testing: Radiology Impression Ankle X-Ray 12/09/20 19:11 IMPRESSION: Mild soft tissue swelling with no osseous abnormalities. at 2013 Reported and signed by: Magdiel Morris MD Electronically Signed: Magdiel Morris MD at 20:12 EDT Tel , Service support , Discharge Plan Triage Chief Complaint: Lower Extremity Injury ED Provider: Anton Bass Dx/Rx/DC Orders Instructions: ED Ankle Sprain (Adult) Prescriptions: New ibuprofen 600 mg tablet 600 mg PO Q8H PRN PRN (Reason: quinonez) Qty: 20 RF: 0 No Action losartan 50 MG tablet 50 mg PO DAILY RF: 0 metoprolol tartrate 100 MG tablet 150 mg PO BID RF: 0 montelukast 10 MG tablet 10 mg PO QHS RF: 0 Invega Sustenna 234 MG/1.5 ML syringe 234 mg IM Q30D RF: 0 loratadine [Allergy Relief (loratadine)] 10 MG tablet 10 mg PO QHS RF: 0 furosemide 20 MG tablet 20 mg PO DAILY RF: 0 diphenhydramine HCl [Benadryl Allergy] 25 MG tablet 50 mg PO QHS RF: 0 omeprazole 40 MG capsule,delayed release(DR/EC) 40 mg PO BID RF: 0 nitroglycerin 0.4 MG tablet, sublingual 0.4 mg sublingual PRN PRN (Reason: chest pain) RF: 0 Spiriva Respimat 4 GM mist 2 puff inhalation DAILY RF: 0 aspirin 81 MG tablet,chewable 81 mg PO DAILY@0800 RF: 0 promethazine 25 MG tablet 50 mg PO Q6H PRN PRN (Reason: Nausea) RF: 0 sumatriptan succinate 50 MG tablet 100 mg PO .X1 PRN RF: 0 famotidine 20 MG tablet 20 mg PO QHS RF: 0 topiramate 50 MG tablet 50 mg PO QHS RF: 0 cyclobenzaprine 10 MG tablet 10 mg PO TID PRN (Reason: Muscle Spasm) Qty: 20 RF: 0 sucralfate 1 gram tablet 1 g PO BID RF: 0 prednisone 20 mg tablet 60 mg PO DAILY Qty: 15 RF: 0 Primary Care Provider: Baldo Otto Referrals: Baldo Otto MD [Primary Care Provider] - Disposition Disposition: Home, Self Care Discharge Date/Time: 12/09/20 21:20
== END 2020-12-09 21:20 | disposition home or self-care (01) ==
PROVIDERS: Emergency Provider Student in an Organized Health Care Education/Training Program; PCP Family Medicine
DX: S93.402A Sprain of unspecified ligament of left ankle, initial encounter (principal); X50.1XXA Overexertion from prolonged static or awkward postures, initial encounter; Y93.01 Activity, walking, marching and hiking; Y92.9 Unspecified place or not applicable; I10 Essential (primary) hypertension; E11.9 Type 2 diabetes mellitus without complications; F20.9 Schizophrenia, unspecified; F32.9 Major depressive disorder, single episode, unspecified; I48.91 Unspecified atrial fibrillation; G47.30 Sleep apnea, unspecified; J44.9 Chronic obstructive pulmonary disease, unspecified; Z86.73 Personal history of transient ischemic attack (TIA), and cerebral infarction without residual deficits; Z87.442 Personal history of urinary calculi; Z79.82 Long term (current) use of aspirin; Z79.899 Other long term (current) drug therapy; Z87.891 Personal history of nicotine dependence
CPT/HCPCS: 73610; 99284

== ENCOUNTER 2021-01-21 09:24 | Emergency (ER) | payer MEDICARE, MEDICAID, SELFPAY ==
[2021-01-21 09:27] VITALS: BP 147/99; PULSE 74; RESP 16; TEMP 36.4; O2SAT 99; BMI 37.4
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
[2021-01-21 10:52] VITALS: PULSE 76; RESP 18; O2SAT 97
== END 2021-01-21 10:53 | disposition home or self-care (01) ==
PROVIDERS: Emergency Provider Emergency Medicine; PCP Family Medicine
DX: S00.81XA Abrasion of other part of head, initial encounter (principal); S40.012A Contusion of left shoulder, initial encounter; D68.9 Coagulation defect, unspecified; V43.52XA Car driver injured in collision with other type car in traffic accident, initial encounter; Y93.9 Activity, unspecified; Y92.9 Unspecified place or not applicable; E66.9 Obesity, unspecified; Z68.37 Body mass index [BMI] 37.0-37.9, adult; I10 Essential (primary) hypertension; E11.9 Type 2 diabetes mellitus without complications; I48.0 Paroxysmal atrial fibrillation; F20.9 Schizophrenia, unspecified; F32.A Depression, unspecified; G47.30 Sleep apnea, unspecified; J44.9 Chronic obstructive pulmonary disease, unspecified; Z86.73 Personal history of transient ischemic attack (TIA), and cerebral infarction without residual deficits; Z87.442 Personal history of urinary calculi; Z79.01 Long term (current) use of anticoagulants; Z79.82 Long term (current) use of aspirin; Z79.899 Other long term (current) drug therapy; Z87.891 Personal history of nicotine dependence
CPT/HCPCS: 70450; 72125; 73030; 99284

== ENCOUNTER 2021-02-06 16:28 | Emergency (ER) | payer MEDICARE, MEDICAID, SELFPAY ==
[2021-02-06 16:29] VITALS: BP 128/86; PULSE 77; RESP 16; TEMP 36.3; O2SAT 97; BMI 36.0
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
[2021-02-06 18:46] VITALS: BP 123/91; PULSE 67; RESP 18; O2SAT 98
--- NOTE | 2021-02-06 18:49 | CM.ED ---
SOCIAL WORK Reason for Consult: Active ED Care Plan Informed Dr. Lara and nursing patient with active ED Care Plan. ED Care Plan reviewed. This worker to remain available for needs. Nilesh Rea, OPHTHALMIC SURGEON, SOX ANALYST
--- NOTE | 2021-02-06 19:01 | EX.ED.VIS.HA ---
HPI History of Present Illness Chief Complaint: Headache Informant: patient Onset/Context/Timing Onset: Weeks (2) Timing: Continuous Quality -Headache: Positive for Similar Prior Headaches, Sharp and Throbbing Location: Top of head Worsened by: Light Relieved by: Nothing Associated Symptoms/Injury Associated Symptoms: Positive for Nausea, Tingling, Blurred Vision and Photophobia; Negative for Fever, Vomiting, Sore Throat, Sinus Pressure, Numbness, Preceding Aura and Visual Loss Injury - MOSS: Negative for Direct Trauma Narrative Narrative: Patient presents with a headache that has been getting worse over the past 2 weeks. Patient states it is gradually getting worse. Patient states it has been constant. Patient states it is over the top of his head. Patient describes pain as sharp and throbbing. Patient states the pain is worse with light. Patient admits to nausea but denies any vomiting. Patient admits to some tingling in the sides of his head. Patient also admits to some blurred vision. Patient denies any double vision. [facility] Medical History Asthma Atrial fibrillation BiPAP (biphasic positive airway pressure) dependence COPD (chronic obstructive pulmonary disease) Depression Diabetes Former smoker Hypertension Kidney stones Schizophrenia Sleep apnea TIA (transient ischemic attack) Home Medications losartan 50 mg PO DAILY 06/14/14 [History Last Taken 09/09/18] metoprolol tartrate 150 mg PO BID 06/14/14 [History Last Taken 09/09/18] montelukast 10 mg PO QHS 06/14/14 [History Last Taken 09/08/18] Invega Sustenna 234 mg IM Q30D 09/13/16 [History Last Taken 09/06/18] loratadine [Allergy Relief (loratadine)] 10 mg PO QHS 02/05/17 [History Last Taken 09/08/18] diphenhydramine HCl [Benadryl Allergy] 50 mg PO QHS 11/05/17 [History Last Taken 09/08/18] furosemide 20 mg PO DAILY 11/05/17 [History Last Taken 09/09/18] Spiriva Respimat 2 puff INHALATION DAILY 05/31/18 [History Last Taken 09/09/18] aspirin 81 mg PO DAILY@0800 05/31/18 [History Last Taken 09/09/18] nitroglycerin 0.4 mg SUBLINGUAL PRN PRN 05/31/18 [History Last Taken Unknown] omeprazole 40 mg PO BID 05/31/18 [History Last Taken 09/09/18] promethazine 50 mg PO Q6H PRN PRN 09/02/18 [History Last Taken 09/08/18] sumatriptan succinate 100 mg PO .X1 PRN 09/09/18 [History Last Taken 09/09/18] famotidine 20 mg PO QHS 02/23/19 [History Last Taken Unknown] cyclobenzaprine 10 mg PO TID PRN #20 tab 08/06/19 [Rx Last Taken Unknown] topiramate 50 mg PO QHS 08/06/19 [History Last Taken Unknown] sucralfate 1 g PO BID 12/01/19 [History Last Taken Unknown] prednisone 60 mg PO DAILY #15 tab 10/30/20 [Rx Last Taken Unknown] ibuprofen 600 mg PO Q8H PRN PRN #20 tablet 12/09/20 [Rx Last Taken Unknown] Allergy/AdvReac Type Severity Reaction Status Date / Time clopidogrel [From Plavix] Allergy Rash Verified 02/06/21 16:31 enalapril maleate Allergy Hives Verified 02/06/21 16:31 [From Vasotec] enalaprilat dihydrate Allergy Hives Verified 02/06/21 16:31 [From Vasotec] naproxen [From Naprosyn] Allergy Hives Verified 02/06/21 16:31 Sulfa (Sulfonamide Allergy Hives Verified 02/06/21 16:31 Antibiotics) acetaminophen [From Vicodin] AdvReac Rash Verified 02/06/21 16:31 hydrocodone [From Vicodin] AdvReac Rash Verified 02/06/21 16:31 risperidone [From Risperdal] AdvReac HALLUCINATI Verified 02/06/21 16:31 ONS Surgical History History of appendectomy History of cholecystectomy Hx of cardiac catheterization Social History Smoking Status: Former smoker ROS ROS ED Constitutional Constitutional ED: Denies chills or fever(s) Eyes Eyes: Reports blurry vision; Denies change in vision ENT ENT ED: Denies rhinorrhea or sore throat Cardiovascular Cardiovascular: Denies chest pain or palpitations Respiratory/Chest Respiratory/Chest: Reports cough; Denies dyspnea Gastrointestinal Gastrointestinal: Reports nausea; Denies vomiting Genitourinary Genitourinary ED: Denies dysuria or hematuria Musculoskeletal Musculoskeletal: Reports neck pain; Denies back pain Integumentary Denies abscess or rash Neurologic Neurologic: Reports headache(s); Denies weakness Allergic/Immunologic Allergic/Immunologic ED: Denies mouth swelling or urticaria EXAM Physical Exam Const Vital Signs: 02/06/21 16:29 02/06/21 18:46 02/06/21 20:42 Temperature 97.4 F L Temperature Source Temporal Pulse Rate 77 67 58 L Respiratory Rate 16 18 16 Blood Pressure 128/86 H 123/91 H 107/62 Blood Pressure Mean 100 101 77 Pulse Ox 97 98 99 Oxygen Delivery Method Room Air Room Air Room Air 02/06/21 22:15 Temperature Temperature Source Pulse Rate 69 Respiratory Rate 16 Blood Pressure 140/82 H Blood Pressure Mean Pulse Ox 98 Oxygen Delivery Method Positive well nourished and well developed General Appearance ED: well developed HEENT Reports moist mucous membranes Neck supple and no JVD Resp normal respiratory effort and clear to auscultation bilaterally Cardio regular rate, regular rhythm and no murmurs GI normal to inspection, nondistended, normoactive bowel sounds and non-tender Palpation: soft Extremity normal to inspection General Extremety ED: Negative for edema or tenderness General Extremity: Negative for edema Neuro oriented x3, CN's II-XII intact bilaterally and no sensory deficits noted Sensorium / Orientation: alert Motor Exam: strength 5/5 throughout Psych mental status grossly normal Skin no rashes or lesions noted MDM MDM MDM Narrative Medical decision making narrative: CT scan of the brain was obtained. There is no acute intracranial abnormality. This was interpreted by the radiologist and reviewed by myself. Portable 1 view chest x-ray was obtained. On my interpretation, lung correa are clear. There is normal cardiac silhouette. Bony thorax is normal. There is no acute process noted. Radiologist also interpreted the x-ray and agrees. Patient is feeling somewhat better on reevaluation. Patient was instructed to rest in a dark quiet room. Patient was instructed to follow-up with his primary care physician in 5 to 7 days. Patient understood and was agreeable with the plan. All questions were answered. Radiography Diagnostic Testing: Clinical Impression(s) from Imaging Studies Brain CT 02/06/21 16:40 IMPRESSION: No acute intracranial or calvarial abnormality. There is no major interval change. Electronically Signed: Albert Rueda DO at 16:54 EST Tel [phone], Service support , Chest X-Ray 02/06/21 19:20 IMPRESSION: No acute cardiopulmonary disease or interval change. Electronically Signed: Albert Rueda DO at 19:36 EST Tel [phone], Service support , Discharge Plan Triage Chief Complaint: Headache ED Provider: Mike Lara Dx/Rx/DC Orders Clinical Impression: Headache Instructions: ED Headache Unspecified Prescriptions: No Action losartan 50 MG tablet 50 mg PO DAILY RF: 0 metoprolol tartrate 100 MG tablet 150 mg PO BID RF: 0 montelukast 10 MG tablet 10 mg PO QHS RF: 0 Invega Sustenna 234 MG/1.5 ML syringe 234 mg IM Q30D RF: 0 loratadine [Allergy Relief (loratadine)] 10 MG tablet 10 mg PO QHS RF: 0 furosemide 20 MG tablet 20 mg PO DAILY RF: 0 diphenhydramine HCl [Benadryl Allergy] 25 MG tablet 50 mg PO QHS RF: 0 omeprazole 40 MG capsule,delayed release(DR/EC) 40 mg PO BID RF: 0 nitroglycerin 0.4 MG tablet, sublingual 0.4 mg sublingual PRN PRN (Reason: chest pain) RF: 0 Spiriva Respimat 4 GM mist 2 puff inhalation DAILY RF: 0 aspirin 81 MG tablet,chewable 81 mg PO DAILY@0800 RF: 0 promethazine 25 MG tablet 50 mg PO Q6H PRN PRN (Reason: Nausea) RF: 0 sumatriptan succinate 50 MG tablet 100 mg PO .X1 PRN RF: 0 famotidine 20 MG tablet 20 mg PO QHS RF: 0 topiramate 50 MG tablet 50 mg PO QHS RF: 0 cyclobenzaprine 10 MG tablet 10 mg PO TID PRN (Reason: Muscle Spasm) Qty: 20 RF: 0 sucralfate 1 gram tablet 1 g PO BID RF: 0 prednisone 20 mg tablet 60 mg PO DAILY Qty: 15 RF: 0 ibuprofen 600 mg tablet 600 mg PO Q8H PRN PRN (Reason: quinonez) Qty: 20 RF: 0 Primary Care Provider: Baldo Otto Referrals: Baldo Otto MD [Primary Care Provider] - 3-5 Days Disposition Disposition: Home, Self Care Discharge Date/Time: 02/06/21 22:18
[2021-02-06] MEDS: 0.9% Normal Saline 1,000 ML 999 ML IV (19:14)
[2021-02-06] MEDS: Metoclopramide 10 MG/2 ML Vial IV (19:14)
[2021-02-06] MEDS: DiphenhydrAMINE 50 MG/ML Syringe 25 MG IV (19:14)
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
[2021-02-06 20:42] VITALS: BP 107/62; PULSE 58; RESP 16; O2SAT 99
[2021-02-06 22:15] VITALS: BP 140/82; PULSE 69; RESP 16; O2SAT 98
== END 2021-02-06 22:18 | disposition home or self-care (01) ==
PROVIDERS: Emergency Provider Emergency Medicine; PCP Family Medicine
DX: R51.9 Headache, unspecified (principal); R11.0 Nausea; R20.2 Paresthesia of skin; H53.8 Other visual disturbances; I10 Essential (primary) hypertension; I48.91 Unspecified atrial fibrillation; J44.9 Chronic obstructive pulmonary disease, unspecified; F32.A Depression, unspecified; E11.9 Type 2 diabetes mellitus without complications; F20.9 Schizophrenia, unspecified; G47.30 Sleep apnea, unspecified; Z86.73 Personal history of transient ischemic attack (TIA), and cerebral infarction without residual deficits; Z87.442 Personal history of urinary calculi; Z79.82 Long term (current) use of aspirin; Z79.899 Other long term (current) drug therapy; Z87.891 Personal history of nicotine dependence
CPT/HCPCS: 70450; 71045; 96361; 96374; 96375; 99284; J7030

== ENCOUNTER 2022-04-19 21:55 | Emergency (ER) | payer MEDICARE, MEDICAID, SELFPAY ==
[2022-04-19 21:55] VITALS: BP 162/83; PULSE 87; RESP 18; TEMP 35.9; BMI 39.2
--- NOTE | 2022-04-19 22:09 | EX.ED.VIS.HA ---
HPI History of Present Illness Chief Complaint: Headache Informant: patient Narrative Narrative: 3-day history intermittent frontal headache. Photo and phonophobia. Positive aura. History of migraines. He is on Topamax for prevention. Also has Maxalt he has been using this last dose this morning states relief however comes back. Denies fevers or recent head injuries. He states is been a few years since he has been in the emergency room and gets the cocktail including Toradol that helps his symptoms. He does report he is on Eliquis for history of DVT and paroxysmal atrial fibrillation. He states 2 MIs in the past however no coronary stents this is caths were all normal. Prior similar symptoms: Yes PFSH PFSH Medical History Asthma Atrial fibrillation BiPAP (biphasic positive airway pressure) dependence COPD (chronic obstructive pulmonary disease) Depression Diabetes Former smoker Hypertension Kidney stones Schizophrenia Sleep apnea TIA (transient ischemic attack) Home Medications losartan 50 mg tablet 50 mg PO DAILY blood pressure 06/14/14 [History Last Taken 09/09/18] metoprolol tartrate 100 mg tablet 150 mg PO BID blood pressure 06/14/14 [History Last Taken 09/09/18] montelukast 10 mg tablet 10 mg PO QHS allergies 06/14/14 [History Last Taken 09/08/18] paliperidone palmitate 234 mg/1.5 mL intramuscular syringe (Invega Sustenna) 234 mg IM Q30D MENTAL HEALTH 09/13/16 [History Last Taken 09/06/18] loratadine 10 mg tablet (Allergy Relief (loratadine)) 10 mg PO QHS ALLERGIES 02/05/17 [History Last Taken 09/08/18] diphenhydramine HCl 25 mg tablet (Benadryl Allergy) 50 mg PO QHS SNORING 11/05/17 [History Last Taken 09/08/18] aspirin 81 mg chewable tablet 81 mg PO DAILY@0800 heart health 05/31/18 [History Last Taken 09/09/18] nitroglycerin 0.4 mg sublingual tablet 0.4 mg sublingual PRN PRN chest pain 05/31/18 [History Last Taken Unknown] omeprazole 40 mg capsule,delayed release 40 mg PO BID gerd 05/31/18 [History Last Taken 09/09/18] tiotropium bromide 2.5 mcg/actuation mist for inhalation (Spiriva Respimat) 2 puff inhalation DAILY copd 05/31/18 [History Last Taken 09/09/18] promethazine 25 mg tablet 50 mg PO Q6H PRN PRN Nausea 09/02/18 [History Last Taken 09/08/18] sumatriptan succinate 50 mg tablet 100 mg PO .X1 PRN headache 09/09/18 [History Last Taken 09/09/18] famotidine 20 mg tablet 20 mg PO QHS GERD 02/23/19 [History Last Taken Unknown] cyclobenzaprine 10 mg tablet 10 mg PO TID PRN Muscle Spasm #20 tabs 08/06/19 [Rx Last Taken Unknown] topiramate 50 mg tablet 50 mg PO QHS 08/06/19 [History Last Taken Unknown] sucralfate 1 gram tablet 1 g PO BID 12/01/19 [History Last Taken Unknown] prednisone 20 mg tablet 60 mg PO DAILY #15 tabs 10/30/20 [Rx Last Taken Unknown] ibuprofen 600 mg tablet 600 mg PO Q8H PRN PRN quinonez #20 TABLETS 12/09/20 [Rx Last Taken Unknown] rizatriptan 10 mg tablet (Maxalt) 10 mg PO Q2H PRN migraines breakthrough 04/19/22 [History Last Taken Unknown] Allergy/AdvReac Type Severity Reaction Status Date / Time clopidogrel [From Plavix] Allergy Rash Verified 02/06/21 16:31 enalapril maleate Allergy Hives Verified 02/06/21 16:31 [From Vasotec] enalaprilat dihydrate Allergy Hives Verified 02/06/21 16:31 [From Vasotec] naproxen [From Naprosyn] Allergy Hives Verified 02/06/21 16:31 Sulfa (Sulfonamide Allergy Hives Verified 02/06/21 16:31 Antibiotics) hydrocodone [From Vicodin] AdvReac Rash Verified 02/06/21 16:31 risperidone [From Risperdal] AdvReac HALLUCINATI Verified 02/06/21 16:31 ONS Surgical History History of appendectomy History of cholecystectomy Hx of cardiac catheterization Social History Smoking Status: Former smoker ROS ROS ED Constitutional Constitutional ED: Denies chills, fever(s) or sweats Eyes Eyes: Denies change in vision ENT ENT ED: Denies dysphagia or sore throat Cardiovascular Cardiovascular: Denies chest pain, leg edema, palpitations or racing heartbeat Respiratory/Chest Respiratory/Chest: Denies cough, dyspnea or dyspnea on exertion Gastrointestinal Gastrointestinal: Reports nausea; Denies abdominal pain, diarrhea or vomiting Genitourinary Genitourinary ED: Denies dysuria, hematuria or urinary frequency Musculoskeletal Musculoskeletal: Denies back pain, extremity pain or neck pain Integumentary Denies rash or wounds Neurologic Neurologic: Reports headache(s); Denies paresthesias or weakness EXAM Physical Exam Const Vital Signs: 04/19/22 21:55 04/19/22 21:55 Temperature 96.7 F L 96.7 F L Temperature Source Temporal Temporal Pulse Rate 87 87 Respiratory Rate 18 18 Blood Pressure 162/83 H 162/83 H Blood Pressure Mean 109 109 Positive well nourished and well developed General Appearance ED: well developed and NAD HEENT Reports moist mucous membranes normocephalic and atraumatic Eyes PERRL, EOMs intact bilaterally and conjunctivae normal General Eye ED: Yes normal appearance of both eyes Neck no lymphadenopathy, supple and no meningeal signs General: Negative for tenderness Chest Wall Chest: Negative for tenderness Resp normal respiratory effort and normal air movement Effort and Inspection: symmetric chest movement; Negative for respiratory distress Cardio regular rate, regular rhythm and no murmurs Peripheral Pulses: pulses 2+ throughout GI normal to inspection, nondistended, normoactive bowel sounds and non-tender Palpation: Negative for guarding or rebound tenderness present Back/Spine no CVA tenderness and no thoracic nor lumbar tenderness Extremity normal to inspection General Extremety ED: Negative for edema or tenderness General Extremity: Negative for edema Neuro oriented x3, CN's II-XII intact bilaterally and no sensory deficits noted Sensorium / Orientation: awake and alert Skin no rashes or lesions noted and no wounds MDM MDM MDM Narrative Medical decision making narrative: Presenting migraine headache symptoms. Differentials migraine headache, lower clinical suspicion for any meningitis. He has no meningismus. No focal deficits. Patient will be treated with migraine cocktail with fluids Reglan Benadryl and Toradol. Will reevaluate. Patient reevaluated improving symptoms. Clinically stable for home. Return precautions. All questions were answered. Discharge Plan Triage Chief Complaint: Headache ED Provider: Tong Agudelo Dx/Rx/DC Orders Clinical Impression: Headache, migraine, Obstructive sleep apnea of adult, DM type 2 (diabetes mellitus, type 2) Instructions: Migraine Triggers Prescriptions: No Action losartan 50 MG tablet 50 mg PO DAILY metoprolol tartrate 100 MG tablet 150 mg PO BID montelukast 10 MG tablet 10 mg PO QHS Invega Sustenna 234 MG/1.5 ML syringe 234 mg IM Q30D loratadine [Allergy Relief (loratadine)] 10 MG tablet 10 mg PO QHS diphenhydramine HCl [Benadryl Allergy] 25 MG tablet 50 mg PO QHS omeprazole 40 MG capsule,delayed release(DR/EC) 40 mg PO BID nitroglycerin 0.4 MG tablet, sublingual 0.4 mg sublingual PRN PRN (Reason: chest pain) Label Comments: DISSOLVE 1 TABLET UNDER THE TONGUE EVERY 5 MINUTES NEEDED. FOR CHEST PAIN. IF NO RELIEF CALL 911 Spiriva Respimat 4 GM mist 2 puff inhalation DAILY aspirin 81 MG tablet,chewable 81 mg PO DAILY@0800 promethazine 25 MG tablet 50 mg PO Q6H PRN PRN (Reason: Nausea) sumatriptan succinate 50 MG tablet 100 mg PO .X1 PRN famotidine 20 MG tablet 20 mg PO QHS topiramate 50 MG tablet 50 mg PO QHS cyclobenzaprine 10 MG tablet 10 mg PO TID PRN (Reason: Muscle Spasm) Qty: 20 0RF sucralfate 1 gram tablet 1 g PO BID prednisone 20 mg tablet 60 mg PO DAILY Qty: 15 0RF ibuprofen 600 mg tablet 600 mg PO Q8H PRN PRN (Reason: quinonez) Qty: 20 0RF rizatriptan [Maxalt] 10 mg Tablet 10 mg PO Q2H PRN (Reason: migraines breakthrough) Rx Instructions: do not exceed 3 doses per 24 hrs Primary Care Provider: Baldo Otto Referrals: Baldo Otto MD [Primary Care Provider] - 1 Week Disposition Disposition: Home, Self Care Discharge Date/Time: 04/19/22 23:11
[2022-04-19] MEDS: 0.9% Normal Saline 1,000 ML 999 ML IV (22:31)
[2022-04-19] MEDS: Metoclopramide 10 MG/2 ML Vial IV (22:32)
[2022-04-19] MEDS: DiphenhydrAMINE 50 MG/ML Syringe 25 MG IV (22:32)
[2022-04-19] MEDS: Ketorolac 15 MG/ML Vial IV (22:32)
== END 2022-04-19 23:11 | disposition home or self-care (01) ==
PROVIDERS: Emergency Provider Emergency Medicine; PCP Family Medicine; Visit Provider Emergency Medicine
DX: G43.909 Migraine, unspecified, not intractable, without status migrainosus (principal); J44.9 Chronic obstructive pulmonary disease, unspecified; E11.9 Type 2 diabetes mellitus without complications; G47.33 Obstructive sleep apnea (adult) (pediatric); Z87.891 Personal history of nicotine dependence; I10 Essential (primary) hypertension; Z86.718 Personal history of other venous thrombosis and embolism; Z79.01 Long term (current) use of anticoagulants; Z99.89 Dependence on other enabling machines and devices; Z79.899 Other long term (current) drug therapy; Z79.82 Long term (current) use of aspirin
CPT/HCPCS: 96374; 96375; 99283; A4216

== ENCOUNTER 2024-06-08 20:08 | Emergency (ER) | payer MEDICARE, MEDICAID, SELFPAY ==
[2024-06-08 20:10] VITALS: BP 167/82; PULSE 82; RESP 18; TEMP 36.3; O2SAT 99; BMI 36.0
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
[2024-06-08] MEDS: traMADol 50 MG Tablet PO (20:27)
--- NOTE | 2024-06-08 20:40 | RAD_ITS ---
PROCEDURE: Right elbow radiographs REASON FOR EXAM: INJURY TECHNIQUE: Three views of the right elbow COMPARISON: None FINDINGS: See impression RAD/Elbow min 3 Views IMPRESSION: Negative for fracture or malalignment. No sizeable joint effusion. Posterior olecranon enthesopathy. [facility]
[2024-06-08 21:12] VITALS: BP 132/74; PULSE 76; RESP 18; TEMP 36.7; O2SAT 100
== END 2024-06-08 21:13 | disposition home or self-care (01) ==
PROVIDERS: Emergency Provider Emergency Medicine; PCP Family Medicine; Visit Provider Emergency Medicine
DX: S50.11XA Contusion of right forearm, initial encounter (principal); J44.9 Chronic obstructive pulmonary disease, unspecified; I48.0 Paroxysmal atrial fibrillation; E11.9 Type 2 diabetes mellitus without complications; I10 Essential (primary) hypertension; Z87.891 Personal history of nicotine dependence; Z79.01 Long term (current) use of anticoagulants; Z86.73 Personal history of transient ischemic attack (TIA), and cerebral infarction without residual deficits; G47.30 Sleep apnea, unspecified; Z99.81 Dependence on supplemental oxygen; W50.1XXA Accidental kick by another person, initial encounter; Y93.89 Activity, other specified; Z79.899 Other long term (current) drug therapy; Z90.49 Acquired absence of other specified parts of digestive tract
CPT/HCPCS: 73080; 99282

== ENCOUNTER 2024-07-27 10:31 | Emergency (ER) | payer MEDICARE, MEDICAID, SELFPAY ==
[2024-07-27 10:32] VITALS: BP 138/80; PULSE 71; RESP 15; TEMP 35.8; O2SAT 100; BMI 35.4
== END 2024-07-27 11:23 | disposition left against medical advice (07) ==
LOC: ED 11:29
PROVIDERS: PCP Family Medicine
DX: Z00.00 Encounter for general adult medical examination without abnormal findings (principal)